=== PATIENT | male | born 1930 | race Caucasian/White ===

== ENCOUNTER 2016-12-12 12:44 | Emergency (ER) | payer OTHER ==
[~2016-12-12] VITALS: Ht 165.1 cm; Wt 64.4 kg
[~2016-12-12 12:44] MED LIST: ADVAIR 250-501 EACH INH; ALBUTEROL2.5 MG/3 M INH/SOL; ALENDRONATE SOD70 M2 PO; ASPIRIN81 M4 PO; ATORVASTATIN CA20 M1 PO; BACITRACIN28.4 GM TD; CEFTIN500 M1 PO; CIPRO500 M1 PO; DAILY MULTIPLE1 EACH PO; FOLIC ACID1 M1 PO; FUROSEMIDE20 M1 PO; GEMFIBROZIL600 M1 PO; LASIX40 M1 PO; LEVAQUIN500 M1 PO; LIDOCAINE HCL V15 ML TOP; METAMUCIL660 GM PO; METHOTREXATE2.5 M2 PO; OMEPRAZOLE20 M2 PO; PREDNISONE10 M2 PO; PREDNISONE5 M1 PO; PROAIR HFA8.5 GM INH; SPIRIVA18 MCG INH; VITAMIN D3400 UNI1 PO; VITAMIN D400 UNI2 PO; ZITHROMAX TRI-500 M1 PO; ZITHROMAX500 M2 PO
--- NOTE | 2016-12-12 13:37 | ED MVC/FALL/TRAUMA COMPLAINT ---
History of Present Illness General Chief Complaint: Fall Stated Complaint: BIBA, FALL Source: patient Exam Limitations: no limitations Vital Signs & Intake/Output Vital Signs & Intake/Output Vital Signs Date Time Temp Pulse Resp B/P Pulse O2 O2 Flow FiO2 Ox Delivery Rate 12/12 1248 96.4 58 18 130/59 95 Nasal 3.0L Cannula Allergies Coded Allergies: NO KNOWN ALLERGIES (04/23/12) Reconcile Medications Albuterol Sulfate (Proair Hfa) 8.5 GM HFA.AER.AD 2 PUF INH Q4H PRN COPD ( Reported) Albuterol Sulfate 2.5 MG/3 ML VIAL.NEB 1 Vial INH/ANKUR Q4P PRN COPD EXACERBATION Alendronate Sodium 70 MG TABLET 1 TAB PO QTHURS bone health (Reported) in the morning, at least 30 minutes before the first food, beverage, or medication of the day Aspirin (Aspirin*) 81 MG TAB.CHEW 1 TAB PO DAILY HEART HEALTH (Reported) Atorvastatin Calcium 20 MG TABLET 1 TAB PO DAILY CHOLESTEROL (Reported) Cholecalciferol (Vitamin D3) (Vitamin D) 400 UNIT TABLET 1 TAB PO DAILY SUPPLEMENT (Reported) Folic Acid 1 MG TABLET 1 TAB PO DAILY supplement (Reported) Furosemide (Lasix) 40 MG TABLET 1 TAB PO BID WATER PILL Hydrocodone/Acetaminophen ([place] 5-325 Tablet) 5 MG-325 MG TABLET 1 TAB PO Q6P PRN PAIN Levofloxacin (Levaquin) 500 MG TABLET 1 TAB PO DAILY pneumonia Multivitamin (Daily Multiple Vitamin) 1 EACH TABLET 1 TAB PO DAILY SUPPLEMENT (Reported) Omeprazole 20 MG CAPSULE.DR 1 CAP PO DAILY GI protection (Reported) Prednisone 5 MG TABLET 2 TAB PO DAILY COPD/ARTHRITIS (Reported) Psyllium Husk (Metamucil) 660 GM POWDER 1 PAC PO PRN CONSTIPATION (Reported) Tiotropium [place] (Spiriva) 18 MCG CAP.W.DEV 1 CAP INH DAILY COPD (Reported) Triage Note: PT BIBA FROM HOME. STATES HE ROLLED OUT OF BED LAST NIGHT INJURING LEFT LOWER BACK AND RIBS. PT DENIES LOC, DENIES HITTING HEAD, DENIES BLOOD THINNERS. PT IS A&O X3, O2 DEPENDENT Triage Nurses Notes Reviewed? yes HPI: Patient presents for evaluation of left rib pain status post fall. Patient states he had a sudden onset of left lateral rib pain after falling out of his bed at about 2 to 3:00 in the morning. He states he hit his left chest on a dresser. Since then he has had a constant sharp stabbing pain that gets worse with deep inspiration and palpation. He tried Tylenol without relief. He denies any associated ecchymoses soft tissue swelling or dyspnea. He denies any other injury at this time. Past History Travel History Traveled to [place] past 21 day No Medical History Any Pertinent Medical History? see below for history Neurological: NONE EENT: NONE Cardiovascular: CAD, CHF, hyperlipidemia, NSTEMI Respiratory: bronchitis, COPD, emphysema, pneumonia Gastrointestinal: colitis, hiatal hernia, peptic ulcer disease, upper GI bleed, C. 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 Other Medical Hx: SIADH History of MRSA: Yes Active MRSA Infection: No History of VRE: No History of CDIFF: Yes Active CDIFF Infection: No Isolation History: Contact Pneumonia Vaccine: 09/08/07 Influenza Vaccine: 07/31/16 Surgical History Surgical History: HIATIAL HERNIA RIGHT ROTATOR CUFF Psychosocial History Who do you live with Family Services at Home None What is your primary language Nigerien Tobacco Use: Never used ETOH Use: occasional use Illicit Drug Use: denies illicit drug use Family History Family History, If Any: MOTHER Relation not specified for: FH: diabetes mellitus Hx Contributory? No Review of Systems Review of Systems Constitutional: Reports: no symptoms. Eyes: Reports: no symptoms. Ears, Nose, Throat, Mouth: Reports: no symptoms. Respiratory: Reports: no symptoms. Cardiovascular: Reports: no symptoms. Gastrointestinal/Abdominal: Reports: no symptoms. Genitourinary: Reports: no symptoms. Musculoskeletal: Reports: see HPI. Skin: Reports: no symptoms. Neurological/Psychological: Reports: no symptoms. All Other Systems: Reviewed and Negative Physical Exam Physical Exam General Appearance: see below Comments: Gen.: Well-nourished, well-developed, no acute respiratory distress. Head: Normocephalic, atraumatic, nontender. Eyes: Normal inspection bilaterally, markel, EOMI Ears: Normal inspection bilaterally Nose: Normal inspection Throat/mouth : Moist mucosa Neck: Supple, full range of motion, no goiter, nontender Heart: Regular rate and rhythm, no murmurs rubs or gallops Lungs: Clear to auscultation bilaterally with normal air entry Chest: Left lateral rib tenderness without crepitus or subcutaneous emphysema Back: Normal range of motion, nontender Abdomen: Soft, nontender, nondistended, normal bowel sounds Pelvis: Stable and nontender Extremities: Normal range of motion grossly, no tenderness or pain with range of motion Neurologic: Cranial nerves grossly intact, speech is clear Skin: warm and dry and without ecchymoses or soft tissue swelling or erythema Psychiatric: Calm, cooperative, no apparent delusions or hallucinations Core Measures ACS in differential dx? No Severe Sepsis Present: No Septic Shock Present: No Progress Differential Diagnosis: rib fracture, chest contusion, intercostal muscle strain , pneumothorax Plan of Care: Current Medications Sig/Jorgito Start time Last Medication Dose Stop Time Status Admin Acetaminophen/ 1 TAB ONCE ONE 12/12 1500 UNVr Hydrocodone Bitart 12/12 1501 (Vicodin) Diagnostic Imaging: Discussed w/RAD: Radiology Read. Radiology Impression: PATIENT: SAPNA WERNER PRESENT AGE: 86 PATIENT ACCOUNT NO: [id number] : 32 LOCATION: [facility] ORDERING PHYSICIAN: ZACK LARSEN MD SERVICE DATE: 12/12/16 EXAM TYPE: RAD - XRY-RIBS UNILATERAL-LEFT EXAMINATION: XR RIBS, LEFT CLINICAL INFORMATION: 86- year-old male patient experienced trauma. Left lateral rib tenderness. COMPARISON: CT of the chest on 11/17/2016. Chest x-ray on 12/10/2016. TECHNIQUE: PA erect view of the chest with 3 additional views targeted to the left rib cage. A BB marker was placed at the site of symptomatology, posterior aspect of the left upper quadrant of the abdomen. FINDINGS: Linear fibrotic stranding is seen in the left upper lobe extending from the region of the hilum to the pleural reflection. This linear presumed scarring was not present on the chest x -rays of 08/21/2016 and 09/14/2016. However, there has been gradual clearing of the additional opacities in the left upper lobe apical segment. Nevertheless, the two spiculated nodules demonstrated on the recent CT exam, in the left upper lobe are difficult to perceive on the plain film. There is no pneumothorax or hemothorax. Reticular opacities in the lower lobes are felt to be chronic. Numerous old healed rib fractures involve the anterior aspects of the right ribs. An old healed rib fracture involves the anterolateral aspect of the left fifth rib. No acute rib fractures are appreciated. IMPRESSION: 1. No acute rib fractures. Multiple old healed rib fractures. 2. Linear scarring, left upper lobe. 3. The 2 spiculated nodules located in the left upper lobe demonstrated on the CT exam of 11/17/2016 are difficult to perceive on this exam. DICTATED BY: CLARISSE SMILEY MD DATE/TIME DICTATED:12/12/161426 AITCHBONE BREAKER: ISAAK DATE/TIME TRANSCRIBED:12/12/161426 CONFIDENTIAL, DO NOT COPY WITHOUT APPROPRIATE AUTHORIZATION. <Electronically signed in Other Vendor System> SIGNED BY: CLARISSE SMILEY MD 12/12/16 1441 Departure Departure Disposition: HOME OR SELF CARE Condition: Stable Clinical Impression Primary Impression: Contusion of left chest wall Qualifiers: Encounter type: initial encounter Qualified Code: S20.212A - Contusion of left front wall of thorax, initial encounter Secondary Impressions: Intercostal muscle strain Qualifiers: Encounter type: initial encounter Qualified Code: S29.011A - Strain of muscle and tendon of front wall of thorax, initial encounter Referrals: CHANTALE HUBBARD,SAPNA Manzano (PCP/Family) Additional Instructions: Rest, no exertion or heavy lifting. Vicodin as needed for pain. Follow-up with your primary care doctor next week if not improved. Return if any concerns or sudden worsening. Please note that there might be incidental findings in your evaluation that are unrelated to the current emergency department visit. Please notify your primary care doctor about this emergency department visit in order to obtain and review all of the testing performed so that these incidental findings can be monitored as needed. If you had an x-ray performed, please understand that some fractures may not be seen on the initial set of x-rays. If your symptoms persist you might need a repeat set of x-rays to check for such a fracture. If you had a laceration evaluated, please understand that foreign bodies such as glass or wood may not be visible to the naked eye or on plain x-rays. If the wound becomes red, swollen, increasingly more painful or if there is any drainage from the wound, please have it reevaluated by a physician for the possibility of a retained foreign body. Thank you for choosing the [facility] Emergency Department for your care. It was a pleasure to serve you today. Zack Larsen M.D. [facility] Departure Forms: Customer Survey General Discharge Information Prescriptions: Current Visit Scripts Hydrocodone/Acetaminophen ([place] 5-325 Tablet) 1 TAB PO Q6P PRN PAIN #12 TAB
--- NOTE | 2016-12-12 14:41 | RADIOLOGY REPORT ---
EXAMINATION: XR RIBS, LEFT CLINICAL INFORMATION: 86-year-old male patient experienced trauma. Left lateral rib tenderness. COMPARISON: CT of the chest on 11/17/2016. Chest x-ray on 12/10/2016. TECHNIQUE: PA erect view of the chest with 3 additional views targeted to the left rib cage. A BB marker was placed at the site of symptomatology, posterior aspect of the left upper quadrant of the abdomen. FINDINGS: Linear fibrotic stranding is seen in the left upper lobe extending from the region of the hilum to the pleural reflection. This linear presumed scarring was not present on the chest x-rays of 08/21/2016 and 09/14/2016. However, there has been gradual clearing of the additional opacities in the left upper lobe apical segment. Nevertheless, the two spiculated nodules demonstrated on the recent CT exam, in the left upper lobe are difficult to perceive on the plain film. There is no pneumothorax or hemothorax. Reticular opacities in the lower lobes are felt to be chronic. Numerous old healed rib fractures involve the anterior aspects of the right ribs. An old healed rib fracture involves the anterolateral aspect of the left fifth rib. No acute rib fractures are appreciated. IMPRESSION: 1. No acute rib fractures. Multiple old healed rib fractures. 2. Linear scarring, left upper lobe. 3. The 2 spiculated nodules located in the left upper lobe demonstrated on the CT exam of 11/17/2016 are difficult to perceive on this exam.
[2016-12-12] MEDS ORDERED: NORCO 5-325 TA1 EACH PO (14:57)
[2016-12-12 15:41] VITALS: BP 124/74
== END 2016-12-12 15:42 ==
LOC: ERH 12:44
DX: S20.212A Contusion of left front wall of thorax, initial encounter (principal); S29.011A Strain of muscle and tendon of front wall of thorax, initial encounter; R07.81 Pleurodynia; W06.XXXA Fall from bed, initial encounter
CPT/HCPCS: 71100-LT

== ENCOUNTER 2016-12-15 08:42 | Inpatient (IN) | payer OTHER ==
[~2016-12-15] VITALS: Ht 165.1 cm; Wt 63.0 kg
[~2016-12-15 08:42] MED LIST changes: +NORCO 5-325 TA1 EACH PO
--- NOTE | 2016-12-15 08:45 | ED DYSPNEA/ASTHMA COMPLAINT ---
History of Present Illness General Chief Complaint: Dyspnea (COPD, CHF, Other) Stated Complaint: SOB Source: patient, old records, EMS Exam Limitations: clinical condition Vital Signs & Intake/Output Vital Signs & Intake/Output Vital Signs Date Time Temp Pulse Resp B/P Pulse O2 O2 Flow FiO2 Ox Delivery Rate 12/23 1110 92 110/60 12/23 0840 Nasal 3.0L Cannula 12/23 0655 98.4 92 20 110/60 96 Nasal 3.0L Cannula 12/22 2322 97 Nasal 3.0L Cannula 12/22 2230 98.6 93 20 112/62 97 Nasal 3.0L Cannula 12/22 2122 70 122/68 12/22 1625 98 Nasal 3.0L Cannula 12/22 1614 98.4 64 20 110/54 99 12/22 1536 95 Nasal 3.0L Cannula 12/22 1414 97.4 68 20 128/60 ED Intake and Output 12/23 0000 12/22 1200 Intake Total 820 120 Output Total 925 Balance -105 120 Intake, Oral 820 120 Output, Urine 925 Allergies Coded Allergies: NO KNOWN ALLERGIES (04/23/12) Reconcile Medications Albuterol Sulfate (Proair Hfa) 8.5 GM HFA.AER.AD 2 PUF INH Q4H PRN COPD ( Reported) Albuterol Sulfate 2.5 MG/3 ML VIAL.NEB 1 Vial INH/ANKUR Q4P PRN COPD EXACERBATION Alendronate Sodium 70 MG TABLET 1 TAB PO QTHURS bone health (Reported) in the morning, at least 30 minutes before the first food, beverage, or medication of the day Aspirin (Aspirin*) 81 MG TAB.CHEW 1 TAB PO DAILY HEART HEALTH (Reported) Atorvastatin Calcium 20 MG TABLET 1 TAB PO DAILY CHOLESTEROL (Reported) Cholecalciferol (Vitamin D3) (Vitamin D) 400 UNIT TABLET 1 TAB PO DAILY SUPPLEMENT (Reported) Fluticasone/Salmeterol (Advair 250-50 Diskus) 250 MCG-50 MCG/DOSE BLST.W.DEV 1 PUF INH BID BREATHING PROBLEMS (Reported) Folic Acid 1 MG TABLET 1 TAB PO DAILY supplement (Reported) Furosemide (Lasix) 40 MG TABLET 1 TAB PO DAILY CHF Meropenem 1 GRAM VIAL 1 GM IV Q8H PNEUMONIA Multivitamin (Daily Multiple Vitamin) 1 EACH TABLET 1 TAB PO DAILY SUPPLEMENT (Reported) Omeprazole 20 MG CAPSULE.DR 1 CAP PO DAILY GI protection (Reported) Prednisone 5 MG TABLET 2 TAB PO DAILY COPD/ARTHRITIS (Reported) Prednisone 10 MG TABLET 1 TAB PO SEE ADMIN CRITERIA COPD /RHEUMATOID ARTHRITIS take 2 pills x 2 days then continue with 1 pill(1 tab ) daily for RA Psyllium Husk (Metamucil) 660 GM POWDER 1 PAC PO PRN CONSTIPATION (Reported) Tiotropium [place] (Spiriva) 18 MCG CAP.W.DEV 1 CAP INH DAILY COPD (Reported) Triage Nurses Notes Reviewed? yes Onset: Abrupt Duration: hour(s): (E), worse persistent since (THIS MORNING) Timing: single episode today Severity: severe Activities at Onset: none Associated Symptoms: cough, wheezing, SPUTUM HPI: This is an 86-year-old male with history of COPD, CHF and presents by EMS from home for respiratory distress. Patient states that the symptoms started this morning. He admits to cough with yellow phlegm for a few days. Denies any fever chills or chest pain. He was given a DuoNeb and IV Solu-Medrol on route. Patient presents tachypneic, tachycardic in respiratory distress with use of accessory muscles. Able to only give one word answers at this time. ED Sepsis Exam Date of Focused Sepsis Exam: 12/15/16 Time of Focused Sepsis Exam: 1001 Sepsis Cardiac Exam: Tachycardia Sepsis Resp Exam: Rales Sepsis Cap Refill Exam: <2 Sec Sepsis Peripheral Pulse Exam: Weak Sepsis Peripheral Pulse Location: Radial Sepsis Skin Color Exam: Cyanotic Skin Temp/Moisture Exam: Cool/Dry Past History Medical History Any Pertinent Medical History? see below for history Neurological: NONE EENT: NONE Cardiovascular: CAD, CHF, hyperlipidemia, NSTEMI Respiratory: bronchitis, COPD, emphysema, pneumonia Gastrointestinal: colitis, hiatal hernia, peptic ulcer disease, upper GI bleed, C. 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 No Review of Systems Review of Systems Constitutional: Denies: chills, fever. EENTM: Reports: no symptoms. Respiratory: Reports: cough, short of breath, sputum production, wheezing. Cardiovascular: Denies: chest pain, palpitations. GI: Denies: abdominal pain, nausea, vomiting. Genitourinary: Denies: discharge, dysuria. Musculoskeletal: Reports: no symptoms. Skin: Reports: see HPI. Neurological/Psychological: Reports: anxiety. Hematologic/Endocrine: Denies: bruising, bleeding, polyuria, polydipsia. Immunologic/Allergic: Denies: splenectomy. All Other Systems: Reviewed and Negative Physical Exam Physical Exam General Appearance: well developed/nourished, alert, awake Head: atraumatic, normal appearance Eyes: Bilateral: normal appearance, PERRL, pale conjunctivae. Ears, Nose, Throat: normal pharynx Neck: normal inspection, supple, full range of motion Respiratory: decreased breath sounds, accessory muscle use, wheezing, respiratory distress Cardiovascular: tachycardia Peripheral Pulses: 2+ radial (R), 2+ radial (L) Extremities: normal inspection, normal capillary refill, normal range of motion, no edema Neurologic/Psych: awake, alert, ANXIOUS Skin: intact, normal color, warm/dry Core Measures ACS in differential dx? No Severe Sepsis Present: No Septic Shock Present: No Progress Differential Diagnosis: AMI, CHF, COPD, pericarditis, pulmonary embolism, pneumothorax Plan of Care: Orders Procedure Date/time Status Therapeutic Activities 12/23 UNK Complete Gait Training 12/23 UNK Complete Discharge Patient 12/23 UNK Active CHEST PHYSICAL THERAPY CHG 12/22 UNK Complete AEROSOL CHG 12/22 UNK Complete OXYGEN 12/22 UNK Complete OXYGEN DAILY CHARGE 12/22 UNK Complete MISSING MEDICATION FORM 12/22 UNK Active Current Medications Sig/Jorgito Start time Last Medication Dose Stop Time Status Admin Prednisone 20 MG DAILY 12/24 1000 AC Magnesium Hydroxide 30 ML ONE PRN 12/18 0745 AC (Milk Of Magnesia) Senna/Docusate Sodium 1 TAB BID PRN 12/18 0745 AC (Senokot S) Hydromorphone HCl 0.5 MG Q4P PRN 12/17 0815 AC (Dilaudid) Albuterol Sulfate 2 PUF Q4H PRN 12/15 1200 AC (Ventolin) Albuterol Sulfate 3 ML Q4P PRN 12/15 1200 AC (Proventil) Psyllium Hydrophilic 1 PAC BID PRN 12/15 1200 AC Mucilloid (Metamucil Sugar Free) Laboratory Tests 12/23/16 0845: Anion Gap 4 L, Estimated GFR > 60, BUN/Creatinine Ratio 28.8 H, CBC w Diff NO MAN DIFF REQ, RBC 3.91 L, MCV 82.6, MCH 27.3, RDW 18.5 H, MPV 7.0 L, Gran % 69.3, Lymphocytes % 25.3, Monocytes % 4.5, Eosinophils % 0.6, Basophils % 0.3, Absolute Granulocytes 7.1 H, Absolute Lymphocytes 2.6, Absolute Monocytes 0.5, Absolute Eosinophils 0.1, Absolute Basophils 0, PUBS MCHC 33.0 Diagnostic Imaging: Viewed by Me: Radiology Read. Discussed w/RAD: Radiology Read. CXR Impression: PATIENT: SAPNA WERNER PRESENT AGE: 86 PATIENT ACCOUNT NO: [id number] : 32 LOCATION: [facility] ORDERING PHYSICIAN: ABRAHAN COOL MD SERVICE DATE: 12/15/16 EXAM TYPE: RAD - XRY-PORTABLE CHEST XRAY EXAMINATION: XR PORTABLE CHEST CLINICAL INFORMATION: Dyspnea. Labored breathing. Rule out congestive heart failure. COMPARISON: Chest x-ray of 2016, 12/10/2016, 11/12/2016. CT chest 11/17/2016. TECHNIQUE: Semiupright portable AP view of the chest was acquired at 70 degrees upright. FINDINGS: The lungs are hyperinflated. Diffuse emphysematous changes are better seen on the chest CT. There are new patchy and interstitial opacities at the right lung base. No significant pleural effusions or pneumothorax. No evidence of changes of overt pulmonary edema. There are bilateral healed rib fractures. The cardiomediastinal silhouette is stable with cardiomegaly. IMPRESSION: 1. Changes of emphysema. 2. New patchy and interstitial opacities at the right lung base. 3. Cardiomegaly. No evidence of changes of overt pulmonary edema. DICTATED BY: DARSHANA HUBBARD,ANAL DATE/TIME DICTATED:12/15/16951 ELECTRICAL SIGN WIRER HELPER:ISAAK DATE/TIME TRANSCRIBED:12/15/16 0952 CONFIDENTIAL, DO NOT COPY WITHOUT APPROPRIATE AUTHORIZATION. <Electronically signed in Other Vendor System> SIGNED BY: IRA GILLILAND MD 12/15/16 1008 Initial ED EKG: SINUS TACHYCARDIA Rhythm Strip: sinus tachycardia Departure Departure Time of Disposition: 1017 Disposition: STILL A PATIENT Condition: Stable Clinical Impression Primary Impression: Pneumonia Secondary Impressions: Elevated troponin, Respiratory failure with hypoxia Referrals: CHANTALE HUBBARD,SAPNA Manzano (PCP/Family) Departure Forms: Customer Survey General Discharge Information Prescriptions: Current Visit Scripts Furosemide (Lasix) 1 TAB PO DAILY #30 TAB Ref 2 Prednisone 1 TAB PO SEE ADMIN CRITERIA #30 TAB take 2 pills x 2 days then continue with 1 pill(1 tab ) daily for RA Meropenem 1 GM IV Q8H 3 Days Admission Note Spoke With: YEVGENIY ROBLES MD Documentation of Exam: Documentation of any treatments & extenuating circumstances including Concerns Regarding Discharge (functional status, medication knowledge or non-compliance, living conditions, etc.) that warrant an admission rather than observation: [ TELE MONITOR, BIPAP, TRC/NEBS, IV STEROIDS, IV ABX, RESPIRATORY CONSULT, CARDIOLOGY CONSULTATION] Critical Care Note Critical Care Note Critical Care Time: 75-104 min
--- NOTE | 2016-12-15 08:45 | NUR ---
86 YO MALE BIBA FROM HOME FOR C/O SOB. PT HAS COUGH WITH SAT'S IN THE 70'S. PT IS CURRENTLY ON 02 3L VIA MI PER HIS NORM. PT RECIEVED NEB TREATMENTS ON ROUTE ONE DUO AND ONE ALBUTEROL AND 125MG OF SOLUMEDROL.
[2016-12-15] MEDS ORDERED: ADVAIR 250-501 EACH INH (09:04)
--- NOTE | 2016-12-15 09:08 | NUR ---
IV ESTABLISHED, PT GIVEN 40 MG IV LASIX. 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 RT AT BEDSIDE FOR BIPAP. PT NOW SATING 97% ON BIPAP. EKG DONE AND SHOWN TO DR COOL. JENNIFER ISAAC AT BEDSIDE FOR LABS. URINAL PLACED AT BEDSIDE
--- NOTE | 2016-12-15 09:23 | NUR ---
LABS DRAWN AND SENT BY THIS [facility] BLUE, SST X2, LAV X2, PINK, OBREGON 1ST SET OF CULTURES
[2016-12-15 09:30] LABS: ABSOLUTE BASOPHIL COUNT 0 /CUMM (0.0-0.2); ABSOLUTE EOSINOPHIL COUNT 0 /CUMM (0.0-0.7); ABSOLUTE GRANULOCYTE CT 0 /CUMM (1.4-6.5); ABSOLUTE LYMPH COUNT 1.1 /CUMM (1.2-3.4); ABSOLUTE MONOCYTE COUNT 0.4 /CUMM (0.10-0.60); BASOPHIL % 1.3 % (0.0-2.0); EOSINOPHIL % 1.2 % (0-5); HEMATOCRIT 36.8 % (42-52); MEAN CORPUSCULAR HGB 27.1 PG (27.0-31.0); MEAN CORPUSCULAR HGB CONC 33.5 G/DL (33.0-37.0); MEAN CORPUSCULAR VOLUME 80.9 FL (80.0-94.0); MEAN PLATELET VOLUME 6.5 FL (7.4-10.4); PLATELET COUNT 131 /CUMM (130-400); RBC DISTRIBUTION WIDTH 17.6 % (11.5-14.5); RED BLOOD CELL CT 4.55 /CUMM (4.70-6.10); WHITE BLOOD CELL COUNT 1.6 /CUMM (4.8-10.8)
[2016-12-15 09:36] LABS: GRANULOCYTE % 2.5 % (42.2-75.2)
[2016-12-15 09:38] LABS: PT 9.9 SEC (9.4-12.5); PTT 27 SEC (25-37)
--- NOTE | 2016-12-15 09:55 | NUR ---
PT NOTED TO BE BREATHING MUCH EASIER ON BIPAP. 02 95%
--- NOTE | 2016-12-15 10:08 | RADIOLOGY REPORT ---
EXAMINATION: XR PORTABLE CHEST CLINICAL INFORMATION: Dyspnea. Labored breathing. Rule out congestive heart failure. COMPARISON: Chest x-ray of 12/12/2016, 12/10/2016, 11/12/2016. CT chest 11/17/2016. TECHNIQUE: Semiupright portable AP view of the chest was acquired at 70 degrees upright. FINDINGS: The lungs are hyperinflated. Diffuse emphysematous changes are better seen on the chest CT. There are new patchy and interstitial opacities at the right lung base. No significant pleural effusions or pneumothorax. No evidence of changes of overt pulmonary edema. There are bilateral healed rib fractures. The cardiomediastinal silhouette is stable with cardiomegaly. IMPRESSION: 1. Changes of emphysema. 2. New patchy and interstitial opacities at the right lung base. 3. Cardiomegaly. No evidence of changes of overt pulmonary edema.
--- NOTE | 2016-12-15 10:10 | NUR ---
CRITICAL TEST RESULTS [id number] SAPNA WERNER 86 M TESTS AND RESULTS: LACTIC ACID 2.1 Results received and read back by: DAMARIS MCNEIL Results received date and time: 12/15/16 1011 The following provider was notified of the results, and read the results back: DR COOL Notified date and time: 12/15/16 at 1000
--- NOTE | 2016-12-15 10:11 | NUR ---
CRITICAL TEST RESULTS [id number] SAPNA WERNER 86 M TESTS AND RESULTS: TROPONIN 0.12 Results received and read back by: DAMARIS MCNEIL Results received date and time: 12/15/16 1011 The following provider was notified of the results, and read the results back: DR COOL Notified date and time: 12/15/16 at 1012
--- NOTE | 2016-12-15 10:51 | History & Physical ---
VALDO SHANKS 12/15/16 1051: General Information and HPI MD Statement: I have seen and personally examined SAPNA WERNER and documented this H&P. The patient is a 86 year old M who presented with a patient stated chief complaint of [DYSPNEA]. Source of Information: patient, old records, EMS Exam Limitations: no limitations History of Present Illness: The patient is an 86-year-old male, presented with dyspnea. 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 Patient lives with his and daughters family. Up until this morning he has been at his normal state of health, when suddenly became dyspnic and agitated. He used his O2 and INH albuterol incraesingly with minimal relieve. This morning , w/o any preceding event, he started struggling with his breathing and he decided to come to the emergency department for further evaluation. In the emergency department initially he He was immediately put on BiPAP which helped with the breathing. Patient denies any episodes of chest pain, leg swelling, palpitations, or diaphoresis.He denies any fever, chills, CP, palpitation.He has been compliant with his medications and O2, BiPaP and also followed his low salt diet for the past days. Allergies/Medications Allergies: Coded Allergies: NO KNOWN ALLERGIES (04/23/12) Home Med list Albuterol Sulfate (Proair Hfa) 8.5 GM HFA.AER.AD 2 PUF INH Q4H PRN COPD ( Reported) Albuterol Sulfate 2.5 MG/3 ML VIAL.NEB 1 Vial INH/ANKUR Q4P PRN COPD EXACERBATION Alendronate Sodium 70 MG TABLET 1 TAB PO QTHURS bone health (Reported) in the morning, at least 30 minutes before the first food, beverage, or medication of the day Aspirin (Aspirin*) 81 MG TAB.CHEW 1 TAB PO DAILY HEART HEALTH (Reported) Atorvastatin Calcium 20 MG TABLET 1 TAB PO DAILY CHOLESTEROL (Reported) Cholecalciferol (Vitamin D3) (Vitamin D) 400 UNIT TABLET 1 TAB PO DAILY SUPPLEMENT (Reported) Fluticasone/Salmeterol (Advair 250-50 Diskus) 250 MCG-50 MCG/DOSE BLST.W.DEV 1 PUF INH BID BREATHING PROBLEMS (Reported) Folic Acid 1 MG TABLET 1 TAB PO DAILY supplement (Reported) Furosemide (Lasix) 40 MG TABLET 1 TAB PO BID WATER PILL Multivitamin (Daily Multiple Vitamin) 1 EACH TABLET 1 TAB PO DAILY SUPPLEMENT (Reported) Omeprazole 20 MG CAPSULE.DR 1 CAP PO DAILY GI protection (Reported) Prednisone 5 MG TABLET 2 TAB PO DAILY COPD/ARTHRITIS (Reported) Psyllium Husk (Metamucil) 660 GM POWDER 1 PAC PO PRN CONSTIPATION (Reported) Tiotropium Monrovia (Spiriva) 18 MCG CAP.W.DEV 1 CAP INH DAILY COPD (Reported) Compliance With Home Meds: GOOD Past History Travel History Traveled to [place] past 21 day No Medical History Neurological: NONE EENT: NONE Cardiovascular: CAD, CHF, hyperlipidemia, NSTEMI Respiratory: bronchitis, COPD, emphysema, pneumonia Gastrointestinal: colitis, hiatal hernia, peptic ulcer disease, upper GI bleed, C. 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 spouse Services at Home: None Primary Language: Micronesian ETOH Use: denies use Illicit Drug Use: denies illicit drug use Living Will? yes Power of Back Hand/HCP? yes Name of POA/HCP: Review of Systems Review of Systems Constitutional: Reports: see HPI, weakness. Denies: no symptoms, chills, diaphoresis, fever, malaise, unexplained weight loss. EENTM: Reports: see HPI. Denies: no symptoms, blurred vision, double vision, eye pain, eye drainage, eye tearing, icterus, ear discharge, ear pain, ear redness, hearing changes, nasal congestion, epistaxis, nasal pain, throat pain, throat swelling, mouth pain, tooth pain. Cardiovascular: Denies: chest pain, edema, orthopena, palpitations, peripheral edema, syncope. Respiratory: Reports: see HPI, cough, sputum production. Denies: hemoptysis, orthopnea, short of breath, stridor, wheezing. GI: Reports: see HPI, constipation. Genitourinary: Denies: discharge, dysuria, frequency, hematuria, hesitation, nocturia, pain, urgency. Musculoskeletal: Denies: back pain, gout, joint pain, joint swelling, muscle pain, muscle stiffness, neck pain. Skin: Denies: cysts, change in skin color, change in hair/nails, dryness, erythema, jaundice, lesions, lymphangitis, lumps, moles, rash. Neurological/Psychological: Denies: anxiety, ataxia, cognitive dysfunction, confusion, depressed, dementia, emotional problems, headache, numbness, paresthesia, pre-existing deficit, petit mal seizures, tingling, tremors, tonic-clonic seizures, unable to move lower ext , unable to move upper ext, weakness, other. Hematologic/Endocrine: Denies: bruising, bleeding, polyuria, polydipsia, other. Immunologic/Allergic: Reports: see HPI. Denies: splenectomy, HIV/AIDS, lymphadenopathy, other. All Other Systems: Reviewed and Negative Exam & Diagnostic Data Last 24 Hrs of Vital Signs/I&O Vital Signs Date Time Temp Pulse Resp B/P Pulse O2 O2 Flow FiO2 Ox Delivery Rate 12/15 1020 99.9 100 24 118/64 98 BIPAP 12/15 0900 112 95 12/15 0846 100.2 120 28 133/86 Non 6.0L ReBreather Intake & Output 12/15 1600 12/15 0800 12/15 0000 Intake Total Output Total Balance Patient 144 lb Weight Physical Exam General Appearance Alert, Oriented X3, Cooperative, Mild Distress Skin No Rashes, No Breakdown HEENT Atraumatic, PERRLA, EOMI, mucous membrane Neck Supple, No JVD Lymphatic Axillary nl, Cervical nl Cardiovascular Normal S1, Normal S2, No Murmurs Lungs Clear to Auscultation, Normal Air Movement Abdomen Normal Bowel Sounds, Soft, No Tenderness Extremities No Clubbing, No Cyanosis, No Edema, Normal Pulses, No Tenderness/ Swelling Vascular Normal Pulses, Pulses Symmetrical Breasts Breast appear nl, No breast discharge, No breast masses Last 24 Hrs of Labs/Edd: Laboratory Tests 12/15/16 1020: pH 7.53 H, pCO2 38, pO2 105 H, HCO3 31 H, ABG O2 Sat (Measured) 97.0, P-50 ( Temp Corrected) N, Carboxyhemoglobin 0.3 L, O2 Concentration % 35%, Respiration Rate 24, O2 Delivery Method BIPAP, Vent Mode ST, Expiratory Pressure 6, Inspiratory Pressure 20, Phlebotomy Draw Site RIGHT RADIAL 12/15/16 09: Lactic Acid 2.1 12/15/16 0920: Anion Gap 8, Estimated GFR > 60, BUN/Creatinine Ratio 20.0, Glucose 154 H, Calcium 8.6, Total Bilirubin 0.8, AST 21, ALT 26, Alkaline Phosphatase 102, Troponin I 0.12 *H, Ibt-I-Dtfgmmhnjvt Pept 2320 H, Total Protein 6.7, Albumin 3.5, Globulin 3.2, Albumin/Globulin Ratio 1.1, PT 9.9, INR 0.94, APTT 27, CBC w Diff MAN DIFF ORDERED, RBC 4.55 L, MCV 80.9, MCH 27.1, RDW 17.6 H, MPV 6.5 L, Gran % 2.5 L, Lymphocytes % 68.6 H, Monocytes % 26.4 H, Eosinophils % 1.2, Basophils % 1.3, Absolute Granulocytes 0 L, Segmented Neutrophils 4 L, Absolute Lymphocytes 1.1 L, Lymphocytes 71 H, Monocytes 23 H, Absolute Monocytes 0.4, Eosinophils 2, Absolute Eosinophils 0, Absolute Basophils 0, Platelet Estimate ADEQUATE, Poikilocytosis FEW, Anisocytosis 1+, PUBS MCHC 33.5 Microbiology 12/15 937 BLOOD: Blood Culture - RECD 12/15 919 BLOOD: Blood Culture - RECD Diagnostic Data EKG Results sinus tachycardia [address] t segment change CXR Results The lungs are hyperinflated. Diffuse emphysematous changes are better seen on the chest CT. There are new patchy and interstitial opacities at the right lung base. No significant pleural effusions or pneumothorax. No evidence of changes of overt pulmonary edema. There are bilateral healed rib fractures. The cardiomediastinal silhouette is stable with cardiomegaly Assessment/Plan Assessment: 86-year-old male with a past medical history of COPD on 2 L of oxygen, T-cell lymphoproliferative disorder, as rheumatoid arthritis, COPD who presented to the [facility] with incraesing SOB of sudden onsetand found to have elevated troponinan d Pro-BNP. Labs Hemoglobin of 12.3, WBC of 1.6 w/ ANC zero, lactate of 2.1, troponin of 0.12, sodium of 134. K:4.1, Pro-BNP:2320 Patient's chest x-ray: cardiomegaly, and new right basilar infiltrate Assessment list of problems 1) acute respiratory distress+ new infiltration on CXR and ANC<500 2) elevated troponin w/o ischemic changes in EKG; possibly demand 3) elevated Pro-BNP mostly due to demand 2/2 to pneumonia 4) Leukopenia Plan #elevated troponin w/o ischemic changes in EKG; possibly demand Admit to telemetry floor for continuous pulse oximetry Trend troponin and ekg Q6 X3 cardiology consult Restrict I/Os Gentle IV Hydartion; Nlsaline 100 ml /h Continue PO lasix Consult director skills #acute respiratory distress new infiltration on CXR and ANC<500 Blood cultures 2 sent to the emergency department sputum cultures Strep and Legionela urinary antigen IV ceftazidime and IV vancomycin for extenssive Gram negative and G+ coverage No need for IV Solu-Medrol at this point; unless patient detoriaorates Continue Spiriva 18 mcg 1 puff daily Continue Albuterol INH 3 Ml Q4 as needed TRC/NEB as needed patient is not on nocturnal bipap #Rheumatoid arthritis Continue with by mouth prednisone 10 mg daily #T-CELL LYMPHOPROLIFERATIVE and Chronic Leukopenia Start the patient On Neupogen per hematology recommendation Consult Hematology #CONSTIPATION MIRALAX POWDER NEEDED DOCUSATED SUPP NEEDED #DVT prophylaxis s/q lovenox DNR/DNI As Ranked By This Provider Problem List: 1. Elevated troponin 2. Intercostal muscle strain 3. Neutropenia 4. Pneumonia 5. Leukopenia 6. DNI (do not intubate) 7. DNR (do not resuscitate) 8. DVT prophylaxis 9. Acute respiratory failure with hypoxia Core Measures/Miscellaneous Acute Coronary Syndrome ACS Diagnosis: No Cerebrovascular Accident CVA/TIA Diagnosis: No Congestive Heart Failure CHF Diagnosis: Yes Venous Thromboembolism VTE Risk Factors: Acute medical illness, Age > 40, CHF or Resp failure VTE Prophylaxis Ordered Inpt: Mech & Pharm No Mech VTE prophylaxis d/t: No contraindications No VTE Pharm Prophylaxis d/t: No contraindications VTE Diagnosis: No VTE Type: NONE VTE Confirmed by (Test): NONE Severe Sepsis Severe Sepsis Present: No Septic Shock Septic Shock Present: No Miscellaneous Documentation Attending Case Discussed With: AKMAR HUBBARD,OMEGA Bradley Primary Care Physician: SAPNA KENYON MD 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 lymphoproliferative disorder versus myelodysplastic syndrome and neutropenia. He came in with acute hypoxemic respiratory failure with a sat of 70% and an ABG showing a PO2 105 and 35% BiPAP. In the ER he was treated with Lasix, steroids antibiotics and nebulizers. Clinically he looks euvolemic and I don't think he is in heart failure nor do I think that he has an acute COPD exacerbation. I'm most worried about is that he is neutropenic and has infiltrates on chest x-ray. These infiltrates are different from what was documented in his October admission. Given that his absolute neutrophil count appears to be less than 200 , I think we have to cover him with vancomycin and Ceftaz for a suspected MRSA and gram-negative pneumonia. I'll have ID involved to help us with the choice of antibiotics. Official onc consult as I think he will need Neupogen. We'll continue his by mouth prednisone, continue his Lasix, continue his noninvasive positive pressure ventilation, put him on DVT prophylaxis and follow closely.
--- NOTE | 2016-12-15 11:13 | NUR ---
RESIDENT MD MCKEON AT BEDSIDE FOR EVALUATION. PT CONTINUES TO BREATHE EASIER
--- NOTE | 2016-12-15 11:56 | NUR ---
PT STATES THAT HE FELL 3-4 DAYS AGO BRUISING RIGHT RIBS. DENIES LOC. DR COOL AWARE
--- NOTE | 2016-12-15 12:19 | NUR ---
PT TO CT SCAN
--- NOTE | 2016-12-15 13:27 | Admission Certification ---
Admission Certification Certification Statement - As attending physician, I certify that at the time of - admission, based on clinical presentation, severity of - symptoms, need for further diagnostic testing and - therapeutic interventions, and risk of adverse outcomes - without in-hospital treatment, in my clinical assessment, - this patient requires an acute hospital stay for a minimum - of two nights or longer. I have also considered psychsocial - factors such as support system, advanced age, financial - issues, cognitive issues, and failed out-patient treatments, - past re-admission history, safety of patient, and lack of - compliance as applicable. Specific rationale supporting this admission is: Shortness of breath and acute hypoxemic respiratory failure in patient with severe neutropenia.
--- NOTE | 2016-12-15 13:33 | NUR ---
PT GIVEN LUNCH TRAY
--- NOTE | 2016-12-15 14:48 | NUR ---
PHARMACY CALLED FOR MEDS
--- NOTE | 2016-12-15 14:55 | NUR ---
PT MEDEICATED DOCUMENTED IN EMAR
--- NOTE | 2016-12-15 15:00 | NUR ---
DINNER TRAY ORDERED
--- NOTE | 2016-12-15 15:16 | NUR ---
PT CARE ASSUMED BY THIS RN. OFFERS NO COMPLAINTS AT THIS TIME. NURSING WILL CONTINUE TO MONITOR.
--- NOTE | 2016-12-15 15:54 | NUR ---
CRITICAL TEST RESULTS [id number] SAPNA WERNER 86 M TESTS AND RESULTS: TROPONIN 2.83 Results received and read back by: PHYLICIA PAYNE Results received date and time: 12/15/16 1551
--- NOTE | 2016-12-15 15:57 | CT SCAN REPORT ---
EXAMINATION: CT CHEST WITHOUT CONTRAST CLINICAL INFORMATION: Left-sided rib pain/bruising. Status post fall last week. Evaluate for rib fracture. COMPARISON: Chest x-ray dated 12/15/2016. CTA of the chest dated 11/17/2016. CT scan of the chest dated 09/15/2016 and 04/24/2012. TECHNIQUE: Multidetector volumetric CT imaging of the chest was obtained noncontrast. Sagittal and coronal reformations were obtained. DLP: 172.68 mGy-cm FINDINGS: LUNGS: There is moderate centrilobular and paraseptal emphysema seen. 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 Continued irregular patchy and pleural-based reticular nodular opacities are seen in the left upper lobe, demonstrating slight improvement when compared to 11/17/2016. There is dependent ground-glass opacity and increased reticular opacity seen in the right lower lobe and to a lesser extent in the left lower lobe, progressive when compared to the prior exams, suggesting intercurrent infection/aspiration/atelectasis. No pleural effusion is seen. The central airways are all thickened and remain patent. LYMPHOVASCULAR STRUCTURES: Aortic and heart size normal. No pericardial effusion. Moderate coronary artery calcifications are noted. No mediastinal, hilar or axillary adenopathy or free fluid collection. THYROID GLAND: Unremarkable to the extent included. CHEST WALL: There are bilateral retroglandular densities seen, consistent with gynecomastia, unchanged dating back to at least 04/23/2012. UPPER ABDOMEN: Small retrocardiac hiatal hernia is seen. Pancreas is atrophic with some fatty infiltration in the pancreatic head seen, unchanged. An approximately 2 cm diameter calcified mass is seen within the gallbladder, only incompletely included, likely a gallstone. The spleen is borderline enlarged, measuring 13.2 cm longitudinally, unchanged. Included portions of the solid organs in the upper abdomen within normal limits. BONES: Bilateral old healed fractures of the ribs are seen. No acute rib fracture noted. There is a prominent thoracic kyphoscoliosis with multilevel advanced degenerative changes. Loss in height of mid and lower thoracic vertebral bodies is again noted, unchanged. No suspicious focal findings. IMPRESSION: 1. Several bilateral old healed fracture deformities of the ribs are seen. No new/acute rib fracture is noted. 2. 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 Superimposed progressive patchy ground-glass and parenchymal opacities are seen in both lower lobes, suspicious for superimposed airspace disease, such as pneumonia, aspiration or less likely atelectasis. Clinical correlation requested. 3. Persistent though improving parenchymal opacities in the left upper lobe, suggesting an inflammatory/infectious etiology to previously seen left upper lobe findings. Continued followup is recommended in 3 months to document complete resolution of findings. 4. Small retrocardiac hiatal hernia. 5. Probable small calcified gallstone in the gallbladder, incompletely seen. 6. Gynecomastia.
--- NOTE | 2016-12-15 16:07 | NUR ---
TROPONIN 2.83 REPORTED TO MD SHANKS, NO NEW ORDERS AT THIS TIME.
--- NOTE | 2016-12-15 16:37 | NUR ---
[facility] ASSIGNMENT [phone]
--- NOTE | 2016-12-15 16:41 | Cons- Infect Disease ---
General Information and HPI Consulting Request Date of Consult: 12/15/16 Requested By: OMEGA GALVIN MD Reason for Consult: Fever/neutropenia Source of Information: patient, old records History of Present Illness: This is an 86-year-old man with a presumptive diagnosis of T-cell lymphoproliferative disorder, with chronic neutropenia, treated in the past with Chlorambucil, prednisone and Neupogen, rheumatoid arthritis, treated in the past with Methotrexate and currently with prednisone 10 mg daily, COPD, maintained on up to 3 L of oxygen at home, status post several recent hospitalizations for fever and neutropenia, attributed to pneumonia, most recently one month prior to admission, at which CT of the chest revealed new left upper lobe densities, treated with Neupogen, with an increase in his white blood cell count, and Ceftazidime, discharged on Levaquin to complete a two-week course of antibiotics , with the sputum culture positive for mold, seen in the ER 3 days prior to admission after falling out of bed, injuring his left chest, found to be afebrile with rib x-rays negative for fractures, admitted today after presenting to the emergency room with the acute onset of shortness of breath upon awakening this morning. On arrival he had a temperature 100.2 with O2 sats in the 70s. Laboratory data revealed a white blood cell count of 1.6, with 0 neutrophils, BUN/creatinine 16 and 0.8, with normal liver enzymes. ABG 7.53/38/105 on 35% BiPAP. Chest x-ray revealed new patchy and interstitial opacities of the right lung base. He was given 1 dose of Solumedrol, IV Lasix and begun on Vancomycin and Ceftazidime. Presently he feels comfortable with no complaints. He does report a productive cough, but denies any chest pain and has no other complaints. Allergies/Medications Allergies: Coded Allergies: NO KNOWN ALLERGIES (04/23/12) Home Med List: Albuterol Sulfate (Proair Hfa) 8.5 GM HFA.AER.AD 2 PUF INH Q4H PRN COPD ( Reported) Albuterol Sulfate 2.5 MG/3 ML VIAL.NEB 1 Vial INH/ANKUR Q4P PRN COPD EXACERBATION Alendronate Sodium 70 MG TABLET 1 TAB PO QTHURS bone health (Reported) in the morning, at least 30 minutes before the first food, beverage, or medication of the day Aspirin (Aspirin*) 81 MG TAB.CHEW 1 TAB PO DAILY HEART HEALTH (Reported) Atorvastatin Calcium 20 MG TABLET 1 TAB PO DAILY CHOLESTEROL (Reported) Cholecalciferol (Vitamin D3) (Vitamin D) 400 UNIT TABLET 1 TAB PO DAILY SUPPLEMENT (Reported) Fluticasone/Salmeterol (Advair 250-50 Diskus) 250 MCG-50 MCG/DOSE BLST.W.DEV 1 PUF INH BID BREATHING PROBLEMS (Reported) Folic Acid 1 MG TABLET 1 TAB PO DAILY supplement (Reported) Furosemide (Lasix) 40 MG TABLET 1 TAB PO BID WATER PILL Multivitamin (Daily Multiple Vitamin) 1 EACH TABLET 1 TAB PO DAILY SUPPLEMENT (Reported) Omeprazole 20 MG CAPSULE.DR 1 CAP PO DAILY GI protection (Reported) Prednisone 5 MG TABLET 2 TAB PO DAILY COPD/ARTHRITIS (Reported) Psyllium Husk (Metamucil) 660 GM POWDER 1 PAC PO PRN CONSTIPATION (Reported) Tiotropium [place] (Spiriva) 18 MCG CAP.W.DEV 1 CAP INH DAILY COPD (Reported) Past History Travel History Traveled to [place] past 21 day No Medical History Neurological: NONE EENT: NONE Cardiovascular: CAD, CHF, hyperlipidemia, NSTEMI Respiratory: bronchitis, COPD, emphysema, pneumonia Gastrointestinal: colitis, hiatal hernia, peptic ulcer disease, upper GI bleed, C. 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 spouse Services at Home: None Primary Language: Omani ETOH Use: denies use Illicit Drug Use: denies illicit drug use Living Will? yes Power of Gasket Former/HCP? yes Name of POA/HCP: Review of Systems Review of Systems Constitutional: Denies: chills, fever. GI: Reports: constipation. Genitourinary: Reports: no symptoms. All Other Systems: Reviewed and Negative Exam & Diagnostic Data Last 24 Hrs of Vital Signs/I&O Vital Signs Date Time Temp Pulse Resp B/P Pulse O2 O2 Flow FiO2 Ox Delivery Rate 12/15 1503 96.7 94 18 104/58 98 Nasal 3.0L Cannula 12/15 1300 98.5 98 20 122/78 96 Nasal 3.0L Cannula 12/15 1207 98 96 12/15 1157 98.9 100 18 112/75 95 Nasal 3.0L Cannula 12/15 1020 99.9 100 24 118/64 98 BIPAP 12/15 0920 96 BIPAP 35% 12/15 0900 112 95 12/15 0846 100.2 120 28 133/86 Non 6.0L ReBreather Intake & Output 12/15 1600 12/15 0800 12/15 0000 Intake Total Output Total 200 Balance -200 Output, Urine 200 Patient 144 lb Weight Physical Exam Other Physical Findings: He is awake and alert in no acute distress. MAXIMUM TEMPERATURE 100.2. Skin reveals no rash. HEENT exam is negative. Neck is supple with no adenopathy. Lungs rhonchi with crackles at the right base. Heart regular rhythm with no murmur. Abdomen is soft, nontender with positive bowel sounds. Back no CVA tenderness. Extremities bilateral lower extremity edema, right greater than left. Neuro is without focality. Last 24 Hours of Lab Results: Laboratory Tests 12/15 12/15 12/15 12/15 1457 1154 1020 0920 Blood Gas pH (7.35 - 7.45 PH) 7.53 H pCO2 (35 - 45 TORR) 38 pO2 (80 - 100 TORR) 105 H HCO3 (21 - 28 MEQ/L) 31 H ABG O2 Sat (Measured) (>96.0 %) 97.0 P-50 (Temp Corrected) N Carboxyhemoglobin (1.5 - 5.0 %) 0.3 L O2 Concentration % 35% Respiration Rate (BPM) 24 O2 Delivery Method BIPAP Vent Mode ST Expiratory Pressure (CM H2O P) 6 Inspiratory Pressure (CM H2O P) 20 Chemistry Lactic Acid (0.7 - 2.1 mmol/L) 1.9 2.1 Troponin I (<0.11 ng/ml) 2.83 *H Miscellaneous Phlebotomy Draw Site RIGHT RADIAL 12/15 0920 Chemistry Sodium (137 - 145 mmol/L) 134 L Potassium (3.5 - 5.1 mmol/L) 4.1 Chloride (98 - 107 mmol/L) 88 L Carbon Dioxide (22 - 30 mmol/L) 38 H Anion Gap (5 - 16) 8 BUN (9 - 20 mg/dL) 16 Creatinine (0.7 - 1.2 mg/dL) 0.8 Estimated GFR (>60 ml/min) > 60 BUN/Creatinine Ratio (7 - 25 %) 20.0 Glucose (65 - 99 mg/dL) 154 H Calcium (8.4 - 10.2 mg/dL) 8.6 Total Bilirubin (0.2 - 1.3 mg/dL) 0.8 AST (17 - 59 U/L) 21 ALT (21 - 72 U/L) 26 Alkaline Phosphatase (< 127 U/L) 102 Troponin I (<0.11 ng/ml) 0.12 *H Upk-[id number] Pept (<125 pg/mL) 2320 H Total Protein (6.3 - 8.2 g/dL) 6.7 Albumin (3.5 - 5.0 g/dL) 3.5 Globulin (1.9 - 4.2 gm/dL) 3.2 Albumin/Globulin Ratio (1.1 - 2.2 %) 1.1 Coagulation PT (9.4 - 12.5 SEC) 9.9 INR (0.90 - 1.17) 0.94 APTT (25 - 37 SEC) 27 Hematology CBC w Diff MAN DIFF ORDERED WBC (4.8 - 10.8 /CUMM) 1.6 L RBC (4.70 - 6.10 /CUMM) 4.55 L Hgb (14.0 - 18.0 G/DL) 12.3 L Hct (42 - 52 %) 36.8 L MCV (80.0 - 94.0 FL) 80.9 MCH (27.0 - 31.0 PG) 27.1 RDW (11.5 - 14.5 %) 17.6 H Plt Count (130 - 400 /CUMM) 131 MPV (7.4 - 10.4 FL) 6.5 L Gran % (42.2 - 75.2 %) 2.5 L Lymphocytes % (20.5 - 51.1 %) 68.6 H Monocytes % (1.7 - 9.3 %) 26.4 H Eosinophils % (0 - 5 %) 1.2 Basophils % (0.0 - 2.0 %) 1.3 Absolute Granulocytes (1.4 - 6.5 /CUMM) 0 L Segmented Neutrophils (42.2 - 75.2 %) 4 L Absolute Lymphocytes (1.2 - 3.4 /CUMM) 1.1 L Lymphocytes (20.5 - 51.1 %) 71 H Monocytes (1.7 - 9.3 %) 23 H Absolute Monocytes (0.10 - 0.60 /CUMM) 0.4 Eosinophils (0 - 5.0 %) 2 Absolute Eosinophils (0.0 - 0.7 /CUMM) 0 Absolute Basophils (0.0 - 0.2 /CUMM) 0 Platelet Estimate (ADEQUATE) ADEQUATE Poikilocytosis FEW Anisocytosis 1+ PUBS MCHC (33.0 - 37.0 G/DL) 33.5 Last 24 Hours of Edd Results: Blood cultures 2 pending Diagnostic Data Recent Imaging Findings: Chest x-ray new patchy and interstitial opacities at the right lung base CT of the chest moderate emphysema with associated interstitial lung disease, suggestive of respiratory bronchiolitis-interstitial lung disease, with superimposed progressive patchy ground glass and parenchymal opacities in both lower lobes, right greater than left; persistent though improving parenchymal opacities in the left upper lobe Assessment/Plan Assessment/Plan Impression: This is an 86-year-old man with chronic neutropenia, attributed to either a T- cell lymphoproliferative disorder or rheumatoid arthritis, maintained on steroids and oxygen at home, hospitalized one month ago with presumed left upper lobe pneumonia in the setting of neutropenia, which improved with Neupogen, treated empirically with 2 weeks of antibiotics, with the sputum culture at that time positive for mold, admitted today with the acute onset of shortness of breath, found to have a low-grade fever and severe neutropenia with increased bibasilar, right greater than left, densities on CT scan. He will need to be covered broadly for an acute pneumonia of the right lower lobe and, to a lesser extent the left lower lobe, given his severe neutropenia and fevers, which are low-grade, perhaps related to his chronic steroids. As he recently received treatment with Ceftazidime followed by Sai am concerned about the possibility of resistant organisms and will need to take this into account when choosing an empiric regimen. He will need to be covered for MRSA, at least initially, along with gram-negative rods including possibly resistant Pseudomonas. The recent sputum culture for mold is of interest but this is unlikely to explain his acute symptoms and new findings on CT scan in the right lower lobe. Suggestion: 1. Sputum for routine culture 2. Sputum for fungal culture 3. Urinalysis and urine culture 4. Urine for Legionella antigen and strep pneumo antigen 5. Consider further evaluation for fungal pathogens, for example a galactomannan assay, based on above 6. Discontinue Ceftazidime 7. Begin Meropenem 1 g IV every 8 hours 8. Continue Vancomycin 1 g IV every 24 hours Consult Acknowledgment - Thank you for your consult request.
--- NOTE | 2016-12-15 17:05 | NUR ---
URINE TRIO SENT WITH EXTRA CLEAR TOP. DR. SHANKS TO BEDSIDE TO EVALUATE PT AT THIS TIME.
--- NOTE | 2016-12-15 17:14 | NUR ---
FLU SWAB SENT.
--- NOTE | 2016-12-15 18:06 | NUR ---
HEPARIN DRIP STARTED PER EMAR. PT CURRENT WEIGHT TO DAY 139 POUNDS. DRIP STARTED AT 1800 AT 15.1ML/HR. PT MEDICATED WITH ASPIRIN 325G AND PLAVIX 150MG PER EMAR. DR. ROBINS TO BEDSIDE FOR EVAL AT THIS TIME.
--- NOTE | 2016-12-15 20:07 | Cons- Cardiology ---
General Information and HPI Consulting Request Date of Consult: 12/15/16 Requested By: KAMAR HUBBARD,OMEGA Bradley History of Present Illness: Mr. Boss is an 86 year old male with history of hypetension, dyslipidemia, borderline diabetes coronary artery disease s/p NSTEMI and COPD on home oxygen. 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 This patient developed severe shortness of breath beyond his baseline this morning accompanied by leg swelling and orthopnea. He typically sleeps on a wedge. He does have a cough that is producive of scant sputum that is also not a new symptom although it is a symptom that has become a bit worse as of late. He denies any fever or chills. In the ER this patient was found to have a mildly elevated troponin although the patient denies any chest discomfort. He is also free of lightheadedness or palpitations. It should be noted that this patient has been very neutropenic for which he sees Dr. Laboy. This patient was recently discharged from after being treated for both COPD and pnumonia. At the patient's baseline he can walk about 80 feet at a reasonable pace while on supplemental oygen. In consideration of this patient's abnormal ECG and prior positive cardiac enzymes I did perform a recent cardiac catheterization. This study showed a 100% chronically occluded proximal RCA that was not amenable to percutaneous intervention. The inferior wall did receive transeptal collaterals from the LAD however. The distal left main harbors a 20% distal stenosis, the LAD diffuse luminal irregularities with a 40-50% mid lesion, the first diagonal branch has a 40% ostial stenosis and the LCX has diffuse luminal irregularities with no flow limiting disease. His EF was normal at 55% with posterior wall hypokinesis. His ER evaluation disclosed a low WBC count of 1.6. A chest CT is suggestive of an infiltrate as well as severe emphysematous changes. It may be recalled that this patient recently had a massively elevated D-dimer but a CT angiogram was negative for a PE. A recent echocardiogram shows normal left ventricular ejection fraction of 65% with impaired LV relaxation. In terms of cardiac valves ther is mild mitral and trace aortic regurgitation. Right ventricular systolic pressure is estimated to be elevated at 45-50 mmHg consistent with mild to moderate pulmonary hypertension. Allergies/Medications Allergies: Coded Allergies: NO KNOWN ALLERGIES (04/23/12) Home Med List: Albuterol Sulfate (Proair Hfa) 8.5 GM HFA.AER.AD 2 PUF INH Q4H PRN COPD ( Reported) Albuterol Sulfate 2.5 MG/3 ML VIAL.NEB 1 Vial INH/ANKUR Q4P PRN COPD EXACERBATION Alendronate Sodium 70 MG TABLET 1 TAB PO QTHURS bone health (Reported) in the morning, at least 30 minutes before the first food, beverage, or medication of the day Aspirin (Aspirin*) 81 MG TAB.CHEW 1 TAB PO DAILY HEART HEALTH (Reported) Atorvastatin Calcium 20 MG TABLET 1 TAB PO DAILY CHOLESTEROL (Reported) Cholecalciferol (Vitamin D3) (Vitamin D) 400 UNIT TABLET 1 TAB PO DAILY SUPPLEMENT (Reported) Fluticasone/Salmeterol (Advair 250-50 Diskus) 250 MCG-50 MCG/DOSE BLST.W.DEV 1 PUF INH BID BREATHING PROBLEMS (Reported) Folic Acid 1 MG TABLET 1 TAB PO DAILY supplement (Reported) Furosemide (Lasix) 40 MG TABLET 1 TAB PO BID WATER PILL Multivitamin (Daily Multiple Vitamin) 1 EACH TABLET 1 TAB PO DAILY SUPPLEMENT (Reported) Omeprazole 20 MG CAPSULE.DR 1 CAP PO DAILY GI protection (Reported) Prednisone 5 MG TABLET 2 TAB PO DAILY COPD/ARTHRITIS (Reported) Psyllium Husk (Metamucil) 660 GM POWDER 1 PAC PO PRN CONSTIPATION (Reported) Tiotropium [place] (Spiriva) 18 MCG CAP.W.DEV 1 CAP INH DAILY COPD (Reported) Review of Systems Review of Systems: A twelve point review of systems is negative other than the above described in the H+P. Past History Travel History Traveled to [place] past 21 day No Medical History Neurological: NONE EENT: NONE Cardiovascular: CAD, CHF, hyperlipidemia, NSTEMI Respiratory: bronchitis, COPD, emphysema, pneumonia Gastrointestinal: colitis, hiatal hernia, peptic ulcer disease, upper GI bleed, C. 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 spouse Services at Home: None Primary Language: Kazakh ETOH Use: denies use Illicit Drug Use: denies illicit drug use Living Will? 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 yes Name of POA/HCP: Exam & Diagnostic Data Vital Signs and I&O Vital Signs Date Time Temp Pulse Resp B/P Pulse O2 O2 Flow FiO2 Ox Delivery Rate 12/15 1714 96.6 90 18 120/64 98 Room Air 12/15 1503 96.7 94 18 104/58 98 Nasal 3.0L Cannula 12/15 1300 98.5 98 20 122/78 96 Nasal 3.0L Cannula 12/15 1207 98 96 12/15 1157 98.9 100 18 112/75 95 Nasal 3.0L Cannula 12/15 1020 99.9 100 24 118/64 98 BIPAP 12/15 0920 96 BIPAP 35% 12/15 0900 112 95 12/15 0846 100.2 120 28 133/86 Non 6.0L ReBreather Intake & Output 12/15 1600 12/15 0800 12/15 0000 12/14 1600 12/14 0800 12/14 0000 Intake Total Output Total 200 Balance -200 Output, Urine 200 Patient 144 lb Weight Physical Exam: General: WD/ overweight male in NAD; alert and oriented x 3 HEENT: NC/AT, PERRL, EOMI, clear oropharynx Neck: no JVD, no carotid bruits Heart: RRR w/o murmurs Lungs: decreased air movement throughout with brochial sounds at the right base ABdomen: soft, NT, +ve bowel sounds EXtremities: no edema Assessment/Plan Assessment/Plan * This patient presented in respiratory distress that improved with a combination of diuresis and BIPAP. At this time I am not convinced that the patient has decompensated congestive heart failure. I suspect that his breathing issues are related to acute infection superimposed on underlying COPD. Agree with supplemental O2, inhalers and antibiotic therapy. This patient was recently noted to have mold in his sputum with new sputum samples pending evaluation. * In regard to this patient's positive troponin I most strongly suspect that he has ischemia and a type 2 PR related to a supply demand mismatch in the setting of a chronically and 100% occluded proximal RCA. There are some scant collateral to the inferior wall but increased physiologic stress and hypoxia will not be well tolerated. Unfortunately, this vessel is not amenable to percutaneous intervention. We will follow cardiac enzymes until they peak and will treat medically. This patient should be on aspirin 324mg daily, Plavix 75mg daily and IV heparin. Begin NTG paste 1/2 inch Q 6 hours. Begin lopressor 12.5mg BID. Continue a statin. Hold Lasix. Obtain a repeat echocardiogram. Consult Acknowledgment - Thank you for your consult request.
[2016-12-15 21:51] VITALS: BP 118/60
[2016-12-16 00:48] LABS: PTT 110 SEC (25-37)
--- NOTE | 2016-12-16 07:16 | PN- Housestaff ---
See Addendum Subjective Follow-up For: -chronic Neutropenia due to unknown reason possibly rheumatoid arthritis and myelodysplastic syndrome -Elevated troponin -Acute respiratory distress secondary to acute infection superimposed on COPD Complaints: no complaints Tele-Events Since Last Visit: From 6 PM to midnight patient was sinus rate and rhythm mid 60s to 70s with first-degree AV block KS interval 0.26 Overnights patient was sinus rate and sinus rhythm and sinus bradycardia with the lowest of 58. Incident overnights Subjective: Patient was visited and interviewed this morning. He is a pleasant 86-year-old gentleman lying comfortably in his bed on oxygen nasal cannula 2 L not in acute distress. Using full sentences for communication patient expresses no particular discomforts. He denies any chest pain, palpitation. Patient mentioned that his shortness of breath has improved since yesterday. Review of Systems Constitutional: Denies: chills, diaphoresis, fever, malaise, weakness, unexplained weight loss. EENTM: Denies: blurred vision, double vision, visual changes, eye pain, eye drainage, eye tearing, icterus, ear discharge, ear pain, ear redness, hearing changes, nasal congestion, epistaxis, nasal pain, throat pain, throat swelling, mouth pain, tooth pain. Cardiovascular: Denies: chest pain, edema, orthopena, palpitations, peripheral edema, syncope. Respiratory: Reports: cough, sputum production. Denies: hemoptysis, orthopnea, short of breath, stridor, wheezing. Gastrointestinal: Denies: abdominal pain, bloating, constipation, diarrhea, distention, bowel incontinence, melena, nausea, bloody stool, changes in stool, vomiting, steatorrhea. Genitourinary: Denies: discharge, dysuria, frequency, hematuria, hesitation, nocturia, pain, urgency. Musculoskeletal: Denies: back pain, gout, joint pain, joint swelling, muscle pain, muscle stiffness, neck pain. Skin: Denies: cysts, change in skin color, change in hair/nails, dryness, erythema, jaundice, lesions, lymphangitis, lumps, moles, rash. Neurological/Psychological: Denies: anxiety, ataxia, cognitive dysfunction, confusion, depressed, dementia, emotional problems, headache, numbness, paresthesia, pre-existing deficit, petit mal seizures, tingling, tremors, tonic-clonic seizures, unable to move lower ext , unable to move upper ext, weakness, other. Hematologic/Endocrine: Reports: see HPI, bruising. Denies: bleeding, polyuria, polydipsia, other. Objective Last 24 Hrs of Vital Signs/I&O Vital Signs Date Time Temp Pulse Resp B/P Pulse O2 O2 Flow FiO2 Ox Delivery Rate 12/16 0800 97.6 78 20 120/68 96 Nasal 4.0L Cannula 12/16 0631 99 Nasal 3.0L Cannula 12/15 2151 97.3 85 18 118/60 98 Nasal 4.0L Cannula 12/15 2009 Nasal 4.0L Cannula 12/15 1845 Nasal 3.0L Cannula 12/15 1714 96.6 90 18 120/64 98 Room Air 12/15 1503 96.7 94 18 104/58 98 Nasal 3.0L Cannula 12/15 1300 98.5 98 20 122/78 96 Nasal 3.0L Cannula 12/15 1207 98 96 12/15 1157 98.9 100 18 112/75 95 Nasal 3.0L Cannula 12/15 1020 99.9 100 24 118/64 98 BIPAP Intake & Output 12/16 1600 12/16 0800 12/16 0000 Intake Total 400 400 Output Total 350 250 Balance 50 150 Intake, IV 300 150 Intake, Oral 100 250 Number 0 1 Bowel Movements Output, Urine 350 250 Patient 139 lb Weight Physical Exam General Appearance: Alert, Oriented X3, Cooperative, No Acute Distress Skin: No Rashes, No Breakdown, No Significant Lesion HEENT: Atraumatic, PERRLA, Mucous Membr. moist/pink Neck: Supple, No JVD, No thryomegaly, +2 Carotid Pulse wo Bruit, No LAD Lymphatic: Axillary nl, Cervical nl Cardiovascular: Normal S1, Normal S2, No Murmurs Lungs: decreased air entry Abdomen: Soft, No Tenderness Neurological: Normal Speech, Sensation Intact Extremities: No Clubbing, No Edema Vascular: Normal Pulses Current Medications: Current Medications Sig/Jorgito Start time Last Medication Dose Route Stop Time Status Admin Albuterol Sulfate 3 ML EVERY 4 HRS/AWAKE 12/16 0800 AC 12/16 INH 0625 Albuterol Sulfate 2 PUF Q4H PRN 12/15 1200 AC INH Albuterol Sulfate 3 ML Q4P PRN 12/15 1200 AC INH Alendronate Sodium 70 MG QTHURS 12/18 1000 AC PO Aspirin 325 MG DAILY 12/16 1000 AC PO Aspirin 0 .STK-MED ONE 12/15 1744 DC PO Aspirin 325 MG ONCE ONE 12/15 1715 DC 12/15 PO 12/15 1716 1802 Aspirin 81 MG DAILY 12/15 1710 DC PO Aspirin 81 MG DAILY 12/15 1149 DC 12/15 PO 1237 Atorvastatin Calcium 20 MG DAILY 12/15 1150 AC 12/15 PO 1237 Azithromycin 250 MG DAILY 12/16 1000 CAN PO Bisacodyl 10 MG DAILY PRN 12/15 1230 AC 12/15 [place] 1541 Budesonide/ 2 PUF BID 12/15 1150 AC 12/15 Formoterol Fumarate INH 2223 Ceftazidime 0 .STK-MED ONE 12/15 1014 DC .ROUTE Ceftazidime 1,000 MG ONCE ONE 12/15 1000 DC 12/15 IV 12/15 1001 1025 Ceftriaxone Sodium 1,000 MG DAILY 12/16 1000 CAN IV Cholecalciferol 400 IU DAILY 12/15 1150 AC 12/15 PO 1237 Clopidogrel Bisulfate 75 MG DAILY 12/16 1000 AC PO Clopidogrel Bisulfate 0 .STK-MED ONE 12/15 1744 DC PO Clopidogrel Bisulfate 150 MG ONCE ONE 12/15 1715 DC 12/15 PO 12/15 1716 1802 Enoxaparin Sodium 40 MG DAILY 12/15 1221 AC 12/15 SC 1242 Filgrastim 300 MCG DAILY 12/15 1355 12/15 SC 1455 Folic Acid 1 MG DAILY 12/15 1150 AC 12/15 PO 1237 Furosemide 0 .STK-MED ONE 12/15 1648 DC PO Furosemide 0 .STK-MED ONE 12/15 1642 DC IV Furosemide 40 MG 0730,1630 12/15 1151 DC 12/15 PO 1707 Guaifenesin 600 MG Q12 12/16 0358 DC PO Guaifenesin 600 MG Q12 12/15 2215 AC 12/15 PO 2222 Heparin Sodium 0 .STK-MED ONE 12/15 1744 DC (Porcine) .ROUTE Heparin Sodium 5,000 UNIT ONCE ONE 12/15 1715 DC 12/15 (Porcine) IV 12/15 1716 1802 Heparin Sodium 25,000 UNIT Q24H 12/15 1715 AC 12/15 (Porcine) IV 1802 Sodium Chloride 500 ML Meropenem 1 GM IQ8 12/15 1915 12/16 IV 0131 Metoprolol Tartrate 12.5 MG BID 12/16 1000 AC PO Metoprolol Tartrate 6.25 MG BID 12/15 2200 DC 12/15 PO 2222 Multivitamins 1 TAB DAILY 12/15 1151 12/15 Therapeutic PO 1237 Nitroglycerin 0.5 GM Q6 12/16 0729 12/16 TOP 0817 Nitroglycerin 0.2 MG DAILY 12/15 1712 12/15 TOP 2021 Omeprazole 20 MG DAILY 12/15 1151 AC 12/15 PO 1237 Prednisone 10 MG DAILY 12/15 1151 AC 12/15 PO 1237 Psyllium Hydrophilic 1 PAC BID PRN 12/15 1200 AC Mucilloid PO Sodium Chloride 1,000 ML Q13H 12/15 1215 DC 12/15 IV 12/16 0114 1237 Tiotropium Newman 1 PUF DAILY 12/15 1152 AC 12/15 INH 1242 Vancomycin HCl 1,000 MG DAILY 12/16 1000 AC Dextrose/Water 250 ML IV Vancomycin HCl 0 .STK-MED ONE 12/15 1014 DC .ROUTE Vancomycin HCl 1,000 MG ONCE ONE 12/15 1000 DC 12/15 Dextrose/Water 250 ML IV 12/15 1059 1025 Last 24 Hrs of Lab/Edd Results Last 24 Hrs of Labs/Mics: Laboratory Tests 12/16/16 0930: Sodium Pending, Potassium Pending, Chloride Pending, Carbon Dioxide Pending, Anion Gap Pending, BUN Pending, Creatinine Pending, BUN/Creatinine Ratio Pending , APTT Pending, CBC w Diff Pending, WBC Pending, RBC Pending, Hgb Pending, Hct Pending, MCV Pending, MCH Pending, RDW Pending, Plt Count Pending, MPV Pending, PUBS MCHC Pending 12/16/16 0015: APTT 110 *H 12/15/16 2120: Troponin I 2.20 *H 12/15/16 1700: Urine Color YEL, Urine Clarity CLEAR, Urine pH 6.5, Ur Specific [place] 1.010, Urine Protein TRACE H, Urine Ketones NEG, Urine Nitrite NEG, Urine Bilirubin NEG, Urine Urobilinogen 0.2, Ur Leukocyte Esterase NEG, Ur Microscopic SEDIMENT EXAMINED, Urine RBC 5-10 H, Urine Hemoglobin SMALL H, Urine Glucose NEG 12/15/16 1457: Troponin I 2.83 *H 12/15/16 1154: Lactic Acid 1.9 12/15/16 1020: pH 7.53 H, pCO2 38, pO2 105 H, HCO3 31 H, ABG O2 Sat (Measured) 97.0, P-50 ( Temp Corrected) N, Carboxyhemoglobin 0.3 L, O2 Concentration % 35%, Respiration Rate 24, O2 Delivery Method BIPAP, Vent Mode ST, Expiratory Pressure 6, Inspiratory Pressure 20, Phlebotomy Draw Site RIGHT RADIAL Microbiology 12/16 0015 BLOOD: Blood Culture - RECD 12/15 1930 LOWER RESP: Routine Culture - RECD 12/15 170 URINE ROUT: Urine Culture - RECD 12/15 170 URINE ROUT: Streptococcus pneumoniae Antigen (M - COMP 12/15 1699 URINE ROUT: Legionella Antigen - COMP 12/15 161 BLOOD: Blood Culture - CAN Cancelled: SPECIMEN NOT RECEIVED IN LABORATORY 12/15 161 LOWER RESP: Respiratory Culture - COLB 12/15 161 LOWER RESP: Gram Stain - COLB Lines/Diet/Fluids Fluids/Infusions: normal saline 50 ml /h x 1bag Assessment/Plan Assessment: Mr. Boss is an 86 year old male with history of hypetension, dyslipidemia, borderline diabetes coronary artery disease s/p NSTEMI and COPD on home oxygen. 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 pertinent data: Labs for today are pending Assessment and plan #elevated troponin w/o ischemic changes in EKG; possibly demand Admit to telemetry floor for; 100% occlusion of RCA. Patient does not seem to be in congestive heart failure decompensation. Acute respiratory decompensation due to infection and COPD increase the chances of type II RI in this patient due to mismatch of demand and supply of oxygen in heart. * start anticoagulation with IV heparin drip * Nitroglycerin patch half inch every 6 hours * Metoprolol 12.5 mg twice a day-if blood pressure and heart rate tolerate * Aspirin 325 mg daily * Plavix 75 mg by mouth daily * Hold Lasix * guaiac test was negative #acute respiratory distress new infiltration on CXR and ANC<500 * Follow blood cultures and sputum culture * Follow strep and Legionella urinary antigen * IV meropenem and vancomycin #1 * Continue Spiriva 18 mcg 1 puff daily * Continue Albuterol INH 3 Ml Q4 as needed * TRC/NEB as needed #Rheumatoid arthritis Continue with by mouth prednisone 10 mg daily #T-CELL LYMPHOPROLIFERATIVE and Chronic Leukopenia Neupogen 300 mcg sc daily per hematology recommendation check daily CBC #CONSTIPATION MIRALAX POWDER NEEDED DOCUSATED SUPP NEEDED #DVT prophylaxis alps Problem List: 1. CHRONIC NEUTROPENIA 2. Chronic obstructive lung disease 3. HISTORY - C-DIFF COLITIS 4. Elevated troponin 5. Pneumonia 6. DNR (do not resuscitate) 7. DNI (do not intubate) 8. Acute respiratory failure with hypoxia Pain Ratin Pain Location: Lower legs and back Pain Goal: 0 Pain Plan: Tylenol Tomorrow's Labs & Rationales: CBC and BEP Criticaly sick Chronic neutropenia DVT/Prophylaxis: mechanical
--- NOTE | 2016-12-16 07:20 | Cons- Hematology ---
General Information and HPI Consulting Request Date of Consult: 12/16/16 Requested By: KAMAR HUBBARD,OMEGA Bradley History of Present Illness: 86-year-old gentleman with complicated history of neutropenia thought possibly due to MDS versus rheumatoid arthritis. Patient has had multiple recent admissions for fever and pulmonary infiltrates. Patient is now admitted with sudden shortness of breath not associated with fever or productive sputum. Patient denies chest pain or hemoptysis. Patient was begun in my office this week on weekly Neupogen Allergies/Medications Allergies: Coded Allergies: NO KNOWN ALLERGIES (04/23/12) Home Med List: Albuterol Sulfate (Proair Hfa) 8.5 GM HFA.AER.AD 2 PUF INH Q4H PRN COPD ( Reported) Albuterol Sulfate 2.5 MG/3 ML VIAL.NEB 1 Vial INH/ANKUR Q4P PRN COPD EXACERBATION Alendronate Sodium 70 MG TABLET 1 TAB PO QTHURS bone health (Reported) in the morning, at least 30 minutes before the first food, beverage, or medication of the day Aspirin (Aspirin*) 81 MG TAB.CHEW 1 TAB PO DAILY HEART HEALTH (Reported) Atorvastatin Calcium 20 MG TABLET 1 TAB PO DAILY CHOLESTEROL (Reported) Cholecalciferol (Vitamin D3) (Vitamin D) 400 UNIT TABLET 1 TAB PO DAILY SUPPLEMENT (Reported) Fluticasone/Salmeterol (Advair 250-50 Diskus) 250 MCG-50 MCG/DOSE BLST.W.DEV 1 PUF INH BID BREATHING PROBLEMS (Reported) Folic Acid 1 MG TABLET 1 TAB PO DAILY supplement (Reported) Furosemide (Lasix) 40 MG TABLET 1 TAB PO BID WATER PILL Multivitamin (Daily Multiple Vitamin) 1 EACH TABLET 1 TAB PO DAILY SUPPLEMENT (Reported) Omeprazole 20 MG CAPSULE.DR 1 CAP PO DAILY GI protection (Reported) Prednisone 5 MG TABLET 2 TAB PO DAILY COPD/ARTHRITIS (Reported) Psyllium Husk (Metamucil) 660 GM POWDER 1 PAC PO PRN CONSTIPATION (Reported) Tiotropium [place] (Spiriva) 18 MCG CAP.W.DEV 1 CAP INH DAILY COPD (Reported) Current Medications: Current Medications Sig/Jorgito Start time Last Medication Dose Route Stop Time Status Admin Albuterol Sulfate 3 ML EVERY 4 HRS/AWAKE 12/16 0800 AC 12/16 INH 0625 Albuterol Sulfate 2 PUF Q4H PRN 12/15 1200 AC INH Albuterol Sulfate 3 ML Q4P PRN 12/15 1200 AC INH Albuterol Sulfate 3 ML ONCE ONE 12/15 0930 DC 12/15 INH 12/15 0931 0910 Alendronate Sodium 70 MG QTHURS 12/18 1000 AC PO Aspirin 0 .STK-MED ONE 12/15 1744 DC PO Aspirin 325 MG ONCE ONE 12/15 1715 DC 12/15 PO 12/15 1716 1802 Aspirin 81 MG DAILY 12/15 1710 AC PO Aspirin 81 MG DAILY 12/15 1149 AC 12/15 PO 1237 Atorvastatin Calcium 20 MG DAILY 12/15 1150 AC 12/15 PO 1237 Azithromycin 250 MG DAILY 12/16 1000 CAN PO Bisacodyl 10 MG DAILY PRN 12/15 1230 AC 12/15 [place] 1541 Budesonide/ 2 PUF BID 12/15 1150 AC 12/15 Formoterol Fumarate INH 2223 Ceftazidime 0 .STK-MED ONE 12/15 1014 DC .ROUTE Ceftazidime 1,000 MG ONCE ONE 12/15 1000 DC 12/15 IV 12/15 1001 1025 Ceftriaxone Sodium 1,000 MG DAILY 12/16 1000 CAN IV Cholecalciferol 400 IU DAILY 12/15 1150 AC 12/15 PO 1237 Clopidogrel Bisulfate 0 .STK-MED ONE 12/15 1744 DC PO Clopidogrel Bisulfate 150 MG ONCE ONE 12/15 1715 DC 12/15 PO 12/15 1716 1802 Enoxaparin Sodium 40 MG DAILY 12/15 1221 AC 12/15 SC 1242 Filgrastim 300 MCG DAILY 12/15 1355 AC 12/15 SC 1455 Folic Acid 1 MG DAILY 12/15 1150 AC 12/15 PO 1237 Furosemide 0 .STK-MED ONE 12/15 1648 DC PO Furosemide 0 .STK-MED ONE 12/15 1642 DC IV Furosemide 40 MG 0730,1630 12/15 1151 DC 12/15 PO 1707 Furosemide 40 MG ONCE ONE 12/15 0930 DC 12/15 IV 12/15 0931 0936 Furosemide 0 .STK-MED ONE 12/15 0850 DC IV Guaifenesin 600 MG Q12 12/16 0358 DC PO Guaifenesin 600 MG Q12 12/15 2215 AC 12/15 PO 2222 Heparin Sodium 0 .STK-MED ONE 12/15 1744 DC (Porcine) .ROUTE Heparin Sodium 5,000 UNIT ONCE ONE 12/15 1715 DC 12/15 (Porcine) IV 12/15 1716 1802 Heparin Sodium 25,000 UNIT Q24H 12/15 1715 AC 12/15 (Porcine) IV 1802 Sodium Chloride 500 ML Meropenem 1 GM IQ8 12/15 1915 AC 12/16 IV 0131 Metoprolol Tartrate 6.25 MG BID 12/15 2200 AC 12/15 PO 2222 Multivitamins 1 TAB DAILY 12/15 1151 AC 12/15 Therapeutic PO 1237 Nitroglycerin 0.2 MG DAILY 12/15 1712 AC 12/15 TOP 2021 Omeprazole 20 MG DAILY 12/15 1151 AC 12/15 PO 1237 Prednisone 10 MG DAILY 12/15 1151 AC 12/15 PO 1237 Psyllium Hydrophilic 1 PAC BID PRN 12/15 1200 AC Mucilloid PO Sodium Chloride 1,000 ML Q13H 12/15 1215 DC 12/15 IV 12/16 0114 1237 Tiotropium [place] 1 PUF DAILY 12/15 1152 AC 12/15 INH 1242 Vancomycin HCl 1,000 MG DAILY 12/16 1000 AC Dextrose/Water 250 ML IV Vancomycin HCl 0 .STK-MED ONE 12/15 1014 DC .ROUTE Vancomycin HCl 1,000 MG ONCE ONE 12/15 1000 DC 12/15 Dextrose/Water 250 ML IV 12/15 1059 1025 Review of Systems Review of Systems: Patient denies headaches or dizziness. Patient denies nausea vomiting or abdominal pain. Patient denies dysuria hematuria. Patient denies new bone aches or focal neurologic deficit Past History Travel History Traveled to [place] past 21 day No Medical History Blood Transfusion Hx: No Neurological: NONE EENT: NONE Cardiovascular: CAD, CHF, hyperlipidemia, NSTEMI Respiratory: bronchitis, COPD, emphysema, pneumonia Gastrointestinal: colitis, hiatal hernia, peptic ulcer disease, upper GI bleed, C. 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 Home Who Do You Live With? spouse Services at Home: None Primary Language: Syrian Smoking Status: Former Smoker ETOH Use: denies use Illicit Drug Use: denies illicit drug use Living Will? 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 Name of POA/HCP: Exam & Diagnostic Data Vital Signs and I&O Vital Signs Date Time Temp Pulse Resp B/P Pulse O2 O2 Flow FiO2 Ox Delivery Rate 12/16 0631 99 Nasal 3.0L Cannula 12/15 2151 97.3 85 18 118/60 98 Nasal 4.0L Cannula 12/15 2009 Nasal 4.0L Cannula 12/15 184 Nasal 3.0L Cannula 12/15 1714 96.6 90 18 120/64 98 Room Air 12/15 1503 96.7 94 18 104/58 98 Nasal 3.0L Cannula 12/15 1300 98.5 98 20 122/78 96 Nasal 3.0L Cannula 12/15 1207 98 96 12/15 1157 98.9 100 18 112/75 95 Nasal 3.0L Cannula 12/15 1020 99.9 100 24 118/64 98 BIPAP 12/15 0920 96 BIPAP 35% 12/15 0900 112 95 12/15 0846 100.2 120 28 133/86 Non 6.0L ReBreather Intake & Output 12/16 0800 12/16 0000 12/15 1600 Intake Total 400 Output Total 250 200 Balance 150 -200 Intake, IV 150 Intake, Oral 250 Number 1 Bowel Movements Output, Urine 250 200 Patient 139 lb 144 lb Weight Gen.: in NAD, wearing O2 ENT: Sclera anicteric Chest: Normal respiratory effort, decreased breath sounds Cor: RRR, no extra sounds Abdomen: Soft, bowel sounds present, no tenderness, no rebound Extremities: Without clubbing, cyanosis, or asymmetric edema Neurology: Alert and oriented 3, no gross deficit Last 48 Hours of Lab Results: Laboratory Tests 12/16 12/15 12/15 0015 2120 1700 Chemistry Troponin I (<0.11 ng/ml) 2.20 *H Coagulation APTT (25 - 37 SEC) 110 *H Urines Urine Color (YEL,AMB,STR) YEL Urine Clarity (CLEAR) CLEAR Urine pH (5.0 - 8.0) 6.5 Ur Specific [place] (1.001 - 1.035) 1.010 Urine Protein (NEG,<30 MG/DL) TRACE H Urine Ketones (NEG) NEG Urine Nitrite (NEG) NEG Urine Bilirubin (NEG) NEG Urine Urobilinogen (0.1 - 1.0 EU/dl) 0.2 Ur Leukocyte Esterase (NEG) NEG Ur Microscopic SEDIMENT EXAMINED Urine RBC (0 - 5 /HPF) 5-10 H Urine Hemoglobin (NEG) SMALL H Urine Glucose (N MG/DL) NEG 12/15 12/15 12/15 12/15 1457 1154 1020 0920 Blood Gas pH (7.35 - 7.45 PH) 7.53 H pCO2 (35 - 45 TORR) 38 pO2 (80 - 100 TORR) 105 H HCO3 (21 - 28 MEQ/L) 31 H ABG O2 Sat (Measured) (>96.0 %) 97.0 P-50 (Temp Corrected) N Carboxyhemoglobin (1.5 - 5.0 %) 0.3 L O2 Concentration % 35% Respiration Rate (BPM) 24 O2 Delivery Method BIPAP Vent Mode ST Expiratory Pressure (CM H2O P) 6 Inspiratory Pressure (CM H2O P) 20 Chemistry Lactic Acid (0.7 - 2.1 mmol/L) 1.9 2.1 Troponin I (<0.11 ng/ml) 2.83 *H Miscellaneous Phlebotomy Draw Site RIGHT RADIAL 12/15 0920 Chemistry Sodium (137 - 145 mmol/L) 134 L Potassium (3.5 - 5.1 mmol/L) 4.1 Chloride (98 - 107 mmol/L) 88 L Carbon Dioxide (22 - 30 mmol/L) 38 H Anion Gap (5 - 16) 8 BUN (9 - 20 mg/dL) 16 Creatinine (0.7 - 1.2 mg/dL) 0.8 Estimated GFR (>60 ml/min) > 60 BUN/Creatinine Ratio (7 - 25 %) 20.0 Glucose (65 - 99 mg/dL) 154 H Calcium (8.4 - 10.2 mg/dL) 8.6 Total Bilirubin (0.2 - 1.3 mg/dL) 0.8 AST (17 - 59 U/L) 21 ALT (21 - 72 U/L) 26 Alkaline Phosphatase (< 127 U/L) 102 Troponin I (<0.11 ng/ml) 0.12 *H Hil-I-Labxrpvbdwr Pept (<125 pg/mL) 2320 H Total Protein (6.3 - 8.2 g/dL) 6.7 Albumin (3.5 - 5.0 g/dL) 3.5 Globulin (1.9 - 4.2 gm/dL) 3.2 Albumin/Globulin Ratio (1.1 - 2.2 %) 1.1 Coagulation PT (9.4 - 12.5 SEC) 9.9 INR (0.90 - 1.17) 0.94 APTT (25 - 37 SEC) 27 Hematology CBC w Diff MAN DIFF ORDERED WBC (4.8 - 10.8 /CUMM) 1.6 L RBC (4.70 - 6.10 /CUMM) 4.55 L Hgb (14.0 - 18.0 G/DL) 12.3 L Hct (42 - 52 %) 36.8 L MCV (80.0 - 94.0 FL) 80.9 MCH (27.0 - 31.0 PG) 27.1 RDW (11.5 - 14.5 %) 17.6 H Plt Count (130 - 400 /CUMM) 131 MPV (7.4 - 10.4 FL) 6.5 L Gran % (42.2 - 75.2 %) 2.5 L Lymphocytes % (20.5 - 51.1 %) 68.6 H Monocytes % (1.7 - 9.3 %) 26.4 H Eosinophils % (0 - 5 %) 1.2 Basophils % (0.0 - 2.0 %) 1.3 Absolute Granulocytes (1.4 - 6.5 /CUMM) 0 L Segmented Neutrophils (42.2 - 75.2 %) 4 L Absolute Lymphocytes (1.2 - 3.4 /CUMM) 1.1 L Lymphocytes (20.5 - 51.1 %) 71 H Monocytes (1.7 - 9.3 %) 23 H Absolute Monocytes (0.10 - 0.60 /CUMM) 0.4 Eosinophils (0 - 5.0 %) 2 Absolute Eosinophils (0.0 - 0.7 /CUMM) 0 Absolute Basophils (0.0 - 0.2 /CUMM) 0 Platelet Estimate (ADEQUATE) ADEQUATE Poikilocytosis FEW Anisocytosis 1+ PUBS MCHC (33.0 - 37.0 G/DL) 33.5 Imaging/Other Studies: PO-wxpsp-oflhusac increased interstitial disease in lower lobes Assessment/Plan Assessment: 1. Chronic neutropenia-as I have suggested during multiple admissions, the etiology was neutropenia is not clear. This may be MDS versus secondary to rheumatoid arthritis. At this juncture, no bone marrow is planned. If indeed the patient does have MDS, I would not treat him with chemotherapy Recommend- Neupogen 300mcg SC Q day 2. ID-as per Dima Lamb MD 3. Elevated troponins Recommendations: .. Consult Acknowledgment - Thank you for your consult request.
[2016-12-16 08:00] VITALS: BP 120/68
[2016-12-16 09:51] LABS: ABSOLUTE BASOPHIL COUNT 0 /CUMM (0.0-0.2); ABSOLUTE MONOCYTE COUNT 0.4 /CUMM (0.10-0.60)
[2016-12-16 09:54] LABS: ABSOLUTE EOSINOPHIL COUNT 0 /CUMM (0.0-0.7); ABSOLUTE GRANULOCYTE CT 2.1 /CUMM (1.4-6.5); BASOPHIL % 0.2 % (0.0-2.0); EOSINOPHIL % 0 % (0-5); MEAN CORPUSCULAR HGB 27.1 PG (27.0-31.0); MEAN CORPUSCULAR HGB CONC 33.2 G/DL (33.0-37.0); MEAN CORPUSCULAR VOLUME 81.7 FL (80.0-94.0); MEAN PLATELET VOLUME 6.6 FL (7.4-10.4); PLATELET COUNT 112 /CUMM (130-400); RBC DISTRIBUTION WIDTH 17.8 % (11.5-14.5); RED BLOOD CELL CT 3.56 /CUMM (4.70-6.10)
[2016-12-16 09:56] LABS: GRANULOCYTE % 58.2 % (42.2-75.2); WHITE BLOOD CELL COUNT 3.6 /CUMM (4.8-10.8)
[2016-12-16 10:00] LABS: PTT 41 SEC (25-37)
--- NOTE | 2016-12-16 10:54 | PN- Infect Dx ---
Subjective Subjective: MAXIMUM TEMPERATURE 100.2. He feels improved though continues to report a cough , which is occasionally productive of yellow sputum. Objective Last 24 Hrs of Vital Signs/I&O Vital Signs Date Time Temp Pulse Resp B/P Pulse O2 O2 Flow FiO2 Ox Delivery Rate 12/16 0800 97.6 78 20 120/68 96 Nasal 4.0L Cannula 12/16 0631 99 Nasal 3.0L Cannula 12/15 2151 97.3 85 18 118/60 98 Nasal 4.0L Cannula 12/15 2009 Nasal 4.0L Cannula 12/15 184 Nasal 3.0L Cannula 12/15 1714 96.6 90 18 120/64 98 Room Air 12/15 1503 96.7 94 18 104/58 98 Nasal 3.0L Cannula 12/15 1300 98.5 98 20 122/78 96 Nasal 3.0L Cannula 12/15 1207 98 96 12/15 1157 98.9 100 18 112/75 95 Nasal 3.0L Cannula Intake & Output 12/16 1600 12/16 0800 12/16 0000 Intake Total 400 400 Output Total 350 250 Balance 50 150 Intake, IV 300 150 Intake, Oral 100 250 Number 0 1 Bowel Movements Output, Urine 350 250 Patient 139 lb Weight Physical Exam Other Physical Findings: He appears comfortable in no acute distress Lungs diffuse rhonchi at the right base with left lung mostly clear Heart regular rhythm with no murmur Extremities 2+ edema right leg/1+ edema left leg Results Last 24 Hours of Lab Results: Laboratory Tests 12/16 12/16 12/15 0930 0015 2120 Chemistry Sodium (137 - 145 mmol/L) 132 L Potassium (3.5 - 5.1 mmol/L) 3.7 Chloride (98 - 107 mmol/L) 91 L Carbon Dioxide (22 - 30 mmol/L) 35 H Anion Gap (5 - 16) 6 BUN (9 - 20 mg/dL) 28 H Creatinine (0.7 - 1.2 mg/dL) 0.8 Estimated GFR (>60 ml/min) > 60 BUN/Creatinine Ratio (7 - 25 %) 35.0 H Troponin I (<0.11 ng/ml) 2.20 *H Coagulation APTT (25 - 37 SEC) 41 H 110 *H Hematology CBC w Diff MAN DIFF ORDERED WBC (4.8 - 10.8 /CUMM) 3.6 L RBC (4.70 - 6.10 /CUMM) 3.56 L Hgb (14.0 - 18.0 G/DL) 9.6 L Hct (42 - 52 %) 29.0 L MCV (80.0 - 94.0 FL) 81.7 MCH (27.0 - 31.0 PG) 27.1 RDW (11.5 - 14.5 %) 17.8 H Plt Count (130 - 400 /CUMM) 112 L MPV (7.4 - 10.4 FL) 6.6 L Gran % (42.2 - 75.2 %) 58.2 Lymphocytes % (20.5 - 51.1 %) 29.2 Monocytes % (1.7 - 9.3 %) 12.4 H Eosinophils % (0 - 5 %) 0 Basophils % (0.0 - 2.0 %) 0.2 Absolute Granulocytes (1.4 - 6.5 /CUMM) 2.1 Segmented Neutrophils (42.2 - 75.2 %) 35 L Band Neutrophils (0.0 - 5.0 %) 20 H Absolute Lymphocytes (1.2 - 3.4 /CUMM) 1.0 L Lymphocytes (20.5 - 51.1 %) 33 Monocytes (1.7 - 9.3 %) 12 H Absolute Monocytes (0.10 - 0.60 /CUMM) 0.4 Absolute Eosinophils (0.0 - 0.7 /CUMM) 0 Absolute Basophils (0.0 - 0.2 /CUMM) 0 Platelet Estimate (ADEQUATE) VERIFIED BY SMEAR Anisocytosis 1+ PUBS MCHC (33.0 - 37.0 G/DL) 33.2 12/15 12/15 12/15 1700 1457 1154 Chemistry Lactic Acid (0.7 - 2.1 mmol/L) 1.9 Troponin I (<0.11 ng/ml) 2.83 *H Urines Urine Color (YEL,AMB,STR) YEL Urine Clarity (CLEAR) CLEAR Urine pH (5.0 - 8.0) 6.5 Ur Specific [place] (1.001 - 1.035) 1.010 Urine Protein (NEG,<30 MG/DL) TRACE H Urine Ketones (NEG) NEG Urine Nitrite (NEG) NEG Urine Bilirubin (NEG) NEG Urine Urobilinogen (0.1 - 1.0 EU/dl) 0.2 Ur Leukocyte Esterase (NEG) NEG Ur Microscopic SEDIMENT EXAMINED Urine RBC (0 - 5 /HPF) 5-10 H Urine Hemoglobin (NEG) SMALL H Urine Glucose (N MG/DL) NEG Last 24 Hours of Edd Results: Blood cultures December 15 negative Blood culture December 16 negative Urine culture December 15 pending Urine strep pneumo antigen and Legionella antigen December 15 negative Rapid flu swab December 15 negative Sputum for fungal culture December 15 pending Assessment/Plan Impression: Stable with temperatures normal (on steroids) with 2100 neutrophils noted today, after Neupogen, which was apparently also given as an outpatient prior to admission, with plans to continue on a weekly basis. He is on Vancomycin and Meropenem for a right lower lobe pneumonia and this should be able to be eventually adjusted based on the results of his recent cultures. Suggestion: 1. Follow-up recent cultures 2. Continue Vancomycin and Meropenem pending above
--- NOTE | 2016-12-16 14:36 | PN- Cardiology ---
Subjective Subjective: * Patient does not feel as well today as he did yesterday evening. He has a post nasal drip and possible shortness of breath. He denies chest discomfort. * Cardiac enzymes are abnormal times two sets and are trending down. * normal creatinine * imnproving WBC count Objective Vital Signs and I&Os Vital Signs Date Time Temp Pulse Resp B/P Pulse O2 O2 Flow FiO2 Ox Delivery Rate 12/16 1144 97 Nasal 3.0L Cannula 12/16 1050 78 120/68 12/16 0800 97.6 78 20 120/68 96 Nasal 4.0L Cannula 12/16 0631 99 Nasal 3.0L Cannula 12/15 2151 97.3 85 18 118/60 98 Nasal 4.0L Cannula 12/15 2009 Nasal 4.0L Cannula 12/15 1845 Nasal 3.0L Cannula 12/15 1714 96.6 90 18 120/64 98 Room Air 12/15 1503 96.7 94 18 104/58 98 Nasal 3.0L Cannula Intake & Output 12/16 1600 12/16 0800 12/16 0000 12/15 1600 12/15 0800 12/15 0000 Intake Total 400 400 Output Total 350 250 200 Balance 50 150 -200 Intake, IV 300 150 Intake, Oral 100 250 Number 0 1 Bowel Movements Output, Urine 350 250 200 Patient 139 lb 144 lb Weight Physical Exam: General: WD/ overweight male in NAD; alert and oriented x 3 Neck: no JVD, no carotid bruits Heart: RRR w/o murmurs Lungs: decreased air movement throughout with brochial sounds at the right base EXtremities: no edema Assessment/Plan Assessment/Plan * This patient has the underlying cardiac substrate that typically accompanies supply-demand ischemia in that his inferior wall is only supplied by collaterals. Nevertheless, he does not appear to be in very profound distress although it was noted that he initially presented with low o2 sats and mild tachycardia. I would recommend a repeat ABG on RA, d-dimer and lower extremity US to exclude a DVT. If these studies are suggestive of a PE then a CT angiogram would be reasonable to pursue since a PE will cause increased troponins, tachycardia, shortness of breath and low O2. If the above studies are negative or improved then IV heparin may be discontinued. * This patient should be on aspirin 324mg daily, Plavix 75mg daily, NTG paste 1/ 2 inch Q 6 hours, lopressor 12.5mg BID and a statin. Hold Lasix. * Obtain a repeat echocardiogram. Continue telemetry? Yes
[2016-12-16 16:15] VITALS: BP 110/60
[2016-12-16 18:44] LABS: PTT 54 SEC (25-37)
--- NOTE | 2016-12-16 18:48 | CT SCAN REPORT ---
EXAMINATION: CT ANGIOGRAM OF THE CHEST WITH AND WITHOUT CONTRAST (CT PULMONARY ANGIOGRAM FOR PE) CLINICAL INFORMATION: Tachycardia and desaturation. Pulmonary embolism. COMPARISON: Multiple prior examinations including most recent CT 12/15/2016 and chest x-ray performed 12/15/2016. TECHNIQUE: Prior to contrast administration, noncontrast localization images were obtained. Subsequently, multidetector volumetric imaging was performed from the thoracic inlet to below the diaphragms following the administration of 95 mL Optiray 350 intravenous contrast. No contrast reaction reported. Sagittal, coronal, and MIP oblique sagittal reformatted images were obtained on the CT workstation, uploaded to PACS, and reviewed. DLP: 324 mGy-cm FINDINGS: QUALITY OF STUDY/CONTRAST BOLUS: Satisfactory. CARDIOVASCULAR Pulmonary Arteries: No central or segmental pulmonary emboli. Thoracic Aorta: No aneurysm or dissection. Heart: No pericardial effusion. Upper limits of normal in size. Arterial calcification noted. Lungs And Pleural Spaces: There are small bilateral pleural effusions increased compared to prior CT less conspicuous on x-ray. Moderate emphysema again noted unchanged. There is some new parenchymal opacity in the right lower lobe laterally compared to the prior CT as seen on axial image [id number] but likely present on the recent chest x-ray. Lymph nodes: Normal. Thoracic inlet: Normal. Esophagus: Normal. Chest wall and soft tissues: Normal. Prominent multilevel spondylosis and kyphosis of the dorsal spine present. At some levels there is likely some fusion across the disc spaces. Upper Abdomen: Calcific atherosclerotic changes of the upper abdominal aorta unchanged. IMPRESSION: No evidence for pulmonary embolism. Persistent consolidation in the right base similar to the recent chest x-ray but new compared to the CT October 2016 could reflect atelectasis or evolving pneumonia. Small bilateral pleural effusions new compared to CT in October not clearly conspicuous on radiograph. Emphysema unchanged. Calcific atherosclerotic disease unchanged. Prominent spondylosis and kyphosis of the dorsal spine unchanged. VTE: negative
[2016-12-16 23:00] VITALS: BP 104/64; BP 112/68
--- NOTE | 2016-12-17 07:28 | PN- Housestaff ---
JENN MONZON 12/17/16 0727: Subjective Follow-up For: 1. 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 2. Elevated troponin most likely due to demand ischemia. 3.Acute respiratory distress secondary to gram-negative pneumonia superimposed on COPD. Tele-Events Since Last Visit: Sinus rhythm with a heart rate from 66-78 first-degree AV block [place] interval 0.26 , with some PACs overnight. Subjective: Patient seen and examined today. Seems better, still appears slightly short of breath saturating more than 92% on 3 L. CTA done yesterday rule out any underlying pulmonary embolism and IV heparin was stopped. In the morning patient has episodes of blood tinged cough, and subcutaneous heparin was held. Reports local pain on the left lumbar region , getting Tylenol as needed for pain . Denies any chest discomfort/palpitations. No urinary bowel habit complaints. Review of Systems Constitutional: Denies: chills, diaphoresis, fever. EENTM: Denies: blurred vision, double vision, visual changes, eye pain, eye tearing, icterus. Cardiovascular: Denies: chest pain, edema, orthopena. Respiratory: Denies: cough, hemoptysis, orthopnea, short of breath. Gastrointestinal: Denies: abdominal pain, bloating, constipation, diarrhea. Genitourinary: Denies: discharge, dysuria, frequency, hematuria. Musculoskeletal: Reports: back pain. Objective Last 24 Hrs of Vital Signs/I&O Vital Signs Date Time Temp Pulse Resp B/P Pulse O2 O2 Flow FiO2 Ox Delivery Rate 12/17 0036 98 Nasal 3.0L Cannula 12/17 0000 Nasal 3.0L Cannula 12/16 2300 98.2 74 22 112/68 98 Nasal 3.0L Cannula 12/16 1957 96 Nasal 3.0L Cannula 12/16 1615 98.5 84 16 110/60 98 Nasal 3.0L Cannula 12/16 1144 97 Nasal 3.0L Cannula 12/16 1050 78 120/68 Intake & Output 12/17 1600 12/17 0800 12/17 0000 Intake Total 630 870 Output Total 425 500 Balance 205 370 Intake, IV 280 320 Intake, Oral 350 550 Number 0 0 Bowel Movements Output, Urine 425 500 Physical Exam General Appearance: Alert, Oriented X3, No Acute Distress Skin: No Rashes, No Breakdown HEENT: Atraumatic, PERRLA Neck: Supple, No JVD Cardiovascular: Regular Rate, Normal S1, Normal S2 Lungs: Clear to Auscultation Abdomen: Normal Bowel Sounds, Soft, No Tenderness Neurological: Normal Speech Extremities: No Clubbing, No Cyanosis, No Edema Current Medications: Current Medications Sig/Jorgito Start time Last Medication Dose Route Stop Time Status Admin Acetaminophen 650 MG Q6P PRN 12/17 0815 UNVr PO Acetaminophen 650 MG Q6P PRN 12/17 0030 AC 12/17 PO 0032 Acetaminophen/ 1 TAB Q6 12/17 0807 UNVr Hydrocodone Bitart PO Albuterol Sulfate 3 ML EVERY 4 HRS/AWAKE 12/16 0800 AC 12/17 INH 0848 Albuterol Sulfate 2 PUF Q4H PRN 12/15 1200 AC INH Albuterol Sulfate 3 ML Q4P PRN 12/15 1200 AC INH Alendronate Sodium 70 MG QTHURS 12/18 1000 AC PO Aspirin 325 MG DAILY 12/16 1000 AC 12/16 PO 1047 Atorvastatin Calcium 20 MG DAILY 12/15 1150 AC 12/16 PO 1049 Bisacodyl 10 MG DAILY PRN 12/15 1230 AC 12/15 [place] 1541 Budesonide/ 2 PUF BID 12/15 1150 AC 12/16 Formoterol Fumarate INH 2146 Cholecalciferol 400 IU DAILY 12/15 1150 AC 12/16 PO 1049 Clopidogrel Bisulfate 75 MG DAILY 12/16 1000 AC 12/16 PO 1048 Enoxaparin Sodium 40 MG DAILY 12/15 1221 AC 12/16 SC 1050 Filgrastim 300 MCG DAILY 12/15 1355 AC 12/16 SC 1133 Folic Acid 1 MG DAILY 12/15 1150 AC 12/16 PO 1049 Guaifenesin 600 MG Q12 12/15 2215 AC 12/16 PO 2146 Heparin Sodium 5,000 UNIT Q8 12/16 2200 AC (Porcine) SC Heparin Sodium 3,787 UNIT ONCE ONE 12/16 0945 DC 12/16 (Porcine) IV 12/16 0946 0945 Heparin Sodium 25,000 UNIT Q24H 12/15 1715 DC 12/16 (Porcine) IV 1622 Sodium Chloride 500 ML Hydromorphone HCl 0.5 MG Q4P PRN 12/17 0815 IV Meropenem 1 GM IQ8 12/15 1915 AC 12/17 IV 0017 Metoprolol Tartrate 12.5 MG BID 12/16 1000 DC PO Metoprolol Tartrate 6.25 MG BID 12/16 1000 AC 12/16 PO 2146 Multivitamins 1 TAB DAILY 12/15 1151 12/16 Therapeutic PO 1049 Nitroglycerin 0.5 GM Q6 12/16 0729 12/17 TOP 0553 Nitroglycerin 0.2 MG DAILY 12/15 1712 AC 12/16 TOP 1048 Omeprazole 20 MG DAILY AC 12/17 0700 AC 12/17 PO 0553 Omeprazole 20 MG DAILY 12/15 1151 DC 12/16 PO 1049 Patient Medication 1 UNIT ONE NR 12/16 1015 DC Teaching ED 12/16 1615 Prednisone 10 MG DAILY 12/15 1151 AC 12/16 PO 1048 Psyllium Hydrophilic 1 PAC BID PRN 12/15 1200 AC Mucilloid PO Tiotropium [place] 1 PUF DAILY 12/15 1152 AC 12/16 INH 1049 Vancomycin HCl 1,000 MG DAILY 12/16 1000 AC 12/16 Dextrose/Water 250 ML IV 1048 Last 24 Hrs of Lab/Edd Results Last 24 Hrs of Labs/Mics: Laboratory Tests 12/17/16 0700: Anion Gap 2 L, Estimated GFR > 60, BUN/Creatinine Ratio 31.7 H, CBC w Diff NO MAN DIFF REQ, RBC 3.42 L, MCV 81.5, MCH 27.3, RDW 18.4 H, MPV 7.4, Gran % 72.4 , Lymphocytes % 23.5, Monocytes % 3.6, Eosinophils % 0.2, Basophils % 0.3, Absolute Granulocytes 7.5 H, Absolute Lymphocytes 2.4, Absolute Monocytes 0.4, Absolute Eosinophils 0, Absolute Basophils 0, PUBS MCHC 33.5 12/16/16 1725: APTT 54 H 12/16/16 0930: Anion Gap 6, Estimated GFR > 60, BUN/Creatinine Ratio 35.0 H, APTT 41 H, CBC w Diff MAN DIFF ORDERED, RBC 3.56 L, MCV 81.7, MCH 27.1, RDW 17.8 H, MPV 6.6 L, Gran % 58.2, Lymphocytes % 29.2, Monocytes % 12.4 H, Eosinophils % 0, Basophils % 0.2, Absolute Granulocytes 2.1, Segmented Neutrophils 35 L, Band Neutrophils 20 H, Absolute Lymphocytes 1.0 L, Lymphocytes 33, Monocytes 12 H, Absolute Monocytes 0.4, Absolute Eosinophils 0, Absolute Basophils 0, Platelet Estimate VERIFIED BY SMEAR, Anisocytosis 1+, PUBS MCHC 33.2 Assessment/Plan Assessment: Mr. Boss is an 86 year old male with history of hypetension, dyslipidemia, borderline diabetes coronary artery disease s/p NSTEMI and COPD on home oxygen. 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 pertinent data: Labs for today are pending: Assessment: 1. 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 2. Elevated troponin most likely due to demand ischemia. 3.Acute respiratory distress secondary to acute infection superimposed on COPD. 4. Hyponatremia Plan 1. Chronic neutropenia with unknown etiology possible rheumatoid arthritis/ myelodysplastic syndrome:Neutropenia improved after getting Neupogen prior to the admission. * Patient remained afebrile overnight. WBC count improved to 10,000 with absolute neutrophilic count of 7[address] Laboy over the phone and we will DC Neupogen continue to monitor neutrophil count. * Sputum cultures grew gram-negative rods. * DC vancomycin * ID is on board will follow the recommendations. * Continue with meropenem * Monitor vitals every 4 hours. * Continue Neupogen once a week as an outpatient 2. Elevated troponin most likely due to demand ischemia: * Elevated troponins in the setting of most likely demand ischemia. * CTA was done yesterday that rule out any underlying pulmonary embolism and IV heparin was stopped. * Continue to follow cardiology recommendations. * Will DC manager insurance today as they are no overnight acute events and transferr to the [facility] * Continue aspirin, metoprolol and nitroglycerin as needed for chest discomfort. 3.Acute respiratory distress secondary to right lower lobe gram-negative superimposed on COPD: * Sputum culture grew gram-negative rods * ID is on board will modify the antibiotics according to the recommendations. * Will consider pulmonology consult if patient remains acutely dyspneic * Monitor vitals. * Continues spiriva and inhalers * Continue TRC nebs 4. Euvolemic hyponatremia: * Sodium level today 129 * We'll put the patient on 1200 fluid restriction. * Repeat sodium levels tomorrow 5. DVT prophylaxis subcutaneous heparin 6. Mild to moderate pain controlled with Tylenol and Lidoderm patch. 7. Patient is DNR/DNI Problem List: 1. CHRONIC NEUTROPENIA 2. Pneumonia Pain Ratin Pain Location: Local back pain Pain Goal: Pain 4 or less Pain Plan: Lidoderm patch and Tylenol Tomorrow's Labs & Rationales: CBC and BEP Neutropenia and hyponatremia OMEGA GALVIN MD 12/17/16 1016: Attending MD Review Statement Attending Statement Attending MD Statement: examined this patient, discuss w/resident/PA/MANAGER FORENSIC, agreed w/resident/PA/MANAGER FORENSIC, reviewed EMR data (avail), discussed with nursing, discussed with case mgmt Attending Assessment/Plan: Does not feeling very good today. Feels weak and congested. CTA was negative for PE and heparin drip was stopped. I also took him off the asset protection assistant at this point. He is chronically on 3 L of oxygen and will continue that. We are treating him for gram-negative pneumonia and he is growing two gram negatives in his sputum culture. He is on IV meropenem for the same. His neutropenia has resolved nicely and will stop the Neupogen. And continue it once a week per oncology.
[2016-12-17 08:10] LABS: ABSOLUTE BASOPHIL COUNT 0 /CUMM (0.0-0.2); ABSOLUTE EOSINOPHIL COUNT 0 /CUMM (0.0-0.7); PLATELET COUNT 107 /CUMM (130-400); RED BLOOD CELL CT 3.42 /CUMM (4.70-6.10)
[2016-12-17 08:49] LABS: ABSOLUTE GRANULOCYTE CT 7.5 /CUMM (1.4-6.5); ABSOLUTE LYMPH COUNT 2.4 /CUMM (1.2-3.4); ABSOLUTE MONOCYTE COUNT 0.4 /CUMM (0.10-0.60); BASOPHIL % 0.3 % (0.0-2.0); EOSINOPHIL % 0.2 % (0-5); GRANULOCYTE % 72.4 % (42.2-75.2); HEMATOCRIT 27.9 % (42-52); MEAN CORPUSCULAR HGB 27.3 PG (27.0-31.0); MEAN CORPUSCULAR HGB CONC 33.5 G/DL (33.0-37.0); MEAN CORPUSCULAR VOLUME 81.5 FL (80.0-94.0); MEAN PLATELET VOLUME 7.4 FL (7.4-10.4); RBC DISTRIBUTION WIDTH 18.4 % (11.5-14.5)
[2016-12-17 08:56] LABS: WHITE BLOOD CELL COUNT 10.4 /CUMM (4.8-10.8)
[2016-12-17 09:35] VITALS: BP 120/50
--- NOTE | 2016-12-17 10:58 | PN- Infect Dx ---
Subjective Subjective: Afebrile on steroids. He feels more short of breath. He also had a bad night with little sleep. Objective Last 24 Hrs of Vital Signs/I&O Vital Signs Date Time Temp Pulse Resp B/P Pulse O2 O2 Flow FiO2 Ox Delivery Rate 12/17 1024 93 Nasal 2.0L Cannula 12/17 0958 98.2 88 20 120/50 12/17 0935 98.2 88 20 120/50 96 Nasal 3.0L Cannula 12/17 0036 98 Nasal 3.0L Cannula 12/17 0000 Nasal 3.0L Cannula 12/16 2300 98.2 74 22 112/68 98 Nasal 3.0L Cannula 12/16 1957 96 Nasal 3.0L Cannula 12/16 1615 98.5 84 16 110/60 98 Nasal 3.0L Cannula 12/16 1144 97 Nasal 3.0L Cannula 12/16 1050 78 120/68 Intake & Output 12/17 1600 12/17 0800 12/17 0000 Intake Total 630 870 Output Total 425 500 Balance 205 370 Intake, IV 280 320 Intake, Oral 350 550 Number 0 0 Bowel Movements Output, Urine 425 500 Physical Exam Other Physical Findings: He appears mildly dyspneic Lungs bilateral wheezes with crackles particularly on the right Heart regular rhythm with no murmur Extremities bilateral lower extremity 1+ edema, right greater than left Results Last 24 Hours of Lab Results: Laboratory Tests 12/17 12/16 0700 1725 Chemistry Sodium (137 - 145 mmol/L) 129 L Potassium (3.5 - 5.1 mmol/L) 3.6 Chloride (98 - 107 mmol/L) 91 L Carbon Dioxide (22 - 30 mmol/L) 35 H Anion Gap (5 - 16) 2 L BUN (9 - 20 mg/dL) 19 Creatinine (0.7 - 1.2 mg/dL) 0.6 L Estimated GFR (>60 ml/min) > 60 BUN/Creatinine Ratio (7 - 25 %) 31.7 H Coagulation APTT (25 - 37 SEC) 54 H Hematology CBC w Diff NO MAN DIFF REQ WBC (4.8 - 10.8 /CUMM) 10.4 RBC (4.70 - 6.10 /CUMM) 3.42 L Hgb (14.0 - 18.0 G/DL) 9.3 L Hct (42 - 52 %) 27.9 L MCV (80.0 - 94.0 FL) 81.5 MCH (27.0 - 31.0 PG) 27.3 RDW (11.5 - 14.5 %) 18.4 H Plt Count (130 - 400 /CUMM) 107 L MPV (7.4 - 10.4 FL) 7.4 Gran % (42.2 - 75.2 %) 72.4 Lymphocytes % (20.5 - 51.1 %) 23.5 Monocytes % (1.7 - 9.3 %) 3.6 Eosinophils % (0 - 5 %) 0.2 Basophils % (0.0 - 2.0 %) 0.3 Absolute Granulocytes (1.4 - 6.5 /CUMM) 7.5 H Absolute Lymphocytes (1.2 - 3.4 /CUMM) 2.4 Absolute Monocytes (0.10 - 0.60 /CUMM) 0.4 Absolute Eosinophils (0.0 - 0.7 /CUMM) 0 Absolute Basophils (0.0 - 0.2 /CUMM) 0 PUBS MCHC (33.0 - 37.0 G/DL) 33.5 Last 24 Hours of Edd Results: Sputum culture May 15 positive for 2 types of gram-negative rods Blood cultures December 15 negative Blood culture December 16 negative Urine culture December 15 negative Recent Imaging Studies: CTA of the chest December 16 no evidence for pulmonary embolism; persistent consolidation in the right base; small bilateral pleural effusions Assessment/Plan Impression: Respiratory distress, with evidence of bronchospasm on exam, in this patient with chronic neutropenia, COPD and rheumatoid arthritis, chronically maintained on steroids. He remains on Vancomycin and Meropenem for right lower lobe pneumonia, with chest x-ray and CT revealing a new right lower lobe density and with sputum culture positive for gram-negative rods. He remains afebrile (on steroids) with white blood cell count increased on Neupogen, which was apparently also given as an outpatient prior to admission, and which is apparently to be continued on a weekly basis. Suggestion: 1. Consider increasing his dose of steroids 2. Follow-up final sputum culture 3. Discontinue Vancomycin 4. Continue Meropenem pending above
--- NOTE | 2016-12-17 12:41 | Cons- Pulmonary ---
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 His BMP is elevated though lower than prior admissions when he is had congestive heart failure. Prednisone was raised over his complaints of congestion shortness of breath and bronchospasm. Presently is comfortable without congestion and a shortness of breath is improved. He is oxygenated on his baseline 2 L. Sputum was growing gram-negative rides yet to be identified. Remains on broad-spectrum antibiotics and baseline prednisone 10 mg a day. His course was complicated by transient neutropenia responding to Neupogen and elevated troponins Allergies/Medications Allergies: Coded Allergies: NO KNOWN ALLERGIES (04/23/12) Home Med List: Albuterol Sulfate (Proair Hfa) 8.5 GM HFA.AER.AD 2 PUF INH Q4H PRN COPD ( Reported) Albuterol Sulfate 2.5 MG/3 ML VIAL.NEB 1 Vial INH/ANKUR Q4P PRN COPD EXACERBATION Alendronate Sodium 70 MG TABLET 1 TAB PO QTHURS bone health (Reported) in the morning, at least 30 minutes before the first food, beverage, or medication of the day Aspirin (Aspirin*) 81 MG TAB.CHEW 1 TAB PO DAILY HEART HEALTH (Reported) Atorvastatin Calcium 20 MG TABLET 1 TAB PO DAILY CHOLESTEROL (Reported) Cholecalciferol (Vitamin D3) (Vitamin D) 400 UNIT TABLET 1 TAB PO DAILY SUPPLEMENT (Reported) Fluticasone/Salmeterol (Advair 250-50 Diskus) 250 MCG-50 MCG/DOSE BLST.W.DEV 1 PUF INH BID BREATHING PROBLEMS (Reported) Folic Acid 1 MG TABLET 1 TAB PO DAILY supplement (Reported) Furosemide (Lasix) 40 MG TABLET 1 TAB PO BID WATER PILL Multivitamin (Daily Multiple Vitamin) 1 EACH TABLET 1 TAB PO DAILY SUPPLEMENT (Reported) Omeprazole 20 MG CAPSULE.DR 1 CAP PO DAILY GI protection (Reported) Prednisone 5 MG TABLET 2 TAB PO DAILY COPD/ARTHRITIS (Reported) Psyllium Husk (Metamucil) 660 GM POWDER 1 PAC PO PRN CONSTIPATION (Reported) Tiotropium Ord (Spiriva) 18 MCG CAP.W.DEV 1 CAP INH DAILY COPD (Reported) Review of Systems Review of Systems Constitutional: Denies: chills, fever. Cardiovascular: Reports: peripheral edema. Denies: chest pain. Respiratory: Reports: cough, short of breath. Denies: hemoptysis, sputum production, wheezing. GI: Denies: abdominal pain, diarrhea, melena. Past History Travel History Traveled to [place] past 21 day No Medical History Blood Transfusion Hx: No Neurological: NONE EENT: NONE Cardiovascular: CAD, CHF, hyperlipidemia, NSTEMI Respiratory: bronchitis, COPD, emphysema, pneumonia Gastrointestinal: colitis, hiatal hernia, peptic ulcer disease, upper GI bleed, C. 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 Home Who Do You Live With? spouse Services at Home: None Primary Language: Yoruba Smoking Status: Former Smoker ETOH Use: denies use Illicit Drug Use: denies illicit drug use Living Will? 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 Name of POA/HCP: Exam & Diagnostic Data Last 24 Hrs of Vital Signs/I&O Vital Signs Date Time Temp Pulse Resp B/P Pulse O2 O2 Flow FiO2 Ox Delivery Rate 12/17 1024 93 Nasal 2.0L Cannula 12/17 0958 98.2 88 20 120/50 12/17 0935 98.2 88 20 120/50 96 Nasal 3.0L Cannula 12/17 0036 98 Nasal 3.0L Cannula 12/17 0000 Nasal 3.0L Cannula 12/16 2300 98.2 74 22 112/68 98 Nasal 3.0L Cannula 12/16 1957 96 Nasal 3.0L Cannula 12/16 1615 98.5 84 16 110/60 98 Nasal 3.0L Cannula Intake & Output 12/17 1600 12/17 0800 12/17 0000 Intake Total 630 870 Output Total 425 500 Balance 205 370 Intake, IV 280 320 Intake, Oral 350 550 Number 0 0 Bowel Movements Output, Urine 425 500 Patient 139 lb Weight Oxygen saturation on 2 L is 93% he is afebrile on prednisone exam of his chest shows absent wheezing or occasional crackles cardiac exam shows regular S1 and S2 without murmurs abdominal exam is soft nontender he has 1+ symmetrical edema Last 48 Hrs of Labs/Edd: Laboratory Tests 12/17/16 0700: Anion Gap 2 L, Estimated GFR > 60, BUN/Creatinine Ratio 31.7 H, CBC w Diff NO MAN DIFF REQ, RBC 3.42 L, MCV 81.5, MCH 27.3, RDW 18.4 H, MPV 7.4, Gran % 72.4 , Lymphocytes % 23.5, Monocytes % 3.6, Eosinophils % 0.2, Basophils % 0.3, Absolute Granulocytes 7.5 H, Absolute Lymphocytes 2.4, Absolute Monocytes 0.4, Absolute Eosinophils 0, Absolute Basophils 0, PUBS MCHC 33.5 12/16/16 1725: APTT 54 H 12/16/16 0930: Anion Gap 6, Estimated GFR > 60, BUN/Creatinine Ratio 35.0 H, APTT 41 H, CBC w Diff MAN DIFF ORDERED, RBC 3.56 L, MCV 81.7, MCH 27.1, RDW 17.8 H, MPV 6.6 L, Gran % 58.2, Lymphocytes % 29.2, Monocytes % 12.4 H, Eosinophils % 0, Basophils % 0.2, Absolute Granulocytes 2.1, Segmented Neutrophils 35 L, Band Neutrophils 20 H, Absolute Lymphocytes 1.0 L, Lymphocytes 33, Monocytes 12 H, Absolute Monocytes 0.4, Absolute Eosinophils 0, Absolute Basophils 0, Platelet Estimate VERIFIED BY SMEAR, Anisocytosis 1+, PUBS MCHC 33.2 12/16/16 0015: APTT 110 *H 12/15/16 2120: Troponin I 2.20 *H 12/15/16 1700: Urine Color YEL, Urine Clarity CLEAR, Urine pH 6.5, Ur Specific [place] 1.010, Urine Protein TRACE H, Urine Ketones NEG, Urine Nitrite NEG, Urine Bilirubin NEG, Urine Urobilinogen 0.2, Ur Leukocyte Esterase NEG, Ur Microscopic SEDIMENT EXAMINED, Urine RBC 5-10 H, Urine Hemoglobin SMALL H, Urine Glucose NEG 12/15/16 1457: Troponin I 2.83 *H Microbiology 12/15 1699 URINE ROUT: Streptococcus pneumoniae Antigen (M - COMP 01/16 1700 URINE ROUT: Legionella Antigen - COMP Assessment/Plan Impression/Plan: 86-year-old gentleman who presented with an ANC of 0 associated with new right lower lobe parenchymal density with sputum positive for gram-negative rods. Clinically he appears improved and is presently comfortable without complaints of congestion as well as shortness of breath is improved. Significance of prior cultures revealing mold is uncertain though he appears improved with normalization of his white count and antibiotics Recommendations: At this point would continue current dose of prednisone. Continue nebulized bronchodilators. Use of a flutter valve may facilitate expectoration. Aggressive pulmonary toilet. If bronchospasm recurs then reinstitution of Solu- Medrol would be appropriate. Consult Acknowledgment - Thank you for your consult request.
--- NOTE | 2016-12-17 12:45 | ECHOCARDIOGRAM REPORT ---
OWEN WERNER Age: 86 : 1930 Gender: M Exam Date: 12/16/2016 18:49 Exam Location: [address] Ht (in): 65 Wt (lb): 138 BSA: 1.70 BP: 120 / 68 Ordering Physician: NETO GARCIA MD Referring Physician: Owen Aguirre MD, PhD Technologist: Martina Wray [facility] Room Number: 176 Indications: CHEST PAIN Rhythm: Sinus Technical Quality: Fair FINDINGS Left Ventricle Normal size left ventricle. Mild concentric left ventricular hypertrophy. Hypokinetic posterior wall. Hypokinetic inferior wall. Normal left ventricular ejection fraction visually estimated at greater than 65%. "pseudonormal" filling pattern of the left ventricle for age (stage 2 diastolic dysfunction). Right Ventricle Mild right ventricular dilatation. Right Atrium Normal right atrial size. Elevated right atrial pressure. Left Atrium Normal left atrial size. Mitral Valve Mild mitral annular calcification. Mitral valve mildly thickened. Mild mitral regurgitation. Aortic Valve Trileaflet aortic valve. Focal thickening of the aortic valve cusps. No aortic stenosis. Mild aortic regurgitation. Tricuspid Valve Mildly thickened tricuspid valve. Mild tricuspid regurgitation. Moderate pulmonary hypertension. Right ventricular systolic pressure estimated to be elevated at 53 mmHg. Pulmonic Valve Pulmonic valve not well visualized, grossly normal. No pulmonic regurgitation. Pericardium No pericardial effusion. Great Vessels Normal size aortic root. Dilated inferior vena cava. CONCLUSIONS Normal size left ventricle. Mild concentric left ventricular hypertrophy. Hypokinetic posterior wall. Hypokinetic inferior wall. Normal left ventricular ejection fraction visually estimated at greater than 65%. "pseudonormal" filling pattern of the left ventricle for age (stage 2 diastolic dysfunction). Mild right ventricular dilatation. Normal atrial size. Mild mitral regurgitation. Mild aortic regurgitation. Mild tricuspid regurgitation. Moderate pulmonary hypertension. Dilated inferior vena cava. Vipin Underwood M.D. (Electronically Signed) Final Date: 17 December 2016 12:45 MEASUREMENTS (Male / Female) Normal Values 2D ECHO LV Diastolic Diameter PLAX 4.2 cm 4.2 - 5.9 / 3.9 - 5.3 cm LV Systolic Diameter PLAX 2.6 cm 2.1 - 4.0 cm LV Fractional Shortening PLAX 38.1 % 25 - 46 % LV Ejection Fraction 2D Teich 68.7 % IVS Diastolic Thickness 1.3 cm LVPW Diastolic Thickness 1.1 cm LV Relative Wall Thickness 0.6 RV Internal Dim ED PLAX 3.4 cm 1.9 - 3.8 cm LVOT Diameter 1.9 cm Aortic Root Diameter 3.1 cm LA Systolic Diameter LX 4.6 cm 3.0 - 4.0 / 2.7 - 3.8 cm LA Volume 36.0 cm 18 - 58 / 22 - 52 cm Ascending Aorta Diameter 3.3 cm DOPPLER AV Peak Velocity 121.0 cm/s AV Peak Gradient 5.9 mmHg AV Mean Velocity 82.2 cm/s AV Mean Gradient 3.0 mmHg AV Velocity Time Integral 22.9 cm LVOT Peak Velocity 108.0 cm/s LVOT Peak Gradient 4.7 mmHg LVOT Mean Velocity 71.9 cm/s LVOT Mean Gradient 2.0 mmHg LVOT Velocity Time Integral 19.8 cm LVOT Stroke Volume 56.1 cm AV Area Cont Eq vti 2.5 cm AV Area Cont Eq pk 2.5 cm MV Peak Velocity 115.0 cm/s MV Peak Gradient 5.3 mmHg MV Mean Velocity 62.7 cm/s MV Mean Gradient 2.0 mmHg Mitral E Point Velocity 91.3 cm/s Mitral A Point Velocity 90.8 cm/s Mitral E to A Ratio 1.0 MV PHT Velocity 104.0 cm/s MV Deceleration Pope 658.0 cm/s MV Pressure Half Time 47.4 ms MV Area PHT 4.6 cm MV Deceleration Time 164.0 ms TR Peak Velocity 345.0 cm/s TR Peak Gradient 47.6 mmHg Right Atrial Pressure 5.0 mmHg Pulmonary Artery Systolic Pressu 52.6 mmHg Right Ventricular Systolic Press 52.6 mmHg PV Peak Velocity 128.0 cm/s PV Peak Gradient 6.6 mmHg PV Mean Velocity 78.1 cm/s PV Mean Gradient 3.0 mmHg PV Velocity Time Integral 23.8 cm LV E' Lateral Velocity 8.9 cm/s Mitral E to LV E' Lateral Ratio 10.2 LV E' Septal Velocity 7.6 cm/s Mitral E to LV E' Septal Ratio 12.0
[2016-12-17 16:25] VITALS: BP 124/58
--- NOTE | 2016-12-17 18:19 | PN- Cardiology ---
Subjective Subjective: * Breathing is improved. Mild shortness of breath with exertion. No chest discomfort. * No evidence of a PE. * sinus rhythm Objective Vital Signs and I&Os Vital Signs Date Time Temp Pulse Resp B/P Pulse O2 O2 Flow FiO2 Ox Delivery Rate 12/17 1625 97.9 68 20 124/58 99 Nasal 3.0L Cannula 12/17 1615 99 Nasal 3.0L Cannula 12/17 1024 93 Nasal 2.0L Cannula 12/17 0958 98.2 88 20 120/50 12/17 0935 98.2 88 20 120/50 96 Nasal 3.0L Cannula 12/17 0800 95 Nasal 3.0L Cannula 12/17 0036 98 Nasal 3.0L Cannula 12/17 0000 Nasal 3.0L Cannula 12/16 2300 98.2 74 22 112/68 98 Nasal 3.0L Cannula 12/16 1957 96 Nasal 3.0L Cannula Intake & Output 12/17 1600 12/17 0800 12/17 0000 12/16 1600 12/16 0800 12/16 0000 Intake Total 630 870 890 400 400 Output Total 425 500 825 350 250 Balance 205 370 65 50 150 Intake, IV 280 320 240 300 150 Intake, Oral 350 550 650 100 250 Number 0 0 0 1 Bowel Movements Output, Urine 425 500 825 350 250 Patient 139 lb 139 lb Weight Physical Exam: General: WD/ overweight male in NAD; alert and oriented x 3 Neck: no JVD, no carotid bruits Heart: RRR w/o murmurs Lungs: decreased air movement with wheezing EXtremities: no edema Assessment/Plan Assessment/Plan * This patient has the underlying cardiac substrate for supply-demand ischemia in that his inferior wall is only supplied by collaterals. Okay to stop IV heparin at this point in time. * This patient should continue on aspirin 324mg daily, Plavix 75mg daily, lopressor 6.25mg BID and a statin. Change NTG to a patch at 0.4mg/hr for 12 hours daily. Restart Lasix at 40mg once daily. Replete this patient's potassium. Continue telemetry? Yes
[2016-12-17 23:33] VITALS: BP 120/50
--- NOTE | 2016-12-18 05:28 | NUR ---
PT C/O OF SOB. POX-95% ON 3L. MD SOMMER UP TO SEE PATIENT. NNO AT THIS TIME. RESP PAGED FOR NEBULIZER TREATMENT. WILL CONTINUE TO MONITOR.
--- NOTE | 2016-12-18 05:31 | Event Note ---
Event Note Event Note: At 4:50 AM, patient was noted to be bradycardic down to 39 and had a 3-beat run of vtach. Mg and Phos were ordered. About 30 minutes later, patient woke up complaining of SOB. He was satting at 95% on 3 L NC. Respiratory therapy was paged for nebulizer treatment. Patient was seen and examined at baseline. He stated that SOB woke him up from sleep. He denied chest pain or palpitations. On lung exam, he had diminished breath sounds and diffuse bilateral wheezing. Patient was given single dose of IV Solumedrol 40 mg and prednisone was discontinued.
--- NOTE | 2016-12-18 07:18 | PN- Hematology ---
Subjective Subjective: Events of last night reviewed, now much less short of breath and feeling quite well Review of Systems: 12 point review of systems otherwise unchanged Objective Vital Signs and I&Os Vital Signs Date Time Temp Pulse Resp B/P Pulse O2 O2 Flow FiO2 Ox Delivery Rate 12/18 0558 92 Nasal 2.0L Cannula 12/18 0000 Nasal 3.0L Cannula 12/17 2333 97.8 66 20 120/50 99 Nasal 3.0L Cannula 12/17 2137 77 142/58 12/17 1625 97.9 68 20 124/58 99 Nasal 3.0L Cannula 12/17 1615 99 Nasal 3.0L Cannula 12/17 1600 96 Nasal 3.0L Cannula 12/17 1024 93 Nasal 2.0L Cannula 12/17 0958 98.2 88 20 120/50 12/17 0935 98.2 88 20 120/50 96 Nasal 3.0L Cannula 12/17 0800 95 Nasal 3.0L Cannula Intake & Output 12/18 0800 12/18 0000 12/17 1600 12/17 0800 12/17 0000 12/16 1600 Intake Total 130 400 630 870 890 Output Total 450 800 425 500 825 Balance -320 -400 205 370 65 Intake, IV 10 280 320 240 Intake, Oral 120 400 350 550 650 Number 0 0 0 Bowel Movements Output, Urine 450 800 425 500 825 Patient 139 lb Weight Gen.: in NAD ENT: Sclera anicteric Chest: Normal respiratory effort, decreased breath sounds Cor: RRR, no extra sounds Abdomen: Soft, bowel sounds present, no tenderness, no rebound Extremities: Without clubbing, cyanosis, or asymmetric edema Neurology: Alert and oriented 3, Current Medications: Current Medications Sig/Jorgito Start time Last Medication Dose Route Stop Time Status Admin Acetaminophen 650 MG Q6P PRN 12/17 0815 CAN PO Acetaminophen 650 MG Q6P PRN 12/17 0030 AC 12/17 PO 0032 Acetaminophen/ 1 TAB Q6 12/17 0807 AC 12/18 Hydrocodone Bitart PO 0543 Albuterol Sulfate 3 ML EVERY 4 HRS/AWAKE 12/16 0800 AC 12/18 INH 0539 Albuterol Sulfate 2 PUF Q4H PRN 12/15 1200 AC INH Albuterol Sulfate 3 ML Q4P PRN 12/15 1200 AC INH Alendronate Sodium 70 MG QTHURS 12/18 1000 AC PO Aspirin 325 MG DAILY 12/16 1000 AC 12/17 PO 0957 Atorvastatin Calcium 20 MG DAILY 12/15 1150 AC 12/17 PO 0957 Bisacodyl 10 MG DAILY PRN 12/15 1230 AC 12/15 FL 1541 Budesonide/ 2 PUF BID 12/15 1150 AC 12/17 Formoterol Fumarate INH 2132 Cholecalciferol 400 IU DAILY 12/15 1150 AC 12/17 PO 0959 Clopidogrel Bisulfate 75 MG DAILY 12/16 1000 AC 12/17 PO 0958 Enoxaparin Sodium 40 MG DAILY 12/15 1221 DC 12/16 SC 1050 Filgrastim 300 MCG DAILY 12/15 1355 AC 12/17 SC 0958 Folic Acid 1 MG DAILY 12/15 1150 AC 12/17 PO 0957 Furosemide 40 MG DAILY 12/18 1000 AC PO Guaifenesin 600 MG Q12 12/15 2215 AC 12/17 PO 2131 Heparin Sodium 5,000 UNIT Q8 12/16 2200 AC 12/18 (Porcine) SC 0540 Hydromorphone HCl 0.5 MG Q4P PRN 12/17 0815 AC IV Lidocaine 1 PAT DAILY PRN 12/17 1000 AC EXT Meropenem 1 GM Q8H 12/17 1200 AC 12/18 IV 0404 Meropenem 1 GM IQ8 12/15 1915 DC 12/17 IV 0017 Methylprednisolone 40 MG ONCE ONE 12/18 0545 DC 12/18 IV 12/18 0546 0540 Metoprolol Tartrate 6.25 MG BID 12/16 1000 AC 12/17 PO 2137 Multivitamins 1 TAB DAILY 12/15 1151 AC 12/17 Therapeutic PO 0959 Nitroglycerin 0.4 MG DAILY 12/18 1000 AC TOP Nitroglycerin 0.5 GM Q6 12/16 0729 DC 12/17 TOP 1746 Nitroglycerin 0.2 MG DAILY 12/15 1712 DC 12/17 TOP 1202 Omeprazole 20 MG DAILY AC 12/17 0700 AC 12/18 PO 0650 Potassium Chloride 40 MEQ ONCE ONE 12/17 1830 DC 12/17 PO 12/17 1831 2131 Prednisone 10 MG DAILY 12/15 1151 DC 12/17 PO 0958 Psyllium Hydrophilic 1 PAC BID PRN 12/15 1200 AC Mucilloid PO Tiotropium [place] 1 PUF DAILY 12/15 1152 AC 12/17 INH 0959 Vancomycin HCl 1,000 MG DAILY 12/16 1000 DC 12/16 Dextrose/Water 250 ML IV 1048 Results Last 24 Hours of Lab Results: Laboratory Tests 12/18 0615 Chemistry Sodium Pending Potassium Pending Chloride Pending Carbon Dioxide Pending Anion Gap Pending BUN Pending Creatinine Pending BUN/Creatinine Ratio Pending Phosphorus Pending Magnesium Pending Hematology CBC w Diff Pending WBC Pending RBC Pending Hgb Pending Hct Pending MCV Pending MCH Pending RDW Pending Plt Count Pending MPV Pending PUBS MCHC Pending Assessment/Plan Assessment/Recommendations: 1. Neutropenia-up and resolution of Neupogen, left shifted white cell series noted Recommend- Agree with discontinuation of Neupogen Restart if granulocyte count less than 2000 2. Pneumonia-as per Dima Lamb MD
--- NOTE | 2016-12-18 07:21 | PN- Housestaff ---
JENN MONZON 12/18/16 0720: Subjective Follow-up For: 1. 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 2. Elevated troponin most likely due to demand ischemia. 3.Acute respiratory distress secondary to gram-negative pneumonia superimposed with COPD exacerbation. 4. Euvolemic hyponatremia Tele-Events Since Last Visit: Sinus pretty overnight heart rate in the range of 49-60's with VA interval of 0.2420 point to 8 first-degree heart block, 3 beat V. tach at around 5:39 AM Subjective: Patient is seen and examined in the morning, seems better, sitting comfortably in the bed. Patient had an episode of acute respiratory distress in the morning, desaturated and was wheezing after getting IV Solu-Medrol 40 mg and TRC nebs his breathing improved. Still bilateral wheeze on exam, denies any chest discomfort/palpitations. We'll start the patient on IV Solu-Medrol every 8 hours. Reports minimal hemoptysis. Improved WBC count and neutrophils, Neupogen has been stopped. Sputum cultures grew gram-negative rods, final sensitivities are still pending. Review of Systems Constitutional: Denies: chills, diaphoresis, fever, malaise. EENTM: Denies: blurred vision, double vision, visual changes, eye pain. Cardiovascular: Denies: chest pain, edema, orthopena. Respiratory: Reports: cough. Objective Last 24 Hrs of Vital Signs/I&O Vital Signs Date Time Temp Pulse Resp B/P Pulse O2 O2 Flow FiO2 Ox Delivery Rate 12/18 0857 98 Nasal 2.0L Cannula 12/18 0839 97.9 74 18 118/52 93 Nasal 2.0L Cannula 12/18 0820 94 Nasal 3.0L Cannula 12/18 0558 92 Nasal 2.0L Cannula 12/18 0000 Nasal 3.0L Cannula 12/17 2333 97.8 66 20 120/50 99 Nasal 3.0L Cannula 12/17 2137 77 142/58 12/17 1625 97.9 68 20 124/58 99 Nasal 3.0L Cannula 12/17 1615 99 Nasal 3.0L Cannula 12/17 1600 96 Nasal 3.0L Cannula 12/17 1024 93 Nasal 2.0L Cannula 12/17 0958 98.2 88 20 120/50 12/17 0935 98.2 88 20 120/50 96 Nasal 3.0L Cannula Intake & Output 12/18 1600 12/18 0800 12/18 0000 Intake Total 130 400 Output Total 450 800 Balance -320 -400 Intake, IV 10 Intake, Oral 120 400 Number 0 Bowel Movements Output, Urine 450 800 Physical Exam General Appearance: Alert, Oriented X3 Skin: No Rashes HEENT: Atraumatic, PERRLA Neck: Supple Cardiovascular: Regular Rate, Normal S1, Normal S2 Lungs: Clear to Auscultation Abdomen: Normal Bowel Sounds, Soft Neurological: Normal Speech, Strength at 5/5 X4 Ext Extremities: No Clubbing, No Cyanosis Last 24 Hrs of Lab/Edd Results Last 24 Hrs of Labs/Mics: Laboratory Tests 12/18/16 0615: Anion Gap 3 L, Estimated GFR > 60, BUN/Creatinine Ratio 26.7 H, Phosphorus 2.6 , Magnesium 1.7, CBC w Diff NO MAN DIFF REQ, RBC 3.62 L, MCV 82.5, MCH 27.0, RDW 18.2 H, MPV 7.6, Gran % 66.1, Lymphocytes % 28.5, Monocytes % 4.4, Eosinophils % 0.4, Basophils % 0.6, Absolute Granulocytes 8.0 H, Absolute Lymphocytes 3.4, Absolute Monocytes 0.5, Absolute Eosinophils 0.1, Absolute Basophils 0.1, PUBS MCHC 32.7 L Assessment/Plan Assessment: Mr. Boss is an 86 year old male with history of hypetension, dyslipidemia, borderline diabetes coronary artery disease s/p NSTEMI and COPD on home oxygen. 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 pertinent data: Labs for today are pending: Assessment: 1. 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 2. Elevated troponin most likely due to demand ischemia. 3Acute respiratory distress secondary to gram-negative pneumonia superimposed with COPD exacerbation. 4. Euvolemic hyponatremia Plan 1. Chronic neutropenia with unknown etiology possible rheumatoid arthritis/ myelodysplastic syndrome:Neutropenia improved after getting Neupogen prior to the admission. * [place] remained [place]. [place] [address] with absolute neutrophilic count of 8000. * Neupogen has been stopped as per Dr. Laboy recommendations ,t restart Neupogen if WBC count<2000 * Monitor vitals every 4 hours. * Continue Neupogen once a week as an outpatient 2 Acute respiratory distress secondary to gram-negative pneumonia superimposed with COPD exacerbation: * Sputum cultures grew gram-negative rods, final sensitivities are still pending , continue with meropenem for now * Vancomycin has been discontinued * ID is on board will follow the recommendations. * patient had an episode of acute respiratory distress in the morning, desaturated and was wheezing after getting IV Solu-Medrol 40 mg and TRC nebs his breathing improved.We'll start the patient on IV Solu-Medrol 40 mg every 8 hours. * Continuity liters oxygen desaturations to 92% * Continue aggressive pulmonary toilet. * Continue TRC nebs * Continues spiriva and inhalers * Watch for any hemodynamic instability. 3. Elevated troponin most likely due to demand ischemia: * Elevated troponins in the setting of most likely demand ischemia. * CTA was done yesterday that rule out any underlying pulmonary embolism and IV heparin was stopped. * Continue to follow cardiology recommendations. * We will talk to Dr. Aguirre today and consider Will DC telemetry monito as they are no overnight acute events and transferr to the [facility] * Continue aspirin, metoprolol and nitroglycerin as needed for chest discomfort. 4. Euvolemic hyponatremia: * Sodium level remains low: 129 * Continue with 1200 fluid restriction. * Repeat sodium levels tomorrow 5. Constipation: * Patient didn't have a bowel movement for 3 days will start the patient on MiraLAX, senna S, Dulcolax * When necessary milk of magnesia as needed for constipation. 6. DVT prophylaxis subcutaneous heparin 7 Mild to moderate pain controlled with Tylenol and Lidoderm patch. Severe pain controlled with Dilaudid and Vicodin. 8. Patient is DNR/DNI Problem List: 1. Pneumonia 2. Elevated troponin 3. Fever Pain Ratin Pain Location: Left flank pain Pain Goal: Remain pain free Pain Plan: Moderate to severe pain controlled with Dilaudid Tomorrow's Labs & Rationales: Neutropenia Hyponatremia CBC and BEP OMEGA GALVIN MD 12/18/16 0940: Attending MD Review Statement Attending Statement Attending MD Statement: examined this patient, discuss w/resident/PA/SLAB GRINDER, agreed w/resident/PA/SLAB GRINDER, reviewed EMR data (avail), discussed with nursing, reviewed images Attending Assessment/Plan: Events overnight noted. Patient had an episode of desaturation which shortness of breath and wheezing and he was also bradycardic. At this point he is actively wheezing and I think we should continue the IV steroids. He is on meropenem for a gram-negative pneumonia in the setting of neutropenia. His high white count I think reflects the Neupogen and the steroids. He has euvolemic hyponatremia and should fluid restrict him for the same and watch his numbers and respiratory status closely.
[2016-12-18 07:40] LABS: ABSOLUTE BASOPHIL COUNT 0.1 /CUMM (0.0-0.2); ABSOLUTE EOSINOPHIL COUNT 0.1 /CUMM (0.0-0.7); ABSOLUTE LYMPH COUNT 3.4 /CUMM (1.2-3.4); ABSOLUTE MONOCYTE COUNT 0.5 /CUMM (0.10-0.60); BASOPHIL % 0.6 % (0.0-2.0); EOSINOPHIL % 0.4 % (0-5); GRANULOCYTE % 66.1 % (42.2-75.2); HEMATOCRIT 29.8 % (42-52); MEAN CORPUSCULAR HGB CONC 32.7 G/DL (33.0-37.0); MEAN CORPUSCULAR VOLUME 82.5 FL (80.0-94.0); MEAN PLATELET VOLUME 7.6 FL (7.4-10.4); PLATELET COUNT 119 /CUMM (130-400); RBC DISTRIBUTION WIDTH 18.2 % (11.5-14.5); RED BLOOD CELL CT 3.62 /CUMM (4.70-6.10); WHITE BLOOD CELL COUNT 12.1 /CUMM (4.8-10.8)
--- NOTE | 2016-12-18 08:06 | PN- Pulmonary ---
Subjective HPI/Critical Care Issues: Patient adds episode of shortness of breath overnight associated with bradycardia this has resolved. This morning out of bed eating breakfast Objective Current Medications: Current Medications Sig/Jorgito Start time Last Medication Dose Route Stop Time Status Admin Acetaminophen 650 MG Q6P PRN 12/17 0815 CAN PO Acetaminophen 650 MG Q6P PRN 12/17 0030 AC 12/17 PO 0032 Acetaminophen/ 1 TAB Q8P PRN 12/18 0737 AC Hydrocodone Bitart PO Acetaminophen/ 1 TAB Q6 12/17 0807 DC 12/18 Hydrocodone Bitart PO 0543 Albuterol Sulfate 3 ML EVERY 4 HRS/AWAKE 12/16 0800 AC 12/18 INH 0539 Albuterol Sulfate 2 PUF Q4H PRN 12/15 1200 AC INH Albuterol Sulfate 3 ML Q4P PRN 12/15 1200 AC INH Alendronate Sodium 70 MG QTHURS 12/18 1000 AC PO Aspirin 325 MG DAILY 12/16 1000 AC 12/17 PO 0957 Atorvastatin Calcium 20 MG DAILY 12/15 1150 AC 12/17 PO 0957 Bisacodyl 5 MG DAILY PRN 12/18 0745 AC PO Bisacodyl 10 MG DAILY PRN 12/15 1230 AC 12/15 SD 1541 Budesonide/ 2 PUF BID 12/15 1150 AC 12/17 Formoterol Fumarate INH 2132 Cholecalciferol 400 IU DAILY 12/15 1150 AC 12/17 PO 0959 Clopidogrel Bisulfate 75 MG DAILY 12/16 1000 AC 12/17 PO 0958 Enoxaparin Sodium 40 MG DAILY 12/15 1221 DC 12/16 SC 1050 Filgrastim 300 MCG DAILY 12/15 1355 AC 12/17 SC 0958 Folic Acid 1 MG DAILY 12/15 1150 AC 12/17 PO 0957 Furosemide 40 MG DAILY 12/18 1000 AC PO Guaifenesin 600 MG Q12 12/15 2215 AC 12/17 PO 2131 Heparin Sodium 5,000 UNIT Q8 12/16 2200 AC 12/18 (Porcine) SC 0540 Hydromorphone HCl 0.5 MG Q4P PRN 12/17 0815 AC IV Lidocaine 1 PAT DAILY PRN 12/17 1000 AC EXT Magnesium Hydroxide 30 ML ONE PRN 12/18 0745 AC PO Meropenem 1 GM Q8H 12/17 1200 AC 12/18 IV 0404 Meropenem 1 GM IQ8 12/15 1915 DC 12/17 IV 0017 Methylprednisolone 40 MG ONCE ONE 12/18 0545 DC 12/18 IV 12/18 0546 0540 Metoprolol Tartrate 6.25 MG BID 12/16 1000 AC 12/17 PO 2137 Multivitamins 1 TAB DAILY 12/15 1151 AC 12/17 Therapeutic PO 0959 Nitroglycerin 0.4 MG DAILY 12/18 1000 AC TOP Nitroglycerin 0.5 GM Q6 12/16 0729 DC 12/17 TOP 1746 Nitroglycerin 0.2 MG DAILY 12/15 1712 DC 12/17 TOP 1202 Omeprazole 20 MG DAILY AC 12/17 0700 AC 12/18 PO 0650 Polyethylene Glycol 17 GM DAILY 12/18 1000 AC PO Potassium Chloride 40 MEQ ONCE ONE 12/17 1830 DC 12/17 PO 12/17 1831 2131 Prednisone 10 MG DAILY 12/15 1151 DC 12/17 PO 0958 Psyllium Hydrophilic 1 PAC BID PRN 12/15 1200 AC Mucilloid PO Senna/Docusate Sodium 1 TAB BID PRN 12/18 0745 AC PO Tiotropium Willis 1 PUF DAILY 12/15 1152 AC 12/17 INH 0959 Vancomycin HCl 1,000 MG DAILY 12/16 1000 DC 12/16 Dextrose/Water 250 ML IV 1048 Vital Signs & I&O Last 24 Hrs of Vitals and I&O: Vital Signs Date Time Temp Pulse Resp B/P Pulse O2 O2 Flow FiO2 Ox Delivery Rate 12/18 0558 92 Nasal 2.0L Cannula 12/18 0000 Nasal 3.0L Cannula 12/17 2333 97.8 66 20 120/50 99 Nasal 3.0L Cannula 12/17 2137 77 142/58 12/17 1625 97.9 68 20 124/58 99 Nasal 3.0L Cannula 12/17 1615 99 Nasal 3.0L Cannula 12/17 1600 96 Nasal 3.0L Cannula 12/17 1024 93 Nasal 2.0L Cannula 12/17 0958 98.2 88 20 120/50 12/17 0935 98.2 88 20 120/50 96 Nasal 3.0L Cannula Intake & Output 12/18 1600 12/18 0800 12/18 0000 Intake Total 130 400 Output Total 450 800 Balance -320 -400 Intake, IV 10 Intake, Oral 120 400 Number 0 Bowel Movements Output, Urine 450 800 Oxygen saturation on 2 L 92% exam of his chest shows diminished breath sounds there is a rare expiratory wheeze over the right posterior chest cardiac exam shows regular S1 and S2 without murmurs Impression/Plan Impression/Plan Impression/Plan: 86-year-old gentleman who presented with an ANC of 0 associated with new right lower lobe parenchymal density with sputum positive for gram-negative rods. Nocturnal shortness of breath may be secondary to desaturation and would increase oxygen with exertion and sleep to 3 L. Recommendations: At this point would continue current dose of prednisone. Continue nebulized bronchodilators. Use of a flutter valve may facilitate expectoration. Aggressive pulmonary toilet. Increase oxygen to 3 L as a buffer should he transient desaturate due to retained secretions.
[2016-12-18 08:39] VITALS: BP 118/52
--- NOTE | 2016-12-18 11:13 | PN- Infect Dx ---
Subjective Subjective: Afebrile on steroids. He awoke early this morning with shortness of breath and was found to be bradycardic to 39 with a 3 beat run of V. tach. He was begun on IV Solumedrol. Presently he feels improved. He does continue to report bloody sputum but denies any chest pain. Objective Last 24 Hrs of Vital Signs/I&O Vital Signs Date Time Temp Pulse Resp B/P Pulse O2 O2 Flow FiO2 Ox Delivery Rate 12/18 0955 Nasal 3.0L Cannula 12/18 0921 118/54 12/18 0857 98 Nasal 2.0L Cannula 12/18 0839 97.9 74 18 118/52 93 Nasal 2.0L Cannula 12/18 0820 94 Nasal 3.0L Cannula 12/18 0558 92 Nasal 2.0L Cannula 12/18 0000 Nasal 3.0L Cannula 12/17 2333 97.8 66 20 120/50 99 Nasal 3.0L Cannula 12/17 2137 77 142/58 12/17 1625 97.9 68 20 124/58 99 Nasal 3.0L Cannula 12/17 1615 99 Nasal 3.0L Cannula 12/17 1600 96 Nasal 3.0L Cannula Intake & Output 12/18 1600 12/18 0800 12/18 0000 Intake Total 130 400 Output Total 450 800 Balance -320 -400 Intake, IV 10 Intake, Oral 120 400 Number 0 Bowel Movements Output, Urine 450 800 Physical Exam Other Physical Findings: He appears more comfortable than when last seen in no acute distress Lungs bilateral expiratory wheezes, improved from previous exam, with crackles at the right base Heart regular rhythm with no murmur Extremities 1+ edema both lower extremities, right greater than left Results Last 24 Hours of Lab Results: Laboratory Tests 12/18 614 Chemistry Sodium (137 - 145 mmol/L) 129 L Potassium (3.5 - 5.1 mmol/L) 4.9 Chloride (98 - 107 mmol/L) 92 L Carbon Dioxide (22 - 30 mmol/L) 35 H Anion Gap (5 - 16) 3 L BUN (9 - 20 mg/dL) 16 Creatinine (0.7 - 1.2 mg/dL) 0.6 L Estimated GFR (>60 ml/min) > 60 BUN/Creatinine Ratio (7 - 25 %) 26.7 H Phosphorus (2.5 - 4.5 mg/dL) 2.6 Magnesium (1.6 - 2.3 mg/dL) 1.7 Hematology CBC w Diff NO MAN DIFF REQ WBC (4.8 - 10.8 /CUMM) 12.1 H RBC (4.70 - 6.10 /CUMM) 3.62 L Hgb (14.0 - 18.0 G/DL) 9.8 L Hct (42 - 52 %) 29.8 L MCV (80.0 - 94.0 FL) 82.5 MCH (27.0 - 31.0 PG) 27.0 RDW (11.5 - 14.5 %) 18.2 H Plt Count (130 - 400 /CUMM) 119 L MPV (7.4 - 10.4 FL) 7.6 Gran % (42.2 - 75.2 %) 66.1 Lymphocytes % (20.5 - 51.1 %) 28.5 Monocytes % (1.7 - 9.3 %) 4.4 Eosinophils % (0 - 5 %) 0.4 Basophils % (0.0 - 2.0 %) 0.6 Absolute Granulocytes (1.4 - 6.5 /CUMM) 8.0 H Absolute Lymphocytes (1.2 - 3.4 /CUMM) 3.4 Absolute Monocytes (0.10 - 0.60 /CUMM) 0.5 Absolute Eosinophils (0.0 - 0.7 /CUMM) 0.1 Absolute Basophils (0.0 - 0.2 /CUMM) 0.1 PUBS MCHC (33.0 - 37.0 G/DL) 32.7 L Last 24 Hours of Edd Results: Sputum culture December 15 positive for ESBL producing Escherichia coli sensitive to Meropenem and a second gram-negative boris, likely Pseudomonas Blood cultures 3 remain negative Urine culture December 15 negative Assessment/Plan Impression: Overall improved on Meropenem Day 2 of treatment for gram-negative right lower lobe pneumonia in the setting of chronic neutropenia, with 0 neutrophils on admission, now with temperatures normal (on steroids) and white blood cell count increased (on Neupogen). The etiology of his chronic neutropenia remains unclear, and he was just started on weekly Neupogen prior to admission. He continues to have hemoptysis, which was not present prior to admission, but this may warrant further evaluation if it persists, particularly with the isolation of mold from the sputum culture on his recent admission. Suggestion: 1. Further management of steroids per Pulmonary 2. Follow-up final sputum culture 3. Continue Meropenem pending above
--- NOTE | 2016-12-18 14:10 | PN- Cardiology ---
Subjective Subjective: * Patient feels improved. * sinus rhythm with bradycardia into the 40's with short run of NSVT Objective Vital Signs and I&Os Vital Signs Date Time Temp Pulse Resp B/P Pulse O2 O2 Flow FiO2 Ox Delivery Rate 12/18 0955 Nasal 3.0L Cannula 12/18 0921 118/54 12/18 0857 98 Nasal 2.0L Cannula 12/18 0839 97.9 74 18 118/52 93 Nasal 2.0L Cannula 12/18 0820 94 Nasal 3.0L Cannula 12/18 0558 92 Nasal 2.0L Cannula 12/18 0000 Nasal 3.0L Cannula 12/17 2333 97.8 66 20 120/50 99 Nasal 3.0L Cannula 12/17 2137 77 142/58 12/17 1625 97.9 68 20 124/58 99 Nasal 3.0L Cannula 12/17 1615 99 Nasal 3.0L Cannula 12/17 1600 96 Nasal 3.0L Cannula Intake & Output 12/18 1600 12/18 0800 12/18 0000 12/17 1600 12/17 0800 12/17 0000 Intake Total 130 400 630 870 Output Total 450 800 425 500 Balance -320 -400 205 370 Intake, IV 10 280 320 Intake, Oral 120 400 350 550 Number 0 0 0 Bowel Movements Output, Urine 450 800 425 500 Patient 139 lb Weight Physical Exam: General: WD/ overweight male in NAD; alert and oriented x 3 Neck: no JVD, no carotid bruits Heart: RRR w/o murmurs Lungs: decreased air movement without crackles or wheezing EXtremities: no edema Assessment/Plan Assessment/Plan * This patient has the underlying cardiac substrate for supply-demand ischemia in that his inferior wall is only supplied by collaterals. Okay to stop IV heparin at this point in time. * This patient should continue on aspirin 324mg daily, Plavix 75mg daily, lopressor 6.25mg BID and a statin. Change NTG to a patch at 0.4mg/hr for 12 hours daily. Restart Lasix at 40mg once daily. Follow this patient's potassium. Continue telemetry? Yes
[2016-12-18 16:46] VITALS: BP 112/52
[2016-12-18 22:00] VITALS: BP 130/60
--- NOTE | 2016-12-19 07:25 | PN- Housestaff ---
JENN MONZON 12/19/16 0724: Subjective Follow-up For: 1. 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 2. Elevated troponin most likely due to demand ischemia. 3.Acute respiratory distress secondary to gram-negative pneumonia superimposed with COPD exacerbation. 4. Euvolemic hyponatremia Tele-Events Since Last Visit: Sinus bradycardia with first-degree heart block heart rate in the range of 56-93 Subjective: Patient seen and examined today seems slightly better than yesterday, still reports some trouble breathing on amputation denies any chest discomfort or palpitations no nausea vomiting vitals stable. We will continue with IV Solu-Medrol for now start the patient on by mouth prednisone tomorrow. Sputum cultures reveal ESBL with other gram-negative rods possible's Pseudomonas we'll continue with meropenem total of 10-14 days. Review of Systems Constitutional: Denies: chills, diaphoresis, fever. EENTM: Denies: blurred vision, double vision, visual changes. Cardiovascular: Denies: chest pain, edema, orthopena. Respiratory: Reports: short of breath. Denies: cough, orthopnea. Gastrointestinal: Denies: abdominal pain, constipation, diarrhea. Objective Last 24 Hrs of Vital Signs/I&O Vital Signs Date Time Temp Pulse Resp B/P Pulse O2 O2 Flow FiO2 Ox Delivery Rate 12/19 1311 Nasal 3.0L Cannula 12/19 1255 Nasal 3.0L Cannula 12/19 0903 134/52 12/19 0813 95 Nasal 3.0L Cannula 12/19 0800 97.9 94 20 134/56 93 Nasal 2.0L Cannula 12/19 0758 96 Nasal 2.0L Cannula 12/19 0101 98 Nasal 3.0L Cannula 12/19 0000 Nasal 3.0L Cannula 12/18 2225 62 130/60 12/18 2200 98.0 70 20 130/60 95 Nasal 3.0L Cannula 12/18 1702 93 Nasal 2.0L Cannula 12/18 1646 97.9 69 20 112/52 98 Nasal 2.0L Cannula 12/18 1645 98 Nasal 3.0L Cannula Intake & Output 12/19 1600 12/19 0800 12/19 0000 Intake Total 100 100 Output Total 400 300 Balance -300 -200 Intake, Oral 100 100 Number 1 Bowel Movements Output, Urine 400 300 Physical Exam General Appearance: Alert, Oriented X3 Skin: No Rashes HEENT: Atraumatic, PERRLA Cardiovascular: Regular Rate, Normal S1, Normal S2 Lungs: DEGREES RESPIRATIONS WITH WHEEZE ON EXAM Current Medications: Current Medications Sig/Jorgito Start time Last Medication Dose Route Stop Time Status Admin Acetaminophen 650 MG Q6P PRN 12/17 0030 AC 12/17 PO 0032 Acetaminophen/ 1 TAB Q8P PRN 12/18 0737 AC Hydrocodone Bitart PO Albuterol Sulfate 3 ML EVERY 4 HRS/AWAKE 12/16 0800 AC 12/19 INH 1110 Albuterol Sulfate 2 PUF Q4H PRN 12/15 1200 AC INH Albuterol Sulfate 3 ML Q4P PRN 12/15 1200 AC INH Alendronate Sodium 70 MG QTHURS 12/18 1000 AC 12/18 PO 0925 Aspirin 325 MG DAILY 12/16 1000 AC 12/19 PO 0904 Atorvastatin Calcium 20 MG DAILY 12/15 1150 AC 12/19 PO 0904 Bisacodyl 5 MG DAILY PRN 12/18 0745 AC 12/18 PO 0921 Bisacodyl 10 MG DAILY PRN 12/15 1230 AC 12/15 PA 1541 Budesonide/ 2 PUF BID 12/15 1150 AC 12/19 Formoterol Fumarate INH 0904 Cholecalciferol 400 IU DAILY 12/15 1150 AC 12/19 PO 0903 Clopidogrel Bisulfate 75 MG DAILY 12/16 1000 AC 12/19 PO 0904 Folic Acid 1 MG DAILY 12/15 1150 AC 12/19 PO 0903 Furosemide 40 MG DAILY 12/18 1000 AC 12/19 PO 0904 Guaifenesin 600 MG Q12 12/15 2215 AC 12/19 PO 0903 Heparin Sodium 5,000 UNIT Q8 12/16 2200 AC 12/19 (Porcine) SC 1324 Hydromorphone HCl 0.5 MG Q4P PRN 12/17 0815 AC IV Lidocaine 1 PAT DAILY PRN 12/17 1000 AC 12/18 EXT 0934 Magnesium Hydroxide 30 ML ONE PRN 12/18 0745 AC PO Meropenem 1 GM Q8H 12/17 1200 AC 12/19 IV 1324 Methylprednisolone 40 MG BID 12/19 2200 AC IV 12/19 2300 Methylprednisolone 40 MG Q8 12/18 1400 DC 12/19 IV 1323 Metoprolol Tartrate 6.25 MG BID 12/16 1000 AC 12/19 PO 0903 Multivitamins 1 TAB DAILY 12/15 1151 AC 12/19 Therapeutic PO 0903 Nitroglycerin 0.4 MG DAILY 12/19 1000 AC TOP Nitroglycerin 0.4 MG DAILY 12/18 1000 DC 12/18 TOP 0922 Omeprazole 20 MG DAILY AC 12/17 0700 AC 12/19 PO 0639 Polyethylene Glycol 17 GM DAILY 12/18 1000 AC 12/18 PO 0924 Prednisone 40 MG DAILY 12/20 1000 CAN PO Psyllium Hydrophilic 1 PAC BID PRN 12/15 1200 AC Mucilloid PO Senna/Docusate Sodium 1 TAB BID PRN 12/18 0745 AC PO Tiotropium [place] 1 PUF DAILY 12/15 1152 AC 12/19 INH 0904 Assessment/Plan Assessment: Mr. Boss is an 86 year old male with history of hypetension, dyslipidemia, borderline diabetes coronary artery disease s/p NSTEMI and COPD on home oxygen. 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 pertinent data: Labs for today are pending: Assessment: 1. 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 2. Elevated troponin most likely due to demand ischemia. 3Acute respiratory distress secondary to gram-negative pneumonia superimposed with COPD exacerbation. 4. Euvolemic hyponatremia Plan 1. Chronic neutropenia with unknown etiology possible rheumatoid arthritis/ myelodysplastic syndrome:Neutropenia improved after getting Neupogen prior to the admission. * Patient remained [place]feb[place]. [place] [address] with absolute neutrophilic count of 8000. * Neupogen has been stopped as per Dr. Laboy recommendations ,t restart Neupogen if WBC count<2000 * Monitor vitals every 4 hours. * Continue Neupogen once a week as an outpatient 2 Acute respiratory distress secondary to gram-negative pneumonia superimposed with COPD exacerbation: * Sputum cultures grew Sputum cultures reveal ESBL with other gram-negative rods possible's Pseudomonas we'll continue with meropenem total of 10-14 days. * ID is on board will follow the recommendations. * Will taper the Solu-Medrol 40-40 g twice a day today * Continuity liters oxygen desaturations to 92% * Continue aggressive pulmonary toilet. * Continue TRC nebs * Continues spiriva and inhalers * Watch for any hemodynamic instability. 3. Elevated troponin most likely due to demand ischemia: * Elevated troponins in the setting of most likely demand ischemia. * CTA was done yesterday that rule out any underlying pulmonary embolism and IV heparin was stopped. * Continue to follow cardiology recommendations. * We will talk to Dr. Aguirre today and consider Will DC telemetry monito as they are no overnight acute events and transferr to the [facility] * Continue aspirin, metoprolol and nitroglycerin as needed for chest discomfort. 4. Euvolemic hyponatremia: * Sodium level remains low: 129 * Continue with 1200 fluid restriction. * Repeat sodium levels tomorrow 5. Constipation: * Patient didn't have a bowel movement for 3 days will start the patient on MiraLAX, senna S, Dulcolax * When necessary milk of magnesia as needed for constipation. 6. DVT prophylaxis subcutaneous heparin 7 Mild to moderate pain controlled with Tylenol and Lidoderm patch. Severe pain controlled with Dilaudid and Vicodin. 8. Patient is DNR/DNI Problem List: 1. Neutropenia 2. Elevated troponin 3. Pneumonia Pain Ratin Pain Location: Left flank pain Pain Goal: Remain pain free Pain Plan: Tylenol Tomorrow's Labs & Rationales: Persistent hyponatremia CAROLA GALVIN MD,OMEGA 12/19/16 1057: Attending MD Review Statement Attending Statement Attending MD Statement: examined this patient, discuss w/resident/PA/DRAWING PRESS OPERATOR, agreed w/resident/PA/DRAWING PRESS OPERATOR, reviewed EMR data (avail), discussed with nursing, discussed with case mgmt Attending Assessment/Plan: Patient had an episode of acute shortness of breath early this morning. He still coughing. He desaturates easily on minimal ambulation. He still ambivalent about rehabilitation but understands that he might need it. He is an 86-year-old male with a history of neutropenia on Neupogen once a week with chronic respiratory failure on 3 L of oxygen who is here with a gram-negative pneumonia with profound neutropenia on admission that has since resolved. He is growing 2 g negatives in his sputum. He is growing a resistant Escherichia coli (ESBL) and a second gram-negative that ID feels is likely Pseudomonas. We have him on meropenem for this. Because of his very fragile respiratory status we have him on the IV Solu-Medrol for now. ID is recommending a total of 10 days for meropenem, today is day 3. At this point I think we should continue the steroids and watch him closely. If he improves then likely we can transition him to by mouth steroids Thursday or Thursday and talk STR.
--- NOTE | 2016-12-19 07:36 | PN- Pulmonary ---
Subjective HPI/Critical Care Issues: Patient is comfortable out of bed but continues to complain of congestion and shortness of breath which is likely multifactorial. Objective Current Medications: Current Medications Sig/Jorgito Start time Last Medication Dose Route Stop Time Status Admin Acetaminophen 650 MG Q6P PRN 12/17 0030 AC 12/17 PO 0032 Acetaminophen/ 1 TAB Q8P PRN 12/18 0737 AC Hydrocodone Bitart PO Acetaminophen/ 1 TAB Q6 12/17 0807 DC 12/18 Hydrocodone Bitart PO 0543 Albuterol Sulfate 3 ML EVERY 4 HRS/AWAKE 12/16 0800 AC 12/19 INH 0100 Albuterol Sulfate 2 PUF Q4H PRN 12/15 1200 AC INH Albuterol Sulfate 3 ML Q4P PRN 12/15 1200 AC INH Alendronate Sodium 70 MG QTHURS 12/18 1000 AC 12/18 PO 0925 Aspirin 325 MG DAILY 12/16 1000 AC 12/18 PO 0921 Atorvastatin Calcium 20 MG DAILY 12/15 1150 AC 12/18 PO 0921 Bisacodyl 5 MG DAILY PRN 12/18 0745 AC 12/18 PO 0921 Bisacodyl 10 MG DAILY PRN 12/15 1230 AC 12/15 IN 1541 Budesonide/ 2 PUF BID 12/15 1150 AC 12/18 Formoterol Fumarate INH 2226 Cholecalciferol 400 IU DAILY 12/15 1150 AC 12/18 PO 0921 Clopidogrel Bisulfate 75 MG DAILY 12/16 1000 AC 12/18 PO 0921 Filgrastim 300 MCG DAILY 12/15 1355 DC 12/18 SC 0920 Folic Acid 1 MG DAILY 12/15 1150 AC 12/18 PO 0921 Furosemide 40 MG DAILY 12/18 1000 AC 12/18 PO 0921 Guaifenesin 600 MG Q12 12/15 2215 AC 12/18 PO 2225 Heparin Sodium 5,000 UNIT Q8 12/16 2200 AC 12/19 (Porcine) SC 0600 Hydromorphone HCl 0.5 MG Q4P PRN 12/17 0815 AC IV Lidocaine 1 PAT DAILY PRN 12/17 1000 AC 12/18 EXT 0934 Magnesium Hydroxide 30 ML ONE PRN 12/18 0745 AC PO Meropenem 1 GM Q8H 12/17 1200 AC 12/19 IV 0400 Methylprednisolone 40 MG Q8 12/18 1400 AC 12/19 IV 0600 Metoprolol Tartrate 6.25 MG BID 12/16 1000 AC 12/18 PO 2225 Multivitamins 1 TAB DAILY 12/15 1151 AC 12/18 Therapeutic PO 0921 Nitroglycerin 0.4 MG DAILY 12/19 1000 AC TOP Nitroglycerin 0.4 MG DAILY 12/18 1000 DC 12/18 TOP 0922 Omeprazole 20 MG DAILY AC 12/17 0700 AC 12/19 PO 0639 Patient Medication 1 ED .STK-MED ONE 12/18 1347 IA Teaching ED 12/18 1348 Polyethylene Glycol 17 GM DAILY 12/18 1000 AC 12/18 PO 0924 Psyllium Hydrophilic 1 PAC BID PRN 12/15 1200 AC Mucilloid PO Senna/Docusate Sodium 1 TAB BID PRN 12/18 0745 AC PO Tiotropium [place] 1 PUF DAILY 12/15 1152 AC 12/18 INH 0922 Vital Signs & I&O Last 24 Hrs of Vitals and I&O: Vital Signs Date Time Temp Pulse Resp B/P Pulse O2 O2 Flow FiO2 Ox Delivery Rate 12/19 0101 98 Nasal 3.0L Cannula 12/19 0000 Nasal 3.0L Cannula 12/18 2225 62 130/60 12/18 2200 98.0 70 20 130/60 95 Nasal 3.0L Cannula 12/18 1702 93 Nasal 2.0L Cannula 12/18 1646 97.9 69 20 112/52 98 Nasal 2.0L Cannula 12/18 1645 98 Nasal 3.0L Cannula 12/18 0955 Nasal 3.0L Cannula 12/18 0921 118/54 12/18 0857 98 Nasal 2.0L Cannula 12/18 0839 97.9 74 18 118/52 93 Nasal 2.0L Cannula 12/18 0820 94 Nasal 3.0L Cannula Intake & Output 12/19 0800 12/19 0000 12/18 1600 Intake Total 100 400 Output Total 300 650 Balance -200 -250 Intake, Oral 100 400 Number 1 1 Bowel Movements Output, Urine 300 650 Oxygen saturation on 3 L 98% exam of his chest shows rare expiratory wheeze cardiac exam shows regular S1 and S2 without murmurs Impression/Plan Impression/Plan Impression/Plan: 86-year-old gentleman who presented with an ANC of 0 associated with new right lower lobe parenchymal density with sputum positive resistant Escherichia coli. Oxygen saturations improved on 3 L. Recommendations: Continue aggressive pulmonary toilet. Taper steroids. Patient would benefit from short-term rehabilitation
[2016-12-19 08:00] VITALS: BP 134/56
--- NOTE | 2016-12-19 09:55 | PN- Cardiology ---
Subjective Subjective: * Patient was very short of breath last night. No shortness of breath, lightheadedness or chest discomfort this morning. * Persistent bradycardia with rare episode of second degree AV block. Rare triplet. Objective Vital Signs and I&Os Vital Signs Date Time Temp Pulse Resp B/P Pulse O2 O2 Flow FiO2 Ox Delivery Rate 12/19 0903 134/52 12/19 0813 95 Nasal 3.0L Cannula 12/19 0800 97.9 94 20 134/56 93 Nasal 2.0L Cannula 12/19 0758 96 Nasal 2.0L Cannula 12/19 0101 98 Nasal 3.0L Cannula 12/19 0000 Nasal 3.0L Cannula 12/18 2225 62 130/60 12/18 2200 98.0 70 20 130/60 95 Nasal 3.0L Cannula 12/18 1702 93 Nasal 2.0L Cannula 12/18 1646 97.9 69 20 112/52 98 Nasal 2.0L Cannula 12/18 1645 98 Nasal 3.0L Cannula 12/18 0955 Nasal 3.0L Cannula Intake & Output 12/19 1600 12/19 0800 12/19 0000 12/18 1600 12/18 0800 12/18 0000 Intake Total 100 100 400 130 400 Output Total 400 300 650 450 800 Balance -300 -200 -250 -320 -400 Intake, IV 10 Intake, Oral 100 100 400 120 400 Number 1 1 0 Bowel Movements Output, Urine 400 300 650 450 800 Physical Exam: General: WD/ overweight male in NAD; alert and oriented x 3 Neck: no JVD, no carotid bruits Heart: RRR w/o murmurs Lungs: decreased air movement without crackles or wheezing EXtremities: no edema Assessment/Plan Assessment/Plan * This patient has the underlying cardiac substrate for supply-demand ischemia in that his inferior wall is only supplied by collaterals. * This patient should continue on aspirin 324mg daily, Plavix 75mg daily, lopressor 6.25mg BID and a statin. Change NTG to a patch at 0.4mg/hr for 12 hours daily. Restart Lasix at 40mg once daily. Follow this patient's potassium. * This patient has asymptomatic bradycardia at night without any significant heart block. I would continue a small dose of beta shelli due to his CAD and propensity for ventricular ectopy. He has been stable for several days and telemetry can be discontinued. Continue telemetry? No
--- NOTE | 2016-12-19 12:50 | PN- Infect Dx ---
Subjective Subjective: Afebrile on steroids. He awoke this morning with wheezing, associated with a cough, productive of yellow sputum and dark blood, with no chest pain. He feels improved at present. Objective Last 24 Hrs of Vital Signs/I&O Vital Signs Date Time Temp Pulse Resp B/P Pulse O2 O2 Flow FiO2 Ox Delivery Rate 12/19 0903 134/52 12/19 0813 95 Nasal 3.0L Cannula 12/19 0800 97.9 94 20 134/56 93 Nasal 2.0L Cannula 12/19 0758 96 Nasal 2.0L Cannula 12/19 0101 98 Nasal 3.0L Cannula 12/19 0000 Nasal 3.0L Cannula 12/18 2225 62 130/60 12/18 2200 98.0 70 20 130/60 95 Nasal 3.0L Cannula 12/18 1702 93 Nasal 2.0L Cannula 12/18 1646 97.9 69 20 112/52 98 Nasal 2.0L Cannula 12/18 1645 98 Nasal 3.0L Cannula Intake & Output 12/19 1600 12/19 0800 12/19 0000 Intake Total 100 100 Output Total 400 300 Balance -300 -200 Intake, Oral 100 100 Number 1 Bowel Movements Output, Urine 400 300 Physical Exam Other Physical Findings: He appears comfortable in no acute distress Lungs crackles at the right base, with no wheezes heard Heart regular rhythm with no murmur Extremities 1+ edema both lower extremities, right greater than left Results Last 24 Hours of Lab Results: Laboratory Tests 12/19 0630 Chemistry Sodium (137 - 145 mmol/L) 129 L Potassium (3.5 - 5.1 mmol/L) 4.7 Chloride (98 - 107 mmol/L) 91 L Carbon Dioxide (22 - 30 mmol/L) 35 H Anion Gap (5 - 16) 4 L BUN (9 - 20 mg/dL) 17 Creatinine (0.7 - 1.2 mg/dL) 0.6 L Estimated GFR (>60 ml/min) > 60 BUN/Creatinine Ratio (7 - 25 %) 28.3 H Last 24 Hours of Edd Results: Sputum culture December 15 positive for ESBL producing Escherichia coli sensitive to Meropenem, Pseudomonas sensitive to all antibiotics tested and yeast Blood cultures December 15 negative Blood culture December 16 negative Assessment/Plan Impression: Continues to improve on Meropenem Day 3 of treatment for gram-negative pneumonia in the setting of chronic neutropenia, now with temperatures normal (on steroids) and white blood cell count increased after Neupogen, which has been discontinued. The etiology of his chronic neutropenia remains unclear, and, as noted, it could be secondary to his rheumatoid arthritis, in which case reevaluation of his treatment for this may be indicated. He continues to have hemoptysis, which was not present prior to admission, but this may warrant further evaluation if it persists, particularly with the isolation of mold from the sputum culture on his recent admission. Suggestion: 1. Rheumatology input regarding the possible role of his rheumatoid arthritis in his neutropenia 2. Further management of steroids per Pulmonary 3. Continue Meropenem to plan on a 10-14 day course of treatment
--- NOTE | 2016-12-19 15:12 | Discharge Summary ---
Visit Information Visit Dates Admission Date: 12/15/16 Discharge Date: 12/23/2016 Hospital Course Course Attending Physician: Dr. Conde Primary Care Physician: CHANTALE HUBBARD,SAPNA Manzano Hospital Course: Patient is a 86-year-old man with a past medical history significant for T-cell lymphoproliferative disorder with chronic neutropenia , previously treated with Chlorambucil, prednisone and Neupogen , history of rheumatoid arthritis, treated with methotrexate currently on 10 mg of prednisone daily, moderte COPD on 2L Oxygen at home and nocturnal BiPAP , rheumatoid arthritis on po predniosone, CAD status post non-ST elevation OR, HFpEF >65% and pulmonary HTN, history of empyema, hiatal hernia, history of Clostridium difficile, hyponatremia, and SIADH ,presented to the ED with chief complaints of worsening dyspnea. Patient has been hospitalized multiple times for fever and neutropenia complicated with pneumonia. [facility] to [facility] due to gram-negative pneumonia with neutropenia, CT chest at that time revealed new upper lobe pneumonia treated with Neupogen and ceftazidime and was discharged home on Levaquin for total of 2 weeks. Vitals on admission Temperature 100.2 pulse 120 with respiratory 28 blood pressure 133 , desaturated and 70s and was put on nonrebreather mask and later was put on BiPAP. Pertinent labs on admission WBC count 1.6 with absolute neutrophil count 0, BUN/ retina 16/0.8 ABG done in the ED showed ABG 7.53/38/105 on 35% BiPAP. Chest x-ray revealed :New patchy and interstitial opacities at the right lung base. First troponin was elevated 0.[address]-T changes on the EKG Following problems were addressed while patient was on telemetry floor 1.Acute respiratory failure secondary to right lower lobe gram-negative superimposed on COPD: Patient was admitted to telemetry floor. He was given IV Solu-Medrol once in the ED a, pancultures were sent , and he was started on broad coverage antibiotics with IV vancomycin and ceftazidime. ID consult was obtained. He was switched to meropenem as per recommendations. TRC nebs were continued. Sputum cultures grew gram-negative rods, so vancomycin was discontinued. Final cultures grew ESBL producing Escherichia coli with the second gram-negative boris most likely pseudomonas,as per ID recommendations meropenem was continued total of 10 -14 days. Patient also received IV Solu-Medrol in the hospital as he continued to remained dyspneic with exertion with bilateral wheeze on exam he was later at switched to taper prednisone. 2. Acute on chronic neutropenia with unknown etiology possible rheumatoid arthritis/myelodysplastic syndrome:Neutropenia improved after getting Neupogen prior to the admission: Absolute neutrophil count on admission was 0 patient was started on Neupogen he was seen by Dr. Mckenzie during the stay in the hospital. Neutrophils and WBC count count improved after the Neupogen. I talked to Dr. Laboy over the phone, he mentioned that he will monitor his granulocyte count as an outpatient and dose Neupogen accordingly. 3.Elevated troponin most likely due to demand ischemia: 3 sets of troponin and EKG to rule out any underlying ACS. As patient became acutely short of breath on the second day of admission, there was a concern of pulmonary embolism he was started on IV heparin however CTA of the chest ruled out PE and heparin was discontinued. Patient was seen by cardiology aspirin, metoprolol, nitroglycerin were continued 4. Euvolemic hyponatremia: Patient was started on a fluid restriction, hyponatremia improved on discharge. 5. Constipation: Received MiraLAX, senna S, Dulcolax and milk of magnesia ,constipation was resolved on discharge 6. DVT prophylaxis subcutaneous heparin 7 Mild to moderate pain controlled with Tylenol and Lidoderm patch. Severe pain controlled with Dilaudid and Vicodin. 8. Patient is DNR/DNI Allergies: Coded Allergies: NO KNOWN ALLERGIES (04/23/12) Disposition Summary Disposition Principal Diagnosis: Acute respiratory failure secondary to right lower lobe gram-negative superimposed on COPD Additional Diagnosis: Acute on chronic neutropenia with unknown etiology possible rheumatoid arthritis /myelodysplastic syndrome:Neutropenia improved after getting Neupogen prior to the admission Discharge Disposition: SNF Discharge Instructions General Discharge Information Code Status: Do Not Resucitate/Intubat Patient's Diet: Heart healthy diet Patient's Activity: As tolerated Follow-Up Instructions/Appts: 1. Please follow-up with the PCP within 1-2 weeks after discharge 2. Please follow-up with Dr. Mckenzie within 1-2 weeks after discharge Medications at Discharge Discharge Medications: Stop taking the following medications: Prednisone (Prednisone) 5 MG TABLET ORAL DAILY Qty = 60 Continue taking these medications: Tiotropium [place] (Spiriva) 18 MCG CAP.W.DEV 1 Capsule Inhale through mouth DAILY Qty = 90 Comments: LAST GIVEN 12/23/16 @ 1100AM Alendronate Sodium (Alendronate Sodium) 70 MG TABLET 1 Tablet ORAL EVERY THURSDAY Qty = 12 Instructions: in the morning, at least 30 minutes before the first food, beverage, or medication of the day Comments: Last Taken: 12/18/16 Time: 9:30 AM Folic Acid (Folic Acid) 1 MG TABLET 1 Tablet ORAL DAILY Qty = 90 Comments: LAST GIVEN 12/23/16 @ 1100AM Omeprazole (Omeprazole) 20 MG CAPSULE.DR 1 Capsule ORAL DAILY Qty = 90 Comments: LAST GIVEN 12/23/16 @ 0600AM Albuterol Sulfate (Proair Hfa) 8.5 GM HFA.AER.AD 2 Puff Inhale through mouth Q4H as needed for COPD Qty = 9 Comments: NOT GIVEN IN HOSPITAL Psyllium Husk (Metamucil) 660 GM POWDER 1 Packet ORAL as needed for CONSTIPATION Comments: NOT GIVEN IN HOSPITAL Albuterol Sulfate (Albuterol Sulfate) 2.5 MG/3 ML VIAL.NEB 1 Vial Inhale Solution EVERY 4 HOURS NEEDED as needed for COPD EXACERBATION Days = 30 Comments: LAST GIVEN 12/13/16 @1137AM Multivitamin (Daily Multiple Vitamin) 1 EACH TABLET 1 Tablet ORAL DAILY Comments: LAST GIVEN 12/23/16 @ 1100AM Atorvastatin Calcium (Atorvastatin Calcium) 20 MG TABLET 1 Tablet ORAL DAILY Qty = 30 Comments: LAST GIVEN 12/23/16 @ 1100AM Aspirin (Aspirin*) 81 MG TAB.CHEW 1 Tablet ORAL DAILY Comments: LAST GIVEN 12/23/16 @ 1100AM Cholecalciferol (Vitamin D3) (Vitamin D) 400 UNIT TABLET 1 Tablet ORAL DAILY Comments: LAST GIVEN 12/23/16 @ 1100AM Fluticasone/Salmeterol (Advair 250-50 Diskus) 250 MCG-50 MCG/DOSE BLST.W.DEV 1 Puff Inhale through mouth TWICE DAILY Qty = 60 Comments: NOT GIVEN IN HOSPITAL Start taking the following new medications: Prednisone (Prednisone) 10 MG TABLET 1 Tablet ORAL SEE INSTRUCTIONS Qty = 30 No Refills Instructions: take 2 pills x 2 days then continue with 1 pill(1 tab ) daily for RA Comments: LAST GIVEN 12/23/16 @ 1100AM Meropenem (Meropenem) 1 GRAM VIAL 1 Gram INTRAVEN Q8H Days = 3 No Refills Comments: LAST GIVEN 12/23/16 @ 1100AM The following medications have been changed: Old: Furosemide (Lasix) 40 MG TABLET 1 Tablet ORAL TWICE DAILY Qty = 30 New: Furosemide (Lasix) 40 MG TABLET 1 Tablet ORAL DAILY Qty = 30 Comments: LAST GIVEN 12/23/16 @ 1100AM Copies To: SAPNA KENYON MD Furosemide (Lasix) 40 MG TABLET 1 Tablet ORAL DAILY Qty = 30 Comments: Last Taken: 12/22/16 Time: 9:30 AM Copies To: SAPNA KENYON MD
[2016-12-19 18:23] VITALS: BP 128/56
--- NOTE | 2016-12-19 20:26 | NUR ---
PT ARRIVED TO FLOOR @ 1999 WITH DISTRIBUTION STAFF.PT A/OX3, 3L NC SPO2 100%. BP 138/64 p 71 T 98.6. PT ORIENTED TO TO ROOM. CALL CASTORENA IN REACH
[2016-12-19 20:53] VITALS: BP 138/64
[2016-12-20 00:11] VITALS: BP 148/68
[2016-12-20 08:03] VITALS: BP 142/72
--- NOTE | 2016-12-20 10:38 | PN- Housestaff ---
ANTHONY HUBBARD,MATEUS 12/20/16 1038: Subjective Follow-up For: 1. 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 2. Elevated troponin most likely due to demand ischemia. 3. Acute respiratory distress secondary to gram-negative pneumonia superimposed with COPD exacerbation. 4. Euvolemic hyponatremia Complaints: Wheezing Subjective: Feels a lot better today except for wheezing, improved with his breathing treatments. Reports only mild cough productive of a small quantity of yellowish sputum, during his breathing treatment this morning that has already resolved. No longer has blood tinged sputum and cough is now mostly resolved. Says he is trying to improve his numbers on the spirometer and looking forward to taking a walk with physical therapy today. Would like to know what his current WBC count is. Review of Systems Constitutional: Reports: no symptoms. Respiratory: Reports: cough, wheezing. Objective Last 24 Hrs of Vital Signs/I&O Vital Signs Date Time Temp Pulse Resp B/P Pulse O2 O2 Flow FiO2 Ox Delivery Rate 12/20 0939 75 142/72 12/20 0803 97.7 75 20 142/72 95 Nasal 3.0L Cannula 12/20 0750 97 Nasal 3.0L Cannula 12/20 0011 97.9 62 20 148/68 98 12/20 0000 99 Nasal 3.0L Cannula 12/19 2134 98 Nasal 3.0L Cannula 12/19 2104 71 138/64 12/19 2053 98.5 71 18 138/64 100 Nasal 3.0L Cannula 12/19 1823 97.6 68 18 128/56 97 12/19 1735 94 Nasal 3.0L Cannula 12/19 1625 97 Nasal 3.0L Cannula 12/19 1311 Nasal 3.0L Cannula 12/19 1255 Nasal 3.0L Cannula Intake & Output 12/20 1600 12/20 0800 12/20 0000 Intake Total 140 480 Output Total Balance 140 480 Intake, IV 20 Intake, Oral 120 480 Physical Exam General Appearance: Alert, Oriented X3, Cooperative, No Acute Distress HEENT: PERRLA, EOMI, Mucous Membr. moist/pink Neck: No JVD Cardiovascular: Regular Rate, Normal S1, Normal S2 Lungs: Decreased air entry bilaterally Abdomen: Normal Bowel Sounds, Soft, No Tenderness Neurological: Normal Speech, Normal Tone Extremities: 1+ pedal edema bilaterally Current Medications: Current Medications Sig/Jorgito Start time Last Medication Dose Route Stop Time Status Admin Acetaminophen 650 MG Q6P PRN 12/17 0030 AC 12/17 PO 0032 Acetaminophen/ 1 TAB Q8P PRN 12/18 0737 AC Hydrocodone Bitart PO Albuterol Sulfate 3 ML EVERY 4 HRS/AWAKE 12/16 0800 AC 12/20 INH 0747 Albuterol Sulfate 2 PUF Q4H PRN 12/15 1200 AC INH Albuterol Sulfate 3 ML Q4P PRN 12/15 1200 AC INH Alendronate Sodium 70 MG QTHURS 12/18 1000 AC 12/18 PO 0925 Aspirin 325 MG DAILY 12/16 1000 AC 12/20 PO 0938 Atorvastatin Calcium 20 MG DAILY 12/15 1150 AC 12/20 PO 0939 Bisacodyl 5 MG DAILY PRN 12/18 0745 AC 12/18 PO 0921 Bisacodyl 10 MG DAILY PRN 12/15 1230 AC 12/15 WA 1541 Budesonide/ 2 PUF BID 12/15 1150 AC 12/20 Formoterol Fumarate INH 0944 Cholecalciferol 400 IU DAILY 12/15 1150 AC 12/20 PO 0946 Clopidogrel Bisulfate 75 MG DAILY 12/16 1000 AC 12/20 PO 0943 Folic Acid 1 MG DAILY 12/15 1150 AC 12/20 PO 0938 Furosemide 40 MG DAILY 12/18 1000 AC 12/20 PO 0938 Guaifenesin 600 MG Q12 12/15 2215 AC 12/20 PO 0943 Heparin Sodium 5,000 UNIT Q8 12/16 2200 AC 12/20 (Porcine) SC 0522 Hydromorphone HCl 0.5 MG Q4P PRN 12/17 0815 AC IV Lidocaine 1 PAT DAILY PRN 12/17 1000 AC 12/19 EXT 2357 Magnesium Hydroxide 30 ML ONE PRN 12/18 0745 AC PO Meropenem 1 GM Q8H 12/17 1200 AC 12/20 IV 0430 Methylprednisolone 40 MG BID 12/19 2200 DC 12/19 IV 12/19 2300 2105 Methylprednisolone 40 MG Q8 12/18 1400 DC 12/19 IV 1323 Metoprolol Tartrate 6.25 MG BID 12/16 1000 AC 12/20 PO 0939 Multivitamins 1 TAB DAILY 12/15 1151 AC 12/20 Therapeutic PO 0944 Nitroglycerin 0.4 MG DAILY 12/19 1000 AC 01/21 TOP 0946 Omeprazole 20 MG DAILY AC 12/17 0700 AC 12/20 PO 0522 Polyethylene Glycol 17 GM DAILY 12/18 1000 AC 12/20 PO 0942 Prednisone 40 MG DAILY 12/20 1000 CAN PO Psyllium Hydrophilic 1 PAC BID PRN 12/15 1200 AC Mucilloid PO Senna/Docusate Sodium 1 TAB BID PRN 12/18 0745 AC PO Tiotropium [place] 1 PUF DAILY 12/15 1152 AC 12/20 INH 0944 Last 24 Hrs of Lab/Edd Results Last 24 Hrs of Labs/Mics: Laboratory Tests 12/20/16 0750: Anion Gap 5, Estimated GFR > 60, BUN/Creatinine Ratio 34.3 H Lines/Diet/Fluids Lines: peripheral lines Assessment/Plan Assessment: Mr. Boss is an 86 year old male with history of hypetension, dyslipidemia, borderline diabetes, coronary artery disease s/p NSTEMI and COPD on home oxygen. 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 Assessment: 1. 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 2. Elevated troponin most likely due to demand ischemia. 3. Acute respiratory distress secondary to gram-negative pneumonia superimposed with COPD exacerbation. 4. Euvolemic hyponatremia Plan 1. Chronic neutropenia with unknown etiology possible rheumatoid arthritis/ myelodysplastic syndrome: Neutropenia improved after getting Neupogen prior to the admission. * Patient remained afebrile overnight. WBC count last checked 2 days ago on the was 12.1; will recheck in AM. * Neupogen has been stopped as per Dr. Laboy recommendations , plan is to restart Neupogen if WBC count <2000. * Monitor vitals every shift. * Continue Neupogen once a week as an outpatient. 2. Acute respiratory distress secondary to gram-negative pneumonia superimposed with COPD exacerbation: * Sputum cultures grew Sputum cultures reveal ESBL, Pseudomonas and yeast * Continue with meropenem total of 10-14 days. * ID is on board will follow the recommendations. * Will change to PO prednisone taper per pulm recommendations-40mg today and decrease by 10mg every other day * Continue O2 supplementation to keep oxygen saturations > 92% * Continue aggressive pulmonary toilet. * Continue TRC nebs * Continues spiriva and inhalers 3. Elevated troponin most likely due to demand ischemia: resolved * Continue aspirin, metoprolol, statins, lasix, plavix and nitroglycerin patch as needed for chest discomfort. * K+ today is 5.0. Monitor K+ 4. Euvolemic hyponatremia: * Sodium level improvin today * Continue with 1200 fluid restriction. * Repeat sodium levels tomorrow 5. Constipation: resolved. Last BM was yesterday 6. DVT prophylaxis subcutaneous heparin 7. Mild to moderate pain controlled with Tylenol and Lidoderm patch. Severe pain controlled with Dilaudid and Vicodin. 8. Patient is DNR/DNI Problem List: 1. CHRONIC NEUTROPENIA 2. Pneumonia 3. Hyponatremia Pain Ratin Pain Location: n/a Pain Goal: n/a Pain Plan: n/a Tomorrow's Labs & Rationales: sanjuanita BEGUM MD,SANDRA 12/20/16 1244: Attending MD Review Statement Attending Statement Attending MD Statement: examined this patient, discuss w/resident/PA/[employer], agreed w/resident/PA/[employer], reviewed EMR data (avail), reviewed images Attending Assessment/Plan: 86-year-old male with past medical history significant for hypertension, hyperlipidemia, coronary artery disease status post NSTEMI and neutropenia on Neupogen once a week with chronic respiratory failure, COPD on 3 L of home oxygen is being admitted on the floor with gram-negative pneumonia and neutropenia. He grew gram-negative in his sputum and Escherichia coli and another gram-negative most likely Pseudomonas per ID. Patient currently is on meropenem as per ID recommendations.Patient was seen and examined while sitting on the chair with no acute issues. Patient remained afebrile, other vitals stable and unremarkable physical examination. Patient will receive a 10 day course of meropenem today is day fourth. Pulmonology has been closely following up on the patient and his IV steroids will be switched over to oral prednisone. He will be a potential discharge on Thursday.
--- NOTE | 2016-12-20 10:38 | PN- Pulmonary ---
Subjective HPI/Critical Care Issues: Patient is comfortable shortness breath is improved Objective Current Medications: Current Medications Sig/Jorgito Start time Last Medication Dose Route Stop Time Status Admin Acetaminophen 650 MG Q6P PRN 12/17 0030 AC 12/17 PO 0032 Acetaminophen/ 1 TAB Q8P PRN 12/18 0737 AC Hydrocodone Bitart PO Albuterol Sulfate 3 ML EVERY 4 HRS/AWAKE 12/16 0800 AC 12/20 INH 0747 Albuterol Sulfate 2 PUF Q4H PRN 12/15 1200 AC INH Albuterol Sulfate 3 ML Q4P PRN 12/15 1200 AC INH Alendronate Sodium 70 MG QTHURS 12/18 1000 AC 12/18 PO 0925 Aspirin 325 MG DAILY 12/16 1000 AC 12/20 PO 0938 Atorvastatin Calcium 20 MG DAILY 12/15 1150 AC 12/20 PO 0939 Bisacodyl 5 MG DAILY PRN 12/18 0745 AC 12/18 PO 0921 Bisacodyl 10 MG DAILY PRN 12/15 1230 AC 12/15 IN 1541 Budesonide/ 2 PUF BID 12/15 1150 AC 12/20 Formoterol Fumarate INH 0944 Cholecalciferol 400 IU DAILY 12/15 1150 AC 12/20 PO 0946 Clopidogrel Bisulfate 75 MG DAILY 12/16 1000 AC 12/20 PO 0943 Folic Acid 1 MG DAILY 12/15 1150 AC 12/20 PO 0938 Furosemide 40 MG DAILY 12/18 1000 AC 12/20 PO 0938 Guaifenesin 600 MG Q12 12/15 2215 AC 12/20 PO 0943 Heparin Sodium 5,000 UNIT Q8 12/16 2200 AC 12/20 (Porcine) SC 0522 Hydromorphone HCl 0.5 MG Q4P PRN 12/17 0815 AC IV Lidocaine 1 PAT DAILY PRN 12/17 1000 AC 12/19 EXT 2357 Magnesium Hydroxide 30 ML ONE PRN 12/18 0745 AC PO Meropenem 1 GM Q8H 12/17 1200 AC 12/20 IV 0430 Methylprednisolone 40 MG BID 12/19 2200 DC 12/19 IV 12/19 2300 2105 Methylprednisolone 40 MG Q8 12/18 1400 DC 12/19 IV 1323 Metoprolol Tartrate 6.25 MG BID 12/16 1000 AC 12/20 PO 0939 Multivitamins 1 TAB DAILY 12/15 1151 AC 12/20 Therapeutic PO 0944 Nitroglycerin 0.4 MG DAILY 12/19 1000 AC 12/20 TOP 0946 Omeprazole 20 MG DAILY AC 12/17 0700 AC 12/20 PO 0522 Polyethylene Glycol 17 GM DAILY 12/18 1000 AC 12/20 PO 0942 Prednisone 40 MG DAILY 12/20 1000 CAN PO Psyllium Hydrophilic 1 PAC BID PRN 12/15 1200 AC Mucilloid PO Senna/Docusate Sodium 1 TAB BID PRN 12/18 0745 AC PO Tiotropium [place] 1 PUF DAILY 12/15 1152 AC 12/20 INH 0944 Vital Signs & I&O Last 24 Hrs of Vitals and I&O: Vital Signs Date Time Temp Pulse Resp B/P Pulse O2 O2 Flow FiO2 Ox Delivery Rate 12/20 0939 75 142/72 12/20 0803 97.7 75 20 142/72 95 Nasal 3.0L Cannula 12/20 0750 97 Nasal 3.0L Cannula 12/20 0011 97.9 62 20 148/68 98 12/20 0000 99 Nasal 3.0L Cannula 12/19 2134 98 Nasal 3.0L Cannula 12/19 2104 71 138/64 12/19 2053 98.5 71 18 138/64 100 Nasal 3.0L Cannula 12/19 1823 97.6 68 18 128/56 97 12/19 1735 94 Nasal 3.0L Cannula 12/19 1625 97 Nasal 3.0L Cannula 12/19 1311 Nasal 3.0L Cannula 12/19 1255 Nasal 3.0L Cannula Intake & Output 12/20 1600 12/20 0800 12/20 0000 Intake Total 140 480 Output Total Balance 140 480 Intake, IV 20 Intake, Oral 120 480 Since saturation on 3 L 97% exam of his chest shows diminished breath sounds there are no wheezes heard cardiac exam shows regular S1 and S2 without murmurs Impression/Plan Impression/Plan Impression/Plan: 86-year-old gentleman who presented with an ANC of 0 associated with new right lower lobe parenchymal density with sputum positive resistant Escherichia coli. Oxygen saturations improved on 3 L. Recommendations: Continue aggressive pulmonary toilet. DC Solu-Medrol begin oral prednisone await discharged to short-term rehabilitation
[2016-12-20 16:01] VITALS: BP 116/54
[2016-12-20 23:50] VITALS: BP 124/58
[2016-12-21 08:04] VITALS: BP 134/62
--- NOTE | 2016-12-21 08:51 | PN- Infect Dx ---
Subjective Subjective: Afebrile on steroids. He feels improved with no further wheezing. He continues to have a cough, but with no further hemoptysis. He does report shortness of breath with exertion. Objective Last 24 Hrs of Vital Signs/I&O Vital Signs Date Time Temp Pulse Resp B/P Pulse O2 O2 Flow FiO2 Ox Delivery Rate 12/21 0804 99.0 68 20 134/62 94 12/21 0015 97 Nasal 2.0L Cannula 12/21 0000 96 Nasal 3.0L Cannula 12/20 2350 97.9 63 20 124/58 96 12/20 2203 71 127/58 12/20 1601 97.7 59 19 116/54 98 Room Air 12/20 1557 98 Nasal 3.0L Cannula 12/20 0939 75 142/72 Intake & Output 12/21 1600 12/21 0800 12/21 0000 Intake Total 240 480 Output Total Balance 240 480 Intake, Oral 240 480 Physical Exam Other Physical Findings: He appears comfortable in no acute distress Lungs crackles at the right base, with no wheezing Heart regular rhythm with no murmur Extremities 1+ edema both lower extremities, right greater than left, unchanged Results Last 24 Hours of Lab Results: Laboratory Tests 12/21 0725 Chemistry Sodium Pending Potassium Pending Chloride Pending Carbon Dioxide Pending Anion Gap Pending BUN Pending Creatinine Pending BUN/Creatinine Ratio Pending Hematology CBC w Diff Pending WBC Pending RBC Pending Hgb Pending Hct Pending MCV Pending MCH Pending RDW Pending Plt Count Pending MPV Pending PUBS MCHC Pending Last 24 Hours of Edd Results: No recent cultures Assessment/Plan Impression: Doing well overall on Meropenem Day 5 of treatment for Escherichia coli/ Pseudomonas pneumonia in the setting of chronic neutropenia, with temperatures normal (on steroids) and white blood cell count increased after Neupogen, which has been discontinued. The etiology of his chronic neutropenia remains unclear, and, as noted, it could be secondary to his rheumatoid arthritis, in which case reevaluation of his treatment for this may be indicated. Suggestion: 1. Rheumatology input regarding the possible role of his rheumatoid arthritis in his neutropenia 2. Continue steroid taper per Pulmonary 3. Further management regarding Neupogen per Oncology 4. Continue Meropenem to plan on a 10-14 day course of treatment
--- NOTE | 2016-12-21 10:07 | PN- Housestaff ---
RAFA HUBBARD,KAPIL 12/21/16 1007: Subjective Follow-up For: COPD with acute respiratory distress Chronic neutropenia with neutropenic fever Subjective: The patient had no complaints. He remained afebrile. He does feel that he has improved regarding his respiratory status. He does have persistent dry cough. Review of Systems Constitutional: Reports: see HPI. Objective Last 24 Hrs of Vital Signs/I&O Vital Signs Date Time Temp Pulse Resp B/P Pulse O2 O2 Flow FiO2 Ox Delivery Rate 12/21 1549 98.9 66 18 128/66 96 Nasal Cannula 12/21 1108 62 134/62 12/21 0830 95 Nasal 3.0L Cannula 12/21 0804 99.0 68 20 134/62 94 12/21 0800 94 Nasal 3.0L Cannula 12/21 0015 97 Nasal 2.0L Cannula 12/21 0000 96 Nasal 3.0L Cannula 12/20 2350 97.9 63 20 124/58 96 12/20 2203 71 127/58 Intake & Output 12/21 1600 12/21 0800 12/21 0000 Intake Total 440 240 480 Output Total Balance 440 240 480 Intake, IV 20 Intake, Oral 420 240 480 Number 0 Bowel Movements Physical Exam General Appearance: Alert, Oriented X3 Skin: No Rashes, No Breakdown Cardiovascular: Normal S1, Normal S2 Lungs: b/l decreasd airway entry Assessment/Plan Assessment: biophysicalMrIsamar Boss is an 86 year old male with history of hypetension, dyslipidemia, borderline diabetes, coronary artery disease s/p NSTEMI and COPD on home oxygen. 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 Assessment: 1. 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 2. Elevated troponin most likely due to demand ischemia. 3. Acute respiratory distress secondary to gram-negative pneumonia superimposed with COPD exacerbation. 4. Euvolemic hyponatremia Plan 1. Chronic neutropenia with unknown etiology possible rheumatoid arthritis/ myelodysplastic syndrome: Neutropenia improved after getting Neupogen prior to the admission. * Patient remained afebrile overnight. CBC today 3.2, As per the hematology staff Restart neuEpogen if granulocyte count less than 2000 2. Acute respiratory distress secondary to gram-negative pneumonia superimposed with COPD exacerbation: * Sputum cultures grew Sputum cultures reveal ESBL, Pseudomonas and yeast * Continue with meropenem total of 10-14 days. * Last days 40 mg by mouth prednisone today and taper it to 30 mg from tomorrow 3. Elevated troponin most likely due to demand ischemia: resolved * Continue aspirin, metoprolol, statins, lasix, plavix and nitroglycerin patch as needed for chest discomfort. * K+ today is 5.0. Monitor K+ 4. Euvolemic hyponatremia: * Sodium level improvin today * Continue with 1200 fluid restriction. * Repeat sodium levels tomorrow 5. Constipation: resolved. Last BM was yesterday 6. DVT prophylaxis subcutaneous heparin 7. Mild to moderate pain controlled with Tylenol and Lidoderm patch. Severe pain controlled with Dilaudid and Vicodin. 8. Patient is DNR/DNI Problem List: 1. Elevated troponin 2. Contusion of left chest wall 3. Neutropenia Pain Ratin Pain Location: po tyelnol as needed Pain Goal: Remain pain free Pain Plan: po tyelnol as needed Tomorrow's Labs & Rationales: cbc rachel BEGUM MD,SANDRA 12/21/16 1158: Attending MD Review Statement Attending Statement Attending MD Statement: examined this patient, discuss w/resident/PA/[employer], agreed w/resident/PA/[employer], reviewed EMR data (avail), discussed with nursing, reviewed images Attending Assessment/Plan: 86-year-old male with past medical history significant for hypertension, hyperlipidemia, coronary artery disease status post NSTEMI and neutropenia on Neupogen once a week with chronic respiratory failure, COPD on 3 L of home oxygen is being admitted on the floor with gram-negative pneumonia and neutropenia. He grew gram-negative in his sputum and Escherichia coli and another gram-negative most likely Pseudomonas per ID. Patient currently is on meropenem as per ID recommendations.Patient was seen and examined while sitting on the chair with no acute issues. Patient remained afebrile, other vitals stable and unremarkable physical examination. Patient will receive a 10 day course of meropenem today is day fifth. Pulmonology has been closely following up on the patient and his IV steroids will be switched over to oral prednisone and will taper down slowly. He will be a potential discharge on Thursday to .
[2016-12-21 10:24] LABS: ABSOLUTE BASOPHIL COUNT 0 /CUMM (0.0-0.2); ABSOLUTE EOSINOPHIL COUNT 0 /CUMM (0.0-0.7); ABSOLUTE GRANULOCYTE CT 2.1 /CUMM (1.4-6.5); ABSOLUTE LYMPH COUNT 1.2 /CUMM (1.2-3.4); ABSOLUTE MONOCYTE COUNT 0.6 /CUMM (0.10-0.60); BASOPHIL % 0.2 % (0.0-2.0); EOSINOPHIL % 0.1 % (0-5); GRANULOCYTE % 53.9 % (42.2-75.2); HEMATOCRIT 30.4 % (42-52); MEAN CORPUSCULAR HGB 27.2 PG (27.0-31.0); MEAN CORPUSCULAR HGB CONC 33.1 G/DL (33.0-37.0); MEAN CORPUSCULAR VOLUME 82.2 FL (80.0-94.0); MEAN PLATELET VOLUME 7.3 FL (7.4-10.4); PLATELET COUNT 151 /CUMM (130-400); RBC DISTRIBUTION WIDTH 17.8 % (11.5-14.5)
[2016-12-21 11:28] LABS: WHITE BLOOD CELL COUNT 3.9 /CUMM (4.8-10.8)
--- NOTE | 2016-12-21 11:46 | PN- Pulmonary ---
Subjective HPI/Critical Care Issues: Patient feels improved she slept throughout the night without shortness of breath oxygen saturation saturations are stable Objective Current Medications: Current Medications Sig/Jorgito Start time Last Medication Dose Route Stop Time Status Admin Acetaminophen 650 MG Q6P PRN 12/17 0030 AC 12/17 PO 0032 Acetaminophen/ 1 TAB Q8P PRN 12/18 0737 AC Hydrocodone Bitart PO Albuterol Sulfate 3 ML EVERY 4 HRS/AWAKE 12/16 0800 AC 12/21 INH 0811 Albuterol Sulfate 2 PUF Q4H PRN 12/15 1200 AC INH Albuterol Sulfate 3 ML Q4P PRN 12/15 1200 AC INH Alendronate Sodium 70 MG QTHURS 12/18 1000 AC 12/18 PO 0925 Aspirin 325 MG DAILY 12/16 1000 AC 12/21 PO 1102 Atorvastatin Calcium 20 MG DAILY 12/15 1150 AC 12/21 PO 1107 Bisacodyl 5 MG DAILY PRN 12/18 0745 AC 12/18 PO 0921 Bisacodyl 10 MG DAILY PRN 12/15 1230 AC 12/15 HI 1541 Budesonide/ 2 PUF BID 12/15 1150 AC 12/21 Formoterol Fumarate INH 1109 Cholecalciferol 400 IU DAILY 12/15 1150 AC 12/21 PO 1110 Clopidogrel Bisulfate 75 MG DAILY 12/16 1000 AC 12/21 PO 1109 Folic Acid 1 MG DAILY 12/15 1150 AC 12/21 PO 1104 Furosemide 40 MG DAILY 12/18 1000 AC 12/21 PO 1106 Guaifenesin 600 MG Q12 12/15 2215 AC 12/21 PO 1108 Heparin Sodium 5,000 UNIT Q8 12/16 2200 AC 12/21 (Porcine) SC 0544 Hydromorphone HCl 0.5 MG Q4P PRN 12/17 0815 AC IV Lidocaine 1 PAT DAILY PRN 12/17 1000 AC 12/21 EXT 0000 Magnesium Hydroxide 30 ML ONE PRN 12/18 0745 AC PO Meropenem 1 GM Q8H 12/17 1200 AC 12/21 IV 1111 Metoprolol Tartrate 6.25 MG BID 12/16 1000 AC 12/21 PO 1108 Multivitamins 1 TAB DAILY 12/15 1151 AC 12/21 Therapeutic PO 1110 Nitroglycerin 0.4 MG DAILY 12/19 1000 AC 12/21 TOP 1110 Omeprazole 20 MG DAILY AC 12/17 0700 AC 12/21 PO 0544 Polyethylene Glycol 17 GM DAILY 12/18 1000 AC 12/21 PO 1108 Prednisone 30 MG DAILY 12/22 1000 AC PO 12/23 1001 Prednisone 40 MG DAILY 12/20 1100 DC 12/21 PO 12/21 1001 1109 Psyllium Hydrophilic 1 PAC BID PRN 12/15 1200 AC Mucilloid PO Senna/Docusate Sodium 1 TAB BID PRN 12/18 0745 AC PO Tiotropium [place] 1 PUF DAILY 12/15 1152 AC 12/21 INH 1109 Vital Signs & I&O Last 24 Hrs of Vitals and I&O: Vital Signs Date Time Temp Pulse Resp B/P Pulse O2 O2 Flow FiO2 Ox Delivery Rate 12/21 1108 62 134/62 12/21 0804 99.0 68 20 134/62 94 12/21 0800 94 Nasal 3.0L Cannula 12/21 0015 97 Nasal 2.0L Cannula 12/21 0000 96 Nasal 3.0L Cannula 12/20 2350 97.9 63 20 124/58 96 12/20 2203 71 127/58 12/20 1601 97.7 59 19 116/54 98 Room Air 12/20 1557 98 Nasal 3.0L Cannula Intake & Output 12/21 1600 12/21 0800 12/21 0000 Intake Total 240 480 Output Total Balance 240 480 Intake, Oral 240 480 Impression/Plan Impression/Plan Impression/Plan: 86-year-old gentleman who presented with an ANC of 0 associated with new right lower lobe parenchymal density with sputum positive resistant Escherichia coli. Oxygen saturations improved on 3 L. Recommendations: Continue aggressive pulmonary toilet. DC Solu-Medrol begin oral prednisone await discharged to short-term rehabilitation. Continue on 3 L nasal oxygen. Begin slow prednisone taper by 10 mg every other day
[2016-12-21 15:49] VITALS: BP 128/66
[2016-12-21 22:44] VITALS: BP 138/64
--- NOTE | 2016-12-22 07:00 | PN- Hematology ---
Subjective Subjective: Feeling relatively well with decreased shortness of breath Review of Systems: 12 point review of systems nonspecific Objective Vital Signs and I&Os Vital Signs Date Time Temp Pulse Resp B/P Pulse O2 O2 Flow FiO2 Ox Delivery Rate 12/21 2244 97.4 77 20 138/64 97 Nasal 3.0L Cannula 12/21 2138 74 126/62 12/21 2043 95 Nasal 2.0L Cannula 12/21 1710 Nasal 2.0L Cannula 12/21 1549 98.9 66 18 128/66 96 Nasal Cannula 12/21 1108 62 134/62 12/21 0830 95 Nasal 3.0L Cannula 12/21 0804 99.0 68 20 134/62 94 12/21 0800 94 Nasal 3.0L Cannula Intake & Output 12/22 0800 12/22 0000 12/21 1600 12/21 0800 12/21 0000 12/20 1600 Intake Total 120 440 240 480 720 Output Total Balance 120 440 240 480 720 Intake, IV 20 Intake, Oral 120 420 240 480 720 Number 0 0 Bowel Movements Gen.: in NAD ENT: Sclera anicteric Chest: Normal respiratory effort, decreased breath sounds Cor: RRR, no extra sounds Abdomen: Soft, bowel sounds present, no tenderness, no rebound Extremities: Without clubbing, cyanosis, or asymmetric edema Neurology: Alert and oriented 3, no gross deficit Current Medications: Current Medications Sig/Jorgito Start time Last Medication Dose Route Stop Time Status Admin Acetaminophen 650 MG Q6P PRN 12/17 0030 AC 12/17 PO 0032 Acetaminophen/ 1 TAB Q8P PRN 12/18 0737 AC 12/21 Hydrocodone Bitart PO 2307 Albuterol Sulfate 3 ML EVERY 4 HRS/AWAKE 12/16 0800 AC 12/21 INH 2005 Albuterol Sulfate 2 PUF Q4H PRN 12/15 1200 AC INH Albuterol Sulfate 3 ML Q4P PRN 12/15 1200 AC INH Alendronate Sodium 70 MG QTHURS 12/18 1000 AC 12/18 PO 0925 Aspirin 325 MG DAILY 12/16 1000 AC 12/21 PO 1102 Atorvastatin Calcium 20 MG DAILY 12/15 1150 AC 12/21 PO 1107 Bisacodyl 5 MG DAILY PRN 12/18 0745 AC 12/18 PO 0921 Bisacodyl 10 MG DAILY PRN 12/15 1230 AC 12/15 OH 1541 Budesonide/ 2 PUF BID 12/15 1150 AC 12/21 Formoterol Fumarate INH 2139 Cholecalciferol 400 IU DAILY 12/15 1150 AC 12/21 PO 1110 Clopidogrel Bisulfate 75 MG DAILY 12/16 1000 AC 12/21 PO 1109 Folic Acid 1 MG DAILY 12/15 1150 AC 12/21 PO 1104 Furosemide 40 MG DAILY 12/18 1000 AC 12/21 PO 1106 Guaifenesin 600 MG Q12 12/15 2215 AC 12/21 PO 2135 Heparin Sodium 5,000 UNIT Q8 12/16 2200 AC 12/22 (Porcine) SC 0504 Hydromorphone HCl 0.5 MG Q4P PRN 12/17 0815 AC IV Lidocaine 1 PAT DAILY PRN 12/17 1000 AC 12/22 EXT 0504 Magnesium Hydroxide 30 ML ONE PRN 12/18 0745 AC PO Meropenem 1 GM Q8H 12/17 1200 AC 12/22 IV 0504 Metoprolol Tartrate 6.25 MG BID 12/16 1000 AC 12/21 PO 2138 Multivitamins 1 TAB DAILY 12/15 1151 AC 12/21 Therapeutic PO 1110 Nitroglycerin 0.4 MG DAILY 12/19 1000 AC 12/21 TOP 1110 Omeprazole 20 MG DAILY AC 12/17 0700 AC 12/22 PO 0504 Polyethylene Glycol 17 GM DAILY 12/18 1000 AC 12/21 PO 1108 Prednisone 30 MG DAILY 12/22 1000 AC PO 12/23 1001 Prednisone 40 MG DAILY 12/20 1100 DC 12/21 PO 12/21 1001 1109 Psyllium Hydrophilic 1 PAC BID PRN 12/15 1200 AC Mucilloid PO Senna/Docusate Sodium 1 TAB BID PRN 12/18 0745 AC PO Tiotropium [place] 1 PUF DAILY 12/15 1152 AC 12/21 INH 1109 Results Last 24 Hours of Lab Results: Laboratory Tests 12/21 0725 Chemistry Sodium (137 - 145 mmol/L) 129 L Potassium (3.5 - 5.1 mmol/L) 5.0 Chloride (98 - 107 mmol/L) 90 L Carbon Dioxide (22 - 30 mmol/L) 36 H Anion Gap (5 - 16) 3 L BUN (9 - 20 mg/dL) 25 H Creatinine (0.7 - 1.2 mg/dL) 0.7 Estimated GFR (>60 ml/min) > 60 BUN/Creatinine Ratio (7 - 25 %) 35.7 H Hematology CBC w Diff NO MAN DIFF REQ WBC (4.8 - 10.8 /CUMM) 3.9 L RBC (4.70 - 6.10 /CUMM) 3.70 L Hgb (14.0 - 18.0 G/DL) 10.1 L Hct (42 - 52 %) 30.4 L MCV (80.0 - 94.0 FL) 82.2 MCH (27.0 - 31.0 PG) 27.2 RDW (11.5 - 14.5 %) 17.8 H Plt Count (130 - 400 /CUMM) 151 MPV (7.4 - 10.4 FL) 7.3 L Gran % (42.2 - 75.2 %) 53.9 Lymphocytes % (20.5 - 51.1 %) 30.5 Monocytes % (1.7 - 9.3 %) 15.3 H Eosinophils % (0 - 5 %) 0.1 Basophils % (0.0 - 2.0 %) 0.2 Absolute Granulocytes (1.4 - 6.5 /CUMM) 2.1 Absolute Lymphocytes (1.2 - 3.4 /CUMM) 1.2 Absolute Monocytes (0.10 - 0.60 /CUMM) 0.6 Absolute Eosinophils (0.0 - 0.7 /CUMM) 0 Absolute Basophils (0.0 - 0.2 /CUMM) 0 PUBS MCHC (33.0 - 37.0 G/DL) 33.1 Assessment/Plan Assessment/Recommendations: 1. Neutropenia-absolute granulocyte count 2000 Recommend- restart Neupogen if granulocyte count less than 2000 If discharged, Follow-up in my office
--- NOTE | 2016-12-22 07:44 | PN- Housestaff ---
JENN MONZON 12/22/16 0744: Subjective Follow-up For: 1. 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 2. Elevated troponin most likely due to demand ischemia. 3.Acute respiratory distress secondary to gram-negative pneumonia superimposed with COPD exacerbation. 4. Euvolemic hyponatremia Subjective: Patient is seen and examined today, seems better slept well overnight. Vitals remained stable. Denies any more shortness of breath, no chest discomfort or palpitations. Lungs clear to auscultation bilaterally, continue with taper dose of prednisone. Neutrophil count is 1.3 , will restart the neupogen . Continue with meropenem day 6 for total of 10-14 days. Once the patient remains stable will discharge the patient to the [facility] after getting a PICC line. Review of Systems Constitutional: Denies: diaphoresis, fever, malaise. EENTM: Denies: double vision, visual changes, eye pain. Cardiovascular: Denies: chest pain, edema, orthopena. Respiratory: Denies: cough, hemoptysis, orthopnea. Gastrointestinal: Denies: abdominal pain, bloating, constipation. Genitourinary: Denies: discharge, dysuria, frequency. Musculoskeletal: Denies: back pain, gout, joint swelling. Skin: Denies: cysts, change in skin color, dryness. Objective Last 24 Hrs of Vital Signs/I&O Vital Signs Date Time Temp Pulse Resp B/P Pulse O2 O2 Flow FiO2 Ox Delivery Rate 12/22 0821 98 Nasal 3.0L Cannula 12/22 0808 97.4 68 20 128/60 98 Nasal 3.0L Cannula 12/21 2244 97.4 77 20 138/64 97 Nasal 3.0L Cannula 12/21 2138 74 126/62 12/21 2043 95 Nasal 2.0L Cannula 12/21 1710 Nasal 2.0L Cannula 12/21 1549 98.9 66 18 128/66 96 Nasal Cannula 12/21 1108 62 134/62 12/21 0830 95 Nasal 3.0L Cannula Intake & Output 12/22 1600 12/22 0800 12/22 0000 Intake Total 120 240 Output Total Balance 120 240 Intake, Oral 120 240 Physical Exam General Appearance: Alert, Oriented X3 Skin: No Rashes, No Breakdown HEENT: Atraumatic, PERRLA Neck: Supple, No JVD Cardiovascular: Regular Rate, Normal S1, Normal S2 Lungs: Clear to Auscultation, Normal Air Movement Neurological: Normal Gait, Normal Speech, Strength at 5/5 X4 Ext Extremities: No Clubbing, No Cyanosis, No Edema Current Medications: Current Medications Sig/Jorgito Start time Last Medication Dose Route Stop Time Status Admin Acetaminophen 650 MG Q6P PRN 12/17 0030 AC 12/17 PO 0032 Acetaminophen/ 1 TAB Q8P PRN 12/18 0737 AC 12/21 Hydrocodone Bitart PO 2307 Albuterol Sulfate 3 ML EVERY 4 HRS/AWAKE 12/16 0800 AC 12/22 INH 0806 Albuterol Sulfate 2 PUF Q4H PRN 12/15 1200 AC INH Albuterol Sulfate 3 ML Q4P PRN 12/15 1200 AC INH Alendronate Sodium 70 MG QTHURS 12/18 1000 AC 12/18 PO 0925 Aspirin 325 MG DAILY 12/16 1000 AC 12/21 PO 1102 Atorvastatin Calcium 20 MG DAILY 12/15 1150 AC 12/21 PO 1107 Bisacodyl 5 MG DAILY PRN 12/18 0745 AC 12/18 PO 0921 Bisacodyl 10 MG DAILY PRN 12/15 1230 AC 12/15 TN 1541 Budesonide/ 2 PUF BID 12/15 1150 AC 12/21 Formoterol Fumarate INH 2139 Cholecalciferol 400 IU DAILY 12/15 1150 AC 12/21 PO 1110 Clopidogrel Bisulfate 75 MG DAILY 12/16 1000 AC 12/21 PO 1109 Folic Acid 1 MG DAILY 12/15 1150 AC 12/21 PO 1104 Furosemide 40 MG DAILY 12/18 1000 AC 12/21 PO 1106 Guaifenesin 600 MG Q12 12/15 2215 AC 12/21 PO 2135 Heparin Sodium 5,000 UNIT Q8 12/16 2200 AC 12/22 (Porcine) SC 0504 Hydromorphone HCl 0.5 MG Q4P PRN 12/17 0815 AC IV Lidocaine 1 PAT DAILY PRN 12/17 1000 AC 12/22 EXT 0504 Magnesium Hydroxide 30 ML ONE PRN 12/18 0745 AC PO Meropenem 1 GM Q8H 12/17 1200 AC 12/22 IV 0504 Metoprolol Tartrate 6.25 MG BID 12/16 1000 AC 12/21 PO 2138 Multivitamins 1 TAB DAILY 12/15 1151 AC 12/21 Therapeutic PO 1110 Nitroglycerin 0.4 MG DAILY 12/19 1000 AC 12/21 TOP 1110 Omeprazole 20 MG DAILY AC 12/17 0700 AC 12/22 PO 0504 Polyethylene Glycol 17 GM DAILY 12/18 1000 AC 12/21 PO 1108 Prednisone 30 MG DAILY 12/22 1000 AC PO 12/23 1001 Prednisone 40 MG DAILY 12/20 1100 DC 12/21 PO 12/21 1001 1109 Psyllium Hydrophilic 1 PAC BID PRN 12/15 1200 AC Mucilloid PO Senna/Docusate Sodium 1 TAB BID PRN 12/18 [address] [place] 1 PUF DAILY 12/15 1152 AC 12/21 INH 1109 Assessment/Plan Assessment: Mr. 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 Assessment: 1. 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 2. Elevated troponin most likely due to demand ischemia. 3. Acute respiratory distress secondary to gram-negative pneumonia superimposed with COPD exacerbation. 4. Euvolemic hyponatremia Plan 1. Chronic neutropenia with unknown etiology possible rheumatoid arthritis/ myelodysplastic syndrome: Neutropenia improved after getting Neupogen prior to the admission. * Patient remained afebrile overnight. * Neutrophil count is 1.3 , will restart the neupogen as per Dr Laboy recommendations * * Monitor vitals every 4 hours 2. Acute respiratory distress secondary to gram-negative pneumonia superimposed with COPD exacerbation: * Sputum cultures grew Sputum cultures reveal ESBL, Pseudomonas and yeast * Continue with meropenem (day 6 )total of 10-14 days. * Continue taper dose of prednisone. * Continue TRC nebs * Vitals every 4 hours. 3. Elevated troponin most likely due to demand ischemia: resolved * Continue aspirin, metoprolol, statins, lasix, plavix and nitroglycerin patch as needed for chest discomfort. 4. Euvolemic hyponatremia: * Sodium level improvin today * Continue with 1200 fluid restriction. * Repeat sodium levels tomorrow 5. Constipation: resolved. Last BM was yesterday 6. DVT prophylaxis subcutaneous heparin 7. Mild to moderate pain controlled with Tylenol and Lidoderm patch. Severe pain controlled with Dilaudid and Vicodin. 8. Patient is DNR/DNI Problem List: 1. Pneumonia 2. Neutropenia Pain Ratin Pain Location: Left back pain Pain Goal: Remain pain free Pain Plan: When necessary Tylenol Tomorrow's Labs & Rationales: cbc , BEP hyponatremia neutropenia MAIKEL HO MD 12/22/16 1110: Attending MD Review Statement Attending Statement Attending MD Statement: examined this patient, discuss w/resident/PA/TRUCK CLEANER, agreed w/resident/PA/TRUCK CLEANER, reviewed EMR data (avail), discussed with nursing, discussed with case mgmt, reviewed images, amended to note Attending Assessment/Plan: Patient seen and examined, feels overall much better. Wheezing has improved. Patient remains afebrile. He still has neutropenia. He denies any shortness of breath. Vital Signs Date Time Temp Pulse Resp B/P Pulse O2 O2 Flow FiO2 Ox Delivery Rate 12/22 0931 68 128/60 12/22 0821 98 Nasal 3.0L Cannula 12/22 0808 97.4 68 20 128/60 98 Nasal 3.0L Cannula 12/22 0800 94 Nasal 3.0L Cannula 12/21 2244 97.4 77 20 138/64 97 Nasal 3.0L Cannula 12/21 2138 74 126/62 12/21 2043 95 Nasal 2.0L Cannula 12/21 1710 Nasal 2.0L Cannula 12/21 1549 98.9 66 18 128/66 96 Nasal Cannula on exam; aox3, nad. cv; s1,s2, rrr. resp; mild carckles at right base. abd; soft, nt, bs+ ext; 2+ edema. Laboratory Tests 12/22 829 Chemistry Sodium (137 - 145 mmol/L) 131 L Potassium (3.5 - 5.1 mmol/L) 4.5 Chloride (98 - 107 mmol/L) 91 L Carbon Dioxide (22 - 30 mmol/L) 38 H Anion Gap (5 - 16) 2 L BUN (9 - 20 mg/dL) 23 H Creatinine (0.7 - 1.2 mg/dL) 0.8 Estimated GFR (>60 ml/min) > 60 BUN/Creatinine Ratio (7 - 25 %) 28.8 H Hematology CBC w Diff NO MAN DIFF REQ WBC (4.8 - 10.8 /CUMM) 3.2 L RBC (4.70 - 6.10 /CUMM) 3.55 L Hgb (14.0 - 18.0 G/DL) 9.6 L Hct (42 - 52 %) 29.3 L MCV (80.0 - 94.0 FL) 82.6 MCH (27.0 - 31.0 PG) 27.2 RDW (11.5 - 14.5 %) 18.3 H Plt Count (130 - 400 /CUMM) 136 MPV (7.4 - 10.4 FL) 7.2 L Gran % (42.2 - 75.2 %) 41.8 L Lymphocytes % (20.5 - 51.1 %) 40.2 Monocytes % (1.7 - 9.3 %) 16.7 H Eosinophils % (0 - 5 %) 0.8 Basophils % (0.0 - 2.0 %) 0.5 Absolute Granulocytes (1.4 - 6.5 /CUMM) 1.3 L Absolute Lymphocytes (1.2 - 3.4 /CUMM) 1.3 Absolute Monocytes (0.10 - 0.60 /CUMM) 0.5 Absolute Eosinophils (0.0 - 0.7 /CUMM) 0 Absolute Basophils (0.0 - 0.2 /CUMM) 0 PUBS MCHC (33.0 - 37.0 G/DL) 32.9 L A/P; 86 y/o M with pmh sig for T-cell lymphoproliferative disorder, chronic neutropenia 2/2 advanced RA and previous treatment with MTX s/p chemotherpay and neupogen, moderte COPD on 2L Oxygen at home and nocturnal BiPAP , rheumatoid arthritis on po predniosone, CAD status post non-ST elevation VA, HFpEF >65% and pulmonary HTN, history of empyema, hiatal hernia, history of Clostridium difficile, hyponatremia, and SIADH who was admitted with acute respiratory failure secondary to gram-negative pneumonia. Patient currently getting treated with meropenem as sputum cultures were positive for Escherichia coli (ESBL) as well as Pseudomonas. Patient fully total of 10-14 day course of antibiotics per infectious disease. Patient also neutropenic. He is going to receive Neupogen today in the hospital and then once a week and the [facility]. Follow-up on the neutrophil count tomorrow, if improves, patient can likely be discharged to rehabilitation with peripheral IV line. Continue prednisone taper until he reaches his home dose of 10 mg. Continue other current meds/TRC nebs. DVT Px; Hep sq. Possible DC in am.
--- NOTE | 2016-12-22 08:03 | PN- Pulmonary ---
Subjective HPI/Critical Care Issues: Patient feels comfortable without shortness of breath he had an uneventful night Objective Current Medications: Current Medications Sig/Jorgito Start time Last Medication Dose Route Stop Time Status Admin Acetaminophen 650 MG Q6P PRN 12/17 0030 AC 12/17 PO 0032 Acetaminophen/ 1 TAB Q8P PRN 12/18 0737 AC 12/21 Hydrocodone Bitart PO 2307 Albuterol Sulfate 3 ML EVERY 4 HRS/AWAKE 12/16 0800 AC 12/21 INH 2005 Albuterol Sulfate 2 PUF Q4H PRN 12/15 1200 AC INH Albuterol Sulfate 3 ML Q4P PRN 12/15 1200 AC INH Alendronate Sodium 70 MG QTHURS 12/18 1000 AC 12/18 PO 0925 Aspirin 325 MG DAILY 12/16 1000 AC 12/21 PO 1102 Atorvastatin Calcium 20 MG DAILY 12/15 1150 AC 12/21 PO 1107 Bisacodyl 5 MG DAILY PRN 12/18 0745 AC 12/18 PO 0921 Bisacodyl 10 MG DAILY PRN 12/15 1230 AC 12/15 PA 1541 Budesonide/ 2 PUF BID 12/15 1150 AC 12/21 Formoterol Fumarate INH 2139 Cholecalciferol 400 IU DAILY 12/15 1150 AC 12/21 PO 1110 Clopidogrel Bisulfate 75 MG DAILY 12/16 1000 AC 12/21 PO 1109 Folic Acid 1 MG DAILY 12/15 1150 AC 12/21 PO 1104 Furosemide 40 MG DAILY 12/18 1000 AC 12/21 PO 1106 Guaifenesin 600 MG Q12 12/15 2215 AC 12/21 PO 2135 Heparin Sodium 5,000 UNIT Q8 12/16 2200 AC 12/22 (Porcine) SC 0504 Hydromorphone HCl 0.5 MG Q4P PRN 12/17 0815 AC IV Lidocaine 1 PAT DAILY PRN 12/17 1000 AC 12/22 EXT 0504 Magnesium Hydroxide 30 ML ONE PRN 12/18 0745 AC PO Meropenem 1 GM Q8H 12/17 1200 AC 12/22 IV 0504 Metoprolol Tartrate 6.25 MG BID 12/16 1000 AC 12/21 PO 2138 Multivitamins 1 TAB DAILY 12/15 1151 AC 12/21 Therapeutic PO 1110 Nitroglycerin 0.4 MG DAILY 12/19 1000 AC 12/21 TOP 1110 Omeprazole 20 MG DAILY AC 12/17 0700 AC 12/22 PO 0504 Polyethylene Glycol 17 GM DAILY 12/18 1000 AC 12/21 PO 1108 Prednisone 30 MG DAILY 12/22 1000 AC PO 12/23 1001 Prednisone 40 MG DAILY 12/20 1100 DC 12/21 PO 12/21 1001 1109 Psyllium Hydrophilic 1 PAC BID PRN 12/15 1200 AC Mucilloid PO Senna/Docusate Sodium 1 TAB BID PRN 12/18 0745 AC PO Tiotropium [place] 1 PUF DAILY 12/15 1152 AC 12/21 INH 1109 Vital Signs & I&O Last 24 Hrs of Vitals and I&O: Vital Signs Date Time Temp Pulse Resp B/P Pulse O2 O2 Flow FiO2 Ox Delivery Rate 12/21 2244 97.4 77 20 138/64 97 Nasal 3.0L Cannula 12/21 2138 74 126/62 12/21 2043 95 Nasal 2.0L Cannula 12/21 1710 Nasal 2.0L Cannula 12/21 1549 98.9 66 18 128/66 96 Nasal Cannula 12/21 1108 62 134/62 12/21 0830 95 Nasal 3.0L Cannula 12/21 0804 99.0 68 20 134/62 94 Intake & Output 12/22 1600 12/22 0800 12/22 0000 Intake Total 120 240 Output Total Balance 120 240 Intake, Oral 120 240 Oxygen saturation 3 L 97% exam of his chest shows somewhat diminished breath sounds are no wheezes heard cardiac exam shows regular S1 and S2 without murmurs Impression/Plan Impression/Plan Impression/Plan: 86-year-old gentleman who presented with an ANC of 0 associated with new right lower lobe parenchymal density with sputum positive resistant Escherichia coli. Oxygen saturations improved on 3 L. Recommendations: Continue aggressive pulmonary toilet. Continue prednisone taper. Outpatient follow-up after discharge to short-term rehabilitation
[2016-12-22 08:08] VITALS: BP 128/60
[2016-12-22 09:40] LABS: ABSOLUTE BASOPHIL COUNT 0 /CUMM (0.0-0.2); ABSOLUTE EOSINOPHIL COUNT 0 /CUMM (0.0-0.7); ABSOLUTE GRANULOCYTE CT 1.3 /CUMM (1.4-6.5); ABSOLUTE LYMPH COUNT 1.3 /CUMM (1.2-3.4); ABSOLUTE MONOCYTE COUNT 0.5 /CUMM (0.10-0.60); BASOPHIL % 0.5 % (0.0-2.0); EOSINOPHIL % 0.8 % (0-5); GRANULOCYTE % 41.8 % (42.2-75.2); HEMATOCRIT 29.3 % (42-52); MEAN CORPUSCULAR HGB 27.2 PG (27.0-31.0); MEAN CORPUSCULAR HGB CONC 32.9 G/DL (33.0-37.0); MEAN CORPUSCULAR VOLUME 82.6 FL (80.0-94.0); MEAN PLATELET VOLUME 7.2 FL (7.4-10.4); PLATELET COUNT 136 /CUMM (130-400); RBC DISTRIBUTION WIDTH 18.3 % (11.5-14.5); RED BLOOD CELL CT 3.55 /CUMM (4.70-6.10); WHITE BLOOD CELL COUNT 3.2 /CUMM (4.8-10.8)
[2016-12-22] MEDS ORDERED: PREDNISONE10 M2 PO ×3 (13:32→14:51)
[2016-12-22] MEDS ORDERED: MEROPENEM1 G1 IV (13:32)
--- NOTE | 2016-12-22 13:35 | Patient Discharge Instructions ---
Discharge Instructions General Discharge Information You were seen/treated for: Acute respiratory distress secondary to right lower lobe gram-negative superimposed on COPD Special Instructions: 1. Please follow-up with the PCP within 1-2 weeks after discharge 2. Please follow-up with Dr. Mckenzie within 1-2 weeks after discharge Diet Recommended Diet: Heart Healthy Activity Activity Self Limited: Yes Acute Coronary Syndrome Inclusion Criteria At DC or during hospital stay patient has or had the following: ACS DIAGNOSIS No Discharge Core Measures Meds if any: Prescribed or Continued at Discharge Meds if any: NOT Prescribed or Continued at Discharge Congestive Heart Failure Inclusion Criteria At DC or during hospital stay patient has or had the following: CHF DIAGNOSIS No Discharge Core Measures Meds if any: Prescribed or Continued at Discharge Meds if any: NOT Prescribed or Continued at Discharge Cerebrovascular accident Inclusion Criteria At DC or during hospital stay patient has or had the following: CVA/TIA Diagnosis No Discharge Core Measures Meds if any: Prescribed or Continued at Discharge Meds if any: NOT Prescribed or Continued at Discharge Venous thromboembolism Inclusion Criteria VTE Diagnosis No VTE Type NONE VTE Confirmed by (Test) NONE Discharge Core Measures - Per Current guidelines, there needs to be overlap - treatment for the first 5 days of Warfarin therapy. - If discharged on Warfarin prior to 5 days of - overlap therapy, the patient will need to be - assessed for post discharge needs including - *Post discharge parental anticoagulation - *Warfarin and/or parental anticoagulation education - *Follow up date to check INR post discharge At least 5 days overlap therapy as Inpatient No Meds if any: Prescribed or Continued at Discharge Note: Overlap Therapy is Warfarin and Anticoagulant Meds if any: NOT Prescribed or Continued at Discharge
[2016-12-22] MEDS ORDERED: LASIX40 M1 PO (13:39)
[2016-12-22 14:14] VITALS: BP 128/60
[2016-12-22 16:14] VITALS: BP 110/54
[2016-12-22 22:30] VITALS: BP 112/62
[2016-12-23 06:55] VITALS: BP 110/60
--- NOTE | 2016-12-23 07:31 | PN- Housestaff ---
JENN MONZON 12/23/16 0731: Subjective Follow-up For: 1. 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 2. Elevated troponin most likely due to demand ischemia. 3.Acute respiratory distress secondary to gram-negative pneumonia superimposed with COPD exacerbation. 4. Euvolemic hyponatremia Subjective: Patient is seen and examined today, seems better slept well overnight, vitals are stable overnight denies any more chest discomfort/trouble breathing or palpitations. No urinary bowel habit complaints. Patient has been restarted on Neupogen 300 g subcutaneous as granulocyte count is less than 2000 today's labs are pending. I talked to Dr. Laboy over the phone, he mentioned that he will monitor his granulocyte count as an outpatient and dose Neupogen accordingly. Review of Systems Constitutional: Denies: chills, diaphoresis, fever. EENTM: Denies: blurred vision, double vision, visual changes, eye pain. Cardiovascular: Denies: chest pain, edema. Respiratory: Denies: cough, hemoptysis, orthopnea. Gastrointestinal: Denies: abdominal pain, bloating, constipation. Genitourinary: Denies: discharge, dysuria, frequency. Musculoskeletal: Denies: back pain, gout. Skin: Denies: cysts, change in skin color, change in hair/nails. Objective Last 24 Hrs of Vital Signs/I&O Vital Signs Date Time Temp Pulse Resp B/P Pulse O2 O2 Flow FiO2 Ox Delivery Rate 12/23 0655 98.4 92 20 110/60 96 Nasal 3.0L Cannula 12/22 2322 97 Nasal 3.0L Cannula 12/22 2230 98.6 93 20 112/62 97 Nasal 3.0L Cannula 12/22 2122 70 122/68 12/22 1625 98 Nasal 3.0L Cannula 12/22 1614 98.4 64 20 110/54 99 12/22 1536 95 Nasal 3.0L Cannula 12/22 1414 97.4 68 20 128/60 12/22 0931 68 128/60 Intake & Output 12/23 1600 12/23 0800 12/23 0000 Intake Total 120 320 Output Total 300 Balance 120 20 Intake, Oral 120 320 Output, Urine 300 Physical Exam General Appearance: Alert, Oriented X3 Skin: No Rashes HEENT: Atraumatic, PERRLA Neck: Supple, No JVD Cardiovascular: Regular Rate, Normal S1, Normal S2 Lungs: Clear to Auscultation Neurological: Normal Speech, Strength at 5/5 X4 Ext, Normal Tone Extremities: No Clubbing, No Cyanosis Current Medications: Current Medications Sig/Jorgito Start time Last Medication Dose Route Stop Time Status Admin Acetaminophen 650 MG Q6P PRN 12/17 0030 AC 12/17 PO 0032 Acetaminophen/ 1 TAB Q8P PRN 12/18 0737 AC 12/22 Hydrocodone Bitart PO 2124 Albuterol Sulfate 3 ML EVERY 4 HRS/AWAKE 12/16 0800 AC 12/22 INH 2030 Albuterol Sulfate 2 PUF Q4H PRN 12/15 1200 AC INH Albuterol Sulfate 3 ML Q4P PRN 12/15 1200 AC INH Alendronate Sodium 70 MG QTHURS 12/18 1000 AC 12/18 PO 0925 Aspirin 81 MG DAILY 12/23 1000 AC PO Aspirin 325 MG DAILY 12/16 1000 DC 12/22 PO 0930 Atorvastatin Calcium 20 MG DAILY 12/15 1150 AC 12/22 PO 0932 Bisacodyl 5 MG DAILY PRN 12/18 0745 AC 12/18 PO 0921 Bisacodyl 10 MG DAILY PRN 12/15 1230 AC 12/15 VA 1541 Budesonide/ 2 PUF BID 12/15 1150 AC 12/22 Formoterol Fumarate INH 2126 Cholecalciferol 400 IU DAILY 12/15 1150 AC 12/22 PO 0932 Clopidogrel Bisulfate 75 MG DAILY 12/16 1000 AC 12/22 PO 0932 Filgrastim 300 MCG DAILY 12/22 1000 AC 12/22 SC 1205 Folic Acid 1 MG DAILY 12/15 1150 AC 12/22 PO 0931 Furosemide 40 MG DAILY 12/18 1000 AC 12/22 PO 0931 Guaifenesin 600 MG Q12 12/15 2215 AC 12/22 PO 2122 Heparin Sodium 5,000 UNIT Q8 12/16 2200 AC 12/23 (Porcine) SC 0555 Hydromorphone HCl 0.5 MG Q4P PRN 12/17 0815 AC IV Lidocaine 1 PAT DAILY PRN 12/17 1000 AC 12/23 EXT 0556 Magnesium Hydroxide 30 ML ONE PRN 12/18 0745 AC PO Meropenem 1 GM Q8H 12/17 1200 AC 12/23 IV 0400 Metoprolol Tartrate 6.25 MG BID 12/16 1000 AC 12/22 PO 2122 Multivitamins 1 TAB DAILY 12/15 1151 AC 12/22 Therapeutic PO 0932 Nitroglycerin 0.4 MG DAILY 12/19 1000 AC 12/22 TOP 0933 Omeprazole 20 MG DAILY AC 12/17 0700 AC 12/23 PO 0555 Polyethylene Glycol 17 GM DAILY 12/18 1000 AC 12/22 PO 0936 Prednisone 20 MG DAILY 12/24 1000 AC PO Prednisone 30 MG DAILY 12/22 1000 AC 12/22 PO 12/23 1001 0932 Psyllium Hydrophilic 1 PAC BID PRN 12/15 1200 AC Mucilloid PO Senna/Docusate Sodium 1 TAB BID PRN 12/18 0745 AC PO Tiotropium Quin[place] 1 PUF DAILY 12/15 1152 AC 12/22 INH 0933 Last 24 Hrs of Lab/Edd Results Last 24 Hrs of Labs/Mics: Laboratory Tests 12/22/16 0830: Anion Gap 2 L, Estimated GFR > 60, BUN/Creatinine Ratio 28.8 H, CBC w Diff NO MAN DIFF REQ, RBC 3.55 L, MCV 82.6, MCH 27.2, RDW 18.3 H, MPV 7.2 L, Gran % 41.8 L, Lymphocytes % 40.2, Monocytes % 16.7 H, Eosinophils % 0.8, Basophils % 0.5, Absolute Granulocytes 1.3 L, Absolute Lymphocytes 1.3, Absolute Monocytes 0.5, Absolute Eosinophils 0, Absolute Basophils 0, PUBS MCHC 32.9 L Assessment/Plan Assessment: Mr. 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 Assessment: 1. 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 2. Elevated troponin most likely due to demand ischemia. 3. Acute respiratory distress secondary to gram-negative pneumonia superimposed with COPD exacerbation. 4. Euvolemic hyponatremia Plan 1. Chronic neutropenia with unknown etiology possible rheumatoid arthritis/ myelodysplastic syndrome: Neutropenia improved after getting Neupogen prior to the admission. * Patient remained afebrile overnight. * Patient has been restarted on Neupogen 300 g subcutaneous as granulocyte count is less than 2000 today's labs are pending. I talked to Dr. Laboy over the phone, he mentioned that he will monitor his granulocyte count as an outpatient and dose Neupogen accordingly. * Monitor vitals every 4 hours 2. Acute respiratory distress secondary to gram-negative pneumonia superimposed with COPD exacerbation: * Sputum cultures grew Sputum cultures reveal ESBL, Pseudomonas and yeast * Continue with meropenem (day 7 )total of 10-14 days. * Continue taper dose of prednisone. * Continue TRC nebs * Vitals every 4 hours. 3. Elevated troponin most likely due to demand ischemia: resolved * Continue aspirin, metoprolol, statins, lasix, plavix and nitroglycerin patch as needed for chest discomfort. 4. Euvolemic hyponatremia: * Sodium level improvin today * Continue with 1200 fluid restriction. * Repeat sodium levels tomorrow 5. Constipation: resolved. Last BM was yesterday 6. DVT prophylaxis subcutaneous heparin 7. Mild to moderate pain controlled with Tylenol and Lidoderm patch. Severe pain controlled with Dilaudid and Vicodin. 8. Patient is DNR/DNI Problem List: 1. Acute respiratory failure with hypoxia 2. Pneumonia 3. Neutropenia Pain Ratin Pain Location: No pain at this time Pain Goal: Remain pain free Pain Plan: As needed Tylenol Tomorrow's Labs & Rationales: No need of labs patient will be discharged today [facility]23[facility]16 1414: Attending MD Review Statement Attending Statement Attending MD Statement: examined this patient, discuss w/resident/PA/CASH VAN SALESPERSON, agreed w/resident/PA/C[employer] VAN SALESPERSON, discussed with family, reviewed EMR data (avail), discussed with nursing, discussed with case mgmt, amended to note Attending Assessment/Plan: Patient seen and examined, offers no complaints. After receiving Neupogen, his white blood cell count as well as granulocytes percentage has improved. Patient has been kept on meropenem through the peripheral IV. He has a bed available at rehabilitation today and will be discharged to rehabilitation on IV meropenem for 3 more days to complete a total of 10 day course. Housestaff has discussed with Dr. Mckenzie about the Neupogen. Dr. Mckenzie will take care of this as an outpatient. We will not put any standing order for Neupogen at this point. I have left messages with patient's . Patient medically stable for discharge to rehabilitation today.
[2016-12-23 09:27] LABS: ABSOLUTE BASOPHIL COUNT 0 /CUMM (0.0-0.2); ABSOLUTE EOSINOPHIL COUNT 0.1 /CUMM (0.0-0.7); ABSOLUTE GRANULOCYTE CT 7.1 /CUMM (1.4-6.5); ABSOLUTE LYMPH COUNT 2.6 /CUMM (1.2-3.4); ABSOLUTE MONOCYTE COUNT 0.5 /CUMM (0.10-0.60); BASOPHIL % 0.3 % (0.0-2.0); EOSINOPHIL % 0.6 % (0-5); HEMATOCRIT 32.3 % (42-52); MEAN CORPUSCULAR HGB 27.3 PG (27.0-31.0); MEAN CORPUSCULAR VOLUME 82.6 FL (80.0-94.0); PLATELET COUNT 150 /CUMM (130-400); RBC DISTRIBUTION WIDTH 18.5 % (11.5-14.5); RED BLOOD CELL CT 3.91 /CUMM (4.70-6.10)
[2016-12-23 09:56] LABS: GRANULOCYTE % 69.3 % (42.2-75.2)
[2016-12-23 10:12] LABS: WHITE BLOOD CELL COUNT 10.2 /CUMM (4.8-10.8)
[2016-12-23] MEDS ORDERED: MEROPENEM1 G1 IV (10:48)
--- NOTE | 2016-12-23 11:50 | PN- Infect Dx ---
Subjective Subjective: Afebrile on steroids. He feels well with no shortness of breath. He still notes occasional cough, with no further hemoptysis. Objective Last 24 Hrs of Vital Signs/I&O Vital Signs Date Time Temp Pulse Resp B/P Pulse O2 O2 Flow FiO2 Ox Delivery Rate 12/23 1110 92 110/60 12/23 0840 Nasal 3.0L Cannula 12/23 0655 98.4 92 20 110/60 96 Nasal 3.0L Cannula 12/22 2322 97 Nasal 3.0L Cannula 12/22 2230 98.6 93 20 112/62 97 Nasal 3.0L Cannula 12/22 2122 70 122/68 12/22 1625 98 Nasal 3.0L Cannula 12/22 1614 98.4 64 20 110/54 99 12/22 1536 95 Nasal 3.0L Cannula 12/22 1414 97.4 68 20 128/60 Intake & Output 12/23 1600 12/23 0800 12/23 0000 Intake Total 120 320 Output Total 300 Balance 120 20 Intake, Oral 120 320 Output, Urine 300 Physical Exam Other Physical Findings: He appears comfortable in no acute distress Lungs rhonchi at the right base Heart regular rhythm with no murmur Extremities 1-2+ edema both lower extremities, right greater than left Results Last 24 Hours of Lab Results: Laboratory Tests 12/23 0845 Chemistry Sodium (137 - 145 mmol/L) 133 L Potassium (3.5 - 5.1 mmol/L) 5.1 Chloride (98 - 107 mmol/L) 91 L Carbon Dioxide (22 - 30 mmol/L) 39 H Anion Gap (5 - 16) 4 L BUN (9 - 20 mg/dL) 23 H Creatinine (0.7 - 1.2 mg/dL) 0.8 Estimated GFR (>60 ml/min) > 60 BUN/Creatinine Ratio (7 - 25 %) 28.8 H Hematology CBC w Diff NO MAN DIFF REQ WBC (4.8 - 10.8 /CUMM) 10.2 RBC (4.70 - 6.10 /CUMM) 3.91 L Hgb (14.0 - 18.0 G/DL) 10.7 L Hct (42 - 52 %) 32.3 L MCV (80.0 - 94.0 FL) 82.6 MCH (27.0 - 31.0 PG) 27.3 RDW (11.5 - 14.5 %) 18.5 H Plt Count (130 - 400 /CUMM) 150 MPV (7.4 - 10.4 FL) 7.0 L Gran % (42.2 - 75.2 %) 69.3 Lymphocytes % (20.5 - 51.1 %) 25.3 Monocytes % (1.7 - 9.3 %) 4.5 Eosinophils % (0 - 5 %) 0.6 Basophils % (0.0 - 2.0 %) 0.3 Absolute Granulocytes (1.4 - 6.5 /CUMM) 7.1 H Absolute Lymphocytes (1.2 - 3.4 /CUMM) 2.6 Absolute Monocytes (0.10 - 0.60 /CUMM) 0.5 Absolute Eosinophils (0.0 - 0.7 /CUMM) 0.1 Absolute Basophils (0.0 - 0.2 /CUMM) 0 PUBS MCHC (33.0 - 37.0 G/DL) 33.0 Last 24 Hours of Edd Results: Sputum fungal culture December 15 positive for Miriam and mold Assessment/Plan Impression: Doing well overall on Meropenem Day 7 of treatment for Escherichia coli/ Pseudomonas pneumonia in the setting of chronic neutropenia, with temperatures normal (on steroids) and white blood cell count increased after Neupogen, which was restarted yesterday. This is apparently to be continued on a weekly basis per Oncology. The etiology of his chronic neutropenia remains unclear, and, as noted, it could be secondary to his rheumatoid arthritis, in which case reevaluation of his treatment for this may be indicated. The isolation of mold from a recent sputum is of interest, as a sputum culture from October was also positive. Given his clinical improvement I suspect this represent colonization but will send out for identification as this may be helpful information in the future. Suggestion: 1. Rheumatology follow-up regarding the possible role of rheumatoid arthritis in his neutropenia 2. Continue steroid taper to his baseline dose 3. Further management regarding Neupogen per Oncology 4. Continue Meropenem to complete a 10 day course
[2016-12-23 13:47] VITALS: BP 110/60
== END 2016-12-23 14:13 | DRG 177 ==
LOC: ENRESERVTM → ENRESERVDT → ERH 08:42 → ERHI 10:29 → 1NO 10:29 → ENPENDDIS 10:29 → 1NO 18:25 → 2NB 12-19 20:01
PROVIDERS: Emergency Medicine; Internal Medicine; Internal Medicine Nephrology; Student in an Organized Health Care Education/Training Program; ADMIT Internal Medicine
DX: J15.6 Pneumonia due to other Gram-negative bacteria (principal); J96.21 Acute and chronic respiratory failure with hypoxia; C91.Z0 Other lymphoid leukemia not having achieved remission; I24.8 Other forms of acute ischemic heart disease; I50.32 Chronic diastolic (congestive) heart failure; E87.1 Hypo-osmolality and hyponatremia; D70.8 Other neutropenia; J44.9 Chronic obstructive pulmonary disease, unspecified; M06.9 Rheumatoid arthritis, unspecified; Z99.81 Dependence on supplemental oxygen; Z66 Do not resuscitate; I25.10 Atherosclerotic heart disease of native coronary artery without angina pectoris; I11.0 Hypertensive heart disease with heart failure; E78.5 Hyperlipidemia, unspecified; I25.2 Old myocardial infarction
CPT/HCPCS: 1NP; 2NBP; 87107; 87186; 36415; 81001; 82436; 87040; 87070; 87071; 87086; 87449; 87450; 87804; 87804-59; 93005; 93010; 93306; 96374; 96375; 97110-GO; 97116-GO; 97162-GP; 97530-GO; 99291; J0713; J1442; J1644; J1650; J1940; J2185; J2920; J3370; J3490; J7060; J7512

== ENCOUNTER 2017-04-17 09:21 | Inpatient (IN) | payer OTHER ==
[~2017-04-17] VITALS: Ht 165.1 cm; Wt 65.3 kg
[~2017-04-17 09:21] MED LIST changes: +MEROPENEM1 G1 IV
[2017-04-17] MEDS ORDERED: PREDNISONE10 M2 PO (09:24)
--- NOTE | 2017-04-17 09:28 | ED GENERAL ADULT ---
History of Present Illness General Chief Complaint: General Adult Stated Complaint: BIBA FOR FEVER; CHILLS Source: patient, old records, EMS Exam Limitations: no limitations Allergies Coded Allergies: NO KNOWN ALLERGIES (04/23/12) Reconcile Medications Albuterol Sulfate (Proair Hfa) 8.5 GM HFA.AER.AD 2 PUF INH Q4H PRN COPD ( Reported) Albuterol Sulfate 2.5 MG/3 ML VIAL.NEB 1 Vial INH/ANKUR Q4P PRN COPD EXACERBATION Alendronate Sodium 70 MG TABLET 1 TAB PO QTHURS bone health (Reported) in the morning, at least 30 minutes before the first food, beverage, or medication of the day Aspirin (Aspirin*) 81 MG TAB.CHEW 1 TAB PO DAILY HEART HEALTH (Reported) Atorvastatin Calcium 20 MG TABLET 1 TAB PO DAILY CHOLESTEROL (Reported) Cholecalciferol (Vitamin D3) (Vitamin D) 400 UNIT TABLET 1 TAB PO DAILY SUPPLEMENT (Reported) Fluticasone/Salmeterol (Advair 250-50 Diskus) 250 MCG-50 MCG/DOSE BLST.W.DEV 1 PUF INH BID BREATHING PROBLEMS (Reported) Furosemide (Lasix) 40 MG TABLET 1 TAB PO DAILY CHF Multivitamin (Daily Multiple Vitamin) 1 EACH TABLET 1 TAB PO DAILY SUPPLEMENT (Reported) Omeprazole 20 MG CAPSULE.DR 1 CAP PO DAILY GI protection (Reported) Prednisone 10 MG TABLET 1 TAB PO DAILY COPD (Reported) Psyllium Husk (Metamucil) 660 GM POWDER 1 PAC PO PRN CONSTIPATION (Reported) Tiotropium [place] (Spiriva) 18 MCG CAP.W.DEV 1 CAP INH DAILY COPD (Reported) Triage Nurses Notes Reviewed? yes Onset: Abrupt Duration: day(s): (1), constant Timing: recent history Injury Environment: home Severity: moderate Severity Numbers: 6 No Modifying Factors: none Associated Symptoms: denies HPI: This 87-year-old male with history of COPD on 3L baseline, cardiac artery disease, T-cell lymphoproliferative disorder with chronic neutropenia on nuepogen, RA presents to the ER for evaluation complaining of sudden onset fever chills since this morning as high as 101. He took Tylenol prior to arrival. The patient is on 3 L of oxygen. He denies worsening of his his chronic shortness of breath the patient has a baseline nonproductive cough. He denies any chest pain abdominal pain nausea vomiting diarrhea no urinary symptoms. He denies any rashes to his skin no urinary frequency urgency or dysuria. He is on Lasix 40 mg which he is been compliant with as well as prednisone. No recent antibiotic use next neupogen dose is 04/22/17 (ERNESTO VASQUEZ) Vital Signs & Intake/Output Vital Signs & Intake/Output Vital Signs Date Time Temp Pulse Resp B/P B/P Pulse O2 O2 Flow FiO2 Mean Ox Delivery Rate 04/17 1315 Nasal 3.0L Cannula 04/17 1009 99 Nasal 3.0L Cannula 04/17 1005 94 Nasal 3.0L Cannula 04/17 0922 100.6 97 20 105/50 96 Nasal 2.0L Cannula Past History Travel History Traveled to [place] past 21 day No Medical History Any Pertinent Medical History? see below for history Neurological: NONE EENT: NONE Cardiovascular: CAD, CHF, hyperlipidemia, NSTEMI Respiratory: bronchitis, COPD, emphysema, pneumonia Gastrointestinal: colitis, hiatal hernia, peptic ulcer disease, upper GI bleed, C. 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 PROLIFERATIVE DISORDER Cancer(s): NONE NEUROSURGICAL NURSE/Reproductive: NONE Other Medical Hx: SIADH History of MRSA: Yes History of VRE: No History of CDIFF: No Influenza Vaccine: 08/30/16 Surgical History Surgical History: HIATIAL HERNIA RIGHT ROTATOR CUFF Psychosocial History Who do you live with Family Services at Home None What is your primary language [place] Rican Family History Family History, If Any: MOTHER Relation not specified for: FH: diabetes mellitus Hx Contributory? No (ERNESTO VASQUEZ) Review of Systems Review of Systems Constitutional: Reports: see HPI, chills. All Other Systems: Reviewed and Negative Comments Review of systems: See HPI, All other systems negative. Constitutional, chills no fever, no malaise no weight loss HEENT: No visual changes no sore throat no congestion Cardiovascular: No chest pain , no palpitation Skin: no rashes, no change in skin Respiratory: dyspnea cough no sputum GI: No nausea no vomiting, no diarrhea, no bloating/constipation : No dysuria No hematuria, no frequency, no discharge Muscle skeletal: No joint pain, no joint swelling, no back pain, no neck pain, Neurologic: No numbness no confusion, no headache Psych: No stress Heme/endocrine: No bruising Immunology: No lymphadenopathy (ERNESTO VASQUEZ) Physical Exam Physical Exam General Appearance: well developed/nourished, no apparent distress, alert, awake Comments: Well-developed well-nourished person in no acute distress HEENT: Normal EENT exam; PERRL, EOMI, HEAD is atraumatic. moist mucous membranes. Neck: Supple, no lymphadenopathy, normal range of motion Back: Nontender, no CVA tenderness. Full range of motion Cardiovascular: Regular rate and rhythms no murmurs rubs Respiratory: Chest nontender.There were no bony deformities, no asymmetry. No respiratory distress. Patient speaking in full complete sentences. Breath sounds clear to auscultation bilaterally: NO W/R/R Abdomen: Soft, nontender nondistended, no appreciable organomegaly. Normal bowel sounds. No rebound/guarding, No appreciable enlargement of the abdominal aorta, No ascites. Extremity: 3+ bilateral lower extremity edema, full range of motion of extremities, Neuro: Alert oriented x3, motor sensory normal, There were no obvious focal neurologic abnormalities. Skin: No appreciable rash on exposed skin, skin is warm and dry. Psych: Mood and affect is normal, memory and judgment is normal. Core Measures ACS in differential dx? Yes CVA/TIA Diagnosis: No Severe Sepsis Present: No Septic Shock Present: No (REINALDO BROWER,ERNESTO) Progress Differential Diagnoses I considered the following diagnoses in my evaluation of the patient: Pneumonia UTI COPD exacerbation CHF viral syndrome influenza dehydration cellulitis Diagnostic Imaging: Viewed by Me: Radiology Read. Discussed w/RAD: Radiology Read. Radiology Impression: PATIENT: SAPNA WERNER PRESENT AGE: 87 PATIENT ACCOUNT NO: [id number] : 32 LOCATION: [facility] ORDERING PHYSICIAN: ERNESTO BROWER SERVICE DATE: 04/17/17 EXAM TYPE: RAD - XRY- PORTABLE CHEST XRAY EXAMINATION: XR PORTABLE CHEST CLINICAL INFORMATION: Fever. Dyspnea. Evaluate for pneumonia COMPARISON: Chest x-ray most recent prior dated 03/19/2017 TECHNIQUE: Portable frontal view of the chest was obtained. FINDINGS: Stable cardiomediastinal silhouette. Mild prominence of the pulmonary markings representing chronic change. Minor patchy opacity noted in the left lower lung consistent with minor infiltrate or atelectasis. Very slightly pronounced compared to the prior examination. Bony thorax is intact. Degenerative changes bilateral shoulders, right greater than left. IMPRESSION: Minor patchy infiltrate or atelectasis left lower lung. Chronic changes. DICTATED BY: NITHIN BEGUM MD DATE/TIME DICTATED:04/17/171002 PROCESS SAFETY MANAGER:ISAAK DATE/ TIME TRANSCRIBED:04/17/171002 CONFIDENTIAL, DO NOT COPY WITHOUT APPROPRIATE AUTHORIZATION. <Electronically signed in Other Vendor System> SIGNED BY: NITHIN BEGUM MD 04/17/17 100 Initial ED EKG: nsr at 90, first degree block, nonspecific st seg changes Prior EKG: changed (11/2016) Rhythm Strip: normal sinus rhythm (ERNESTO VASQUEZ) Plan of Care: Orders Procedure Date/time Status CHF Diet 04/17 L Active Vital Signs 04/17 1324 Active Teach/Educate 04/17 1324 Active Pain Treatment and Response 04/17 1324 Active Nutritional Intake, Monitor 04/17 1324 Active Isolation 04/17 1324 Active Intake & Output 04/17 1324 Active Patient Care Conference 04/17 1324 Active Activity/Ambulation 04/17 1324 Active Pathway - chart 04/17 1241 Active House Staff 04/17 1241 Active Code Status 04/17 1241 Active CULTURE,URINE 04/17 1223 Active STREP PNEUMO URINARY ANTIGEN 04/17 1208 Active LEGIONELLA URINARY ANTIGEN 04/17 1208 Active LOWER RESPIRATORY CULTURE 04/17 1208 Active FUNGAL CX ROUTINE NON-INVASIVE 04/[address] CHEST WO IV CONTRAST 04/17 1155 Active Admit to inpatient 04/17 1116 Active Patient Data 04/17 1103 Active Intake & Output 04/17 1004 Active CULTURE,URINE 04/17 0927 Active BLOOD CULTURE 04/17 0927 Active URINALYSIS 04/17 0927 Active TROPONIN LEVEL 04/17 09 Complete LACTIC ACID 04/17 927 Complete COMPREHENSIVE METABOLIC PANEL 04/17 09 Complete CBC WITHOUT DIFFERENTIAL 04/17 927 Complete B-TYPE NATRIURETIC PEP (BNP) 04/17 927 Complete EKG 04/17 927 Active Lab Add-on Test 04/17 UNK Active VTE Mechanical Prophylaxis 04/17 UNK Active Current Medications Sig/Jorgito Start time Last Medication Dose Stop Time Status Admin Alendronate Sodium 70 MG QTHURS 04/23 1000 AC (Fosamax) Aspirin 81 MG DAILY 04/18 1000 AC (Aspirin) Cholecalciferol 1,000 IU DAILY 04/18 1000 AC (Vitamin D) Furosemide 40 MG DAILY 04/18 1000 AC (Lasix) Omeprazole 20 MG DAILY 04/18 1000 AC (Prilosec) Tiotropium [place] 1 PUF DAILY 04/18 1000 AC (Spiriva) Budesonide/ 2 PUF BID 04/17 2200 AC Formoterol Fumarate (Symbicort) Atorvastatin Calcium 20 MG 1700 04/17 1700 AC (Lipitor) Ceftazidime 1,000 MG IQ8 04/17 1600 CAN (Fortaz) Meropenem 1 GM IQ8 04/17 1600 AC (MEROPENEM) Methylprednisolone 40 MG Q8 04/17 1400 AC (Solumedrol) Acetaminophen 650 MG Q6P PRN 04/17 1245 AC (Tylenol) Acetaminophen 1,000 MG Q6P PRN 04/17 1245 AC (Ofirmev) Oxycodone HCl 10 MG Q6P PRN 04/17 1245 AC (Roxicodone) Sodium Chloride 1,000 ML ONCE ONE 04/17 1245 CAN (Normal Saline 0.9%) 04/18 0204 Enoxaparin Sodium 40 MG DAILY 04/17 1240 AC (Lovenox) Albuterol Sulfate 3 ML Q4P PRN 04/17 1215 AC (Proventil) Albuterol Sulfate 2 PUF Q4P PRN 04/17 1215 AC (Ventolin) Laboratory Tests 04/17/17 1227: Lactic Acid Cancelled 04/17/17 0935: Anion Gap 6, Estimated GFR > 60, BUN/Creatinine Ratio 20.0, Glucose 120 H, Lactic Acid 1.1, Calcium 8.3 L, Total Bilirubin 0.9, AST 19, ALT 39, Alkaline Phosphatase 79, Troponin I 0.04, Vhs-F-Blizuwuivwl Pept 2660 H, Total Protein 5.6 L, Albumin 3.0 L, Globulin 2.6, Albumin/Globulin Ratio 1.2, CBC w Diff MAN DIFF ORDERED, RBC 3.54 L, MCV 74.0 L, MCH 24.4 L, RDW 19.1 H, MPV 6.5 L, Gran % 16.9 L, Lymphocytes % 65.7 H, Monocytes % 16.0 H, Eosinophils % 0.5, Basophils % 0.9, Absolute Granulocytes 0.3 L, Segmented Neutrophils 11 L, Band Neutrophils 2, Absolute Lymphocytes 1.2, Lymphocytes 69 H, Monocytes 18 H, Absolute Monocytes 0.3, Absolute Eosinophils 0, Absolute Basophils 0, Platelet Estimate DECREASED, Polychromasia 1+, Anisocytosis 1+, Ovalocytes FEW, PUBS MCHC 33.0 Microbiology 04/17 1223 URINE ROUT: Urine Culture - COLB 04/17 1208 URINE ROUT: Legionella Antigen - COLB 04/17 120 URINE ROUT: Streptococcus pneumoniae Antigen (M - COLB 04/17 120 LOWER RESP: Routine Culture - COLB 04/17 120 LOWER RESP: Respiratory Culture - COLB 04/17 120 LOWER RESP: Gram Stain - COLB 04/17 0945 BLOOD: Blood Culture - RECD 04/17 935 BLOOD: Blood Culture - RECD 04/17 927 URINE ROUT: Urine Culture - ORD Labs ordered old records are reviewed case discussed with Dr. Larsen who agrees with the plan DuoNeb Toradol IV ordered as the patient just took Tylenol prior to arrival Old records reviewed patient sodium is at baseline H&H platelets and white blood cell count Discussed with the patient his x-ray results lab results call placed to the hospitalist. Rocephin and azithromycin IV ordered discussed with patient need for admission which he is in agreement with case d/w dr pruett will admit, advised to give ceftaz 2g iv as well cover for pseudomonoas (ERNESTO VASQUEZ) Departure Departure Time of Disposition: 4 Disposition: STILL A PATIENT Condition: Stable Clinical Impression Primary Impression: Pneumonia Referrals: CHANTALE HUBBARD,SAPNA Manzano (PCP/Family) Departure Forms: Customer Survey General Discharge Information Admission Note Spoke With: JULIENNE PRUETT MD Documentation of Exam: Documentation of any treatments & extenuating circumstances including Concerns Regarding Discharge (functional status, medication knowledge or non-compliance, living conditions, etc.) that warrant an admission rather than observation: IV ABX, TREND LABS, BREATHING TREATMENTS PRN, ONCOLOGY CONSULT, PREMATURE DISCHARGE WOULD BE MEDICALLY HARMFUL (ERNESTO VASQUEZ) PA/FIRER MARINE Co-Sign Statement Statement: ED Attending supervision documentation- [X] I saw and evaluated the patient. I have also reviewed all the pertinent lab results and diagnostic results. I agree with the findings and the plan of care as documented in the PA's/FIRER MARINE's documentation. [] I have reviewed the ED Record and agree with the PA's/FIRER MARINE's documentation. [] Additions or exceptions (if any) to the PAs/FIRER MARINE's note and plan are summarized below: [] (KELL HUBBARD,EZEKIEL Smith) Critical Care Note Critical Care Note Critical Care Time: non-applicable (REINALDO BROWER,ERNESTO)
[2017-04-17 09:45] LABS: ABSOLUTE BASOPHIL COUNT 0 /CUMM (0.0-0.2); ABSOLUTE EOSINOPHIL COUNT 0 /CUMM (0.0-0.7); ABSOLUTE GRANULOCYTE CT 0.3 /CUMM (1.4-6.5); ABSOLUTE LYMPH COUNT 1.2 /CUMM (1.2-3.4); ABSOLUTE MONOCYTE COUNT 0.3 /CUMM (0.10-0.60); BASOPHIL % 0.9 % (0.0-2.0); EOSINOPHIL % 0.5 % (0-5); HEMATOCRIT 26.2 % (42-52); MEAN CORPUSCULAR HGB 24.4 PG (27.0-31.0); MEAN PLATELET VOLUME 6.5 FL (7.4-10.4); PLATELET COUNT 111 /CUMM (130-400); RBC DISTRIBUTION WIDTH 19.1 % (11.5-14.5); RED BLOOD CELL CT 3.54 /CUMM (4.70-6.10); WHITE BLOOD CELL COUNT 1.9 /CUMM (4.8-10.8)
[2017-04-17 09:48] LABS: GRANULOCYTE % 16.9 % (42.2-75.2)
--- NOTE | 2017-04-17 10:09 | RADIOLOGY REPORT ---
EXAMINATION: XR PORTABLE CHEST CLINICAL INFORMATION: Fever. Dyspnea. Evaluate for pneumonia COMPARISON: Chest x-ray most recent prior dated 03/19/2017 TECHNIQUE: Portable frontal view of the chest was obtained. FINDINGS: Stable cardiomediastinal silhouette. Mild prominence of the pulmonary markings representing chronic change. Minor patchy opacity noted in the left lower lung consistent with minor infiltrate or atelectasis. Very slightly pronounced compared to the prior examination. Bony thorax is intact. Degenerative changes bilateral shoulders, right greater than left. IMPRESSION: Minor patchy infiltrate or atelectasis left lower lung. Chronic changes.
--- NOTE | 2017-04-17 11:43 | History & Physical ---
RAFA HUBBARD,KAPIL 04/17/17 1143: General Information and HPI MD Statement: I have seen and personally examined SAPNA WERNER and documented this H&P. The patient is a 87 year old M who presented with a patient stated chief complaint of [shortness of breath]. Source of Information: patient, old records History of Present Illness: This is an 87-year-old man with a presumptive diagnosis of T-cell lymphoproliferative disorder, with chronic neutropenia, treated in the past with Chlorambucil, prednisone and on weekly Neupogen injection under the care of Dr. Mckenzie, rheumatoid arthritis, treated in the past with Methotrexate and currently with prednisone 10 mg daily, COPD, maintained on up to 3 L of oxygen at home, status post several recent hospitalizations for fever and neutropenia with the last one being in November 2016 at that time was treated with IV meropenem. The patient comes in today with persistent shortness of breath and productive cough, will get a sputum that has been ongoing for the last 24 hours. The patient also felt fever, shakes and chills. He called his daughter who brought her to the emergency department for further evaluation. The patient recorded a temperature 100.6 at home and also was slightly diaphoretic. He denies any recent sick contacts or any recent travels. He always had a chronic cough but he says noticed that the cough has become more productive in the last 24-48 hours. He also has bilateral leg swelling and fullness over Dr. Aguirre. His last appointment was yesterday at his office and everything was WNL. To be noted that the patient was asked to hold off Lasix from 04/09/2017 TILL 04/14/17. After his visit with Dr. Aguirre yesterday he was resumed and put back on 40 mg of the Lasix. He was taken off the lisinopril because of diarrhea. He has increased bilateral wheezing . Allergies/Medications Allergies: Coded Allergies: NO KNOWN ALLERGIES (04/23/12) Home Med list Albuterol Sulfate (Proair Hfa) 8.5 GM HFA.AER.AD 2 PUF INH Q4H PRN COPD ( Reported) Albuterol Sulfate 2.5 MG/3 ML VIAL.NEB 1 Vial INH/ANKUR Q4P PRN COPD EXACERBATION Alendronate Sodium 70 MG TABLET 1 TAB PO QTRS bone health (Reported) in the morning, at least 30 minutes before the first food, beverage, or medication of the day Aspirin (Aspirin*) 81 MG TAB.CHEW 1 TAB PO DAILY HEART HEALTH (Reported) Atorvastatin Calcium 20 MG TABLET 1 TAB PO DAILY CHOLESTEROL (Reported) Cholecalciferol (Vitamin D3) (Vitamin D) 400 UNIT TABLET 1 TAB PO DAILY SUPPLEMENT (Reported) Fluticasone/Salmeterol (Advair 250-50 Diskus) 250 MCG-50 MCG/DOSE BLST.W.DEV 1 PUF INH BID BREATHING PROBLEMS (Reported) Furosemide (Lasix) 40 MG TABLET 1 TAB PO DAILY CHF Multivitamin (Daily Multiple Vitamin) 1 EACH TABLET 1 TAB PO DAILY SUPPLEMENT (Reported) Omeprazole 20 MG CAPSULE.DR 1 CAP PO DAILY GI protection (Reported) Prednisone 10 MG TABLET 1 TAB PO DAILY COPD (Reported) Psyllium Husk (Metamucil) 660 GM POWDER 1 PAC PO PRN CONSTIPATION (Reported) Tiotropium [place] (Spiriva) 18 MCG CAP.W.DEV 1 CAP INH DAILY COPD (Reported) Past History Travel History Traveled to [place] past 21 day No Medical History Neurological: NONE EENT: NONE Cardiovascular: CAD, CHF, hyperlipidemia, NSTEMI Respiratory: bronchitis, COPD, emphysema, pneumonia Gastrointestinal: colitis, hiatal hernia, peptic ulcer disease, upper GI bleed, C. 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 spouse Services at Home: None Primary Language: Trinidadian ETOH Use: denies use Illicit Drug Use: denies illicit drug use Living Will? yes Power of Dimensional Inspector/HCP? yes Name of POA/HCP: Review of Systems Review of Systems Constitutional: Reports: see HPI. EENTM: Reports: see HPI. Cardiovascular: Reports: see HPI. Respiratory: Reports: cough, short of breath, sputum production, wheezing. GI: Denies: constipation, distention, melena, nausea. Genitourinary: Denies: dysuria, frequency, hesitation. Skin: Denies: change in hair/nails, dryness, erythema, lesions, lymphangitis. Exam & Diagnostic Data Last 24 Hrs of Vital Signs/I&O Vital Signs Date Time Temp Pulse Resp B/P B/P Pulse O2 O2 Flow FiO2 Mean Ox Delivery Rate 04/17 1009 99 Nasal 3.0L Cannula 04/17 1005 94 Nasal 3.0L Cannula 04/17 0922 100.6 97 20 105/50 96 Nasal 2.0L Cannula Intake & Output 04/17 1600 04/17 0800 04/17 0000 Intake Total 250 Output Total Balance 250 Intake, IV 250 Patient 145 lb Weight Physical Exam General Appearance Alert, Oriented X3, Cooperative Skin No Rashes, No Breakdown Skin Temp/Moisture Exam: Warm/Dry Sepsis Skin Exam (color): Normal for Ethnicity, Cyanotic Lungs Normal Air Movement, bilateral decreased airway entry, bilateral wheezing Last 24 Hrs of Labs/Edd: Laboratory Tests 04/17/17 0935: Anion Gap 6, Estimated GFR > 60, BUN/Creatinine Ratio 20.0, Glucose 120 H, Lactic Acid 1.1, Calcium 8.3 L, Total Bilirubin 0.9, AST 19, ALT 39, Alkaline Phosphatase 79, Troponin I 0.04, Fir-S-Pgkruphdqst Pept 2660 H, Total Protein 5.6 L, Albumin 3.0 L, Globulin 2.6, Albumin/Globulin Ratio 1.2, CBC w Diff MAN DIFF ORDERED, RBC 3.54 L, MCV 74.0 L, MCH 24.4 L, RDW 19.1 H, MPV 6.5 L, Gran % 16.9 L, Lymphocytes % 65.7 H, Monocytes % 16.0 H, Eosinophils % 0.5, Basophils % 0.9, Absolute Granulocytes 0.3 L, Segmented Neutrophils 11 L, Band Neutrophils 2, Absolute Lymphocytes 1.2, Lymphocytes 69 H, Monocytes 18 H, Absolute Monocytes 0.3, Absolute Eosinophils 0, Absolute Basophils 0, Platelet Estimate DECREASED, Polychromasia 1+, Anisocytosis 1+, Ovalocytes FEW, PUBS MCHC 33.0 Microbiology 04/17 1208 URINE ROUT: Legionella Antigen - ORD 04/17 1208 URINE ROUT: Streptococcus pneumoniae Antigen (M - ORD 04/17 1208 LOWER RESP: Respiratory Culture - ORD 04/17 1208 LOWER RESP: Gram Stain - ORD 04/17 945 BLOOD: Blood Culture - RECD 04/17 935 BLOOD: Blood Culture - RECD 04/17 927 URINE ROUT: Urine Culture - ORD Assessment/Plan Assessment: This is an 87-year-old man with chronic neutropenia, attributed to either a T- cell lymphoproliferative disorder , maintained on steroids and oxygen at home, hospitalized 4 months ago with presumed left upper lobe pneumonia in the setting of neutropenia, currently on Neupogen therapy recently who present to the [facility] with worsening shortness of breath and bilateral wheezing and productive sputum. Vitals at the time of admission showed Temperature of 100.6, slightly hypotensive to 105/50, pulse ox of 96% on 3 L, respiration rate of 20 Labs shows WBC of 1.9,(his last WBC on April 08 2.9), bands of 2 hemoglobin of 8.6, hematocrit of 26.2, platelet count of 111, sodium of 126, normal anion gap, chronically elevated carbon dioxide of 31 Chest x-ray shows: Minor patchy infiltrate or atelectasis left lower lung. Chronic changes. Assessment 1.Sepsis in the setting of neutropeninc fever. ANC 266 1. Suspicion of acute community-acquired pneumonia in the setting of neutropenia: 2. H/O oxygen dependendt COPD-f/u with Dr Natarajan 3.H/O R.A on steroid therapy 10 mg 4.H/O ? T celll lymphoproilifertaive diorder on chronic neupogen therapy 5.H/o ischemic ccardiomyopathy on PO lasix 40 mg daily-F/u with Dr aguirre 6. History of osteoporosis on bisphosphonate therapy weekly Plan Admit to general medicine floor CT chest with without IV contrast for better parenchymal picture Sputum culture, sputum culture for fungal, urine culture, strep and Legionella antigen IV Solu-Medrol 40 mg every 12 for COPD exacerbation Regarding antibiotic choice, patient should be covered for pseudomonal coverage which includes ceftazidime. But previously the patient was also treated with resistant Escherichia coli ESBL in the sputum and was treated with IV meropenem. Will defer the antibiotic choice from ID but I think IV meropenem would be a good choice. The patient does not have any recent hospitalization except for nov 2016 hence MRSA coverage is not recommended at this point. TRC evaluation Hematology consult with Dr. Mckenzie(Dr. Burt is covering and is notified). Continue with all home meds DVT prophylaxis with subcutaneous Lovenox Fc Addendum @ 12: 45: Spoke to Dr. Lamb and discussed the patient's case. He reviewed the case with me and was in agreement with starting IV meropenem as mentioned above. Addeddum @ 14 30: Received a call back from Dr Abarca and he recommended starting the patient on Neupogen @ 5mcg/kg i.e 480 mcg daily. As Ranked By This Provider Problem List: 1. Respiratory failure with hypoxia Core Measures/Miscellaneous Acute Coronary Syndrome ACS Diagnosis: No Cerebrovascular Accident CVA/TIA Diagnosis: No Congestive Heart Failure CHF Diagnosis: No Venous Thromboembolism VTE Risk Factors: Acute medical illness, Age > 40 No [facility] VTE prophylaxis d/t: No contraindications No VTE Pharm Prophylaxis d/t: No contraindications VTE Diagnosis: No VTE Type: NONE VTE Confirmed by (Test): NONE Severe Sepsis Severe Sepsis Present: No BC x2: Yes Lactic Acid x2: No IV ABX Broad Spectrum: Yes NS/LR Started: No Comment: fluid overload and had chf history.IL was given Latica acid was WNL Septic Shock Septic Shock Present: No Miscellaneous Documentation Attending Case Discussed With: AYDEN HUBBARD,RAMSES Primary Care Physician: SAPNA KENYON MD Patient sees these Specialists dr martha berger Level of Patient Care: General Medicine RAMSES HENSLEY 04/17/17 1307: Attending Review Statement Attending Statement Attending MD Statement: examined this patient, discuss w/resident/PA/WORKFORCE ADVISOR, agreed w/resident/PA/WORKFORCE ADVISOR, discussed with family, reviewed EMR data (avail), discussed with nursing, discussed with case mgmt, reviewed images, amended to note
--- NOTE | 2017-04-17 14:01 | CT SCAN REPORT ---
EXAMINATION: CT CHEST WITHOUT CONTRAST CLINICAL INFORMATION: Shortness of breath. COMPARISON: CT of the chest done on 12/16/2016, and CT of the chest 12/15/2016. TECHNIQUE: Multidetector volumetric CT imaging of the chest was done. Axial MIP volume rendering provided. Sagittal and coronal reformatted images were obtained. DLP: 166.27 mGy-cm FINDINGS: DRUM OPERATOR: Hyperinflated lung field is present bilaterally. LUNGS: New subtle groundglass opacities noted at left lung apex, may represent infectious, inflammatory process. Previously described patchy airspace disease at left upper lobe of the lung shows interval improvement. There is improved aeration noted at both lung bases with residual airspace disease bilaterally. Stable linear pleural parenchymal opacities are noted at the lingular segment of the left upper lobe and right middle lobe. Specifically, previously identified dense focal airspace disease involving the right lower lobe shows significant interval improvement. Overall, except for new subtle groundglass opacity at left lung apex, and significant interval improvement of the right lower lobar airspace disease, and improved aeration at left upper lobe of the lung, no other significant interval change present since 12/15/2016. Persistent stable extensive emphysematous changes are present throughout both lung rodriguez. The tracheobronchial tree remain patent. MEDIASTINUM: Atherosclerotic disease including coronary artery calcifications are present. There are no pathologically enlarged mediastinal, hilar lymphadenopathy seen. There is mild cardiomegaly present, unchanged. PLEURA: Minimal pleural thickening is noted bilaterally at both lung bases (right greater than left), unchanged since 12/15/2016. AXILLA: No lymphadenopathy. OTHER FINDINGS: Bilateral gynecomastia is noted. UPPER ABDOMEN: There is no adrenal mass present. OSSEOUS STRUCTURES: No suspicious lytic or sclerotic abnormality. IMPRESSION: 1. Significant interval improved aeration at right lower lobar lung with near complete resolution of previously identified right lower lobar airspace disease. Interval improved aeration is also noted at left upper lobe of the lung. 2. Interval development of subtle groundglass opacity at left lung apex. 3. No other significant interval change since 12/15/2016.
[2017-04-17 14:44] VITALS: BP 118/52
--- NOTE | 2017-04-17 16:14 | Cons- Hematology ---
General Information and HPI Consulting Request Date of Consult: 04/17/17 Requested By: RAMSES HENSLEY MD Reason for Consult: Neutropenic fever, pneumonia Source of Information: old records Exam Limitations: no limitations History of Present Illness: Mr. Boss is an 87-yo male with history rheumatoid arthritis on methotrexate and prednisone and chronic neutropenia of unclear etiology who presented to the hospital with fever of 101.4 at home. He was seen in Dr. Laboy's office on Thursday and received filgastrim-sndz. He felt well until yesterday when he noted fever. He also had some associated chills. He had more difficulty with breathing. He does have a mildly productive cough. Per his daughter, he was more confused. He visited his in the hospital yesterday. He had no other sick contact. In the ED, he was noted to have a temperature of 100.6F. Chest x-ray demonstrated minor patchy infiltrate or atelectasis in the left lower lung. CT of the chest demonstrated new subtle ground glass opacities in the left lung apex. He was admitted and was started on meropenem. Currently, he feels well. He has no new symptoms. Breathing is improved. He is more alert. Allergies/Medications Allergies: Coded Allergies: NO KNOWN ALLERGIES (04/23/12) Home Med List: Albuterol Sulfate (Proair Hfa) 8.5 GM HFA.AER.AD 2 PUF INH Q4H PRN COPD ( Reported) Albuterol Sulfate 2.5 MG/3 ML VIAL.NEB 1 Vial INH/ANKUR Q4P PRN COPD EXACERBATION Alendronate Sodium 70 MG TABLET 1 TAB PO QTHURS bone health (Reported) in the morning, at least 30 minutes before the first food, beverage, or medication of the day Aspirin (Aspirin*) 81 MG TAB.CHEW 1 TAB PO DAILY HEART HEALTH (Reported) Atorvastatin Calcium 20 MG TABLET 1 TAB PO DAILY CHOLESTEROL (Reported) Cholecalciferol (Vitamin D3) (Vitamin D) 400 UNIT TABLET 1 TAB PO DAILY SUPPLEMENT (Reported) Fluticasone/Salmeterol (Advair 250-50 Diskus) 250 MCG-50 MCG/DOSE BLST.W.DEV 1 PUF INH BID BREATHING PROBLEMS (Reported) Furosemide (Lasix) 40 MG TABLET 1 TAB PO DAILY CHF Multivitamin (Daily Multiple Vitamin) 1 EACH TABLET 1 TAB PO DAILY SUPPLEMENT (Reported) Omeprazole 20 MG CAPSULE.DR 1 CAP PO DAILY GI protection (Reported) Prednisone 10 MG TABLET 1 TAB PO DAILY COPD (Reported) Psyllium Husk (Metamucil) 660 GM POWDER 1 PAC PO PRN CONSTIPATION (Reported) Tiotropium [place] (Spiriva) 18 MCG CAP.W.DEV 1 CAP INH DAILY COPD (Reported) Current Medications: Current Medications Sig/Jorgito Start time Last Medication Dose Route Stop Time Status Admin Acetaminophen 650 MG Q6P PRN 04/17 1245 AC PO Acetaminophen 1,000 MG Q6P PRN 04/17 1245 AC IV Albuterol Sulfate 3 ML Q4P PRN 04/17 1215 AC INH Albuterol Sulfate 2 PUF Q4P PRN 04/17 1215 AC INH Albuterol Sulfate 3 ML ONCE ONE 04/17 0945 DC 04/17 INH 04/17 0946 1009 Alendronate Sodium 70 MG QTHURS 04/23 1000 AC PO Aspirin 81 MG DAILY 04/18 1000 AC PO Atorvastatin Calcium 20 MG 1700 04/17 1700 AC 04/17 PO 1613 Azithromycin 500 MG ONCE ONE 04/17 1030 DC 04/17 Sodium Chloride 250 ML IV 04/17 1129 1033 Budesonide/ 2 PUF BID 04/17 2200 AC Formoterol Fumarate INH Ceftazidime 1,000 MG IQ8 04/17 1600 CAN IV Ceftazidime 0 .STK-MED ONE 04/17 1136 DC .ROUTE Ceftazidime 2,000 MG ONCE ONE 04/17 1100 DC 04/17 Dextrose/Water 50 ML IV 04/17 1129 1130 Ceftriaxone Sodium 1,000 MG ONCE ONE 04/17 1030 DC 04/17 IV 04/17 1031 1033 Ceftriaxone Sodium 0 .STK-MED ONE 04/17 1025 DC .ROUTE Cholecalciferol 1,000 IU DAILY 04/18 1000 AC PO Enoxaparin Sodium 40 MG DAILY 04/17 1240 AC 04/17 SC 1525 Filgrastim 480 MCG DAILY 04/17 1500 AC IV Furosemide 40 MG DAILY 04/18 1000 AC PO Ipratropium [place] 2.5 ML ONCE ONE 04/17 0945 DC 04/17 INH 04/17 0946 1008 Ketorolac 0 .STK-MED ONE 04/17 0948 DC Tromethamine .ROUTE Ketorolac 15 MG ONCE ONE 04/17 0945 DC 04/17 Tromethamine IV 04/17 0946 1001 Meropenem 1 GM IQ8 04/17 1600 AC 04/17 IV 1613 Methylprednisolone 40 MG Q8 04/17 1400 AC 04/17 IV 1526 Methylprednisolone 0 .STK-MED ONE 04/17 0948 DC .ROUTE Methylprednisolone 125 MG ONCE ONE 04/17 0945 DC 04/17 IV 04/17 0946 1001 Omeprazole 20 MG DAILY 04/18 1000 AC PO Oxycodone HCl 10 MG Q6P PRN 04/17 1245 AC PO Sodium Chloride 1,000 ML ONCE ONE 04/17 1245 CAN IV 04/18 0204 Tiotropium [place] 1 PUF DAILY 04/18 1000 AC INH Review of Systems Review of Systems Constitutional: Reports: chills, fever, weakness. Cardiovascular: Denies: chest pain. Respiratory: Reports: cough, short of breath, sputum production. Denies: hemoptysis, stridor. Genitourinary: Denies: dysuria. Musculoskeletal: Reports: back pain. Skin: Denies: rash. All Other Systems: Reviewed and Negative Past History Travel History Traveled to [place] past 21 day No Medical History Blood Transfusion Hx: No Neurological: NONE EENT: NONE Cardiovascular: CAD, CHF, hyperlipidemia, NSTEMI Respiratory: bronchitis, COPD, emphysema, pneumonia Gastrointestinal: colitis, hiatal hernia, peptic ulcer disease, upper GI bleed, C. 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 Home Who Do You Live With? spouse Services at Home: None Primary Language: Korean Smoking Status: Former Smoker ETOH Use: denies use Illicit Drug Use: denies illicit drug use Living Will? yes Power of Business Services Administrator/HCP? yes Name of POA/HCP: Exam & Diagnostic Data Vital Signs and I&O Vital Signs Date Time Temp Pulse Resp B/P B/P Pulse O2 O2 Flow FiO2 Mean Ox Delivery Rate 04/17 1444 98.4 72 20 118/52 98 04/17 1315 Nasal 3.0L Cannula 04/17 1009 99 Nasal 3.0L Cannula 04/17 1005 94 Nasal 3.0L Cannula 04/17 0922 100.6 97 20 105/50 96 Nasal 2.0L Cannula Intake & Output 04/17 1600 04/17 0800 04/17 0000 Intake Total 500 Output Total Balance 500 Intake, IV 250 Intake, Oral 250 Patient 65.317 kg Weight Weight Reported by Patient Measurement Method Physical Exam General Appearance: no apparent distress, alert, awake, comfortable Head: atraumatic Eyes: Bilateral: normal appearance. Ears, Nose, Throat: normal pharynx Respiratory: normal breath sounds, chest non-tender, quiet respiration Cardiovascular: regular rate/rhythm Gastrointestinal: normal bowel sounds, soft, non-tender Extremities: pedal edema Neurologic/Psych: alert, oriented x 3 Skin: ecchymosis Lymphatic: no anterior cervical ivis Other Physical Findings: on 3L NC (at baseline) Last 48 Hours of Lab Results: Laboratory Tests 04/17 04/17 1227 0935 Chemistry Sodium (137 - 145 mmol/L) 126 L Potassium (3.5 - 5.1 mmol/L) 4.2 Chloride (98 - 107 mmol/L) 90 L Carbon Dioxide (22 - 30 mmol/L) 31 H Anion Gap (5 - 16) 6 BUN (9 - 20 mg/dL) 18 Creatinine (0.7 - 1.2 mg/dL) 0.9 Estimated GFR (>60 ml/min) > 60 BUN/Creatinine Ratio (7 - 25 %) 20.0 Glucose (65 - 99 mg/dL) 120 H Lactic Acid (0.7 - 2.1 mmol/L) Cancelled 1.1 Calcium (8.4 - 10.2 mg/dL) 8.3 L Total Bilirubin (0.2 - 1.3 mg/dL) 0.9 AST (17 - 59 U/L) 19 ALT (21 - 72 U/L) 39 Alkaline Phosphatase (< 127 U/L) 79 Troponin I (<0.11 ng/ml) 0.04 [id number] Pept (<125 pg/mL) 2660 H Total Protein (6.3 - 8.2 g/dL) 5.6 L Albumin (3.5 - 5.0 g/dL) 3.0 L Globulin (1.9 - 4.2 gm/dL) 2.6 Albumin/Globulin Ratio (1.1 - 2.2 %) 1.2 Hematology CBC w Diff MAN DIFF ORDERED WBC (4.8 - 10.8 /CUMM) 1.9 L RBC (4.70 - 6.10 /CUMM) 3.54 L Hgb (14.0 - 18.0 G/DL) 8.6 L Hct (42 - 52 %) 26.2 L MCV (80.0 - 94.0 FL) 74.0 L MCH (27.0 - 31.0 PG) 24.4 L RDW (11.5 - 14.5 %) 19.1 H Plt Count (130 - 400 /CUMM) 111 L MPV (7.4 - 10.4 FL) 6.5 L Gran % (42.2 - 75.2 %) 16.9 L Lymphocytes % (20.5 - 51.1 %) 65.7 H Monocytes % (1.7 - 9.3 %) 16.0 H Eosinophils % (0 - 5 %) 0.5 Basophils % (0.0 - 2.0 %) 0.9 Absolute Granulocytes (1.4 - 6.5 /CUMM) 0.3 L Segmented Neutrophils (42.2 - 75.2 %) 11 L Band Neutrophils (0.0 - 5.0 %) 2 Absolute Lymphocytes (1.2 - 3.4 /CUMM) 1.2 Lymphocytes (20.5 - 51.1 %) 69 H Monocytes (1.7 - 9.3 %) 18 H Absolute Monocytes (0.10 - 0.60 /CUMM) 0.3 Absolute Eosinophils (0.0 - 0.7 /CUMM) 0 Absolute Basophils (0.0 - 0.2 /CUMM) 0 Platelet Estimate (ADEQUATE) DECREASED Polychromasia 1+ Anisocytosis 1+ Ovalocytes FEW PUBS MCHC (33.0 - 37.0 G/DL) 33.0 Imaging/Other Studies: Chest CT 04/17/2017: LUNGS: New subtle groundglass opacities noted at left lung apex, may represent infectious, inflammatory process. Previously described patchy airspace disease at left upper lobe of the lung shows interval improvement. There is improved aeration noted at both lung bases with residual airspace disease bilaterally. Stable linear pleural parenchymal opacities are noted at the lingular segment of the left upper lobe and right middle lobe. Specifically, previously identified dense focal airspace disease involving the right lower lobe shows significant interval improvement. Overall, except for new subtle groundglass opacity at left lung apex, and significant interval improvement of the right lower lobar airspace disease, and improved aeration at left upper lobe of the lung, no other significant interval change present since 12/15/2016. Persistent stable extensive emphysematous changes are present throughout both lung rodriguez. The tracheobronchial tree remain patent. MEDIASTINUM: Atherosclerotic disease including coronary artery calcifications are present. There are no pathologically enlarged mediastinal, hilar lymphadenopathy seen. There is mild cardiomegaly present, unchanged. PLEURA: Minimal pleural thickening is noted bilaterally at both lung bases ( right greater than left), unchanged since 12/15/2016. AXILLA: No lymphadenopathy. OTHER FINDINGS: Bilateral gynecomastia is noted. UPPER ABDOMEN: There is no adrenal mass present. OSSEOUS STRUCTURES: No suspicious lytic or sclerotic abnormality. Assessment/Plan Assessment: Mr. Boss is an 87-yo male with neutropenia of unclear origin who presents for evaluation of fever, dyspnea, and neutropenia. He has been getting weekly filgrastim-sndz. He has been afebrile prior to admission. He feels well now. His ANC is 300 today. He has been afebrile and is on meropenem. He should continue with filgrastim until ANC >1500. ID has been consulted for evaluation. He does have symptoms consistent with possible pneumonia. Recommendations: 1. Filgastrim 5 mcg/kg 2. Continue antibiotics as per primary/ID Problem List: 1. Neutropenic fever 2. Respiratory failure with hypoxia Other Findings/Comments: Please call [phone] with any questions or concerns. Consult Acknowledgment - Thank you for your consult request.
--- NOTE | 2017-04-17 19:08 | Cons- Infect Disease ---
General Information and HPI Consulting Request Date of Consult: 04/17/17 Requested By: AYDEN HUBBARD,RAMSES Reason for Consult: Fever/neutropenia Source of Information: patient, old records History of Present Illness: This is an 87-year-old man with a history of chronic neutropenia, felt to be either secondary to an underlying T-cell lymphoproliferative disorder or rheumatoid arthritis, currently maintained on Prednisone 10 mg daily by Rheumatology and Neupogen weekly by Oncology, COPD, maintained on 3 L of oxygen at home, status post several hospitalizations for fever and neutropenia, most often attributed to pneumonia, most recently 4 months prior to admission, at which time his sputum culture was positive for ESBL producing Escherichia coli and Pseudomonas, treated with a 10 day course of Meropenem, admitted today after presenting to the emergency room with the acute onset of fever and chills, increased shortness of breath and a mildly productive cough. He was given Azithromycin, Ceftriaxone and Ceftazidime in the emergency room and was then placed on Meropenem after discussion with me. At present he feels improved with no shortness of breath or chest pain. He does note that he has not urinated since admission but he denies any recent dysuria. Allergies/Medications Allergies: Coded Allergies: NO KNOWN ALLERGIES (04/23/12) Home Med List: Albuterol Sulfate (Proair Hfa) 8.5 GM HFA.AER.AD 2 PUF INH Q4H PRN COPD ( Reported) Albuterol Sulfate 2.5 MG/3 ML VIAL.NEB 1 Vial INH/ANKUR Q4P PRN COPD EXACERBATION Alendronate Sodium 70 MG TABLET 1 TAB PO QTHURS bone health (Reported) in the morning, at least 30 minutes before the first food, beverage, or medication of the day Aspirin (Aspirin*) 81 MG TAB.CHEW 1 TAB PO DAILY HEART HEALTH (Reported) Atorvastatin Calcium 20 MG TABLET 1 TAB PO DAILY CHOLESTEROL (Reported) Cholecalciferol (Vitamin D3) (Vitamin D) 400 UNIT TABLET 1 TAB PO DAILY SUPPLEMENT (Reported) Fluticasone/Salmeterol (Advair 250-50 Diskus) 250 MCG-50 MCG/DOSE BLST.W.DEV 1 PUF INH BID BREATHING PROBLEMS (Reported) Furosemide (Lasix) 40 MG TABLET 1 TAB PO DAILY CHF Multivitamin (Daily Multiple Vitamin) 1 EACH TABLET 1 TAB PO DAILY SUPPLEMENT (Reported) Omeprazole 20 MG CAPSULE.DR 1 CAP PO DAILY GI protection (Reported) Prednisone 10 MG TABLET 1 TAB PO DAILY COPD (Reported) Psyllium Husk (Metamucil) 660 GM POWDER 1 PAC PO PRN CONSTIPATION (Reported) Tiotropium [place] (Spiriva) 18 MCG CAP.W.DEV 1 CAP INH DAILY COPD (Reported) Past History Travel History Traveled to [place] past 21 day No Medical History Blood Transfusion Hx: No Neurological: NONE EENT: NONE Cardiovascular: CAD, CHF, hyperlipidemia, NSTEMI Respiratory: bronchitis, COPD, emphysema, pneumonia Gastrointestinal: colitis, hiatal hernia, peptic ulcer disease, upper GI bleed, C. 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 Home Who Do You Live With? spouse Services at Home: None Primary Language: Martiniquais Smoking Status: Former Smoker ETOH Use: denies use Illicit Drug Use: denies illicit drug use Living Will? 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 yes Name of POA/HCP: Review of Systems Review of Systems Cardiovascular: Denies: chest pain. Respiratory: Reports: see HPI. GI: Denies: abdominal pain, diarrhea, nausea, vomiting. Genitourinary: Reports: no symptoms. All Other Systems: Reviewed and Negative Exam & Diagnostic Data Last 24 Hrs of Vital Signs/I&O Vital Signs Date Time Temp Pulse Resp B/P B/P Pulse O2 O2 Flow FiO2 Mean Ox Delivery Rate 04/17 1712 Nasal 3.0L Cannula 04/17 1600 Nasal 3.0L Cannula 04/17 1444 98.4 72 20 118/52 98 04/17 1315 Nasal 3.0L Cannula 04/17 1009 99 Nasal 3.0L Cannula 04/17 1005 94 Nasal 3.0L Cannula 04/17 0922 100.6 97 20 105/50 96 Nasal 2.0L Cannula Intake & Output 04/17 1600 04/17 0800 04/17 0000 Intake Total 500 Output Total Balance 500 Intake, IV 250 Intake, Oral 250 Patient 144 lb Weight Weight Reported by Patient Measurement Method Physical Exam Other Physical Findings: He is awake and alert in no acute distress. MAXIMUM TEMPERATURE 100.6. Skin reveals scattered ecchymoses. HEENT exam is negative. Neck is supple with no adenopathy. Lungs are clear. Heart regular rhythm with no murmur. Abdomen is soft, nontender with positive bowel sounds. Back no CVA tenderness. Extremities 1+ edema both lower extremities. Neuro is without focality. Last 24 Hours of Lab Results: Laboratory Tests 04/17 04/17 1227 0935 Chemistry Sodium (137 - 145 mmol/L) 126 L Potassium (3.5 - 5.1 mmol/L) 4.2 Chloride (98 - 107 mmol/L) 90 L Carbon Dioxide (22 - 30 mmol/L) 31 H Anion Gap (5 - 16) 6 BUN (9 - 20 mg/dL) 18 Creatinine (0.7 - 1.2 mg/dL) 0.9 Estimated GFR (>60 ml/min) > 60 BUN/Creatinine Ratio (7 - 25 %) 20.0 Glucose (65 - 99 mg/dL) 120 H Lactic Acid (0.7 - 2.1 mmol/L) Cancelled 1.1 Calcium (8.4 - 10.2 mg/dL) 8.3 L Total Bilirubin (0.2 - 1.3 mg/dL) 0.9 AST (17 - 59 U/L) 19 ALT (21 - 72 U/L) 39 Alkaline Phosphatase (< 127 U/L) 79 Troponin I (<0.11 ng/ml) 0.04 Cpj-[id number]-Jeavvnnvjcs Pept (<125 pg/mL) 2660 H Total Protein (6.3 - 8.2 g/dL) 5.6 L Albumin (3.5 - 5.0 g/dL) 3.0 L Globulin (1.9 - 4.2 gm/dL) 2.6 Albumin/Globulin Ratio (1.1 - 2.2 %) 1.2 Hematology CBC w Diff MAN DIFF ORDERED WBC (4.8 - 10.8 /CUMM) 1.9 L RBC (4.70 - 6.10 /CUMM) 3.54 L Hgb (14.0 - 18.0 G/DL) 8.6 L Hct (42 - 52 %) 26.2 L MCV (80.0 - 94.0 FL) 74.0 L MCH (27.0 - 31.0 PG) 24.4 L RDW (11.5 - 14.5 %) 19.1 H Plt Count (130 - 400 /CUMM) 111 L MPV (7.4 - 10.4 FL) 6.5 L Gran % (42.2 - 75.2 %) 16.9 L Lymphocytes % (20.5 - 51.1 %) 65.7 H Monocytes % (1.7 - 9.3 %) 16.0 H Eosinophils % (0 - 5 %) 0.5 Basophils % (0.0 - 2.0 %) 0.9 Absolute Granulocytes (1.4 - 6.5 /CUMM) 0.3 L Segmented Neutrophils (42.2 - 75.2 %) 11 L Band Neutrophils (0.0 - 5.0 %) 2 Absolute Lymphocytes (1.2 - 3.4 /CUMM) 1.2 Lymphocytes (20.5 - 51.1 %) 69 H Monocytes (1.7 - 9.3 %) 18 H Absolute Monocytes (0.10 - 0.60 /CUMM) 0.3 Absolute Eosinophils (0.0 - 0.7 /CUMM) 0 Absolute Basophils (0.0 - 0.2 /CUMM) 0 Platelet Estimate (ADEQUATE) DECREASED Polychromasia 1+ Anisocytosis 1+ Ovalocytes FEW PUBS MCHC (33.0 - 37.0 G/DL) 33.0 Last 24 Hours of Edd Results: Blood cultures 2 pending Diagnostic Data Recent Imaging Findings: Chest x-ray, personally reviewed, reveals a minor patchy opacity in the left lower lung CT of the chest reveals new subtle ground glass opacities at the left lung apex, with significant interval improvement at the right lower lobe and left upper lobe compared to the previous study Assessment/Plan Assessment/Plan Impression: This is an 87-year-old man with chronic neutropenia, felt to be secondary to either a T-cell lymphoproliferative disorder or rheumatoid arthritis, maintained on Prednisone and weekly Neupogen, with a history of recurrent pneumonia, most recently 4 months prior to admission, admitted today after presenting to the emergency room with the acute onset of fevers, chills, shortness of breath and mild cough, found to have a low-grade fever, neutropenia and a subtle groundglass opacity at the left lung apex. Given his history one must be concerned about pneumonia, and, given his neutropenia, he needs to be covered broadly, including coverage for Pseudomonas. On his last admission his sputum culture grew ESBL in addition to Pseudomonas; therefore this organism should also be covered. Vancomycin is also recommended for pneumonia in the neutropenic patient but, as he appears to be stable, feel that this can be deferred at this time. Previous sputa have grown mold but, when sent out for identification, it was found to be Miriam, which is suggestive of oropharyngeal contamination. The etiology of his neutropenia remains unclear, and, as rheumatoid arthritis has been considered a possible etiology, reevaluation of his treatment may be indicated. Of note he was treated in the past with Methotrexate, but this was discontinued because of the neutropenia. Suggestion: 1. Further management regarding Neupogen per Oncology 2. Sputum culture 3. Would send urine for urinalysis, urine culture, Legionella antigen and strep pneumo antigen (will need to straight cath if he does not void) 4. Rheumatology follow-up as noted above (can do as outpatient) 5. Continue Meropenem pending cultures Consult Acknowledgment - Thank you for your consult request.
[2017-04-17 21:17] VITALS: BP 120/60
[2017-04-18 07:08] VITALS: BP 130/70
[2017-04-18 08:17] LABS: ABSOLUTE BASOPHIL COUNT 0 /CUMM (0.0-0.2); ABSOLUTE EOSINOPHIL COUNT 0 /CUMM (0.0-0.7); ABSOLUTE GRANULOCYTE CT 3.6 /CUMM (1.4-6.5); ABSOLUTE LYMPH COUNT 0.9 /CUMM (1.2-3.4); ABSOLUTE MONOCYTE COUNT 0.7 /CUMM (0.10-0.60); MEAN CORPUSCULAR HGB 24.6 PG (27.0-31.0); MEAN PLATELET VOLUME 7.4 FL (7.4-10.4); PLATELET COUNT 123 /CUMM (130-400); RBC DISTRIBUTION WIDTH 19.5 % (11.5-14.5); RED BLOOD CELL CT 3.67 /CUMM (4.70-6.10)
--- NOTE | 2017-04-18 08:44 | PN- Housestaff ---
ISIDRO VELASQUEZ 04/18/17 0843: Subjective Follow-up For: Neutropenic fever Suspicion of community-acquired pneumonia Complaints: no complaints Subjective: Patient was seen and examined this morning. He is alert awake and oriented to time place and person. No acute events monitored overnight Patient denies any fever, chills. He does report some difficulty breathing. Denies any cough, sputum production, chest pain. Offers no other complaints He feels much comfortable today. Vitals stable Review of Systems Constitutional: Denies: chills, fever. Objective Last 24 Hrs of Vital Signs/I&O Vital Signs Date Time Temp Pulse Resp B/P B/P Pulse O2 O2 Flow FiO2 Mean Ox Delivery Rate 04/18 0849 93 Nasal 3.0L Cannula 04/18 0800 Nasal 3.0L Cannula 04/18 0708 97.7 64 16 130/70 100 Nasal 3.0L Cannula 04/18 0139 99 Nasal 3.0L Cannula 04/18 0000 Nasal 3.0L Cannula 04/17 2117 97.9 65 20 120/60 97 Nasal 3.0L Cannula 04/17 1712 Nasal 3.0L Cannula 04/17 1600 Nasal 3.0L Cannula 04/17 1444 98.4 72 20 118/52 98 Intake & Output 04/18 1600 04/18 0800 04/18 0000 Intake Total 120 700 Output Total 300 Balance -180 700 Intake, Oral 120 700 Output, Urine 300 Physical Exam General Appearance: Alert, Oriented X3, Cooperative, No Acute Distress HEENT: Atraumatic, PERRLA Neck: Supple, No JVD Lymphatic: Cervical nl Cardiovascular: Normal S1, Normal S2 Lungs: Normal Air Movement Abdomen: Normal Bowel Sounds, Soft, No Tenderness Extremities: No Clubbing, No Cyanosis, No Edema Vascular: Normal Pulses, Pulses Symmetrical Current Medications: Current Medications Sig/Jorgito Start time Last Medication Dose Route Stop Time Status Admin Acetaminophen 650 MG Q6P PRN 04/17 1245 AC PO Acetaminophen 1,000 MG Q6P PRN 04/17 1245 AC IV Albuterol Sulfate 3 ML EVERY 4 HRS/AWAKE 04/17 2000 AC 04/18 INH 1404 Albuterol Sulfate 3 ML Q4P PRN 04/17 1215 AC INH Albuterol Sulfate 2 PUF Q4P PRN 04/17 1215 AC INH Alendronate Sodium 70 MG QTHURS 04/23 1000 AC PO Aspirin 81 MG DAILY 04/18 1000 AC 04/18 PO 0831 Atorvastatin Calcium 20 MG 1700 04/17 1700 AC 04/17 PO 1613 Budesonide/ 2 PUF BID 04/17 2200 AC 04/18 Formoterol Fumarate INH 0833 Cholecalciferol 1,000 IU DAILY 04/18 1000 AC 04/18 PO 0833 Enoxaparin Sodium 40 MG DAILY 04/17 1240 AC 04/18 SC 0832 Filgrastim 480 MCG DAILY@1800 04/18 1800 AC SC Filgrastim 480 MCG DAILY 04/17 1800 DC 04/17 SC 1754 Filgrastim 480 MCG DAILY 04/17 1500 DC IV Furosemide 40 MG DAILY 04/18 1000 AC 04/18 PO 0831 Meropenem 1 GM IQ8 04/17 1600 AC 04/18 IV 0830 Methylprednisolone 40 MG Q8 04/17 1400 AC 04/18 IV 1333 Omeprazole 20 MG DAILY 04/18 1000 AC 04/18 PO 0832 Oxycodone HCl 10 MG Q6P PRN 04/17 1245 AC PO Tetrahydrozoline HCl 1 GTT 4 TIMES/DAY PRN 04/17 1745 AC 04/17 OPH 1845 Tiotropium [place] 1 PUF DAILY 04/18 1000 AC 04/18 INH 0833 Last 24 Hrs of Lab/Edd Results Last 24 Hrs of Labs/Mics: Laboratory Tests 04/18/17 0626: Anion Gap 8, Estimated GFR > 60, BUN/Creatinine Ratio 28.9 H, CBC w Diff NO MAN DIFF REQ, RBC 3.67 L, MCV 74.7 L, MCH 24.6 L, RDW 19.5 H, MPV 7.4, Gran % 69.4, Lymphocytes % 16.6 L, Monocytes % 13.8 H, Eosinophils % 0, Basophils % 0.2, Absolute Granulocytes 3.6, Absolute Lymphocytes 0.9 L, Absolute Monocytes 0.7 H, Absolute Eosinophils 0, Absolute Basophils 0, PUBS MCHC 33.0 04/17/172109: Urine Color YEL, Urine Clarity CLEAR, Urine pH 6.0, Ur Specific [place] 1.020, Urine Protein NEG, Urine Ketones NEG, Urine Nitrite NEG, Urine Bilirubin NEG, Urine Urobilinogen 0.2, Ur Leukocyte Esterase NEG, Ur Microscopic SEDIMENT EXAMINED, Urine RBC RARE, Urine WBC RARE, Urine Bacteria RARE H, Urine Mucus RARE, Urine Hemoglobin SMALL H, Urine Glucose 250 H Microbiology 04/18 320 LOWER RESP: Routine Culture - RECD 04/18 320 LOWER RESP: Respiratory Culture - RES 04/18 320 LOWER RESP: Gram Stain - RES 04/17 2110 URINE ROUT: Urine Culture - RES 04/17 2110 URINE ROUT: Legionella Antigen - COMP 04/17 2110 URINE ROUT: Streptococcus pneumoniae Antigen (M - COMP Assessment/Plan Assessment: this is an 87-year-old man with a presumptive diagnosis of T-cell lymphoproliferative disorder, with chronic neutropenia, treated in the past with Chlorambucil, prednisone and on weekly Neupogen injection under the care of Dr. Mckenzie, rheumatoid arthritis, treated in the past with Methotrexate and currently with prednisone 10 mg daily, COPD, maintained on up to 3 L of oxygen at home, status post several recent hospitalizations for fever and neutropenia with the last one being in November 2016 at that time was treated with IV meropenem. The patient comes in with persistent shortness of breath and productive cough, FEVER, CHILLS that has been ongoing for the last 24 hours. Vitals at the time of admission showed Temperature of 100.6, slightly hypotensive to 105/50, pulse ox of 96% on 3 L, respiration rate of 20 Labs shows WBC of 1.9,(his last WBC on April 08 2.9), bands of 2 hemoglobin of 8.6, hematocrit of 26.2, platelet count of 111, sodium of 126, normal anion gap, chronically elevated carbon dioxide of 31 Chest x-ray shows: Minor patchy infiltrate or atelectasis left lower lung. Chronic changes CT CHEST 1. Significant interval improved aeration at right lower lobar lung with near complete resolution of previously identified right lower lobar airspace disease. Interval improved aeration is also noted at left upper lobe of thelung. 2. Interval development of subtle groundglass opacity at left lung apex. Assessment 1. Sepsis in the setting of neutropeninc fever. ANC 266 1. Suspicion of acute community-acquired pneumonia in the setting of neutropenia : 2. H/O oxygen dependendt COPD-f/u with Dr Natarajan 3. H/O R.A on steroid therapy 10 mg 4. H/O ? T celll lymphoproilifertaive diorder on chronic neupogen therapy 5. H/o ischemic ccardiomyopathy on PO lasix 40 mg daily-F/u with Dr blake 6. History of osteoporosis on bisphosphonate therapy weekly 7. GERD 8. Hyperlipidemia 9. Coronary artery disease SEPSIS in the setting of neutropenic fevers Patient presented with worsening shortness of breath, cough, fever and chills. On admission he was noted to be febrile with neutropenia 1.9. he is with a presumptive diagnosis of T-cell lymphoproliferative disorder, with chronic neutropenia, treated in the past with Chlorambucil, prednisone and on weekly Neupogen injection under the care of Dr. Mckenzie, * Patient was admitted to general medicine floor for management of sepsis and neutropenia * Monitor vitals closely every shift * Monitor for fevers * Monitor WBC count for worsening neutropenia * WBC count improved to 5.2 this morning * Continue Neupogen * Follow-up oncology recommendations * Repeat CBCs in the morning Possible community-acquired pneumonia in the setting of neutropenic fever Patient presented with worsening shortness of breath, fever, cough in the setting of neutropenic fever. Chest x-ray showed minor patchy infiltrates left lower lung. CAT scan chest showed groundglass opacity left lung apex. * sputum culture, sputum culture for fungal, urine culture, strep and Legionella antigen * Will follow up culture reports * IV Solu-Medrol 40 mg every 12 for COPD exacerbation * Regarding antibiotic choice, patient should be covered for pseudomonal coverage which includes ceftazidime. But previously the patient was also treated with resistant Escherichia coli ESBL in the sputum and was treated with IV meropenem. The patient does not have any recent hospitalization except for nov 2016 hence MRSA coverage is not recommended at this point. * We'll continue meropenem-day 2 * TRC evaluation Possible COPD exacerbation Patient has baseline COPD, uses 3 L oxygen at home Continue providing supplemental oxygen TRC IV steroids with methylprednisolone 40 mg every 8 hours for now Continue meropenem Continue nebulizer and inhaler treatments Osteoporosis He is on alendronate 70 mg every Coronary artery disease Continue baby aspirin 81 mg daily Hyperlipidemia Continue home dose of statins Congestive heart failure Continue home dose of Lasix 40 mg daily GERD Continue omeprazole daily Rheumatoid arthritis On prednisone 10 mg daily at home On IV steroids now in the hospital DVT prophylaxis subcutaneous Lovenox Full code Pain pathway regular diet Problem List: 1. Neutropenic fever Pain Ratin Pain Location: N/A Pain Goal: Remain pain free Pain Plan: NONE Tomorrow's Labs & Rationales: CBC IN THE setting of neutropenia OLEKSANDR HUBBARD[facility] 04/18/17 1233: Attending MD Review Statement Attending Statement Attending MD Statement: examined this patient, discuss w/resident/PA/CURRICULUM DEVELOPMENT MANAGER, agreed w/resident/PA/CURRICULUM DEVELOPMENT MANAGER, discussed with family, reviewed EMR data (avail), discussed with nursing, discussed with case mgmt, reviewed images, amended to note Attending Assessment/Plan: Patient seen and examined. Sitting comfortably in the recliner. Does not offer any complaints at this point. Afebrile. We will continue Filgrastim and meropenem. Monitor CBC Follow-up cultures.
[2017-04-18 08:47] LABS: BASOPHIL % 0.2 % (0.0-2.0); EOSINOPHIL % 0 % (0-5); GRANULOCYTE % 69.4 % (42.2-75.2); HEMATOCRIT 27.4 % (42-52); MEAN CORPUSCULAR VOLUME 74.7 FL (80.0-94.0)
[2017-04-18 08:59] LABS: WHITE BLOOD CELL COUNT 5.2 /CUMM (4.8-10.8)
--- NOTE | 2017-04-18 14:59 | PN- Infect Dx ---
Subjective Subjective: MAXIMUM TEMPERATURE 100.6. He notes occasional cough but denies shortness of breath or chest discomfort and overall feels improved Objective Last 24 Hrs of Vital Signs/I&O Vital Signs Date Time Temp Pulse Resp B/P B/P Pulse O2 O2 Flow FiO2 Mean Ox Delivery Rate 04/18 0849 93 Nasal 3.0L Cannula 04/18 0800 Nasal 3.0L Cannula 04/18 0708 97.7 64 16 130/70 100 Nasal 3.0L Cannula 04/18 0139 99 Nasal 3.0L Cannula 04/18 0000 Nasal 3.0L Cannula 04/17 2117 97.9 65 20 120/60 97 Nasal 3.0L Cannula 04/17 1712 Nasal 3.0L Cannula 04/17 1600 Nasal 3.0L Cannula Intake & Output 04/18 1600 04/18 0800 04/18 0000 Intake Total 120 700 Output Total 300 Balance -180 700 Intake, Oral 120 700 Output, Urine 300 Physical Exam Other Physical Findings: He appears well in no acute distress Lungs are clear Heart regular rhythm with no murmur Extremities 1+ edema both lower extremities unchanged Results Last 24 Hours of Lab Results: Laboratory Tests 04/18 04/17 0626 2110 Chemistry Sodium (137 - 145 mmol/L) 127 L Potassium (3.5 - 5.1 mmol/L) 4.7 Chloride (98 - 107 mmol/L) 89 L Carbon Dioxide (22 - 30 mmol/L) 31 H Anion Gap (5 - 16) 8 BUN (9 - 20 mg/dL) 26 H Creatinine (0.7 - 1.2 mg/dL) 0.9 Estimated GFR (>60 ml/min) > 60 BUN/Creatinine Ratio (7 - 25 %) 28.9 H Hematology CBC w Diff NO MAN DIFF REQ WBC (4.8 - 10.8 /CUMM) 5.2 RBC (4.70 - 6.10 /CUMM) 3.67 L Hgb (14.0 - 18.0 G/DL) 9.0 L Hct (42 - 52 %) 27.4 L MCV (80.0 - 94.0 FL) 74.7 L MCH (27.0 - 31.0 PG) 24.6 L RDW (11.5 - 14.5 %) 19.5 H Plt Count (130 - 400 /CUMM) 123 L MPV (7.4 - 10.4 FL) 7.4 Gran % (42.2 - 75.2 %) 69.4 Lymphocytes % (20.5 - 51.1 %) 16.6 L Monocytes % (1.7 - 9.3 %) 13.8 H Eosinophils % (0 - 5 %) 0 Basophils % (0.0 - 2.0 %) 0.2 Absolute Granulocytes (1.4 - 6.5 /CUMM) 3.6 Absolute Lymphocytes (1.2 - 3.4 /CUMM) 0.9 L Absolute Monocytes (0.10 - 0.60 /CUMM) 0.7 H Absolute Eosinophils (0.0 - 0.7 /CUMM) 0 Absolute Basophils (0.0 - 0.2 /CUMM) 0 PUBS MCHC (33.0 - 37.0 G/DL) 33.0 Urines Urine Color (YEL,AMB,STR) YEL Urine Clarity (CLEAR) CLEAR Urine pH (5.0 - 8.0) 6.0 Ur Specific [place] (1.001 - 1.035) 1.020 Urine Protein (NEG,<30 MG/DL) NEG Urine Ketones (NEG) NEG Urine Nitrite (NEG) NEG Urine Bilirubin (NEG) NEG Urine Urobilinogen (0.1 - 1.0 EU/dl) 0.2 Ur Leukocyte Esterase (NEG) NEG Ur Microscopic SEDIMENT EXAMINED Urine RBC (0 - 5 /HPF) RARE Urine WBC (0 - 2 /HPF) RARE Urine Bacteria (NEG/NONE) RARE H Urine Mucus (FEW,NONE) RARE Urine Hemoglobin (NEG) SMALL H Urine Glucose (N MG/DL) 250 H Last 24 Hours of Edd Results: Blood cultures April 17 negative Urine culture April 17 negative Urine strep pneumo antigen and Legionella antigen April 17 negative Sputum culture April 18 pending, with gram stain revealing no white blood cells, rare gram-positive cocci and rare budding yeast Assessment/Plan Impression: Stable with temperatures normal and white blood cell count increased (on Neupogen) on empiric treatment with Meropenem Day 1 for presumed pneumonia with the CT scan revealing the interval development of a subtle groundglass opacity at the left lung apex. His chronic neutropenia is of unclear etiology, possibly secondary to an underlying lymphoproliferative disorder or to his rheumatoid arthritis, and reevaluation of his treatment for rheumatoid arthritis may be appropriate. Suggestion: 1. Follow-up recent cultures 2. Further management of Neupogen per Oncology 3. Rheumatology reassessment of his treatment in view of his chronic neutropenia 4. Continue Meropenem pending cultures
[2017-04-18 15:48] VITALS: BP 110/60
[2017-04-18 22:57] VITALS: BP 116/54
[2017-04-19 07:15] VITALS: BP 110/58
--- NOTE | 2017-04-19 08:24 | PN- Housestaff ---
LINETTE HUBBARD,[facility] 04/19/17 0824: Subjective Follow-up For: neutropenia Subjective: pt feels well today, saw him while he was visiting his in another room. offers no complains labs reviewed wbc still trending up from 1.9 to 5.2 to 6.3. na 126 to 131. Review of Systems Constitutional: Reports: see HPI. Objective Last 24 Hrs of Vital Signs/I&O Vital Signs Date Time Temp Pulse Resp B/P B/P Pulse O2 O2 Flow FiO2 Mean Ox Delivery Rate 04/19 0838 99 Nasal 3.0L Cannula 04/19 0800 Nasal 3.0L Cannula 04/19 0715 97.6 64 16 110/58 95 Nasal Cannula 04/19 0000 100 Nasal 3.0L Cannula 04/18 2257 97.9 72 20 116/54 100 Nasal 3.0L Cannula 04/18 1715 95 Nasal 3.0L Cannula 04/18 1600 Nasal Cannula 04/18 1548 97.5 65 20 110/60 99 Intake & Output 04/19 1600 04/19 0800 04/19 0000 Intake Total 65 450 Output Total Balance 65 450 Intake, IV 15 Intake, Oral 50 450 Number 0 Bowel Movements Physical Exam General Appearance: Alert, Oriented X3, Cooperative, No Acute Distress Cardiovascular: Regular Rate, Normal S1, Normal S2 Lungs: Clear to Auscultation, Normal Air Movement Abdomen: Normal Bowel Sounds, Soft, No Tenderness Neurological: Normal Speech Extremities: No Edema Current Medications: Current Medications Sig/Jorgito Start time Last Medication Dose Route Stop Time Status Admin Acetaminophen 650 MG Q6P PRN 04/17 1245 AC PO Acetaminophen 1,000 MG Q6P PRN 04/17 1245 AC IV Albuterol Sulfate 3 ML EVERY 4 HRS/AWAKE 04/17 2000 AC 04/19 INH 1221 Albuterol Sulfate 3 ML Q4P PRN 04/17 1215 AC INH Albuterol Sulfate 2 PUF Q4P PRN 04/17 1215 AC INH Alendronate Sodium 70 MG QTHURS 04/23 1000 AC PO Aspirin 81 MG DAILY 04/18 1000 AC 04/19 PO 0743 Atorvastatin Calcium 20 MG 1700 04/17 1700 AC 04/18 PO 1652 Budesonide/ 2 PUF BID 04/17 2200 AC 04/19 Formoterol Fumarate INH 0753 Cholecalciferol 1,000 IU DAILY 04/18 1000 AC 04/19 PO 0744 Enoxaparin Sodium 40 MG DAILY 04/17 1240 AC 04/19 SC 0743 Filgrastim 480 MCG DAILY@1800 04/18 1800 AC 04/18 SC 1653 Furosemide 40 MG DAILY 04/18 1000 AC 04/19 PO 0743 Meropenem 1 GM IQ8 04/17 1600 AC 04/19 IV 0743 Methylprednisolone 40 MG Q8 04/17 1400 AC 04/19 IV 0655 Omeprazole 20 MG DAILY AC 04/19 0700 AC 04/19 PO 0655 Omeprazole 20 MG DAILY 04/18 1000 DC 04/18 PO 0832 Oxycodone HCl 10 MG Q6P PRN 04/17 1245 AC PO Tetrahydrozoline HCl 1 GTT 4 TIMES/DAY PRN 04/17 1745 AC 04/17 OPH 1845 Tiotropium [place] 1 PUF DAILY 04/18 1000 AC 04/19 INH 0744 Last 24 Hrs of Lab/Edd Results Last 24 Hrs of Labs/Mics: Laboratory Tests 04/19/17 0815: Anion Gap 8, Estimated GFR > 60, BUN/Creatinine Ratio 24.4, CBC w Diff NO MAN DIFF REQ, RBC 3.55 L, MCV 75.6 L, MCH 24.5 L, RDW 19.6 H, MPV 7.1 L, Gran % 80.0 H, Lymphocytes % 6.9 L, Monocytes % 13.1 H, Eosinophils % 0, Basophils % 0 L, Absolute Granulocytes 5.0, Absolute Lymphocytes 0.4 L, Absolute Monocytes 0.8 H, Absolute Eosinophils 0, Absolute Basophils 0, PUBS MCHC 32.4 L Assessment/Plan Assessment: this is an 87-year-old man with a presumptive diagnosis of T-cell lymphoproliferative disorder, with chronic neutropenia, treated in the past with Chlorambucil, prednisone and on weekly Neupogen injection under the care of Dr. Mckenzie, rheumatoid arthritis, treated in the past with Methotrexate and currently with prednisone 10 mg daily, COPD, maintained on up to 3 L of oxygen at home, status post several recent hospitalizations for fever and neutropenia with the last one being in November 2016 at that time was treated with IV meropenem. 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 Vitals at the time of admission showed Temperature of 100.6, slightly hypotensive to 105/50, pulse ox of 96% on 3 L, respiration rate of 20 Labs shows WBC of 1.9,(his last WBC on April 08 2.9), bands of 2 hemoglobin of 8.6, hematocrit of 26.2, platelet count of 111, sodium of 126, normal anion gap, chronically elevated carbon dioxide of 31 Chest x-ray shows: Minor patchy infiltrate or atelectasis left lower lung. Chronic changes CT CHEST 1. Significant interval improved aeration at right lower lobar lung with near complete resolution of previously identified right lower lobar airspace disease. Interval improved aeration is also noted at left upper lobe of thelung. 2. Interval development of subtle groundglass opacity at left lung apex. Assessment 1. Sepsis in the setting of neutropeninc fever. ANC 266 1. Suspicion of acute community-acquired pneumonia in the setting of neutropenia 2. H/O oxygen dependendt COPD-f/u with Dr Natarajan 3. H/O R.A on steroid therapy 10 mg 4. H/O ? T celll lymphoprolifertaive diorder on chronic neupogen therapy 5. H/o ischemic ccardiomyopathy on PO lasix 40 mg daily-F/u with Dr blake 6. History of osteoporosis on bisphosphonate therapy weekly 7. GERD 8. Hyperlipidemia 9. Coronary artery disease SEPSIS in the setting of neutropenic fevers Patient presented with worsening shortness of breath, cough, fever and chills. On admission he was noted to be febrile with neutropenia 1.9. he is with a presumptive diagnosis of T-cell lymphoproliferative disorder, with chronic neutropenia, treated in the past with Chlorambucil, prednisone and on weekly Neupogen injection under the care of Dr. Mckenzie, * Patient was admitted to general medicine floor for management of sepsis and neutropenia * Monitor vitals closely every shift * Monitor for fevers * Monitor WBC count for worsening neutropenia * WBC count improved to 6.3 this morning * Continue Neupogen * Follow-up oncology recommendations * Repeat CBCs in the morning Possible community-acquired pneumonia in the setting of neutropenic fever Patient presented with worsening shortness of breath, fever, cough in the setting of neutropenic fever. Chest x-ray showed minor patchy infiltrates left lower lung. CAT scan chest showed groundglass opacity left lung apex. * sputum culture, sputum culture for fungal, urine culture, strep and Legionella antigen * Will follow up culture reports * IV Solu-Medrol 40 mg every 12 for COPD exacerbation * Regarding antibiotic choice, patient should be covered for pseudomonal coverage which includes ceftazidime. But previously the patient was also treated with resistant Escherichia coli ESBL in the sputum and was treated with IV meropenem. The patient does not have any recent hospitalization except for nov 2016 hence MRSA coverage is not recommended at this point. * We'll continue meropenem-day 3 * TRC evaluation Possible COPD exacerbation Patient has baseline COPD, uses 3 L oxygen at home Continue providing supplemental oxygen TRC IV steroids with methylprednisolone 40 mg every 8 hours , taper to q12 Continue meropenem Continue nebulizer and inhaler treatments Osteoporosis He is on alendronate 70 mg every Coronary artery disease Continue baby aspirin 81 mg daily Hyperlipidemia Continue home dose of statins Congestive heart failure Continue home dose of Lasix 40 mg daily GERD Continue omeprazole daily Rheumatoid arthritis On prednisone 10 mg daily at home On IV steroids now in the hospital DVT prophylaxis subcutaneous Lovenox Full code Pain pathway regular diet Problem List: 1. Neutropenic fever Pain Ratin Pain Location: none Pain Goal: Remain pain free Pain Plan: none Tomorrow's Labs & Rationales: cbc neutropenic fever bep hypoenatremia DVT/Prophylaxis: mechanical, pharmacological OLEKSANDR HUBBARD,[facility] 04/19/17 1123: Attending MD Review Statement Attending Statement Attending MD Statement: examined this patient, discuss w/resident/PA/RADIATION ONCOLOGY NURSE, agreed w/resident/PA/RADIATION ONCOLOGY NURSE, discussed with family, reviewed EMR data (avail), discussed with nursing, discussed with case mgmt, reviewed images, amended to note Attending Assessment/Plan: Patient seen and examined. Sitting comfortably in the recliner. Does not offer any complaints at this point. Afebrile. Respiratory cultures positive for yeast and the Gram stain is positive for rare budding yeast, ? Significance in a neutropenic patient who is currently improving on meropenem We will continue Filgrastim and meropenem. Please follow up with Dima Lamb MD for further recommendations Monitor CBC
[2017-04-19 08:58] LABS: ABSOLUTE BASOPHIL COUNT 0 /CUMM (0.0-0.2); ABSOLUTE EOSINOPHIL COUNT 0 /CUMM (0.0-0.7); ABSOLUTE LYMPH COUNT 0.4 /CUMM (1.2-3.4); ABSOLUTE MONOCYTE COUNT 0.8 /CUMM (0.10-0.60); BASOPHIL % 0 % (0.0-2.0); EOSINOPHIL % 0 % (0-5); HEMATOCRIT 26.8 % (42-52); MEAN CORPUSCULAR HGB 24.5 PG (27.0-31.0); MEAN CORPUSCULAR HGB CONC 32.4 G/DL (33.0-37.0); MEAN CORPUSCULAR VOLUME 75.6 FL (80.0-94.0); MEAN PLATELET VOLUME 7.1 FL (7.4-10.4); PLATELET COUNT 117 /CUMM (130-400); RBC DISTRIBUTION WIDTH 19.6 % (11.5-14.5); RED BLOOD CELL CT 3.55 /CUMM (4.70-6.10); WHITE BLOOD CELL COUNT 6.3 /CUMM (4.8-10.8)
[2017-04-19 15:47] VITALS: BP 120/54
[2017-04-19 22:39] VITALS: BP 118/56
--- NOTE | 2017-04-20 06:42 | PN- Oncology ---
Subjective Subjective: Feeling quite well, cough persists but no shortness of breath Review of Systems: 12 point review of systems otherwise negative Objective Vital Signs and I&Os Vital Signs Date Time Temp Pulse Resp B/P B/P Pulse O2 O2 Flow FiO2 Mean Ox Delivery Rate 04/19 2239 98.0 78 20 118/56 97 Nasal Cannula 04/19 203 95 Nasal 3.0L Cannula 04/19 1600 Nasal Cannula 04/19 1547 987.0 77 20 120/54 98 04/19 0838 99 Nasal 3.0L Cannula 04/19 0800 Nasal 3.0L Cannula 04/19 0715 97.6 64 16 110/58 95 Nasal Cannula Intake & Output 04/20 0800 04/20 0000 04/19 1600 04/19 0800 04/19 0000 04/18 1600 Intake Total 450 65 450 500 Output Total Balance 450 65 450 500 Intake, IV 15 Intake, Oral 450 50 450 500 Number 1 0 Bowel Movements Gen.: in NAD ENT: Sclera anicteric Chest: Normal respiratory effort, decreased breath sounds Cor: RRR, no extra sounds Abdomen: Soft, bowel sounds present, no tenderness, no rebound Extremities: Without clubbing, cyanosis, or asymmetric edema Neurology: Alert and oriented 3, no gross deficit Current Medications: Current Medications Sig/Jorgito Start time Last Medication Dose Route Stop Time Status Admin Acetaminophen 650 MG Q6P PRN 04/17 1245 AC PO Acetaminophen 1,000 MG Q6P PRN 04/17 1245 AC IV Albuterol Sulfate 3 ML EVERY 4 HRS/AWAKE 04/17 2000 AC 04/19 INH 2034 Albuterol Sulfate 3 ML Q4P PRN 04/17 1215 AC INH Albuterol Sulfate 2 PUF Q4P PRN 04/17 1215 AC INH Alendronate Sodium 70 MG QTHURS 04/23 1000 AC PO Aspirin 81 MG DAILY 04/18 1000 AC 04/19 PO 0743 Atorvastatin Calcium 20 MG 1700 04/17 1700 AC 04/19 PO 1714 Budesonide/ 2 PUF BID 04/17 2200 AC 04/19 Formoterol Fumarate INH 2109 Cholecalciferol 1,000 IU DAILY 04/18 1000 AC 04/19 PO 0744 Enoxaparin Sodium 40 MG DAILY 04/17 1240 AC 04/19 SC 0743 Filgrastim 480 MCG DAILY@1800 04/18 1800 AC 04/19 SC 1714 Furosemide 40 MG DAILY 04/18 1000 AC 04/19 PO 0743 Meropenem 1 GM IQ8 04/17 1600 AC 04/20 IV 0045 Methylprednisolone 40 MG Q12 04/19 2200 AC 04/19 IV 2110 Methylprednisolone 40 MG Q8 04/17 1400 DC 04/19 IV 0655 Omeprazole 20 MG DAILY AC 04/19 0700 AC 04/20 PO 0630 Oxycodone HCl 10 MG Q6P PRN 04/17 1245 AC PO Tetrahydrozoline HCl 1 GTT 4 TIMES/DAY PRN 04/17 1745 AC 04/17 OPH 1845 Tiotropium [place] 1 PUF DAILY 04/18 1000 AC 04/19 INH 0744 Results Last 24 Hours of Lab Results: Laboratory Tests 04/19 0815 Chemistry Sodium (137 - 145 mmol/L) 131 L Potassium (3.5 - 5.1 mmol/L) 4.6 Chloride (98 - 107 mmol/L) 88 L Carbon Dioxide (22 - 30 mmol/L) 35 H Anion Gap (5 - 16) 8 BUN (9 - 20 mg/dL) 22 H Creatinine (0.7 - 1.2 mg/dL) 0.9 Estimated GFR (>60 ml/min) > 60 BUN/Creatinine Ratio (7 - 25 %) 24.4 Hematology CBC w Diff NO MAN DIFF REQ WBC (4.8 - 10.8 /CUMM) 6.3 RBC (4.70 - 6.10 /CUMM) 3.55 L Hgb (14.0 - 18.0 G/DL) 8.7 L Hct (42 - 52 %) 26.8 L MCV (80.0 - 94.0 FL) 75.6 L MCH (27.0 - 31.0 PG) 24.5 L RDW (11.5 - 14.5 %) 19.6 H Plt Count (130 - 400 /CUMM) 117 L MPV (7.4 - 10.4 FL) 7.1 L Gran % (42.2 - 75.2 %) 80.0 H Lymphocytes % (20.5 - 51.1 %) 6.9 L Monocytes % (1.7 - 9.3 %) 13.1 H Eosinophils % (0 - 5 %) 0 Basophils % (0.0 - 2.0 %) 0 L Absolute Granulocytes (1.4 - 6.5 /CUMM) 5.0 Absolute Lymphocytes (1.2 - 3.4 /CUMM) 0.4 L Absolute Monocytes (0.10 - 0.60 /CUMM) 0.8 H Absolute Eosinophils (0.0 - 0.7 /CUMM) 0 Absolute Basophils (0.0 - 0.2 /CUMM) 0 PUBS MCHC (33.0 - 37.0 G/DL) 32.4 L Assessment/Plan Assessment/Recommendations: 1. Hematologic status-resolved neutropenia, stable thrombocytopenia Recommendation- Continue Neupogen until discharge 2. Respiratory status-patient believes he is back to baseline Hopefully patient can be discharged [id number] my office
[2017-04-20 06:53] VITALS: BP 110/70
--- NOTE | 2017-04-20 07:34 | PN- Housestaff ---
ISIDRO VELASQUEZ 04/20/17 0734: Subjective Follow-up For: Neutropenic fever community-acquired pneumonia Possible COPD exacerbation Complaints: pain scale (0-10) Subjective: Patient was seen and examined this morning. He is alert awake and oriented to time place and person. No acute events monitored overnight Patient denies any fever, chills. He does report some difficulty breathing. Reports cough, denies sputum production, chest pain. Offers no other complaints He feels much comfortable today. Vitals stable Review of Systems Constitutional: Denies: chills, fever. Objective Last 24 Hrs of Vital Signs/I&O Vital Signs Date Time Temp Pulse Resp B/P B/P Pulse O2 O2 Flow FiO2 Mean Ox Delivery Rate 04/20 1500 98.6 74 20 136/62 100 Nasal 3.0L Cannula 04/20 0827 98 Nasal 3.0L Cannula 04/20 0653 97.6 66 18 110/70 98 Nasal 3.0L Cannula 04/20 0000 97 Nasal 3.0L Cannula 04/19 2239 98.0 78 20 118/56 97 Nasal Cannula 04/19 2035 95 Nasal 3.0L Cannula 04/19 1600 Nasal Cannula 04/19 1547 987.0 77 20 120/54 98 Intake & Output 04/20 1600 04/20 0800 04/20 0000 Intake Total 630 50 450 Output Total Balance 630 50 450 Intake, IV 30 0 Intake, Oral 600 50 450 Number 0 Bowel Movements Physical Exam General Appearance: Alert, Oriented X3, Cooperative, No Acute Distress Skin: No Rashes, No Breakdown HEENT: Atraumatic, PERRLA, EOMI, Mucous Membr. moist/pink Neck: Supple, No JVD Lymphatic: Cervical nl Cardiovascular: Normal S1, Normal S2, No Murmurs Lungs: Normal Air Movement Abdomen: Normal Bowel Sounds, Soft, No Tenderness Extremities: No Clubbing, No Cyanosis, No Edema Vascular: Pulses Symmetrical Current Medications: Current Medications Sig/Jorgito Start time Last Medication Dose Route Stop Time Status Admin Acetaminophen 650 MG Q6P PRN 04/17 1245 AC PO Acetaminophen 1,000 MG Q6P PRN 04/17 1245 AC IV Albuterol Sulfate 3 ML EVERY 4 HRS/AWAKE 04/17 2000 AC 04/20 INH 1219 Albuterol Sulfate 3 ML Q4P PRN 04/17 1215 AC INH Albuterol Sulfate 2 PUF Q4P PRN 04/17 1215 AC INH Alendronate Sodium 70 MG QTHURS 04/23 1000 AC PO Aspirin 81 MG DAILY 04/18 1000 AC 04/20 PO 1033 Atorvastatin Calcium 20 MG 1700 04/17 1700 AC 04/19 PO 1714 Budesonide/ 2 PUF BID 04/17 2200 AC 04/20 Formoterol Fumarate INH 1033 Cholecalciferol 1,000 IU DAILY 04/18 1000 AC 04/20 PO 1030 Enoxaparin Sodium 40 MG DAILY 04/17 1240 AC 04/20 SC 1032 Filgrastim 480 MCG DAILY@1800 04/18 1800 AC 04/19 SC 1714 Furosemide 40 MG DAILY 04/18 1000 AC 04/20 PO 1031 Meropenem 1 GM IQ8 04/17 1600 AC 04/20 IV 0814 Methylprednisolone 40 MG Q12 04/19 2200 DC 04/20 IV 1032 Omeprazole 20 MG DAILY AC 04/19 0700 AC 04/20 PO 0630 Oxycodone HCl 10 MG Q6P PRN 04/17 1245 AC PO Prednisone 40 MG DAILY 04/21 1000 AC PO Sodium Chloride 2 SPRAY Q4P PRN 04/20 1445 AC ZAFAR Tetrahydrozoline HCl 1 GTT 4 TIMES/DAY PRN 04/17 1745 AC 04/17 OPH 1845 Tiotropium [place] 1 PUF DAILY 04/18 1000 AC 04/20 INH 1031 Last 24 Hrs of Lab/Edd Results Last 24 Hrs of Labs/Mics: Laboratory Tests 04/20/17 0620: Anion Gap 6, Estimated GFR > 60, BUN/Creatinine Ratio 38.6 H, CBC w Diff MAN DIFF ORDERED, RBC 3.31 L, MCV 75.8 L, MCH 24.5 L, RDW 19.9 H, MPV 7.6, Gran % 83.3 H, Lymphocytes % 5.0 L, Monocytes % 11.7 H, Eosinophils % 0, Basophils % 0 L, Absolute Granulocytes 7.1 H, Segmented Neutrophils 73, Band Neutrophils 10 H, Absolute Lymphocytes 0.4 L, Lymphocytes 7 L, Monocytes 10 H, Absolute Monocytes 1.0 H, Absolute Eosinophils 0, Absolute Basophils 0, Platelet Estimate DECREASED, Polychromasia 1+, Poikilocytosis 1+, Basophilic Stippling SLIGHT, Anisocytosis 1+, Ovalocytes 1+, PUBS MCHC 32.3 L Assessment/Plan Assessment: this is an 87-year-old man with a presumptive diagnosis of T-cell lymphoproliferative disorder, with chronic neutropenia, treated in the past with Chlorambucil, prednisone and on weekly Neupogen injection under the care of Dr. Mckenzie, rheumatoid arthritis, treated in the past with Methotrexate and currently with prednisone 10 mg daily, COPD, maintained on up to 3 L of oxygen at home, status post several recent hospitalizations for fever and neutropenia with the last one being in November 2016 at that time was treated with IV meropenem. 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 Vitals at the time of admission showed Temperature of 100.6, slightly hypotensive to 105/50, pulse ox of 96% on 3 L, respiration rate of 20 Labs shows WBC of 1.9,(his last WBC on April 08 2.9), bands of 2 hemoglobin of 8.6, hematocrit of 26.2, platelet count of 111, sodium of 126, normal anion gap, chronically elevated carbon dioxide of 31 Chest x-ray shows: Minor patchy infiltrate or atelectasis left lower lung. Chronic changes CT CHEST 1. Significant interval improved aeration at right lower lobar lung with near complete resolution of previously identified right lower lobar airspace disease. Interval improved aeration is also noted at left upper lobe of thelung. 2. Interval development of subtle groundglass opacity at left lung apex. Assessment 1. Sepsis in the setting of neutropeninc fever. ANC 266 1. Suspicion of acute community-acquired pneumonia in the setting of neutropenia 2. H/O oxygen dependendt COPD-f/u with Dr Natarajan 3. H/O R.A on steroid therapy 10 mg 4. H/O ? T celll lymphoprolifertaive diorder on chronic neupogen therapy 5. H/o ischemic ccardiomyopathy on PO lasix 40 mg daily-F/u with Dr blake 6. History of osteoporosis on bisphosphonate therapy weekly 7. GERD 8. Hyperlipidemia 9. Coronary artery disease SEPSIS in the setting of neutropenic fevers Patient presented with worsening shortness of breath, cough, fever and chills. On admission he was noted to be febrile with neutropenia 1.9. he is with a presumptive diagnosis of T-cell lymphoproliferative disorder, with chronic neutropenia, treated in the past with Chlorambucil, prednisone and on weekly Neupogen injection under the care of Dr. Mckenzie, * Patient was admitted to general medicine floor for management of sepsis and neutropenia * Monitor vitals closely every shift * Monitor for fevers * Monitor WBC count for worsening neutropenia * WBC count improved to 8 this morning * Continue Neupogen in the hospital * Follow-up oncology recommendations Possible community-acquired pneumonia in the setting of neutropenic fever Patient presented with worsening shortness of breath, fever, cough in the setting of neutropenic fever. Chest x-ray showed minor patchy infiltrates left lower lung. CAT scan chest showed groundglass opacity left lung apex. * sputum culture, sputum culture for fungal, urine culture, strep and Legionella antigen * Will follow up culture reports * IV Solu-Medrol 40 mg every day for COPD exacerbation, prednisone taper at the time of discharge * Regarding antibiotic choice, patient should be covered for pseudomonal coverage which includes ceftazidime. But previously the patient was also treated with resistant Escherichia coli ESBL in the sputum and was treated with IV meropenem. The patient does not have any recent hospitalization except for nov 2016 hence MRSA coverage is not recommended at this point. * continued meropenem-day 3, discharging him on Levaquin 500 milligrams once a day for 7 more days * TRC evaluation Possible COPD exacerbation Patient has baseline COPD, uses 3 L oxygen at home Continue providing supplemental oxygen TRC IV steroids with methylprednisolone 40 mg every 8 hours , taper to q12, once daily. Prednisone tapered 40 mg orally for 2 days, 30 mg for 2 days, 20 mg for 2 days and then continue 10 mg daily for rheumatoid arthritis Continue meropenem for today Continue nebulizer and inhaler treatments Osteoporosis He is on alendronate 70 mg every Coronary artery disease Continue baby aspirin 81 mg daily Hyperlipidemia Continue home dose of statins Congestive heart failure Continue home dose of Lasix 40 mg daily GERD Continue omeprazole daily Rheumatoid arthritis On prednisone 10 mg daily at home On IV steroids now in the hospital DVT prophylaxis subcutaneous Lovenox Full code Pain pathway regular diet Problem List: 1. Neutropenic fever Pain Ratin Pain Location: n/a Pain Goal: Remain pain free Pain Plan: none Tomorrow's Labs & Rationales: none RAMSES HENSLEY 04/20/17 1428: Attending MD Review Statement Attending Statement Attending MD Statement: examined this patient, discuss w/resident/PA/MICROWAVE TECHNICIAN, agreed w/resident/PA/MICROWAVE TECHNICIAN, discussed with family, reviewed EMR data (avail), discussed with nursing, discussed with case mgmt, reviewed images, amended to note Attending Assessment/Plan: Patient seen and examined. Sitting comfortably in the recliner. Does not offer any complaints at this point. Afebrile. Respiratory cultures positive for yeast and the Gram stain is positive for rare budding yeast, ID consulted, Patient received meropenem , change to PO abx at d/c. Patient received neupogen as per hem/onc. Patient clinically improved and anticipate d/c soon.
[2017-04-20 08:25] LABS: ABSOLUTE BASOPHIL COUNT 0 /CUMM (0.0-0.2); ABSOLUTE EOSINOPHIL COUNT 0 /CUMM (0.0-0.7); ABSOLUTE GRANULOCYTE CT 7.1 /CUMM (1.4-6.5); ABSOLUTE LYMPH COUNT 0.4 /CUMM (1.2-3.4); BASOPHIL % 0 % (0.0-2.0); EOSINOPHIL % 0 % (0-5); GRANULOCYTE % 83.3 % (42.2-75.2); HEMATOCRIT 25.1 % (42-52); MEAN CORPUSCULAR HGB 24.5 PG (27.0-31.0); MEAN CORPUSCULAR HGB CONC 32.3 G/DL (33.0-37.0); MEAN CORPUSCULAR VOLUME 75.8 FL (80.0-94.0); MEAN PLATELET VOLUME 7.6 FL (7.4-10.4); PLATELET COUNT 117 /CUMM (130-400); RBC DISTRIBUTION WIDTH 19.9 % (11.5-14.5); RED BLOOD CELL CT 3.31 /CUMM (4.70-6.10); WHITE BLOOD CELL COUNT 8.5 /CUMM (4.8-10.8)
--- NOTE | 2017-04-20 08:55 | Patient Discharge Instructions ---
Discharge Instructions General Discharge Information You were seen/treated for: neutropenic fever possible copd exacerbation community acquired pneumonia You had these procedures: none Special Instructions: please f/u pcp in 1-2 weeks please follow up oncologist in one week please follow up shared services manager in 2 weeks. Diet Additional DIET Information: chf diet Activity Full Activity/No Limits: Yes Acute Coronary Syndrome Inclusion Criteria At DC or during hospital stay patient has or had the following: ACS DIAGNOSIS No Discharge Core Measures Meds if any: Prescribed or Continued at Discharge Meds if any: NOT Prescribed or Continued at Discharge Congestive Heart Failure Inclusion Criteria At DC or during hospital stay patient has or had the following: CHF DIAGNOSIS No Discharge Core Measures Meds if any: Prescribed or Continued at Discharge Meds if any: NOT Prescribed or Continued at Discharge Cerebrovascular accident Inclusion Criteria At DC or during hospital stay patient has or had the following: CVA/TIA Diagnosis No Discharge Core Measures Meds if any: Prescribed or Continued at Discharge Meds if any: NOT Prescribed or Continued at Discharge Venous thromboembolism Inclusion Criteria VTE Diagnosis No VTE Type NONE VTE Confirmed by (Test) NONE Discharge Core Measures - Per Current guidelines, there needs to be overlap - treatment for the first 5 days of Warfarin therapy. - If discharged on Warfarin prior to 5 days of - overlap therapy, the patient will need to be - assessed for post discharge needs including - *Post discharge parental anticoagulation - *Warfarin and/or parental anticoagulation education - *Follow up date to check INR post discharge At least 5 days overlap therapy as Inpatient No Meds if any: Prescribed or Continued at Discharge Note: Overlap Therapy is Warfarin and Anticoagulant Meds if any: NOT Prescribed or Continued at Discharge
[2017-04-20] MEDS ORDERED: PREDNISONE10 M2 PO (11:27)
[2017-04-20] MEDS ORDERED: LEVAQUIN750 M1 PO (11:50)
[2017-04-20] MEDS ORDERED: LEVAQUIN500 M1 PO (12:03)
--- NOTE | 2017-04-20 13:53 | Discharge Summary ---
Visit Information Visit Dates Admission Date: 04/17/17 Discharge Date: 04/20/17 Hospital Course Course Attending Physician: AYDEN HUBBARD,RAMSES Primary Care Physician: CHANTALE HUBBARD,SAPNA Manzano Other Care Providers: MD Dr. Magaly Lovelace Consulting Request: 1 Consulting Specialty: Infectious Disease Consulting Request: 2 Consulting Specialty: Hematology/Oncology Hospital Course: This is an 87-year-old man with a presumptive diagnosis of T-cell lymphoproliferative disorder, with chronic neutropenia, treated in the past with Chlorambucil, prednisone and on weekly Neupogen injection under the care of Dr. Mckenzie, rheumatoid arthritis, treated in the past with Methotrexate and currently with prednisone 10 mg daily, COPD, maintained on up to 3 L of oxygen at home, status post several recent hospitalizations for fever and neutropenia with the last one being in November 2016 at that time was treated with IV meropenem. 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 Vitals at the time of admission showed Temperature of 100.6, slightly hypotensive to 105/50, pulse ox of 96% on 3 L, respiration rate 20 Labs shows WBC of 1.9,(his last WBC on April 08 2.9), bands of 2 hemoglobin of 8.6, hematocrit of 26.2, platelet count of 111, sodium of 126, normal anion gap, chronically elevated carbon dioxide of 31 Chest x-ray shows: Minor patchy infiltrate or atelectasis left lower lung. Chronic changes CT CHEST 1. Significant interval improved aeration at right lower lobar lung with near complete resolution of previously identified right lower lobar airspace disease. Interval improved aeration is also noted at left upper lobe of thelung. 2. Interval development of subtle groundglass opacity at left lung apex. Assessment 1. Sepsis in the setting of neutropeninc fever. ANC 266 1. Suspicion of acute community-acquired pneumonia in the setting of neutropenia 2. H/O oxygen dependendt COPD-f/u with Dr Natarajan 3. H/O R.A on steroid therapy 10 mg 4. 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 H/o ischemic ccardiomyopathy on PO lasix 40 mg daily-F/u with Dr blake 6. History of osteoporosis on bisphosphonate therapy weekly 7. GERD 8. Hyperlipidemia 9. Coronary artery disease SEPSIS in the setting of neutropenic fevers Patient presented with worsening shortness of breath, cough, fever and chills. On admission he was noted to be febrile with neutropenia 1.9. he is with a presumptive diagnosis of T-cell lymphoproliferative disorder, with chronic neutropenia, treated in the past with Chlorambucil, prednisone and on weekly Neupogen injection under the care of Dr. Mckenzie. Patient was admitted to general medicine floor for management of sepsis and neutropenia. Monitored vitals closely every shift. Monitored fevers, WBC count. He received daily Neupogen 480 g subcutaneously in the hospital. His WBC count improved to 8.3 from 1.9 at the time of discharge. He was advised to follow-up with Dr. Mckenzie the oncologist as an outpatient within 1 week after discharge. Possible community-acquired pneumonia in the setting of neutropenic fever Patient presented with worsening shortness of breath, fever, cough in the setting of neutropenic fever. Chest x-ray showed minor patchy infiltrates left lower lung. CAT scan chest showed groundglass opacity left lung apex. He was admitted for management of neutropenic fever and community acquired pneumonia. Blood cultures, sputum cultures, urine cultures were ordered. He was started on IV methylprednisone for possible COPD exacerbation. Regarding antibiotic choice, patient should be covered for pseudomonal coverage which includes ceftazidime. But previously the patient was also treated with resistant Escherichia coli ESBL in the sputum and was treated with IV meropenem. The patient does not have any recent hospitalization except for nov 2016 hence MRSA coverage is not recommended at this point. We continued iv meropenem 3 days , discharged on Levaquin 500 milligrams once daily for 7 more days to complete total 10 day course. Possible COPD exacerbation Patient has baseline COPD, uses 3 L oxygen at home. We provided supplemental oxygen 3 L and total respiratory care. He was given nebulizer and inhalers treatments. He was started on IV methylprednisone 40 mg every 8 hours, tapered to every 12 hours then once daily. He was discharged on prednisone taper 40 mg for 2 days, 30 mg for 2 days, 20 mg for 2 days and then he was advised to continue 10 mg daily for rheumatoid arthritis. Osteoporosis He is on alendronate 70 mg every Coronary artery disease Continued baby aspirin 81 mg daily Hyperlipidemia Continued home dose of statins Congestive heart failure Continued home dose of Lasix 40 mg daily GERD Continued omeprazole daily Rheumatoid arthritis On prednisone 10 mg daily at home Advised steroid taper 40 mg for 2 days, 30 mg for 2 days, 20 mg for 2 days, then continue taking 10 mg prednisone daily at home for rheumatoid arthritis DVT prophylaxis subcutaneous Lovenox Full code Pain pathway on regular diet Complications: none Allergies: Coded Allergies: NO KNOWN ALLERGIES (04/23/12) Significant Procedures: none Pertinent Lab Results: CXR- FINDINGS: Stable cardiomediastinal silhouette. Mild prominence of the pulmonary markings representing chronic change. Minor patchy opacity noted in the left lower lung consistent with minor infiltrate or atelectasis. Very slightly pronounced compared to the prior examination. Bony thorax is intact. Degenerative changes bilateral shoulders, right greater than left. IMPRESSION: Minor patchy infiltrate or atelectasis left lower lung. Chronic changes. CT CHEST IMPRESSION: 1. Significant interval improved aeration at right lower lobar lung with near complete resolution of previously identified right lower lobar airspace disease. Interval improved aeration is also noted at left upper lobe of the lung. 2. Interval development of subtle groundglass opacity at left lung apex. 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 Medications at Discharge Discharge Medications: Continue taking these medications: Tiotropium [place] (Spiriva) 18 MCG CAP.W.DEV 1 Capsule Inhale through mouth DAILY Qty = 90 Comments: Last Taken: 04/20/17 Time: 10 AM Alendronate Sodium (Alendronate Sodium) 70 MG TABLET 1 Tablet ORAL EVERY THURSDAY Qty = 12 Instructions: in the morning, at least 30 minutes before the first food, beverage, or medication of the day Comments: NOT GIVEN Omeprazole (Omeprazole) 20 MG CAPSULE.DR 1 Capsule ORAL DAILY Qty = 90 Comments: Last Taken: 04/20/17 Time: 7 AM Albuterol Sulfate (Proair Hfa) 8.5 GM HFA.AER.AD 2 Puff Inhale through mouth Q4H as needed for COPD Qty = 9 Comments: NOT GIVEN IN HOSPITAL Psyllium [place] (Metamucil) 660 GM POWDER 1 Packet ORAL as needed for CONSTIPATION Comments: NOT GIVEN IN HOSPITAL Albuterol Sulfate (Albuterol Sulfate) 2.5 MG/3 ML VIAL.NEB 1 Vial Inhale Solution EVERY 4 HOURS NEEDED as needed for COPD EXACERBATION Days = 30 Comments: Last Taken: 04/20/17 Time: 1200 PM Multivitamin (Daily Multiple Vitamin) 1 EACH TABLET 1 Tablet ORAL DAILY Comments: NOT GIVEN Atorvastatin Calcium (Atorvastatin Calcium) 20 MG TABLET 1 Tablet ORAL DAILY Qty = 30 Comments: Last Taken: 04/20/17 Time: 5 PM Aspirin (Aspirin*) 81 MG TAB.CHEW 1 Tablet ORAL DAILY Comments: Last Taken: 04/20/17 Time: 1000 AM Cholecalciferol (Vitamin D3) (Vitamin D) 400 UNIT TABLET 1 Tablet ORAL DAILY Comments: Last Taken: 04/20/17 Time: 1000 AM Fluticasone/Salmeterol (Advair 250-50 Diskus) 250 MCG-50 MCG/DOSE BLST.W.DEV 1 Puff Inhale through mouth TWICE DAILY Qty = 60 Comments: NOT GIVEN IN HOSPITAL Furosemide (Lasix) 40 MG TABLET 1 Tablet ORAL DAILY Qty = 30 Comments: Last Taken: 04/20/17 Time: 1000 AM Prednisone (Prednisone) 10 MG TABLET 1 Tablet ORAL DAILY Comments: Last Taken: 04/20/17 Time: 10 AM START NEW SLIDING SCALE ON 04/21/17. Start taking the following new medications: Prednisone (Prednisone) 10 MG TABLET 1 Tablet ORAL See Instructions Qty = 18 No Refills Instructions: TAKE 4PILLS FOR 2DAYS TAKE 3PILLS FOR 2DAYS TAKE 2PILLS NFOR 2DAYS THEN CONTINUE 1PILL DAILY Comments: Last Taken: 04/20/17 Time: 10 AM Levofloxacin (Levaquin) 500 MG TABLET 1 Tablet ORAL DAILY Qty = 7 No Refills Comments: NOT GIVEN. START 04/21/17. Copies To: SAPNA KENYON MD NOT GIVEN. START 04/21/17. Copies To: SAPNA KENYON MD
[2017-04-20 15:00] VITALS: BP 136/62
--- NOTE | 2017-04-20 15:26 | PN- Infect Dx ---
Subjective Subjective: Afebrile. He feels well with no new complaints. He continues to report a cough , with white/clear phlegm. Objective Last 24 Hrs of Vital Signs/I&O Vital Signs Date Time Temp Pulse Resp B/P B/P Pulse O2 O2 Flow FiO2 Mean Ox Delivery Rate 04/20 1500 98.6 74 20 136/62 100 Nasal 3.0L Cannula 04/20 0827 98 Nasal 3.0L Cannula 04/20 0653 97.6 66 18 110/70 98 Nasal 3.0L Cannula 04/20 0000 97 Nasal 3.0L Cannula 04/19 2239 98.0 78 20 118/56 97 Nasal Cannula 04/19 2035 95 Nasal 3.0L Cannula 04/19 1600 Nasal Cannula 04/19 1547 987.0 77 20 120/54 98 Intake & Output 04/20 1600 04/20 0800 04/20 0000 Intake Total 630 50 450 Output Total Balance 630 50 450 Intake, IV 30 0 Intake, Oral 600 50 450 Number 0 Bowel Movements Physical Exam Other Physical Findings: He appears comfortable in no acute distress Lungs are clear Heart regular rhythm with no murmur Extremities 1+ edema both lower extremities Results Last 24 Hours of Lab Results: Laboratory Tests 04/20 0620 Chemistry Sodium (137 - 145 mmol/L) 131 L Potassium (3.5 - 5.1 mmol/L) 4.8 Chloride (98 - 107 mmol/L) 91 L Carbon Dioxide (22 - 30 mmol/L) 33 H Anion Gap (5 - 16) 6 BUN (9 - 20 mg/dL) 27 H Creatinine (0.7 - 1.2 mg/dL) 0.7 Estimated GFR (>60 ml/min) > 60 BUN/Creatinine Ratio (7 - 25 %) 38.6 H Hematology CBC w Diff MAN DIFF ORDERED WBC (4.8 - 10.8 /CUMM) 8.5 RBC (4.70 - 6.10 /CUMM) 3.31 L Hgb (14.0 - 18.0 G/DL) 8.1 L Hct (42 - 52 %) 25.1 L MCV (80.0 - 94.0 FL) 75.8 L MCH (27.0 - 31.0 PG) 24.5 L RDW (11.5 - 14.5 %) 19.9 H Plt Count (130 - 400 /CUMM) 117 L MPV (7.4 - 10.4 FL) 7.6 Gran % (42.2 - 75.2 %) 83.3 H Lymphocytes % (20.5 - 51.1 %) 5.0 L Monocytes % (1.7 - 9.3 %) 11.7 H Eosinophils % (0 - 5 %) 0 Basophils % (0.0 - 2.0 %) 0 L Absolute Granulocytes (1.4 - 6.5 /CUMM) 7.1 H Segmented Neutrophils (42.2 - 75.2 %) 73 Band Neutrophils (0.0 - 5.0 %) 10 H Absolute Lymphocytes (1.2 - 3.4 /CUMM) 0.4 L Lymphocytes (20.5 - 51.1 %) 7 L Monocytes (1.7 - 9.3 %) 10 H Absolute Monocytes (0.10 - 0.60 /CUMM) 1.0 H Absolute Eosinophils (0.0 - 0.7 /CUMM) 0 Absolute Basophils (0.0 - 0.2 /CUMM) 0 Platelet Estimate (ADEQUATE) DECREASED Polychromasia 1+ Poikilocytosis 1+ Basophilic Stippling SLIGHT Anisocytosis 1+ Ovalocytes 1+ PUBS MCHC (33.0 - 37.0 G/DL) 32.3 L Last 24 Hours of Edd Results: Blood cultures April 17 negative Urine culture April 17 negative Sputum culture April 18 light growth of mixed caridad with light growth of yeast Assessment/Plan Impression: Stable with temperatures normal and white blood cell count increased (on Neupogen) on empiric treatment with Meropenem Day 3 for presumed pneumonia in a chronically neutropenic patient with a recent CT scan revealing the interval development of a subtle groundglass opacity at the left lung apex. His chronic neutropenia is of unclear etiology, possibly secondary to an underlying lymphoproliferative disorder or to his rheumatoid arthritis, and reevaluation of his treatment for rheumatoid arthritis may be appropriate. Suggestion: 1. Further management of Neupogen per Oncology 2. Rheumatology reassessment of his treatment in view of his chronic neutropenia (as outpatient) 3. Discontinue Meropenem 4. Begin Levaquin 500 milligrams po every 24 hours for 1 week
== END 2017-04-20 18:05 | disposition home health service (06) | DRG 808 ==
LOC: ERH 09:21 → 2NA 11:16 → ERHI 11:16 → ENRESERV 11:39 → ENTRNSPT 12:19 → EDTRNSPTTYP 12:39 → 2NA 13:06 → CMPTRNSPT 13:20 → 2NA 13:57 → ENPENDDIS 04-20 12:57 → 2NA 04-20 18:05
PROVIDERS: Internal Medicine Nephrology; Physician Assistant Medical; Radiology Diagnostic Radiology; ADMIT Internal Medicine
DX: D70.9 Neutropenia, unspecified (principal); J18.9 Pneumonia, unspecified organism; D47.Z9 Other specified neoplasms of uncertain behavior of lymphoid, hematopoietic and related tissue; E22.2 Syndrome of inappropriate secretion of antidiuretic hormone; J44.0 Chronic obstructive pulmonary disease with (acute) lower respiratory infection; Z99.81 Dependence on supplemental oxygen; M06.9 Rheumatoid arthritis, unspecified; D69.6 Thrombocytopenia, unspecified; J44.1 Chronic obstructive pulmonary disease with (acute) exacerbation; R50.81 Fever presenting with conditions classified elsewhere; I25.5 Ischemic cardiomyopathy; M88.9 Osteitis deformans of unspecified bone; I25.10 Atherosclerotic heart disease of native coronary artery without angina pectoris; I25.2 Old myocardial infarction; E78.5 Hyperlipidemia, unspecified; M81.0 Age-related osteoporosis without current pathological fracture; K21.9 Gastro-esophageal reflux disease without esophagitis
CPT/HCPCS: 2NAP; 36415; 81001; 82436; 87040; 87070; 87071; 87086; 87449; 87450; 93005; 93010; 96365; 96375; J0131; J0456; J0696; J0713; J1442; J1650; J1885; J2185; J2920; J2930; J3490; J7040

== ENCOUNTER 2017-06-17 07:52 | Inpatient (IN) | payer OTHER ==
[~2017-06-17] VITALS: Ht 165.1 cm; Wt 65.3 kg
[~2017-06-17 07:52] MED LIST changes: +LEVAQUIN750 M1 PO
--- NOTE | 2017-06-17 08:03 | NUR ---
PT TO ED FOR PRODUCTIVE COUGH AND SLIGHT SOB SINCE AROUND MIDNIGHT LAST NIGHT. ON CHRONIC HOME 02 AT 3L, SLIGHTLY TACHYAPENIC IN TRIAGE.
--- NOTE | 2017-06-17 08:20 | ED DYSPNEA/ASTHMA COMPLAINT ---
See Addendum History of Present Illness General Chief Complaint: Dyspnea (COPD, CHF, Other) Stated Complaint: COPD/SOB Source: patient Exam Limitations: no limitations Vital Signs & Intake/Output Vital Signs & Intake/Output Vital Signs Date Time Temp Pulse Resp B/P B/P Pulse O2 O2 Flow FiO2 Mean Ox Delivery Rate 06/17 1218 100 Nasal 3.0L Cannula 06/17 1117 96.8 56 15 126/57 100 Nasal 3.0L Cannula 06/17 1048 97 Nasal 3.0L Cannula 06/17 0932 Nasal 3.0L Cannula 06/17 0915 98 Nasal 3.0L Cannula 06/17 0802 97.7 81 21 118/55 92 Nasal 4.0L Cannula Allergies Coded Allergies: NO KNOWN ALLERGIES (04/23/12) Reconcile Medications Albuterol Sulfate (Proair Hfa) 8.5 GM HFA.AER.AD 2 PUF INH Q4H PRN COPD ( Reported) Albuterol Sulfate 2.5 MG/3 ML VIAL.NEB 1 Vial INH/ANKUR Q4P PRN COPD EXACERBATION Alendronate Sodium 70 MG TABLET 1 TAB PO QTHURS bone health (Reported) in the morning, at least 30 minutes before the first food, beverage, or medication of the day Aspirin (Aspirin*) 81 MG TAB.CHEW 1 TAB PO DAILY HEART HEALTH (Reported) Atorvastatin Calcium 20 MG TABLET 1 TAB PO DAILY CHOLESTEROL (Reported) Cholecalciferol (Vitamin D3) (Vitamin D) 400 UNIT TABLET 1 TAB PO DAILY SUPPLEMENT (Reported) Fluticasone/Salmeterol (Advair 250-50 Diskus) 250 MCG-50 MCG/DOSE BLST.W.DEV 1 PUF INH BID BREATHING PROBLEMS (Reported) Furosemide (Lasix) 40 MG TABLET 1 TAB PO DAILY CHF Multivitamin (Daily Multiple Vitamin) 1 EACH TABLET 1 TAB PO DAILY SUPPLEMENT (Reported) Omeprazole 20 MG CAPSULE.DR 1 CAP PO DAILY GI protection (Reported) Prednisone 10 MG TABLET 1 TAB PO DAILY COPD (Reported) Psyllium Husk (Metamucil) 660 GM POWDER 1 PAC PO PRN CONSTIPATION (Reported) Tiotropium Burden (Spiriva) 18 MCG CAP.W.DEV 1 CAP INH DAILY COPD (Reported) Triage Note: PT TO ED FOR PRODUCTIVE COUGH AND SLIGHT SOB SINCE AROUND MIDNIGHT LAST NIGHT. ON CHRONIC HOME 02 AT 3L, SLIGHTLY TACHYAPENIC IN TRIAGE. Triage Nurses Notes Reviewed? yes Onset: Gradual Duration: hour(s): (8) Timing: recent history Severity: moderate Activities at Onset: none Prior Episodes/Possible Cause: occasional episodes Modifying Factors: Improves With: immobilization. Worsens With: movement. Associated Symptoms: cough HPI: Patient is an 87-year-old male with history of COPD, CHF, T-cell lYMPOPROLIFERATIVE DISORDER presenting to the emergency Department chief complaint of increasing shortness of breath, productive cough worsening over the past 8 hours. Patient reports that he's had similar symptoms in the past with pneumonia, last time he was hospitalized in March for pneumonia. Patient does receive Neupogen shots on a biweekly basis, due today for his next dose. Patient reports increasing fatigue. Patient worse chronic lower extremity edema , denies any increase in lower extremity edema. Positive sputum production, white and yellow. Denies sick contacts or recent travel. Denies any nausea vomiting or abdominal pain. No chest pain palpitations. Shortness of breath is worse with exertion and coughing. Denies fevers or chills. (AUSTIN HAN) Past History Travel History Traveled to [place] past 21 day No Medical History Any Pertinent Medical History? see below for history Neurological: NONE EENT: NONE Cardiovascular: CAD, CHF, hyperlipidemia, NSTEMI Respiratory: bronchitis, COPD, emphysema, pneumonia Gastrointestinal: colitis, hiatal hernia, peptic ulcer disease, upper GI bleed, C. 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 No (AUSTIN HAN) Review of Systems Review of Systems Constitutional: Reports: malaise. Comments Review of systems: See HPI, All other systems negative. Constitutional, no chills fever or weight loss HEENT: No visual changes no sore throat Cardiovascular: No chest pain ,palpitation , orthopnea or ankle swelling Skin, no jaundice no rashes Respiratory: No hemoptysis GI: No nausea no vomiting : No dysuria No hematuria Muscle skeletal: no back pain, no neck pain, Neurologic: No numbness no confusion NO RODRÍGUEZ Psych: No stress anxiety or depression,. Heme/endocrine: No bruising no bleeding no polyuria or polydipsia Immunology: No splenectomy or history of AIDS (AUSTIN HAN) Physical Exam Physical Exam General Appearance: well developed/nourished, no apparent distress, alert, awake Respiratory: decreased breath sounds, wheezing Comments: Well-developed well-nourished person in no acute distress HEENT: Normal EENT exam, extraocular motion intact, no nystagmus. Pupils equally round and reactive to light and accommodation. Nose is atraumatic. External auditory canal and Tympanic membranes clear. Pharynx normal. No swelling or edema. Mild postnasal drip noted. Neck: Supple, no lymphadenopathy, normal range of motion without pain or tenderness Back: Nontender, mild kyphosis noted. Cardiovascular: Regular rate and rhythms no murmurs rubs or gallops, normal JVP Respiratory: Chest nontender. No respiratory distress.diffuse wheezing to auscultation bilaterally, diminished at bases. I do not appreciate any crackles. Abdomen: Soft, nontender nondistended, no appreciable organomegaly. Umbilical hernia present, reducible, nontender. Normal bowel sounds. No ascites Extremity: 3+ pitting edema in the lark semis bilaterally, no calf tenderness to palpation, normal and equal pulses. Neuro: Alert oriented x3, Skin: No appreciable rash on exposed skin, skin is warm and dry. Psych: Mood and affect is normal, memory and judgment is normal. Core Measures ACS in differential dx? Yes Severe Sepsis Present: No Septic Shock Present: No (AUSTIN HAN) Progress Differential Diagnosis: asthma, AMI, bronchitis, costochondritis, CHF, COPD, pulmonary embolism, pneumonia, pneumothorax Plan of Care: Orders Procedure Date/time Status Heart Healthy Diet 06/17 L Active Vital Signs 06/17 1216 Active Teach/Educate 06/17 121 Active Pain Treatment and Response 07/19 1216 Active Nutritional Intake, Monitor 06/17 1216 Active Isolation 06/17 1216 Active Intake & Output 06/17 1216 Active Patient Care Conference 06/17 1216 Active Activity/Ambulation 06/17 1216 Active Patient Data 06/17 1024 Active OXYGEN SETUP (GEN) 06/17 1009 Active Saline Lock 06/17 1009 Active Admit to inpatient 06/17 1009 Active Vital Signs 06/17 1009 Active Activity/Ambulation 06/17 1009 Active Code Status 06/17 1009 Active BLOOD CULTURE 06/17 0955 Active Intake & Output 06/17 0934 Active AEROSOL (GEN) 06/17 0911 Complete Telemetry/Outbound Telemarketing Representative 06/17 0847 Active TROPONIN LEVEL 06/17 0821 Complete PROTHROMBIN TIME 06/17 0821 Complete COMPREHENSIVE METABOLIC PANEL 06/17 0821 Complete CBC WITHOUT DIFFERENTIAL 06/17 0821 Complete B-TYPE NATRIURETIC PEP (BNP) 06/17 0821 Complete EKG 06/17 0821 Active Laboratory Tests 06/17/17 0850: Anion Gap 6, Estimated GFR > 60, BUN/Creatinine Ratio 25.7 H, Glucose 104 H, Calcium 8.7, Total Bilirubin 0.9, AST 18, ALT 31, Alkaline Phosphatase 59, Troponin I 0.06, Pjo-K-Drbvtzycjgu Pept 2830 H, Total Protein 5.9 L, Albumin 3.4 L, Globulin 2.5, Albumin/Globulin Ratio 1.4, PT 10.4, INR 0.99, CBC w Diff NO MAN DIFF REQ, RBC 3.48 L, MCV 77.1 L, MCH 25.3 L, RDW 17.6 H, MPV 6.4 L, Gran % 0.3 L, Lymphocytes % 86.6 H, Monocytes % 12.3 H, Eosinophils % 0.5, Basophils % 0.3, Absolute Granulocytes 0 L, Absolute Lymphocytes 2.8, Absolute Monocytes 0.4, Absolute Eosinophils 0, Absolute Basophils 0, PUBS MCHC 32.8 L Microbiology 06/17 1105 BLOOD: Blood Culture - RECD 06/17 1015 BLOOD: Blood Culture - RECD Diagnostic Imaging: Viewed by Me: Radiology Read. Discussed w/RAD: Radiology Read. Radiology Impression: PATIENT: SAPNA WERNER PRESENT AGE: 87 PATIENT ACCOUNT NO: [id number] : 32 LOCATION: [facility] ORDERING PHYSICIAN: AUSTIN BROWER SERVICE DATE: 06/17/17 EXAM TYPE: RAD - XRY-PORTABLE CHEST XRAY EXAMINATION: XR PORTABLE CHEST CLINICAL INFORMATION: Evaluate for CHF/pneumonia. Shortness of breath. COMPARISON: CT chest 2016. TECHNIQUE: Portable frontal view of the chest was obtained. FINDINGS: Lungs are hyperexpanded and there is flattening of the diaphragmatic contours. There is a relatively focal ill-defined opacity within the left lower hemithorax which may represent early changes of airspace disease. The cardiac silhouette and upper mediastinal contours are unremarkable. No acute osseous finding. IMPRESSION: An ill-defined opacity within the left lower hemithorax may represent a developing pneumonia. DICTATED BY: SHAMA HUBBARD,SIXTO Gleason DATE/TIME DICTATED:06/17/17936 AUCTION CLERK:SIAAK DATE/TIME TRANSCRIBED:936 CONFIDENTIAL, DO NOT COPY WITHOUT APPROPRIATE AUTHORIZATION. Initial ED EKG: NSR Prior EKG: unchanged Comments: On arrival patient given DuoNeb treatment, patient notes the distress, oxygen saturation in the low 90s on his chronic 2 L. No increased work of breathing. Patient does have pedal edema and diminished lung sounds. We will obtain x-ray to rule out pneumonia versus CHF. Patient informed of all lab work results and imaging study results. There does seem to be a left lower lobe infiltrate developing. Due to patient's immune compromised state patient will be admitted for IV antibiotics. [facility], IV vancomycin and ceftaz initiated. Patient will receive second breathing treatment. No overt pulmonary edema or pleural effusions appreciated on x-ray, BNP is elevated over 2000, consider IV Lasix to help with dyspnea. Patient poor candidate for outpatient treatment. Patient is agreeable to stay. D/W DR MOON AND HE AGREES WITH PLAN. (ANANT BROWER,AUSTIN) Departure Departure Time of Disposition: 1126 Disposition: STILL A PATIENT Condition: Stable Clinical Impression Primary Impression: Pneumonia Qualifiers: Pneumonia type: due to unspecified organism Laterality: left Lung location: lower lobe of lung Qualified Code: J18.1 - Lobar pneumonia, unspecified organism Secondary Impressions: COPD exacerbation Referrals: CHANTALE HUBBARD,SAPNA Manzano (PCP/Family) Departure Forms: Customer Survey General Discharge Information Admission Note Spoke With: [place] HUBBARD,MAIKEL Documentation of Exam: Documentation of any treatments & extenuating circumstances including Concerns Regarding Discharge (functional status, medication knowledge or non-compliance, living conditions, etc.) that warrant an admission rather than observation: Patient requiring IV antibiotics, pulmonology consultation, serial DuoNeb treatments, IV steroids, hematology consultation, will require I am Neupogen shots, discharge at this time is medically harmful as patient is immunocompromised, poor outpatient candidate. (AUSTIN HAN) PA/DIESEL TECHNOLOGY INSTRUCTOR Co-Sign Statement Statement: ED Attending supervision documentation- x I saw and evaluated the patient. I have also reviewed all the pertinent lab results and diagnostic results. I agree with the findings and the plan of care as documented in the PA's/DIESEL TECHNOLOGY INSTRUCTOR's documentation. [] I have reviewed the ED Record and agree with the PA's/DIESEL TECHNOLOGY INSTRUCTOR's documentation. [] Additions or exceptions (if any) to the PAs/DIESEL TECHNOLOGY INSTRUCTOR's note and plan are summarized below: [] (SARAI HUBBARD,[place]) Critical Care Note Critical Care Note Critical Care Time: non-applicable (AUSTIN HAN)
--- NOTE | 2017-06-17 08:54 | NUR ---
BLOOD WORK SENT TO LAB NOW: SST, LAV, BLUE, ARCOS AND PINK TOPS.
[2017-06-17 08:57] LABS: ABSOLUTE BASOPHIL COUNT 0 /CUMM (0.0-0.2); ABSOLUTE EOSINOPHIL COUNT 0 /CUMM (0.0-0.7); ABSOLUTE GRANULOCYTE CT 0 /CUMM (1.4-6.5); ABSOLUTE LYMPH COUNT 2.8 /CUMM (1.2-3.4); ABSOLUTE MONOCYTE COUNT 0.4 /CUMM (0.10-0.60); BASOPHIL % 0.3 % (0.0-2.0); EOSINOPHIL % 0.5 % (0-5); HEMATOCRIT 26.8 % (42-52); MEAN CORPUSCULAR HGB 25.3 PG (27.0-31.0); MEAN CORPUSCULAR HGB CONC 32.8 G/DL (33.0-37.0); MEAN CORPUSCULAR VOLUME 77.1 FL (80.0-94.0); MEAN PLATELET VOLUME 6.4 FL (7.4-10.4); PLATELET COUNT 101 /CUMM (130-400); RBC DISTRIBUTION WIDTH 17.6 % (11.5-14.5); RED BLOOD CELL CT 3.48 /CUMM (4.70-6.10); WHITE BLOOD CELL COUNT 3.3 /CUMM (4.8-10.8)
[2017-06-17 09:03] LABS: PT 10.4 SEC (9.4-12.5)
[2017-06-17 09:07] LABS: GRANULOCYTE % 0.3 % (42.2-75.2)
--- NOTE | 2017-06-17 09:43 | RADIOLOGY REPORT ---
EXAMINATION: XR PORTABLE CHEST CLINICAL INFORMATION: Evaluate for CHF/pneumonia. Shortness of breath. COMPARISON: CT chest 04/17/2017. TECHNIQUE: Portable frontal view of the chest was obtained. FINDINGS: Lungs are hyperexpanded and there is flattening of the diaphragmatic contours. There is a relatively focal ill-defined opacity within the left lower hemithorax which may represent early changes of airspace disease. The cardiac silhouette and upper mediastinal contours are unremarkable. No acute osseous finding. IMPRESSION: An ill-defined opacity within the left lower hemithorax may represent a developing pneumonia.
--- NOTE | 2017-06-17 11:16 | NUR ---
SECOND SET OF BLOOD CULTURES DRAWN AND SENT TO LAB. PT MEDICATED WITH FORTAZ AND SOLUMEDROL PER EMAR. TOLERATED WELL. VANCO INFUSING NOW.
--- NOTE | 2017-06-17 11:29 | NUR ---
PT PROVIDED FOOD TRAY.
--- NOTE | 2017-06-17 12:24 | History & Physical ---
ANTHONY HUBBARD,ALVA 06/17/17 1223: General Information and HPI MD Statement: I have seen and personally examined SAPNA WERNER and documented this H&P. The patient is a 87 year old M who presented with a patient stated chief complaint of [productive cough, sob]. 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 Mckenzie, rheumatoid arthritis, treated in the past with Methotrexate and currently with prednisone 10 mg daily, COPD, maintained on up to 3 L of oxygen at home, status post several recent hospitalizations for fever, neutropenia and pneumonia with the last one being in March 2017 when he presented with similar symptoms. He presents with symptoms of a cough productive of whitish to yellowish sputum and shortness of breath since last night, he however did not increase his O2 level from baseline 3 L. He denies any sick contacts but reports visiting his who is recovering from a broken hip at [facility] a week ago but says he used a face mask. He denies chest pain, nausea or vomiting, fever or chills. Allergies/Medications Allergies: Coded Allergies: NO KNOWN ALLERGIES (04/23/12) Home Med list Albuterol Sulfate (Proair Hfa) 8.5 GM HFA.AER.AD 2 PUF INH Q4H PRN COPD ( Reported) Albuterol Sulfate 2.5 MG/3 ML VIAL.NEB 1 Vial INH/ANKUR Q4P PRN COPD EXACERBATION Alendronate Sodium 70 MG TABLET 1 TAB PO QTHURS bone health (Reported) in the morning, at least 30 minutes before the first food, beverage, or medication of the day Aspirin (Aspirin*) 81 MG TAB.CHEW 1 TAB PO DAILY HEART HEALTH (Reported) Atorvastatin Calcium 20 MG TABLET 1 TAB PO DAILY CHOLESTEROL (Reported) Cholecalciferol (Vitamin D3) (Vitamin D) 400 UNIT TABLET 1 TAB PO DAILY SUPPLEMENT (Reported) Fluticasone/Salmeterol (Advair 250-50 Diskus) 250 MCG-50 MCG/DOSE BLST.W.DEV 1 PUF INH BID BREATHING PROBLEMS (Reported) Furosemide (Lasix) 40 MG TABLET 1 TAB PO DAILY CHF Multivitamin (Daily Multiple Vitamin) 1 EACH TABLET 1 TAB PO DAILY SUPPLEMENT (Reported) Omeprazole 20 MG CAPSULE.DR 1 CAP PO DAILY GI protection (Reported) Prednisone 10 MG TABLET 1 TAB PO DAILY COPD (Reported) Psyllium Husk (Metamucil) 660 GM POWDER 1 PAC PO PRN CONSTIPATION (Reported) Tiotropium [place] (Spiriva) 18 MCG CAP.W.DEV 1 CAP INH DAILY COPD (Reported) Compliance With Home Meds: GOOD Past History Travel History Traveled to [place] past 21 day No Medical History Neurological: NONE EENT: NONE Cardiovascular: CAD, CHF, hyperlipidemia, NSTEMI Respiratory: bronchitis, COPD, emphysema, pneumonia Gastrointestinal: colitis, hiatal hernia, peptic ulcer disease, upper GI bleed, C. 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 spouse Services at Home: None Primary Language: Slovak ETOH Use: denies use Illicit Drug Use: denies illicit drug use Living Will? yes Power of Behavioral Medical Director/HCP? yes Name of POA/HCP: Review of Systems Review of Systems Constitutional: Reports: no symptoms. Exam & Diagnostic Data Last 24 Hrs of Vital Signs/I&O Vital Signs Date Time Temp Pulse Resp B/P B/P Pulse O2 O2 Flow FiO2 Mean Ox Delivery Rate 06/17 1218 100 Nasal 3.0L Cannula 06/17 1117 96.8 56 15 126/57 100 Nasal 3.0L Cannula 06/17 1048 97 Nasal 3.0L Cannula 06/17 0932 Nasal 3.0L Cannula 06/17 0915 98 Nasal 3.0L Cannula 06/17 0802 97.7 81 21 118/55 92 Nasal 4.0L Cannula Intake & Output 06/17 1600 06/17 0800 06/17 0000 Intake Total 0 Output Total Balance 0 Intake, Oral 0 Patient 144 lb 144 lb Weight Weight Reported by Patient Reported by Patient Measurement Method Physical Exam General Appearance Alert, Oriented X3, Cooperative, No Acute Distress Skin No Rashes, No Breakdown Skin Temp/Moisture Exam: Warm/Dry HEENT Atraumatic, PERRLA, EOMI, Mucous Membr. moist/pink Cardiovascular Normal S1, Normal S2, regular rate with missed beats Lungs expiratory wheezes, bibasilar crackles Abdomen Normal Bowel Sounds, Soft, No Tenderness Extremities 1+ pedal edema bilaterally Last 24 Hrs of Labs/Edd: Laboratory Tests 06/17/17 0850: Anion Gap 6, Estimated GFR > 60, BUN/Creatinine Ratio 25.7 H, Glucose 104 H, Calcium 8.7, Total Bilirubin 0.9, AST 18, ALT 31, Alkaline Phosphatase 59, Troponin I 0.06, Bqo-O-Cggqphvgzwe Pept 2830 H, Total Protein 5.9 L, Albumin 3.4 L, Globulin 2.5, Albumin/Globulin Ratio 1.4, PT 10.4, INR 0.99, CBC w Diff NO MAN DIFF REQ, RBC 3.48 L, MCV 77.1 L, MCH 25.3 L, RDW 17.6 H, MPV 6.4 L, Gran % 0.3 L, Lymphocytes % 86.6 H, Monocytes % 12.3 H, Eosinophils % 0.5, Basophils % 0.3, Absolute Granulocytes 0 L, Absolute Lymphocytes 2.8, Absolute Monocytes 0.4, Absolute Eosinophils 0, Absolute Basophils 0, PUBS MCHC 32.8 L Microbiology 06/17 1105 BLOOD: Blood Culture - RECD 06/17 1015 BLOOD: Blood Culture - RECD Diagnostic Data EKG Results NSR with rate of 67, non-specific intraventricular conduction delays QTC prolonged at 503 CXR Results IMPRESSION: An ill-defined opacity within the left lower hemithorax may represent a developing pneumonia. 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 Mckenzie, rheumatoid arthritis treated in the past with Methotrexate and currently with prednisone 10 mg daily, COPD, maintained on up to 3 L of oxygen at home, status post several recent hospitalizations for fever, neutropenia and pneumonia with the last one being in March 2017 here with symptoms of a cough productive of whitish to yellowish sputum and shortness of breath since last night. He denies any sick contacts but reports visiting his who is recovering from a broken hip at [facility] a week ago. He denies chest pain, nausea or vomiting, fever or chills. Assessment 1. COPD exacerbation with suspicion of community acquired pneumonia in the setting of neutropenia r/o malignancy/post obstructive PNA 2. H/O oxygen dependendent COPD 3. H/O R.A on steroid therapy 10 mg prednisone daily 4. H/O T celll lymphoproliferative disorder on chronic neupogen therapy 5. H/o ischemic ccardiomyopathy on PO lasix 40 mg daily 6. History of osteoporosis on bisphosphonate therapy weekly 7. GERD 8. Hyperlipidemia 9. Coronary artery disease 10. Pancytopenia Plan Admit to general medicine floor Obtain chest CT without contrast to further evaluate left lower lobe infiltrate; CXR shows similar infiltrate seen on last admission Hold off antibiotics for now Check strep pneumonia and legionella antigens IV Solumedrol 40mg Q8hrs TRC/Nebs Mucinex BOD Sputum culture, blood culture 2 Obtain a pulmonary consult Obtain an ID consult Continuehis home dose of medication Continue Neupogen [facility] Oncology consult Follow attending recs Alps for DVT prophylaxis Mild pain pathway DNR/DNI As Ranked By This Provider Problem List: 1. Pneumonia Qualifiers Pneumonia type: due to unspecified organism Laterality: left Lung location: lower lobe of lung Qualified Code: J18.1 - Lobar pneumonia, unspecified organism Core Measures/Miscellaneous Acute Coronary Syndrome ACS Diagnosis: No Cerebrovascular Accident CVA/TIA Diagnosis: No Congestive Heart Failure CHF Diagnosis: No VTE (View Protocol) VTE Risk Factors: Acute medical illness, Age > 40 [facility] prophylaxis d/t: No contraindications No VTE Pharm Prophylaxis d/t: No contraindications VTE Diagnosis: No VTE Type: NONE VTE Confirmed by (Test): NONE Sepsis (View Protocol) Severe Sepsis Present: No BC x2: Yes Lactic Acid x2: No IV ABX Broad Spectrum: Yes Septic Shock Septic Shock Present: No Miscellaneous Documentation Attending Case Discussed With: MAIKEL HO MD Primary Care Physician: SAPNA KENYON MD Patient sees these Specialists Oncology Level of Patient Care: General Medicine Resident Review Statement Resident Statement: examined this patient Other Findings: see HPI MAIKEL HO MD 06/17/17 1414: Attending MD Review Statement Attending Statement Attending MD Statement: examined this patient, discuss w/resident/PA/BOOKMOBILE CLERK, agreed w/resident/PA/BOOKMOBILE CLERK, reviewed EMR data (avail), discussed with nursing, reviewed images, amended to note Attending Assessment/Plan: 87 y/o M with pmh sig for presumptive diagnosis of T-cell lymphoproliferative disorder, with chronic neutropenia, treated in the past with Chlorambucil, prednisone and on weekly Neupogen injection under the care of Dr. Mckenzie, rheumatoid arthritis, treated in the past with Methotrexate and currently with prednisone 10 mg daily, COPD, ch resp failure, maintained on up to 3 L of oxygen at home. Most recent hospitalization was in 04/15 with sepsis, pneumonia, neutropenia was treated with meropenam inpatient and discharged on levaquin. Patient presented with increased congestion that started last night. He is coughing up more sputum which is clear to light yellowish in color. He was having more difficulty breathing. He used his neb treatments multiple times with no relief. This morning he was feeling worse and congestion in the chest was so bad that she was having really hard time breathing therefore he presented himself to the emergency room. He denies any sick contacts, he denies any sore throat, sinus congestion or earache. He is due to get his Neupogen injection today with Dr. Mckenzie. He denies any chest pain, abdominal pain, urinary complaints. Vital Signs Date Time Temp Pulse Resp B/P B/P Pulse O2 O2 Flow FiO2 Mean Ox Delivery Rate 06/17 1218 100 Nasal 3.0L Cannula 06/17 1117 96.8 56 15 126/57 100 Nasal 3.0L Cannula 06/17 1048 97 Nasal 3.0L Cannula 06/17 0932 Nasal 3.0L Cannula 06/17 0915 98 Nasal 3.0L Cannula 06/17 0802 97.7 81 21 118/55 92 Nasal 4.0L Cannula On exam; aox3, nad. Cv; s1, s2, rrr resp; junky breath sounds overall. Abd; soft, nt, bs+, + scar kena from previous abd surgery. Ext; 2+ edema which patient claims is chronic. Laboratory Tests 06/17 0850 Chemistry Sodium (137 - 145 mmol/L) 127 L Potassium (3.5 - 5.1 mmol/L) 3.6 Chloride (98 - 107 mmol/L) 83 L Carbon Dioxide (22 - 30 mmol/L) 38 H Anion Gap (5 - 16) 6 BUN (9 - 20 mg/dL) 18 Creatinine (0.7 - 1.2 mg/dL) 0.7 Estimated GFR (>60 ml/min) > 60 BUN/Creatinine Ratio (7 - 25 %) 25.7 H Glucose (65 - 99 mg/dL) 104 H Calcium (8.4 - 10.2 mg/dL) 8.7 Total Bilirubin (0.2 - 1.3 mg/dL) 0.9 AST (17 - 59 U/L) 18 ALT (21 - 72 U/L) 31 Alkaline Phosphatase (< 127 U/L) 59 Troponin I (<0.11 ng/ml) 0.06 Nsh-F-Mjwekjtorod Pept (<125 pg/mL) 2830 H Total Protein (6.3 - 8.2 g/dL) 5.9 L Albumin (3.5 - 5.0 g/dL) 3.4 L Globulin (1.9 - 4.2 gm/dL) 2.5 Albumin/Globulin Ratio (1.1 - 2.2 %) 1.4 Coagulation PT (9.4 - 12.5 SEC) 10.4 INR (0.90 - 1.17) 0.99 Hematology CBC w Diff NO MAN DIFF REQ WBC (4.8 - 10.8 /CUMM) 3.3 L RBC (4.70 - 6.10 /CUMM) 3.48 L Hgb (14.0 - 18.0 G/DL) 8.8 L Hct (42 - 52 %) 26.8 L MCV (80.0 - 94.0 FL) 77.1 L MCH (27.0 - 31.0 PG) 25.3 L RDW (11.5 - 14.5 %) 17.6 H Plt Count (130 - 400 /CUMM) 101 L MPV (7.4 - 10.4 FL) 6.4 L Gran % (42.2 - 75.2 %) 0.3 L Lymphocytes % (20.5 - 51.1 %) 86.6 H Monocytes % (1.7 - 9.3 %) 12.3 H Eosinophils % (0 - 5 %) 0.5 Basophils % (0.0 - 2.0 %) 0.3 Absolute Granulocytes (1.4 - 6.5 /CUMM) 0 L Absolute Lymphocytes (1.2 - 3.4 /CUMM) 2.8 Absolute Monocytes (0.10 - 0.60 /CUMM) 0.4 Absolute Eosinophils (0.0 - 0.7 /CUMM) 0 Absolute Basophils (0.0 - 0.2 /CUMM) 0 PUBS MCHC (33.0 - 37.0 G/DL) 32.8 L EKG: Sinus rythm, QTC 503. CXR: An ill-defined opacity within the left lower hemithorax may represent a developing pneumonia. he had similar opacity in previous imaging. A/P; 87 y/o M with pmh sig for presumptive diagnosis of T-cell lymphoproliferative disorder, with chronic neutropenia, treated in the past with Chlorambucil, prednisone and on weekly Neupogen injection under the care of Dr. Mckenzie, rheumatoid arthritis, treated in the past with Methotrexate and currently with prednisone 10 mg daily, COPD, ch resp failure, maintained on up to 3 L of oxygen at home admitted with acute COPD exacerbation and bronchitis. I'm not 100% convinced that he has pneumonia. Patient will be admitted to medicine floor. Please obtain a CT chest without contrast to look better this left-sided opacity on the chest x-ray. He had this finding on the previous imaging as well. Patient is afebrile and he has neutropenia which is chronic. He did receive IV antibiotics in the emergency room. At this point we should follow-up on the chest CT before continuing any further antibiotics. Will obatin soutum cx, urine legionella and strept cx. Recommend pulmonology and ID consult. Please obtain consult from Dr. Mckenzie for this patient's continued need for Neupogen. Patient should be treated with IV steroids, TRC nebs and his inhalers. He does have chronic anemia. Patient also has thrombocytopenia. DVT prophylaxis: ALPS secondary to thrombocytopenia. DNR/I.
--- NOTE | 2017-06-17 13:36 | NUR ---
PHARM CALLED FOR MEDS.
--- NOTE | 2017-06-17 14:21 | Admission Certification ---
Admission Certification Certification Statement - As attending physician, I certify that at the time of - admission, based on clinical presentation, severity of - symptoms, need for further diagnostic testing and - therapeutic interventions, and risk of adverse outcomes - without in-hospital treatment, in my clinical assessment, - this patient requires an acute hospital stay for a minimum - of two nights or longer. I have also considered psychsocial - factors such as support system, advanced age, financial - issues, cognitive issues, and failed out-patient treatments, - past re-admission history, safety of patient, and lack of - compliance as applicable. Specific rationale supporting this admission is: patient admitted with acute COPd/ bronchitis, needs IV steroids, TRC nebs.
[2017-06-17 16:00] VITALS: BP 152/65
--- NOTE | 2017-06-17 17:19 | NUR ---
PHARM CALLED FOR LIPITOR
--- NOTE | 2017-06-17 18:00 | NUR ---
PT MEDICATED WITH LIPITOR PER EMAR.
--- NOTE | 2017-06-17 18:22 | CT SCAN REPORT ---
EXAMINATION: CT CHEST WITHOUT CONTRAST CLINICAL INFORMATION: Cough and increasing shortness of breath. Presumptive diagnosis of pneumonia. COMPARISON: Chest x-ray dated 06/17/2017. CT scan of the chest dated 04/17/2017, 12/16/2016, 12/15/2016, 11/17/2016, 09/15/2016, 08/15/2016. TECHNIQUE: Multidetector volumetric CT imaging of the chest was obtained noncontrast. Sagittal and coronal reformations were obtained. DLP: 181.91 mGy-cm. FINDINGS: LUNGS: Moderate bilateral centrilobular emphysema and multiple scattered peripheral and subpleural reticular nodular densities again seen, most consistent with areas of scarring. The previously seen reticular and subtle groundglass opacities in the both lower lobes and inferior lingula and right middle lobe are again noted, unchanged. Associated slight bronchiectatic changes of the airways and thickening of the airway montes is noted. Subtle linear filling defect is seen in the distal trachea extending into the right mainstem bronchus, consistent with inspissated mucus/debris. No evolving pneumonia is seen in the left lower lobe. Persistent mild bilateral pleural thickening is seen in the lower lobes. No effusion or pneumothorax. Central airways patent. LYMPHOVASCULAR STRUCTURES: Aorta ectatic with mild atherosclerotic calcifications seen. Enlargement of the left heart chambers is noted. No pericardial effusion. Severe coronary artery calcifications. No mediastinal, hilar or axillary adenopathy or free fluid collection. THYROID GLAND: Unremarkable to the extent included. CHEST WALL: Bilaterally, retroareolar densities are seen, most consistent with gynecomastia. UPPER ABDOMEN: A small small retrocardiac hiatal hernia is seen. Included portions of the pancreas are atrophic. Included portions of the solid organs in the upper abdomen are otherwise unremarkable on noncontrast study. BONES: Diffuse osteopenia with multiple bilateral old healed fracture deformities of the ribs noted. There is a prominent thoracic kyphosis with mild multilevel compression deformities in the mid and lower thoracic spine. Ossification of the anterior longitudinal ligament and multilevel vertebral body spurring is seen. Findings are similar to the previous exam. No suspicious focal findings. IMPRESSION: 1. No evidence of evolving pneumonia in the left lower lobe. 2. No significant interval change in bilateral lower lobe and inferior right middle lobe and lingular reticular nodular opacities and groundglass opacities, possibly related to chronic fibrotic changes with associated traction bronchiectasis versus residual/resolving pneumonia. 3. No adenopathy. 4. Left heart enlargement and severe coronary artery calcifications. 5. Small hiatal hernia. 6. Osteopenia with multiple compression deformities in mid and lower thoracic spine and old healed bilateral rib fractures. 7. Gynecomastia.
--- NOTE | 2017-06-17 19:53 | NUR ---
ASSUMED CARE OF PT. PT RESTING COMFORTABLY. OFFERS NO COMPLAINTS. PT IS AWAITING VISIT FROM DAUGHTER. PT HAS CALL [facility] AND UNDERSTANDS TO USE IT IF HE NEEDS SOMETHING. WILL CTM.
--- NOTE | 2017-06-17 20:09 | NUR ---
RESP AT BEDSIDE
--- NOTE | 2017-06-17 20:12 | Cons- Infect Disease ---
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 Tachypneic in ED on admission, currently more comfortable. Abnormal blood work. No fever. Allergies/Medications Allergies: Coded Allergies: NO KNOWN ALLERGIES (04/23/12) Home Med List: Albuterol Sulfate (Proair Hfa) 8.5 GM HFA.AER.AD 2 PUF INH Q4H PRN COPD ( Reported) Albuterol Sulfate 2.5 MG/3 ML VIAL.NEB 1 Vial INH/ANKUR Q4P PRN COPD EXACERBATION Alendronate Sodium 70 MG TABLET 1 TAB PO QTHURS bone health (Reported) in the morning, at least 30 minutes before the first food, beverage, or medication of the day Aspirin (Aspirin*) 81 MG TAB.CHEW 1 TAB PO DAILY HEART HEALTH (Reported) Atorvastatin Calcium 20 MG TABLET 1 TAB PO DAILY CHOLESTEROL (Reported) Cholecalciferol (Vitamin D3) (Vitamin D) 400 UNIT TABLET 1 TAB PO DAILY SUPPLEMENT (Reported) Fluticasone/Salmeterol (Advair 250-50 Diskus) 250 MCG-50 MCG/DOSE BLST.W.DEV 1 PUF INH BID BREATHING PROBLEMS (Reported) Furosemide (Lasix) 40 MG TABLET 1 TAB PO DAILY CHF Multivitamin (Daily Multiple Vitamin) 1 EACH TABLET 1 TAB PO DAILY SUPPLEMENT (Reported) Omeprazole 20 MG CAPSULE.DR 1 CAP PO DAILY GI protection (Reported) Prednisone 10 MG TABLET 1 TAB PO DAILY COPD (Reported) Psyllium Husk (Metamucil) 660 GM POWDER 1 PAC PO PRN CONSTIPATION (Reported) Tiotropium Williamson (Spiriva) 18 MCG CAP.W.DEV 1 CAP INH DAILY COPD (Reported) Current Medications: Current Medications Sig/Jorgito Start time Last Medication Dose Route Stop Time Status Admin Acetaminophen 650 MG Q6P PRN 06/17 1345 DC PO Albuterol Sulfate 3 ML EVERY 4 HRS/AWAKE 06/17 2000 AC 06/17 INH 1610 Albuterol Sulfate 3 ML ONCE ONE 06/17 1045 DC 06/17 INH 06/17 1046 1044 Albuterol Sulfate 3 ML ONCE ONE 06/17 0900 DC 06/17 INH 06/17 0901 0910 Aspirin 81 MG DAILY 06/17 1325 AC 06/17 PO 1425 Atorvastatin Calcium 20 MG 1700 06/17 1700 AC 06/17 PO 1800 Ceftazidime 1,000 MG Q12 06/17 2200 AC IV Ceftazidime 0 .STK-MED ONE 06/17 1055 DC .ROUTE Ceftazidime 1,000 MG ONCE ONE 06/17 1015 DC 06/17 IV 06/17 1016 1106 Cholecalciferol 400 IU DAILY 06/17 1325 AC 06/17 PO 1425 Filgrastim 300 MCG DAILY 06/17 1452 AC 06/17 SC 1552 Furosemide 40 MG DAILY 06/17 1325 AC 06/17 PO 1425 Heparin Sodium 5,000 UNIT Q8 06/17 1400 DC (Porcine) SC Ipratropium Williamson 2.5 ML EVERY 4 HRS/AWAKE 06/17 2000 DC INH Ipratropium Williamson 2.5 ML ONCE ONE 06/17 0900 DC 06/17 INH 06/17 0901 0910 Methylprednisolone 40 MG Q8 06/17 1400 AC 06/17 IV 1425 Methylprednisolone 0 .STK-MED ONE 06/17 1055 DC .ROUTE Methylprednisolone 125 MG ONCE ONE 06/17 1015 DC 06/17 IV 06/17 1016 1106 Omeprazole 20 MG DAILY 06/17 1325 AC 06/17 PO 1425 Polyethylene Glycol 17 GM DAILY NEEDED PRN 06/17 1345 AC PO Prednisone 10 MG DAILY 06/18 1000 CAN PO Tiotropium Williamson 1 PUF DAILY 06/17 1326 AC 06/17 INH 1552 Vancomycin HCl 1,000 MG DAILY 06/18 1000 CAN Sodium Chloride 250 ML IV Vancomycin HCl 0 .STK-MED ONE 06/17 1055 DC .ROUTE Vancomycin HCl 1,000 MG ONCE ONE 06/17 1015 DC 06/17 Sodium Chloride 250 ML IV 06/17 1114 1118 Past History Travel History Traveled to [place] past 21 day No Medical History Blood Transfusion Hx: No Neurological: NONE EENT: NONE Cardiovascular: CAD, CHF, hyperlipidemia, NSTEMI Respiratory: bronchitis, COPD, emphysema, pneumonia Gastrointestinal: colitis, hiatal hernia, peptic ulcer disease, upper GI bleed, C. 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 spouse Services at Home: None Primary Language: Burundian Smoking Status: Former Smoker ETOH Use: denies use Illicit Drug Use: denies illicit drug use Living Will? yes Power of Whizzer Hand/HCP? yes Name of POA/HCP: Review of Systems Comments 12 points reviewed as noted otherwise negative Exam & Diagnostic Data Last 24 Hrs of Vital Signs/I&O Vital Signs Date Time Temp Pulse Resp B/P B/P Pulse O2 O2 Flow FiO2 Mean Ox Delivery Rate 06/17 1938 96.2 72 20 149/64 99 Nasal 3.0L Cannula 06/17 1630 95 Nasal 3.0L Cannula 06/17 1620 Nasal 3.0L Cannula 06/17 1600 Nasal 3.0L Cannula 06/17 1600 96.9 58 15 152/65 100 Nasal 3.0L Cannula 06/17 1445 96.9 58 15 152/65 100 Nasal 3.0L Cannula 06/17 1218 100 Nasal 3.0L Cannula 06/17 1117 96.8 56 15 126/57 100 Nasal 3.0L Cannula 06/17 1048 97 Nasal 3.0L Cannula 06/17 0932 Nasal 3.0L Cannula 06/17 0915 98 Nasal 3.0L Cannula 06/17 0802 97.7 81 21 118/55 92 Nasal 4.0L Cannula Intake & Output 06/17 1600 06/17 0800 06/17 0000 Intake Total 590 Output Total 225 Balance 365 Intake, IV 350 Intake, Oral 240 Output, Urine 225 Patient 144 lb 144 lb Weight Weight Reported by Patient Reported by Patient Measurement Method Physical Exam Other Physical Findings: General Appearance Alert, Oriented X3, Cooperative, No Acute Distress Skin No Rashes, No Breakdown Skin Temp/Moisture Exam: Warm/Dry HEENT Atraumatic, PERRLA, EOMI, Mucous Membr. moist/pink Cardiovascular Normal S1, Normal S2, regular rate with missed beats Lungs expiratory wheezes, bibasilar crackles Abdomen Normal Bowel Sounds, Soft, No Tenderness Extremities 1+ pedal edema bilaterally Last 24 Hours of Lab Results: Laboratory Tests 06/17 0850 Chemistry Sodium (137 - 145 mmol/L) 127 L Potassium (3.5 - 5.1 mmol/L) 3.6 Chloride (98 - 107 mmol/L) 83 L Carbon Dioxide (22 - 30 mmol/L) 38 H Anion Gap (5 - 16) 6 BUN (9 - 20 mg/dL) 18 Creatinine (0.7 - 1.2 mg/dL) 0.7 Estimated GFR (>60 ml/min) > 60 BUN/Creatinine Ratio (7 - 25 %) 25.7 H Glucose (65 - 99 mg/dL) 104 H Calcium (8.4 - 10.2 mg/dL) 8.7 Total Bilirubin (0.2 - 1.3 mg/dL) 0.9 AST (17 - 59 U/L) 18 ALT (21 - 72 U/L) 31 Alkaline Phosphatase (< 127 U/L) 59 Troponin I (<0.11 ng/ml) 0.06 Hss-O-Seygjhnnbdr Pept (<125 pg/mL) 2830 H Total Protein (6.3 - 8.2 g/dL) 5.9 L Albumin (3.5 - 5.0 g/dL) 3.4 L Globulin (1.9 - 4.2 gm/dL) 2.5 Albumin/Globulin Ratio (1.1 - 2.2 %) 1.4 Coagulation PT (9.4 - 12.5 SEC) 10.4 INR (0.90 - 1.17) 0.99 Hematology CBC w Diff NO MAN DIFF REQ WBC (4.8 - 10.8 /CUMM) 3.3 L RBC (4.70 - 6.10 /CUMM) 3.48 L Hgb (14.0 - 18.0 G/DL) 8.8 L Hct (42 - 52 %) 26.8 L MCV (80.0 - 94.0 FL) 77.1 L MCH (27.0 - 31.0 PG) 25.3 L RDW (11.5 - 14.5 %) 17.6 H Plt Count (130 - 400 /CUMM) 101 L MPV (7.4 - 10.4 FL) 6.4 L Gran % (42.2 - 75.2 %) 0.3 L Lymphocytes % (20.5 - 51.1 %) 86.6 H Monocytes % (1.7 - 9.3 %) 12.3 H Eosinophils % (0 - 5 %) 0.5 Basophils % (0.0 - 2.0 %) 0.3 Absolute Granulocytes (1.4 - 6.5 /CUMM) 0 L Absolute Lymphocytes (1.2 - 3.4 /CUMM) 2.8 Absolute Monocytes (0.10 - 0.60 /CUMM) 0.4 Absolute Eosinophils (0.0 - 0.7 /CUMM) 0 Absolute Basophils (0.0 - 0.2 /CUMM) 0 PUBS MCHC (33.0 - 37.0 G/DL) 32.8 L Last 24 Hours of Edd Results: SPEC #: [id number] DARRYN: 06/17/17 STATUS: CAN RECD: 06/17/[address]: ANTHONY HUBBARD,MATEUS SOURCE: LOWER RESP ENTR: 06/17/17-[address]: GEORGIA HUBBARD,MAIKEL SPDESC: SPUTUM CHANTALE HUBBARD,SAPNA Manzano ORDERED: LOWER RESPIRATO Procedure Result CANCELLED NUMBER OF SQUAMOUS CELLS INDICATES POOR QUALITY SPECIMEN PLEASE RECOLLECT. CALLED TO JAVY BY ERICH 06/17/17 8953 Diagnostic Data Recent Imaging Findings: CXR IMPRESSION: An ill-defined opacity within the left lower hemithorax may represent a developing pneumonia. SERVICE DATE: 06/17/17- EXAM TYPE: CAT - CT CHEST WO IV CONTRAST EXAMINATION: CT CHEST WITHOUT CONTRAST CLINICAL INFORMATION: Cough and increasing shortness of breath. Presumptive diagnosis of pneumonia. COMPARISON: Chest x-ray dated 06/17/2017. CT scan of the chest dated 04/17/2017, 12/16/2016, 12/15/2016, 11/17/2016, 09/15/2016, 08/15/2016. TECHNIQUE: Multidetector volumetric CT imaging of the chest was obtained noncontrast. Sagittal and coronal reformations were obtained. DLP: 181.91 mGy-cm. FINDINGS: LUNGS: Moderate bilateral centrilobular emphysema and multiple scattered peripheral and subpleural reticular nodular densities again seen, most consistent with areas of scarring. The previously seen reticular and subtle groundglass opacities in the both lower lobes and inferior lingula and right middle lobe are again noted, unchanged. Associated slight bronchiectatic changes of the airways and thickening of the airway montes is noted. Subtle linear filling defect is seen in the distal trachea extending into the right mainstem bronchus, consistent with inspissated mucus/debris. No evolving pneumonia is seen in the left lower lobe. Persistent mild bilateral pleural thickening is seen in the lower lobes. No effusion or pneumothorax. Central airways patent. LYMPHOVASCULAR STRUCTURES: Aorta ectatic with mild atherosclerotic calcifications seen. Enlargement of the left heart chambers is noted. No pericardial effusion. Severe coronary artery calcifications. No mediastinal, hilar or axillary adenopathy or free fluid collection. THYROID GLAND: Unremarkable to the extent included. CHEST WALL: Bilaterally, retroareolar densities are seen, most consistent with gynecomastia. UPPER ABDOMEN: A small small retrocardiac hiatal hernia is seen. Included portions of the pancreas are atrophic. Included portions of the solid organs in the upper abdomen are otherwise unremarkable on noncontrast study. BONES: Diffuse osteopenia with multiple bilateral old healed fracture deformities of the ribs noted. There is a prominent thoracic kyphosis with mild multilevel compression deformities in the mid and lower thoracic spine. Ossification of the anterior longitudinal ligament and multilevel vertebral body spurring is seen. Findings are similar to the previous exam. No suspicious focal findings. IMPRESSION: 1. No evidence of evolving pneumonia in the left lower lobe. 2. No significant interval change in bilateral lower lobe and inferior right middle lobe and lingular reticular nodular opacities and groundglass opacities, possibly related to chronic fibrotic changes with associated traction bronchiectasis versus residual/resolving pneumonia. 3. No adenopathy. 4. Left heart enlargement and severe coronary artery calcifications. 5. Small hiatal hernia. 6. Osteopenia with multiple compression deformities in mid and lower thoracic spine and old healed bilateral rib fractures. 7. Gynecomastia. DICTATED BY: PROMISE HUBBARD,NATAN Landrum DATE/TIME DICTATED:06/17/171754 ROLL INSPECTOR:ISAAK DATE/TIME TRANSCRIBED:06/17/171754 CONFIDENTIAL, DO NOT COPY WITHOUT APPROPRIATE AUTHORIZATION. <Electronically signed in Other Vendor System> SIGNED BY: PROMISE HUBBARD,NATAN N. 1970 Assessment/Plan Assessment/Plan Impression: 87-year-old man immunocompromised with a presumptive diagnosis of T-cell lymphoproliferative disorder, leukopenia/neutropenia, rheumatoid arthritis prednisone 10 mg daily, COPD O2 dependent 3L N/C admitted today with acute acute bronchitis/bronchiecatsis/possible LLL developing pneumonia. CT chest findings noted. Has histoty of pneumonia due to E. coli ESBL, Ps. aeruginosa 11/2016. Suggestion: 1. Obtain nasal MRSA surv cx. 2. Repeat sputum cx; f/u BC results. Currently treated empirically w/ iv Ceftazidime (dose 1 gm q 8 h) and clinically improved. 3. Trend CBC/BMP. Consult Acknowledgment - Thank you for your consult request. - Thank you for your consult request.
--- NOTE | 2017-06-17 21:41 | NUR ---
PT REQUESTING NIGHT TIME MUCINEX. HOUSE STAFF PAGED FOR ORDER. AWAITING RETURN CALL.
--- NOTE | 2017-06-17 22:58 | NUR ---
PT ASSIGNED BED [id number]
--- NOTE | 2017-06-17 23:33 | NUR ---
ATTEMPT TO GIVE REPORT, NURSE WILL CALL BACK
--- NOTE | 2017-06-18 00:42 | NUR ---
ATTEMPT TO GIVE REPORT. NURSE WILL CALL BACK.
--- NOTE | 2017-06-18 00:52 | NUR ---
REPORT GIVEN TO JUNE LINDSEY 2NB
[2017-06-18 02:36] VITALS: BP 157/77
--- NOTE | 2017-06-18 06:42 | Cons- Hematology ---
General Information and HPI Consulting Request Date of Consult: 06/18/17 Requested By: GEORGIA HUBBARD,MAIKEL History of Present Illness: This is one of multiple admissions for this 87-year-old gentleman with neutropenia of uncertain etiology. She does have rheumatoid arthritis and as well possible MDS. Patient is being treated as an outpatient with weekly Neupogen and prednisone 10 mg per day. Although his blood blood count has not responded dramatically to weekly Neupogen, his episodes of febrile illness have decreased. The patient now is admitted with congestion and cough. He denied fever or chills. Allergies/Medications Allergies: Coded Allergies: NO KNOWN ALLERGIES (04/23/12) Home Med List: Albuterol Sulfate (Proair Hfa) 8.5 GM HFA.AER.AD 2 PUF INH Q4H PRN COPD ( Reported) Albuterol Sulfate 2.5 MG/3 ML VIAL.NEB 1 Vial INH/ANKUR Q4P PRN COPD EXACERBATION Alendronate Sodium 70 MG TABLET 1 TAB PO QTHURS bone health (Reported) in the morning, at least 30 minutes before the first food, beverage, or medication of the day Aspirin (Aspirin*) 81 MG TAB.CHEW 1 TAB PO DAILY HEART HEALTH (Reported) Atorvastatin Calcium 20 MG TABLET 1 TAB PO DAILY CHOLESTEROL (Reported) Cholecalciferol (Vitamin D3) (Vitamin D) 400 UNIT TABLET 1 TAB PO DAILY SUPPLEMENT (Reported) Fluticasone/Salmeterol (Advair 250-50 Diskus) 250 MCG-50 MCG/DOSE BLST.W.DEV 1 PUF INH BID BREATHING PROBLEMS (Reported) Furosemide (Lasix) 40 MG TABLET 1 TAB PO DAILY CHF Multivitamin (Daily Multiple Vitamin) 1 EACH TABLET 1 TAB PO DAILY SUPPLEMENT (Reported) Omeprazole 20 MG CAPSULE.DR 1 CAP PO DAILY GI protection (Reported) Prednisone 10 MG TABLET 1 TAB PO DAILY COPD (Reported) Psyllium Husk (Metamucil) 660 GM POWDER 1 PAC PO PRN CONSTIPATION (Reported) Tiotropium Sargeant (Spiriva) 18 MCG CAP.W.DEV 1 CAP INH DAILY COPD (Reported) Current Medications: Current Medications Sig/Jorgito Start time Last Medication Dose Route Stop Time Status Admin Acetaminophen 650 MG Q6P PRN 06/17 1345 DC PO Albuterol Sulfate 3 ML EVERY 4 HRS/AWAKE 06/17 2000 AC 06/17 INH 2043 Albuterol Sulfate 3 ML ONCE ONE 06/17 1045 DC 06/17 INH 06/17 1046 1044 Albuterol Sulfate 3 ML ONCE ONE 06/17 0900 DC 06/17 INH 06/17 0901 0910 Aspirin 81 MG DAILY 06/17 1325 AC 06/17 PO 1425 Atorvastatin Calcium 20 MG 1700 06/17 1700 AC 06/17 PO 1800 Ceftazidime 0 .STK-MED ONE 06/17 2210 DC .ROUTE Ceftazidime 1,000 MG Q12 06/17 2200 AC 06/17 IV 2211 Ceftazidime 0 .STK-MED ONE 06/17 1055 DC .ROUTE Ceftazidime 1,000 MG ONCE ONE 06/17 1015 DC 06/17 IV 06/17 1016 1106 Cholecalciferol 400 IU DAILY 06/17 1325 AC 06/17 PO 1425 Filgrastim 300 MCG DAILY 06/17 1452 AC 06/17 SC 1552 Furosemide 40 MG DAILY 06/17 1325 AC 06/17 PO 1425 Heparin Sodium 5,000 UNIT Q8 06/17 1400 DC (Porcine) SC Ipratropium Sargeant 2.5 ML EVERY 4 HRS/AWAKE 06/17 2000 DC INH Ipratropium Sargeant 2.5 ML ONCE ONE 06/17 0900 DC 06/17 INH 06/17 0901 0910 Methylprednisolone 0 .STK-MED ONE 06/17 2210 DC .ROUTE Methylprednisolone 40 MG Q8 06/17 1400 AC 06/18 IV 0555 Methylprednisolone 0 .STK-MED ONE 06/17 1055 DC .ROUTE Methylprednisolone 125 MG ONCE ONE 06/17 1015 DC 06/17 IV 06/17 1016 1106 Omeprazole 20 MG DAILY 06/17 1325 AC 06/17 PO 1425 Polyethylene Glycol 17 GM DAILY NEEDED PRN 06/17 1345 AC PO Prednisone 10 MG DAILY 06/18 1000 CAN PO Tiotropium Sargeant 1 PUF DAILY 06/17 1326 AC 06/17 INH 1552 Vancomycin HCl 1,000 MG DAILY 06/18 1000 CAN Sodium Chloride 250 ML IV Vancomycin HCl 0 .STK-MED ONE 06/17 1055 DC .ROUTE Vancomycin HCl 1,000 MG ONCE ONE 06/17 1015 DC 06/17 Sodium Chloride 250 ML IV 06/17 1114 1118 Review of Systems Review of Systems: Patient denies headaches or dizziness. The patient denies nausea vomiting diarrhea or change in bowel habits. Patient denies dysuria or hematuria. The patient denies new bone aches or focal neurologic deficit Past History Travel History Traveled to [place] past 21 day No Medical History Blood Transfusion Hx: No Neurological: NONE EENT: NONE Cardiovascular: CAD, CHF, hyperlipidemia, NSTEMI Respiratory: bronchitis, COPD, emphysema, pneumonia Gastrointestinal: colitis, hiatal hernia, peptic ulcer disease, upper GI bleed, C. 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 spouse Services at Home: None Primary Language: Bulgarian Smoking Status: Former Smoker ETOH Use: denies use Illicit Drug Use: denies illicit drug use Living Will? 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 yes Name of POA/HCP: Exam & Diagnostic Data Vital Signs and I&O Vital Signs Date Time Temp Pulse Resp B/P B/P Pulse O2 O2 Flow FiO2 Mean Ox Delivery Rate 06/18 0236 97.5 59 20 157/77 100 Nasal 3.0L Cannula 06/18 0141 Nasal 3.0L Cannula 06/18 0001 97.0 70 19 136/65 99 Room Air 06/17 2044 95 Nasal 3.0L Cannula 06/17 1938 96.2 72 20 149/64 99 Nasal 3.0L Cannula 06/17 1630 95 Nasal 3.0L Cannula 06/17 1620 Nasal 3.0L Cannula 06/17 1600 Nasal 3.0L Cannula 06/17 1600 96.9 58 15 152/65 100 Nasal 3.0L Cannula 06/17 1445 96.9 58 15 152/65 100 Nasal 3.0L Cannula 06/17 1218 100 Nasal 3.0L Cannula 06/17 1117 96.8 56 15 126/57 100 Nasal 3.0L Cannula 06/17 1048 97 Nasal 3.0L Cannula 06/17 0932 Nasal 3.0L Cannula 06/17 0915 98 Nasal 3.0L Cannula 06/17 0802 97.7 81 21 118/55 92 Nasal 4.0L Cannula Intake & Output 06/18 0800 06/18 0000 06/17 1600 Intake Total 590 Output Total 600 400 225 Balance -600 -400 365 Intake, IV 350 Intake, Oral 240 Output, Urine 600 400 225 Patient 144 lb Weight Weight Reported by Patient Measurement Method Gen.: in NAD, wearing oxygen ENT: Sclera anicteric Chest: Normal respiratory effort, decreased breath sounds Cor: RRR, no extra sounds Abdomen: Soft, bowel sounds present, no tenderness, no rebound Extremities: Without clubbing, cyanosis, or asymmetric edema Neurology: Alert and oriented 3, no gross deficit Skin: No rashes Last 48 Hours of Lab Results: Laboratory Tests 06/17 0850 Chemistry Sodium (137 - 145 mmol/L) 127 L Potassium (3.5 - 5.1 mmol/L) 3.6 Chloride (98 - 107 mmol/L) 83 L Carbon Dioxide (22 - 30 mmol/L) 38 H Anion Gap (5 - 16) 6 BUN (9 - 20 mg/dL) 18 Creatinine (0.7 - 1.2 mg/dL) 0.7 Estimated GFR (>60 ml/min) > 60 BUN/Creatinine Ratio (7 - 25 %) 25.7 H Glucose (65 - 99 mg/dL) 104 H Calcium (8.4 - 10.2 mg/dL) 8.7 Total Bilirubin (0.2 - 1.3 mg/dL) 0.9 AST (17 - 59 U/L) 18 ALT (21 - 72 U/L) 31 Alkaline Phosphatase (< 127 U/L) 59 Troponin I (<0.11 ng/ml) 0.06 Gjh-P-Hcpzrmqomco Pept (<125 pg/mL) 2830 H Total Protein (6.3 - 8.2 g/dL) 5.9 L Albumin (3.5 - 5.0 g/dL) 3.4 L Globulin (1.9 - 4.2 gm/dL) 2.5 Albumin/Globulin Ratio (1.1 - 2.2 %) 1.4 Coagulation PT (9.4 - 12.5 SEC) 10.4 INR (0.90 - 1.17) 0.99 Hematology CBC w Diff NO MAN DIFF REQ WBC (4.8 - 10.8 /CUMM) 3.3 L RBC (4.70 - 6.10 /CUMM) 3.48 L Hgb (14.0 - 18.0 G/DL) 8.8 L Hct (42 - 52 %) 26.8 L MCV (80.0 - 94.0 FL) 77.1 L MCH (27.0 - 31.0 PG) 25.3 L RDW (11.5 - 14.5 %) 17.6 H Plt Count (130 - 400 /CUMM) 101 L MPV (7.4 - 10.4 FL) 6.4 L Gran % (42.2 - 75.2 %) 0.3 L Lymphocytes % (20.5 - 51.1 %) 86.6 H Monocytes % (1.7 - 9.3 %) 12.3 H Eosinophils % (0 - 5 %) 0.5 Basophils % (0.0 - 2.0 %) 0.3 Absolute Granulocytes (1.4 - 6.5 /CUMM) 0 L Absolute Lymphocytes (1.2 - 3.4 /CUMM) 2.8 Absolute Monocytes (0.10 - 0.60 /CUMM) 0.4 Absolute Eosinophils (0.0 - 0.7 /CUMM) 0 Absolute Basophils (0.0 - 0.2 /CUMM) 0 PUBS MCHC (33.0 - 37.0 G/DL) 32.8 L Imaging/Other Studies: Chest [id number] pneumonia Assessment/Plan Assessment: 1. Chronic neutropenia-continue Neupogen while in the hospital 2. Pulmonary status-patient now on IV antibiotics Hopefully patient can be discharged soon Recommendations: .. Consult Acknowledgment - Thank you for your consult request.
--- NOTE | 2017-06-18 07:58 | PN- Housestaff ---
RADHA HUBBARD,NETO 06/18/17 0758: Subjective Follow-up For: AECOPD Neutropenia Subjective: Seen and examined at bedside. Reports his breathing much better today,denies fever/chills,nausea, agrees cough, abdominal pain, or dysuria. No acute overnight event reported by nursing staff. Vitals Signs stable. Review of Systems Constitutional: Reports: see HPI. Objective Last 24 Hrs of Vital Signs/I&O Vital Signs Date Time Temp Pulse Resp B/P B/P Pulse O2 O2 Flow FiO2 Mean Ox Delivery Rate 06/18 1455 97.7 69 20 118/58 99 Nasal 3.0L Cannula 06/18 0803 97.5 62 20 153/93 99 Nasal 3.0L Cannula 06/18 0800 Nasal 3.0L Cannula 06/18 0752 100 Nasal 3.0L Cannula 06/18 0236 97.5 59 20 157/77 100 Nasal 3.0L Cannula 06/18 0141 Nasal 3.0L Cannula 06/18 0001 97.0 70 19 136/65 99 Room Air 06/17 2044 95 Nasal 3.0L Cannula 06/17 1938 96.2 72 20 149/64 99 Nasal 3.0L Cannula 06/17 1630 95 Nasal 3.0L Cannula 06/17 1620 Nasal 3.0L Cannula 06/17 1600 Nasal 3.0L Cannula 06/17 1600 96.9 58 15 152/65 100 Nasal 3.0L Cannula Intake & Output 06/18 1600 06/18 0800 06/18 0000 Intake Total 900 30 Output Total 600 400 Balance 900 -570 -400 Intake, IV 30 Intake, Oral 900 Number 1 Bowel Movements Output, Urine 600 400 Physical Exam General Appearance: Alert, Oriented X3, Cooperative Skin Temp/Moisture Exam: Warm/Dry Sepsis Skin Exam (color): Normal for Ethnicity HEENT: Atraumatic, Mucous Membr. moist/pink Cardiovascular: Regular Rate, Normal S1, Normal S2 Lungs: mild b/l expiratory wheezes on the lower lung rodriguez. 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 Patient is found to have chest x-ray radiological findings suggestive of left lower lobe pneumonia, however CT was unremarkable for any acute infectious pathology. No reported fever or chills at home, no sick contacts, no recent travel. ED course: Vital signs on admission: Temperature 97.7, pulse 81, respiratory 21, BP 118/55, O2 sats 98% on 3 L. Physical examination was remarkable for bilateral expiratory wheezes and + 2 lower extremity edema. Other physical findings were unremarkable. CXR: Distant left lower lobe consolidation. However CT chest did not correlate those findings. Labs unremarkable for leukocytosis. Pt was given a one-time dose of vancomycin at the ED and started on ceftazidime 1 g every 8h and then admitted for evaluation and management of possible pneumonia, COPD exacerbation The following issues are being addressed during this hospital stay: #AECOPD Most likely secondary to acute bronchitis. Even though chest x-ray was suggestive of possible left lower lobe pneumonia, CT results is not collaborate this finding. He is also noted not to have any leukocytosis and is afebrile ( even though this could be affected by steroids). Clinically patient is doing better with decreased wheezing today will therefore decrease Solu-Medrol to milligrams every 8 hours to 40 mg every 12 hours. Continue ipratropium and albuterol inhaler and O2 supplementation of 3 L to keep sats above 88%. Will await further pulmonology input. #Possible PNA versus acute bronchitis Did not present with any leukocytosis or reports of fevers (even being afebrile is not reliable in the setting of daily steroid use).Ct chest was not indicative of PNA finding. However later today in the afternoon patient was noted to expectorate colorful phlegm that was seen by ID and was suggestive of pus dicharge. Will continue Ceftaz and add Doxy 100 mg po bid (per ID recc) while awaiting sputum culture. #Hx of Neutropenia Chronic of unknown etiology. Being managed by Filgastrim and Prednisone. Will continue Neupogen per heme/onc. #LE edema Chronic. no hx of CHF or acute clinical signs suggestive of new onsent ADHF. Continue Lasix home dosage. #Hx of RA No acute worsening currently. #CT chest findings of coronary calification Given patient's age and no hx of CAD or equivalent, aggresive cardiac risk modification is most likely unwarranted. Problem List: 1. COPD EXACERBATION Pain Ratin Pain Location: none Pain Goal: Remain pain free Pain Plan: per pathway Tomorrow's Labs & Rationales: cbc-r/o PNA SKYLER QUINN MD 06/18/17 1043: Attending MD Review Statement Attending Statement Attending MD Statement: examined this patient, discuss w/resident/PA/PERCUSSION INSTRUMENT TUNER, agreed w/resident/PA/PERCUSSION INSTRUMENT TUNER, reviewed EMR data (avail), discussed with nursing, discussed with case mgmt, amended to note Attending Assessment/Plan: Patient seen and examined. Resting comfortably multilocular distress sitting up in his chair. Reports feeling better. Denies cough, shortness of breath or chest pain at rest. Reports no difficulty swallowing. He is maintaining his oxygenation on his baseline 3 L of oxygen. He is afebrile. White cell count is stable. On examination he has good air entry bilaterally. Lungs are clear to auscultation with no added sounds. Heart sounds are regular. A=bdomen is soft, nontender. He has no peripheral repair. Recommendations: -Follow-up sputum culture. Chest CT shows no evidence of pneumonia. If his sputum cultures negative, follow-up with the ID service regarding the benefit of continuing antibiotic therapy at this time. -Continue bronchodilator therapy. Taper down steroids to 40 mg IV twice daily today. -Follow-up recommendations of the patient's pulmonology service. -Continue Neupogen as recommended by the hematology service. -Anticipate discharge in the next 24-48 hours.
[2017-06-18 08:03] VITALS: BP 153/93
[2017-06-18 08:35] LABS: ABSOLUTE BASOPHIL COUNT 0 /CUMM (0.0-0.2); ABSOLUTE EOSINOPHIL COUNT 0 /CUMM (0.0-0.7); ABSOLUTE GRANULOCYTE CT 0.2 /CUMM (1.4-6.5); ABSOLUTE LYMPH COUNT 0.9 /CUMM (1.2-3.4); ABSOLUTE MONOCYTE COUNT 0.8 /CUMM (0.10-0.60); BASOPHIL % 0.5 % (0.0-2.0); EOSINOPHIL % 0.1 % (0-5); HEMATOCRIT 29.1 % (42-52); MEAN CORPUSCULAR HGB 25.3 PG (27.0-31.0); MEAN CORPUSCULAR HGB CONC 32.6 G/DL (33.0-37.0); MEAN CORPUSCULAR VOLUME 77.6 FL (80.0-94.0); MEAN PLATELET VOLUME 7.2 FL (7.4-10.4); PLATELET COUNT 115 /CUMM (130-400); RBC DISTRIBUTION WIDTH 18.3 % (11.5-14.5); RED BLOOD CELL CT 3.75 /CUMM (4.70-6.10); WHITE BLOOD CELL COUNT 1.9 /CUMM (4.8-10.8)
[2017-06-18 08:55] LABS: GRANULOCYTE % 11.6 % (42.2-75.2)
[2017-06-18 14:55] VITALS: BP 118/58
--- NOTE | 2017-06-18 18:01 | PN- Infect Dx ---
Subjective Subjective: Patient with productive cough at times; sputum cx recollected this afternoon; container at the bed side. There is scant thick purulent sputum mixed with saliva. Remains afebrile. Feeling better. Review of Systems Comments: 12 points reviewed as noted, otherwise negative. Objective Last 24 Hrs of Vital Signs/I&O Vital Signs Date Time Temp Pulse Resp B/P B/P Pulse O2 O2 Flow FiO2 Mean Ox Delivery Rate 06/18 1637 100 Nasal 3.0L Cannula 06/18 1600 97 Nasal 3.0L Cannula 06/18 1455 97.7 69 20 118/58 99 Nasal 3.0L Cannula 06/18 0803 97.5 62 20 153/93 99 Nasal 3.0L Cannula 06/18 0800 Nasal 3.0L Cannula 06/18 0752 100 Nasal 3.0L Cannula 06/18 0236 97.5 59 20 157/77 100 Nasal 3.0L Cannula 06/18 0141 Nasal 3.0L Cannula 06/18 0001 97.0 70 19 136/65 99 Room Air 06/17 2044 95 Nasal 3.0L Cannula 06/17 1938 96.2 72 20 149/64 99 Nasal 3.0L Cannula Intake & Output 06/18 1600 06/18 0800 06/18 0000 Intake Total 900 30 Output Total 600 400 Balance 900 -570 -400 Intake, IV 30 Intake, Oral 900 Number 1 Bowel Movements Output, Urine 600 400 Physical Exam Other Physical Findings: General Appearance Alert, Oriented X3, Cooperative, No Acute Distress Skin No Rashes, No Breakdown Skin Temp/Moisture Exam: Warm/Dry HEENT Atraumatic, PERRLA, EOMI, Mucous Membr. moist/pink Cardiovascular Normal S1, Normal S2, no gallop Lungs expiratory wheezes, bibasilar rales Abdomen Normal Bowel Sounds, Soft, No Tenderness Extremities 1+ pedal edema bilaterally Results Last 24 Hours of Lab Results: Laboratory Tests 06/18 0638 Chemistry Sodium (137 - 145 mmol/L) 129 L Potassium (3.5 - 5.1 mmol/L) 4.2 Chloride (98 - 107 mmol/L) 85 L Carbon Dioxide (22 - 30 mmol/L) 34 H Anion Gap (5 - 16) 10 BUN (9 - 20 mg/dL) 17 Creatinine (0.7 - 1.2 mg/dL) 0.8 Estimated GFR (>60 ml/min) > 60 BUN/Creatinine Ratio (7 - 25 %) 21.3 Hematology CBC w Diff MAN DIFF ORDERED WBC (4.8 - 10.8 /CUMM) 1.9 L RBC (4.70 - 6.10 /CUMM) 3.75 L Hgb (14.0 - 18.0 G/DL) 9.5 L Hct (42 - 52 %) 29.1 L MCV (80.0 - 94.0 FL) 77.6 L MCH (27.0 - 31.0 PG) 25.3 L RDW (11.5 - 14.5 %) 18.3 H Plt Count (130 - 400 /CUMM) 115 L MPV (7.4 - 10.4 FL) 7.2 L Gran % (42.2 - 75.2 %) 11.6 L Lymphocytes % (20.5 - 51.1 %) 46.1 Monocytes % (1.7 - 9.3 %) 41.7 H Eosinophils % (0 - 5 %) 0.1 Basophils % (0.0 - 2.0 %) 0.5 Absolute Granulocytes (1.4 - 6.5 /CUMM) 0.2 L Segmented Neutrophils (42.2 - 75.2 %) 2 L Band Neutrophils (0.0 - 5.0 %) 9 H Absolute Lymphocytes (1.2 - 3.4 /CUMM) 0.9 L Lymphocytes (20.5 - 51.1 %) 48 Monocytes (1.7 - 9.3 %) 41 H Absolute Monocytes (0.10 - 0.60 /CUMM) 0.8 H Absolute Eosinophils (0.0 - 0.7 /CUMM) 0 Absolute Basophils (0.0 - 0.2 /CUMM) 0 Platelet Estimate (ADEQUATE) DECREASED Polychromasia 1+ Hypochromic-Microcytic 1+ Poikilocytosis 1+ Basophilic Stippling 1+ Anisocytosis 1+ Microcytic Cells 1+ Ovalocytes 1+ PUBS MCHC (33.0 - 37.0 G/DL) 32.6 L Last 24 Hours of Edd Results: SPEC #: [id number] DARRYN: 06/18/17 STATUS: RECD RECD: 06/18/17 [facility] DR: ROYA HUBBARD,AYLEEN SOURCE: UPPER RESP ENTR: 06/18/[address]: [place] HUBBARD,MAIKEL SPDESC: KAVITA KENYON MD,SAPNA Manzano ORDERED: MRSA SCREEN COMMENT: HAS THE PATIENT BEEN ON ANTIBIOTICS IN THE PAST 72 HOURS? Y Procedure Result MRSA SCREEN PENDING Recent Imaging Studies: SERVICE DATE: 06/17/17 EXAM TYPE: RAD - XRY-PORTABLE CHEST XRAY EXAMINATION: XR PORTABLE CHEST CLINICAL INFORMATION: Evaluate for CHF/pneumonia. Shortness of breath. COMPARISON: CT chest 04/17/2017. TECHNIQUE: Portable frontal view of the chest was obtained. FINDINGS: Lungs are hyperexpanded and there is flattening of the diaphragmatic contours. There is a relatively focal ill-defined opacity within the left lower hemithorax which may represent early changes of airspace disease. The cardiac silhouette and upper mediastinal contours are unremarkable. No acute osseous finding. IMPRESSION: An ill-defined opacity within the left lower hemithorax may represent a developing pneumonia. DICTATED BY: SHAMA HUBBARD,SIXTO Gleason DATE/TIME DICTATED:06/17/17936 PRODUCTION CHECKER:ISAAK DATE/TIME TRANSCRIBED:06/17/17936 Assessment/Plan Impression: 87-year-old man immunocompromised with a presumptive diagnosis of T-cell lymphoproliferative disorder, leukopenia/neutropenia, rheumatoid arthritis prednisone 10 mg daily, COPD O2 dependent 3L N/C admitted today with acute acute bronchitis/bronchiecatsis/possible LLL developing pneumonia (possible pathogens Staph/strep spp/GNR). Has history of pneumonia due to E. coli ESBL, Ps. aeruginosa 11/2016. Clinically feeling better, able to bring up scant amount of yellow purulent sputum. Abnormal CBC; worsening neutropenia. Suggestion: 1. F/u nasal MRSA surv cx. Repeat sputum cx. 2. Would continue empirica tx w/ iv Ceftazidime (dose 1 gm q 8 h) D #2; add doxycycline 100 mg po bid. 3. Trend CBC/BMP. 4. F/u hem onc ? BM bx if worsening neutropenia.
[2017-06-18 22:30] VITALS: BP 148/64
[2017-06-19 06:43] VITALS: BP 128/60
--- NOTE | 2017-06-19 07:11 | PN- Housestaff ---
See Addendum RADHA HUBBARD,NETO 06/19/17 0711: Subjective Follow-up For: AECOPD Subjective: Seen and examined at bedside. He states that he is feeling better compared to the last 2 days, he is seated comfortably on the recliner. He denies any increase shortness of breath/cough, fevers/chills,n/v,cp/palpitations,abdominal pain or dysuria. No acute o/n event reported by nursing staff. Review of Systems Constitutional: Denies: see HPI. Objective Last 24 Hrs of Vital Signs/I&O Vital Signs Date Time Temp Pulse Resp B/P B/P Pulse O2 O2 Flow FiO2 Mean Ox Delivery Rate 06/19 0643 98.0 90 20 128/60 99 Nasal 3.0L Cannula 06/19 0000 Nasal 3.0L Cannula 06/18 2230 97.5 73 19 148/64 100 Nasal 3.0L Cannula 06/18 1637 100 Nasal 3.0L Cannula 06/18 1600 97 Nasal 3.0L Cannula 06/18 1455 97.7 69 20 118/58 99 Nasal 3.0L Cannula Intake & Output 06/19 1600 06/19 0800 06/19 0000 Intake Total 520 Output Total Balance 520 Intake, IV 20 Intake, Oral 500 Physical Exam General Appearance: Alert, Oriented X3, Cooperative Skin: No Breakdown Lymphatic: Axillary nl, Cervical nl Cardiovascular: Regular Rate, Normal S1, Normal S2 Lungs: very minimal expiratory wheezes b/l wheezes (significantly better compared two previous days) Abdomen: Normal Bowel Sounds, Soft, No Tenderness Neurological: Normal Gait, Normal Speech, Normal Tone, Sensation Intact Assessment/Plan Assessment: This is a very pleasant 87-year-old gentleman with a past medical history of rheumatoid arthritis, possible MDS, chronic neutropenia of unknown etiology currently being managed by filgrastim and prednisone, COPD on 3 L baseline, multiple previous admissions including recent one in March for ESBL pneumonia acquiring IV meropenem, presented with 1 day history of dyspnea, and increased productive cough (clear). Patient is found to have chest x-ray radiological findings suggestive of left lower lobe pneumonia, however CT was unremarkable for any acute infectious pathology. No reported fever or chills at home, no sick contacts, no recent travel. ED course: Vital signs on admission: Temperature 97.7, pulse 81, respiratory 21, BP 118/55, O2 sats 98% on 3 L. Physical examination was remarkable for bilateral expiratory wheezes and + 2 lower extremity edema. Other physical findings were unremarkable. CXR: Distant left lower lobe consolidation. However CT chest did not correlate those findings. Labs unremarkable for leukocytosis. Pt was given a one-time dose of vancomycin at the ED and started on ceftazidime 1 g every 8h and then admitted for evaluation and management of possible pneumonia, COPD exacerbation The following issues are being addressed during this hospital stay: #AECOPD Most likely secondary to acute bronchitis. Even though chest x-ray was suggestive of possible left lower lobe pneumonia, CT results is not collaborate this finding. He is also noted not to have any leukocytosis and is afebrile ( even though this could be affected by steroids). Clinically patient is doing better with very minimal and decreased wheezing today will therefore transtion to prednisone 40mg starting tomorrow, pt will need to be tapered off to his baseline 10 mg which he tales for neutropenia. Starrted Symbicort (pt use Advair ar home which is not formulary).Continue ipratropium and albuterol inhaler and taper O2 supplementation appropriately to keep sats above 88%. Pulmology reccomedation appreciated. #Possible PNA versus acute bronchitis Did not present with any leukocytosis or reports of fevers (even being afebrile is not reliable in the setting of daily steroid use).Ct chest was not indicative of PNA finding. However yesterday in the afternoon patient was noted to expectorate colorful phlegm that was seen by ID and was suggestive of pus dicharge. Will continue Ceftaz and Doxy 100 mg po bid (per ID recc) while awaiting sputum culture.Will aslo await further ID reccs (appreciated). #Acute on chronic Hyponatremia. Pt clinical status could suggest hypervolemia as noted by +2 pitting edema on both extremities. However pt has no hx of CHF,acsites or renal pathology. Urine lytes analysis for possible SIADH will be skewed as he is on current furosemide therapy. Will obtain serum and urine osmolarity and continue to trend Na levels. Will consider Fluid restrictions tomorrow if Na levels worsen. #Hx of Neutropenia Chronic of unknown etiology. Being managed by Filgastrim and Prednisone on an outpatient basus. Will continue Neupogen per heme/onc. #LE edema Chronic. no hx of CHF or acute clinical signs suggestive of new onsent ADHF. Dose of Lasix increased to 60 mg bid to reflect correct home dose (this was verified by patient). #Hx of RA No acute worsening currently. #CT chest findings of coronary calification Given patient's age and no hx of CAD or equivalent, aggresive cardiac risk modification is most likely unwarranted. #Disposition Clinically improving.Will await sputum cultures in determining ABX course of treatment if needed. If negative by thursday, will consider discharge on thursday. Problem List: 1. Neutropenia 2. COPD EXACERBATION Pain Ratin Pain Location: none Pain Goal: Remain pain free Pain Plan: per pathway Tomorrow's Labs & Rationales: BEP-HYPONATREMIA CBC-R/O PNA SKYLER QUINN MD 06/19/17 1255: Attending MD Review Statement Attending Statement Attending MD Statement: examined this patient, discuss w/resident/PA/WHARFINGER CHIEF, agreed w/resident/PA/WHARFINGER CHIEF, reviewed EMR data (avail), discussed with nursing, discussed with case mgmt, amended to note Attending Assessment/Plan: Patient seen and examined. Resting comfortably and not in any acute distress. No issues overnight. He reports feeling better. He is been ambulating around the unit without any complaints. On examination he has fair entry bilaterally. No added sounds. Lab a today to shows improvement of his WBC to 3.8 today. He had a mild decreasing platelet count. The level is essentially stable. Reports coughing up clear phlegm most of the time however he did report having brownish phlegm 2 days ago. The pulmonary and infectious disease service at concerned about MRSA so this sample was sent to the laboratory. Workup of this he was started on doxycycline by the ID service in addition to the ceftaz he is already on. It is noted that his MRSA screen is negative. Sputum cultures results are still pending. Recommendations: -Begin patient on oral prednisone therapy. Taper as recommended by the pulmonology service. -Continue diuresis with his home regimen of Lasix. -Continue bronchodilator therapy. -Awaiting recommendations from the ID service regarding oral antibiotic therapy at which point patient may be discharged home wi outpatient follow-up with his pulmonary service. -His hyponatremia remains persistent. Likely secondary to SIADH. Check urinalysis muscularity and serum osmolarity. Repeat serum chemistry tomorrow. Monitor BUN as value is currently trending up. -Place compression stockings for bilateral lower extremity edema.
[2017-06-19 08:34] LABS: ABSOLUTE BASOPHIL COUNT 0 /CUMM (0.0-0.2); ABSOLUTE EOSINOPHIL COUNT 0 /CUMM (0.0-0.7); ABSOLUTE GRANULOCYTE CT 2.4 /CUMM (1.4-6.5); ABSOLUTE LYMPH COUNT 0.8 /CUMM (1.2-3.4); ABSOLUTE MONOCYTE COUNT 0.6 /CUMM (0.10-0.60); BASOPHIL % 0.4 % (0.0-2.0); EOSINOPHIL % 0.1 % (0-5); HEMATOCRIT 26.8 % (42-52); MEAN CORPUSCULAR HGB CONC 32.1 G/DL (33.0-37.0); MEAN PLATELET VOLUME 7.6 FL (7.4-10.4); PLATELET COUNT 98 /CUMM (130-400); RBC DISTRIBUTION WIDTH 18.4 % (11.5-14.5); RED BLOOD CELL CT 3.44 /CUMM (4.70-6.10)
[2017-06-19 09:03] LABS: GRANULOCYTE % 61.7 % (42.2-75.2); WHITE BLOOD CELL COUNT 3.8 /CUMM (4.8-10.8)
[2017-06-19 14:23] VITALS: BP 125/70
--- NOTE | 2017-06-19 16:14 | PN- Infect Dx ---
Subjective Subjective: Feeling better compared to the last 2 days, he is seated comfortably on the recliner. Improved shortness of breath/cough. No fevers/chills. Review of Systems Comments: 12 points reviewed as noted, otherwise negative. Objective Last 24 Hrs of Vital Signs/I&O Vital Signs Date Time Temp Pulse Resp B/P B/P Pulse O2 O2 Flow FiO2 Mean Ox Delivery Rate 06/19 1423 97.8 77 20 125/70 95 06/19 0914 95 Nasal 2.0L Cannula 06/19 0800 99 Nasal 3.0L Cannula 06/19 0643 98.0 90 20 128/60 99 Nasal 3.0L Cannula 06/19 0000 Nasal 3.0L Cannula 06/18 2230 97.5 73 19 148/64 100 Nasal 3.0L Cannula 06/18 1637 100 Nasal 3.0L Cannula Intake & Output 06/19 1600 06/19 0800 06/19 0000 Intake Total 520 Output Total Balance 520 Intake, IV 20 Intake, Oral 500 Physical Exam Other Physical Findings: General Appearance Alert, Oriented X3, Cooperative, No Acute Distress Skin No Rashes, No Breakdown Skin Temp/Moisture Exam: Warm/Dry HEENT Atraumatic, PERRLA, EOMI, Mucous Membr. moist/pink Cardiovascular Normal S1, Normal S2, no gallop Lungs expiratory wheezes, bibasilar rales Abdomen Normal Bowel Sounds, Soft, No Tenderness Extremities 1+ pedal edema bilaterally Results Last 24 Hours of Lab Results: Laboratory Tests 06/19 0623 Chemistry Sodium (137 - 145 mmol/L) 128 L Potassium (3.5 - 5.1 mmol/L) 4.2 Chloride (98 - 107 mmol/L) 87 L Carbon Dioxide (22 - 30 mmol/L) 34 H Anion Gap (5 - 16) 7 BUN (9 - 20 mg/dL) 22 H Creatinine (0.7 - 1.2 mg/dL) 0.8 Estimated GFR (>60 ml/min) > 60 BUN/Creatinine Ratio (7 - 25 %) 27.5 H Serum Osmolality (285 - 295 MOSM/KG) Pending Hematology CBC w Diff NO MAN DIFF REQ WBC (4.8 - 10.8 /CUMM) 3.8 L RBC (4.70 - 6.10 /CUMM) 3.44 L Hgb (14.0 - 18.0 G/DL) 8.6 L Hct (42 - 52 %) 26.8 L MCV (80.0 - 94.0 FL) 78.0 L MCH (27.0 - 31.0 PG) 25.0 L RDW (11.5 - 14.5 %) 18.4 H Plt Count (130 - 400 /CUMM) 98 L MPV (7.4 - 10.4 FL) 7.6 Gran % (42.2 - 75.2 %) 61.7 Lymphocytes % (20.5 - 51.1 %) 21.6 Monocytes % (1.7 - 9.3 %) 16.2 H Eosinophils % (0 - 5 %) 0.1 Basophils % (0.0 - 2.0 %) 0.4 Absolute Granulocytes (1.4 - 6.5 /CUMM) 2.4 Absolute Lymphocytes (1.2 - 3.4 /CUMM) 0.8 L Absolute Monocytes (0.10 - 0.60 /CUMM) 0.6 Absolute Eosinophils (0.0 - 0.7 /CUMM) 0 Absolute Basophils (0.0 - 0.2 /CUMM) 0 PUBS MCHC (33.0 - 37.0 G/DL) 32.1 L Last 24 Hours of Edd Results: SPEC #: [id number] DARRYN: 06/19/17 STATUS: CAN RECD: 06/19/[address]: CORIE HEARD MD SOURCE: LOWER RESP ENTR: 06/18/[address]: MAIKEL HO MDC: SPUTUM CHANTALE HUBBARD,SAPNA Manzano ORDERED: LOWER RESPIRATO Procedure Result CANCELLED NUMBER OF SQUAMOUS CELLS INDICATES POOR QUALITY SPECIMEN PLEASE RECOLLECT. CALLED TO PATIENT UNIT (INPATIENT) JACKIE CHATMAN 06/19/17 [id number] SPEC #: [id number] DARRYN: 06/18/17 STATUS: COMP RECD: 06/18/[address]: AYLEEN PRYOR MD SOURCE: UPPER RESP ENTR: 06/18/[address]: MAIKEL HO MD SPDCRISTOFERC: NOSTRILS CHANTALE HUBBARD,SAPNA Manzano ORDERED: MRSA SCREEN COMMENT: HAS THE PATIENT BEEN ON ANTIBIOTICS IN THE PAST 72 HOURS? Y Procedure Result > RESISTANT ORG. SURVEILLANCE Final 06/19/17-1116 NO METHICILLIN RESISTANT STAPH AUREUS ISOLATED Recent Imaging Studies: Reviewed. Assessment/Plan Impression: 87-year-old man immunocompromised with a presumptive diagnosis of T-cell lymphoproliferative disorder, leukopenia/neutropenia, rheumatoid arthritis prednisone 10 mg daily, COPD O2 dependent 3L N/C admitted today with acute acute bronchitis/bronchiecatsis/possible LLL developing pneumonia. Abnormal CBC; worsening neutropenia previous day; WBC trending up; patient clinically improving; sputum cx nondiagnostic (+++ epith cells). Suggestion: 1. Discontinue empiric tx w/ iv Ceftazidime (dose 1 gm q 8 h) D #3; cont doxycycline 100 mg po bid for total 7 d. 3. Trend CBC/BMP. 4. F/u hem onc as Op.
[2017-06-19] MEDS ORDERED: LASIX40 M1 PO ×2 (17:14→17:41)
[2017-06-19] MEDS ORDERED: DOXYCYCLINE HY100 M2 PO (17:38)
--- NOTE | 2017-06-19 17:49 | Patient Discharge Instructions ---
Discharge Instructions General Discharge Information You were seen/treated for: COPD EXACERBATION POSSIBLE PNEUMONIAE Special Instructions: PLEASE CONTINUE TAKING YOUR DOXYCYCLINE UNTIL ALL FINISHED, DO NOT TAKE IT WITH VITAMIN OR DAIRY PRODUCTS AT THE SAME TIME PLEASE FOLLOW UP WITH YOUR PRIMARY CARE WITHIN 1 WEEK SEEK MEDICAL ATTENTION IF YOU DEVELOP FEVERS, INCREASE SHORTNESS OF BREATH OR INCREASED COUGH PLEASE FOLLOW UP WITH YOUR FOOD QUALITY TESTER AND SIZE MAKER/ONCOLOGIST WITHIN 1 WEEK CONTINUE YOUR NEUPOGEN PER DR. SMILYE Acute Coronary Syndrome Inclusion Criteria At DC or during hospital stay patient has or had the following: ACS DIAGNOSIS No Discharge Core Measures Meds if any: Prescribed or Continued at Discharge Meds if any: NOT Prescribed or Continued at Discharge Congestive Heart Failure Inclusion Criteria At DC or during hospital stay patient has or had the following: CHF DIAGNOSIS No Discharge Core Measures Meds if any: Prescribed or Continued at Discharge Meds if any: NOT Prescribed or Continued at Discharge Cerebrovascular accident Inclusion Criteria At DC or during hospital stay patient has or had the following: CVA/TIA Diagnosis No Discharge Core Measures Meds if any: Prescribed or Continued at Discharge Meds if any: NOT Prescribed or Continued at Discharge Venous thromboembolism Inclusion Criteria VTE Diagnosis No VTE Type NONE VTE Confirmed by (Test) NONE Discharge Core Measures - Per Current guidelines, there needs to be overlap - treatment for the first 5 days of Warfarin therapy. - If discharged on Warfarin prior to 5 days of - overlap therapy, the patient will need to be - assessed for post discharge needs including - *Post discharge parental anticoagulation - *Warfarin and/or parental anticoagulation education - *Follow up date to check INR post discharge At least 5 days overlap therapy as Inpatient No Meds if any: Prescribed or Continued at Discharge Note: Overlap Therapy is Warfarin and Anticoagulant Meds if any: NOT Prescribed or Continued at Discharge
[2017-06-19] MEDS ORDERED: PREDNISONE10 M2 PO (18:22)
--- NOTE | 2017-06-19 22:19 | NUR ---
2 SPUTUM SAMPLES SENT TO THE LAB, AND REJECTED BEING NO GOOD, POOR QUALITY, MOSTLY SPIT. INFORMED BETHANY LOGAN TO PLACE ANOTHER ORDER FOR SPUTUM.
[2017-06-19 22:39] VITALS: BP 128/70
[2017-06-20 06:56] VITALS: BP 108/42
[2017-06-20 07:44] LABS: ABSOLUTE BASOPHIL COUNT 0 /CUMM (0.0-0.2); ABSOLUTE EOSINOPHIL COUNT 0 /CUMM (0.0-0.7); ABSOLUTE GRANULOCYTE CT 3.6 /CUMM (1.4-6.5); ABSOLUTE LYMPH COUNT 2.3 /CUMM (1.2-3.4); ABSOLUTE MONOCYTE COUNT 0.3 /CUMM (0.10-0.60); BASOPHIL % 0.1 % (0.0-2.0); EOSINOPHIL % 0 % (0-5); GRANULOCYTE % 58.1 % (42.2-75.2); HEMATOCRIT 25.5 % (42-52); MEAN CORPUSCULAR HGB 25.3 PG (27.0-31.0); MEAN CORPUSCULAR HGB CONC 32.3 G/DL (33.0-37.0); MEAN CORPUSCULAR VOLUME 78.1 FL (80.0-94.0); MEAN PLATELET VOLUME 7.2 FL (7.4-10.4); PLATELET COUNT 88 /CUMM (130-400); RBC DISTRIBUTION WIDTH 17.9 % (11.5-14.5); RED BLOOD CELL CT 3.27 /CUMM (4.70-6.10)
[2017-06-20 08:44] LABS: WHITE BLOOD CELL COUNT 6.1 /CUMM (4.8-10.8)
[2017-06-20] MEDS ORDERED: PREDNISONE10 M2 PO ×2 (09:15→10:31)
--- NOTE | 2017-06-20 09:18 | PN- Housestaff ---
See Addendum Subjective Follow-up For: copd cll Subjective: Saw pt at bedside this AM. He states that he is ready to go home. Ready per medical team. Informed him that he would continue on Doxy and complete a prednisone taper at home. Review of Systems Constitutional: Denies: chills, fever, weakness. EENTM: Reports: no symptoms. Cardiovascular: Denies: chest pain, palpitations. Respiratory: Reports: cough, short of breath. Gastrointestinal: Denies: abdominal pain, nausea, vomiting. Genitourinary: Reports: no symptoms. Musculoskeletal: Reports: no symptoms. Skin: Reports: no symptoms. Objective Last 24 Hrs of Vital Signs/I&O Vital Signs Date Time Temp Pulse Resp B/P B/P Pulse O2 O2 Flow FiO2 Mean Ox Delivery Rate 06/20 0857 100 Nasal 3.0L Cannula 06/20 0656 98.0 76 20 108/42 100 06/20 0000 Nasal 3.0L Cannula 06/19 2239 97.9 78 19 128/70 99 Nasal 3.0L Cannula 06/19 1920 99 Nasal 3.0L Cannula 06/19 1600 95 Nasal 3.0L Cannula 06/19 1423 97.8 77 20 125/70 95 Intake & Output 06/20 1600 06/20 0800 06/20 0000 Intake Total 10 840 Output Total Balance 10 840 Intake, IV 10 Intake, Oral 840 Physical Exam General Appearance: Alert, Oriented X3, Cooperative, No Acute Distress Skin: No Significant Lesion HEENT: Atraumatic, PERRLA, EOMI Neck: Supple Cardiovascular: Regular Rate, Normal S1, Normal S2 Lungs: diminished air movement. Abdomen: Soft, No Tenderness Current Medications: Current Medications Sig/Jorgito Start time Last Medication Dose Route Stop Time Status Admin Albuterol Sulfate 3 ML EVERY 4 HRS/AWAKE 06/17 2000 AC 06/20 INH 0854 Aspirin 81 MG DAILY 06/17 1325 AC 06/19 PO 1046 Atorvastatin Calcium 20 MG 1700 06/17 1700 AC 06/19 PO 1620 Budesonide/ 2 PUF BID 06/19 1000 AC 06/19 Formoterol Fumarate INH 2124 Ceftazidime 1,000 MG Q12 06/17 2200 DC 06/19 IV 1139 Cholecalciferol 400 IU DAILY 06/17 1325 AC 06/19 PO 1046 Doxycycline Hyclate 100 MG BID 06/18 2200 AC 06/19 PO 2124 Filgrastim 300 MCG DAILY 06/17 1452 AC 06/19 SC 1046 Furosemide 60 MG BID 06/20 1000 AC PO Furosemide 60 MG BID 06/19 1000 DC 06/19 PO 06/20 0000 2124 Guaifenesin 600 MG Q12 06/18 1000 AC 06/19 PO 2124 Loratadine 10 MG DAILY 06/19 1457 AC 06/19 PO 2124 Omeprazole 20 MG DAILY 06/17 1325 AC 06/19 PO 1046 Polyethylene Glycol 17 GM DAILY NEEDED PRN 06/17 1345 AC PO Prednisone 40 MG DAILY 06/20 1000 AC PO Psyllium Hydrophilic 1 PAC DAILY PRN 06/18 1245 AC 06/19 Mucilloid PO 184 Tiotropium Albin 1 PUF DAILY 06/17 1326 AC 06/19 INH 1139 Last 24 Hrs of Lab/Edd Results Last 24 Hrs of Labs/Mics: Laboratory Tests 06/20/17 0640: Anion Gap 6, Estimated GFR > 60, BUN/Creatinine Ratio 23.8, CBC w Diff NO MAN DIFF REQ, RBC 3.27 L, MCV 78.1 L, MCH 25.3 L, RDW 17.9 H, MPV 7.2 L, Gran % 58.1, Lymphocytes % 37.4, Monocytes % 4.4, Eosinophils % 0, Basophils % 0.1, Absolute Granulocytes 3.6, Absolute Lymphocytes 2.3, Absolute Monocytes 0.3, Absolute Eosinophils 0, Absolute Basophils 0, PUBS MCHC 32.3 L 06/19/171827: Urine Osmolality 272 L Microbiology 06/19 2223 LOWER RESP: Respiratory Culture - COLB 06/19 2223 LOWER RESP: Gram Stain - COLB 06/19 1828 LOWER RESP: Respiratory Culture - CAN Cancelled: NUMBER OF SQUAMOUS CELLS INDICATES POOR QUALITY SPECIMEN 06/19 1828 LOWER RESP: Gram Stain - CAN Cancelled: NUMBER OF SQUAMOUS CELLS INDICATES POOR QUALITY SPECIMEN Assessment/Plan Assessment: This is a very pleasant 87-year-old gentleman with a past medical history of rheumatoid arthritis, possible MDS, chronic neutropenia of unknown etiology currently being managed by filgrastim and prednisone, COPD on 3 L baseline, multiple previous admissions including recent one in March for ESBL pneumonia acquiring IV meropenem, presented with 1 day history of dyspnea, and increased productive cough (clear). Patient is found to have chest x-ray radiological findings suggestive of left lower lobe pneumonia, however CT was unremarkable for any acute infectious pathology. No reported fever or chills at home, no sick contacts, no recent travel. ED course: Vital signs on admission: Temperature 97.7, pulse 81, respiratory 21, BP 118/55, O2 sats 98% on 3 L. Physical examination was remarkable for bilateral expiratory wheezes and + 2 lower extremity edema. Other physical findings were unremarkable. CXR: Distant left lower lobe consolidation. However CT chest did not correlate those findings. Labs unremarkable for leukocytosis. Pt was given a one-time dose of vancomycin at the ED and started on ceftazidime 1 g every 8h and then admitted for evaluation and management of possible pneumonia, COPD exacerbation The following issues are being addressed during this hospital stay: #AECOPD Most likely secondary to acute bronchitis. Even though chest x-ray was suggestive of possible left lower lobe pneumonia, CT results is not collaborate this finding. He is also noted not to have any leukocytosis and is afebrile ( even though this could be affected by steroids). Clinically patient is doing better with very minimal and decreased wheezing today will therefore transtion to prednisone 40mg starting tomorrow, pt will need to be tapered off to his baseline 10 mg which he tales for neutropenia. Starrted Symbicort (pt use Advair ar home which is not formulary).Continue ipratropium and albuterol inhaler and taper O2 supplementation appropriately to keep sats above 88%. Pulmology reccomedation appreciated. * D/C HOME TODAY ON Doxy 100 po BID for 4 more days * Finish prednisone taper (40,30,20 and remain on 10 mg which is his baseline dose). #Possible PNA versus acute bronchitis Did not present with any leukocytosis or reports of fevers (even being afebrile is not reliable in the setting of daily steroid use).Ct chest was not indicative of PNA finding. However yesterday in the afternoon patient was noted to expectorate colorful phlegm that was seen by ID and was suggestive of pus dicharge. Will continue Ceftaz and Doxy 100 mg po bid (per ID recc) while awaiting sputum culture.Will aslo await further ID reccs (appreciated). #Acute on chronic Hyponatremia. Pt clinical status could suggest hypervolemia as noted by +2 pitting edema on both extremities. However pt has no hx of CHF,acsites or renal pathology. Urine lytes analysis for possible SIADH will be skewed as he is on current furosemide therapy. Will obtain serum and urine osmolarity and continue to trend Na levels. Will consider Fluid restrictions tomorrow if Na levels worsen. #Hx of Neutropenia Chronic of unknown etiology. Being managed by Filgastrim and Prednisone on an outpatient basus. Will continue Neupogen per heme/onc. #LE edema Chronic. no hx of CHF or acute clinical signs suggestive of new onsent ADHF. Dose of Lasix increased to 60 mg bid to reflect correct home dose (this was verified by patient). #Hx of RA No acute worsening currently. #CT chest findings of coronary calification Given patient's age and no hx of CAD or equivalent, aggresive cardiac risk modification is most likely unwarranted. #Disposition Clinically improving.Will await sputum cultures in determining ABX course of treatment if needed. If negative by thursday, will consider discharge on thursday. Problem List: 1. Aspiration pneumonia 2. CHRONIC NEUTROPENIA Pain Ratin Pain Location: none Pain Goal: Remain pain free Pain Plan: current reg Tomorrow's Labs & Rationales: none DVT/Prophylaxis: mechanical, pharmacological
--- NOTE | 2017-06-20 09:38 | PN- Att Addend ---
Attending Addendum Attending Brief Note Patient seen and examined. Resting comfortably and not in any acute distress. No issues overnight reported by nursing staff. He reports feeling well. Denies cough or shortness of breath. Denies chest pain or palpitations. He remains afebrile hemodynamically stable. He continues to maintain saturation his baseline 3 L of oxygen. HEENT: Anicteric, no pallor Heart: S1-S2 regular Lungs: Fair entry bilaterally, clear to auscultation Abdomen: Soft, nontender with normal bowel sounds Extremities: Bilateral lower extremity right greater than left; chronic Skin: Intact Problems: 1. COPD exacerbation 2. Chronic respiratory failure 3. Possible pneumonia empirically treated with antibiotics per the ID service. 4. Chronic hyponatremia; possibly secondary to SIADH 5. Chronic neutropenia; unknown etiology. Plan: -Patient medically stable to be discharged home today. -He will continue on doxycycline as recommended by the ID service. -He'll continue on the prednisone taper and follow-up with the pulmonology service as an outpatient. -He'll follow-up with the hematology service as an outpatient for his Neupogen injections as needed
[2017-06-20] MEDS ORDERED: NEUPOGEN300 MCG/1 SC (10:03)
[2017-06-20] MEDS ORDERED: DOXYCYCLINE HY100 M2 PO (10:31)
--- NOTE | 2017-06-20 13:30 | PN- Infect Dx ---
Subjective Subjective: No fever, less cough. Review of Systems Comments: 12 points reviewed as noted, otherwise negative. Objective Last 24 Hrs of Vital Signs/I&O Vital Signs Date Time Temp Pulse Resp B/P B/P Pulse O2 O2 Flow FiO2 Mean Ox Delivery Rate 06/20 0857 100 Nasal 3.0L Cannula 06/20 0800 Nasal Cannula 06/20 0656 98.0 76 20 108/42 100 06/20 0000 Nasal 3.0L Cannula 06/19 2239 97.9 78 19 128/70 99 Nasal 3.0L Cannula 06/19 1920 99 Nasal 3.0L Cannula 06/19 1600 95 Nasal 3.0L Cannula 06/19 1423 97.8 77 20 125/70 95 Intake & Output 06/20 1600 06/20 0800 06/20 0000 Intake Total 10 840 Output Total Balance 10 840 Intake, IV 10 Intake, Oral 840 Physical Exam Other Physical Findings: General Appearance Alert, Oriented X3, Cooperative, No Acute Distress Skin No Rashes, No Breakdown Skin Temp/Moisture Exam: Warm/Dry HEENT Atraumatic, PERRLA, EOMI, Mucous Membr. moist/pink Cardiovascular Normal S1, Normal S2, no gallop Lungs BS present, no expiratory wheezes, no rales, few rhonchi Abdomen Normal Bowel Sounds, Soft, No Tenderness Extremities 1+ pedal edema bilaterally Results Last 24 Hours of Lab Results: Laboratory Tests 06/20 06/19 0640 1828 Chemistry Sodium (137 - 145 mmol/L) 129 L Potassium (3.5 - 5.1 mmol/L) 3.9 Chloride (98 - 107 mmol/L) 87 L Carbon Dioxide (22 - 30 mmol/L) 35 H Anion Gap (5 - 16) 6 BUN (9 - 20 mg/dL) 19 Creatinine (0.7 - 1.2 mg/dL) 0.8 Estimated GFR (>60 ml/min) > 60 BUN/Creatinine Ratio (7 - 25 %) 23.8 Hematology CBC w Diff NO MAN DIFF REQ WBC (4.8 - 10.8 /CUMM) 6.1 RBC (4.70 - 6.10 /CUMM) 3.27 L Hgb (14.0 - 18.0 G/DL) 8.3 L Hct (42 - 52 %) 25.5 L MCV (80.0 - 94.0 FL) 78.1 L MCH (27.0 - 31.0 PG) 25.3 L RDW (11.5 - 14.5 %) 17.9 H Plt Count (130 - 400 /CUMM) 88 L MPV (7.4 - 10.4 FL) 7.2 L Gran % (42.2 - 75.2 %) 58.1 Lymphocytes % (20.5 - 51.1 %) 37.4 Monocytes % (1.7 - 9.3 %) 4.4 Eosinophils % (0 - 5 %) 0 Basophils % (0.0 - 2.0 %) 0.1 Absolute Granulocytes (1.4 - 6.5 /CUMM) 3.6 Absolute Lymphocytes (1.2 - 3.4 /CUMM) 2.3 Absolute Monocytes (0.10 - 0.60 /CUMM) 0.3 Absolute Eosinophils (0.0 - 0.7 /CUMM) 0 Absolute Basophils (0.0 - 0.2 /CUMM) 0 PUBS MCHC (33.0 - 37.0 G/DL) 32.3 L Urines Urine Osmolality (300 - 1000 MOSM/KG) 272 L Last 24 Hours of Edd Results: EC #: [id number] DARRYN: 06/19/17 STATUS: CAN RECD: 06/19/[address]: DOREEN HUBBARD,BETHANY SOURCE: LOWER RESP ENTR: 06/19/17 [facility] DR: [place] HUBBARD,MAIKEL SPDESC: SPUTUM CHANTALE HUBBARD,SAPNA Manzano ORDERED: LOWER RESPIRATO Procedure Result CANCELLED NUMBER OF SQUAMOUS CELLS INDICATES POOR QUALITY SPECIMEN PLEASE RECOLLECT. DENNISERN CALLED TO PATIENT UNIT (INPATIENT) OR PHYSICIANS OFFICE (OUTPATIENT) Recent Imaging Studies: n/a Assessment/Plan Impression: 87-year-old man immunocompromised with a presumptive diagnosis of T-cell lymphoproliferative disorder, leukopenia/neutropenia, rheumatoid arthritis prednisone 10 mg daily, COPD O2 dependent 3L N/C admitted today with acute acute bronchitis/bronchiecatsis/possible LLL developing pneumonia. Abnormal CBC; worsening neutropenia previous day; WBC trending up; patient clinically improving; sputum cx nondiagnostic (numerous epith cells). Suggestion: 1. Discontinue empiric tx w/ iv Ceftazidime; cont doxycycline 100 mg po bid for total 7 d; side effects d/w patient in detail 2. Trend CBC/BMP as OP in 1 week from discharge. 3. F/u hem onc as OP.
--- NOTE | 2017-06-20 21:56 | Discharge Summary ---
Visit Information Visit Dates Admission Date: 06/17/17 Discharge Date: 06/20/17 Hospital Course Course Attending Physician: SKYLER QUINN MD Primary Care Physician: CHANTALE HUBBARD,SAPNA Manzano Hospital Course: This is a very pleasant 87-year-old gentleman with a past medical history of rheumatoid arthritis, possible MDS, chronic neutropenia of unknown etiology currently being managed by filgrastim and prednisone, COPD on 3 L baseline, multiple previous admissions including recent one in March for ESBL pneumonia acquiring IV meropenem, presented with 1 day history of dyspnea, and increased productive cough (clear). Denied chest pain,palpitation,orthopnea,PND, or increased lower extremity swelling. No reported fever or chills at home, no sick contacts, no recent travel. ED course: Vital signs on admission: Temperature 97.7, pulse 81, respiratory 21, BP 118/55, O2 sats 98% on 3L. Physical examination was remarkable for bilateral expiratory wheezes and + 2 lower extremity edema. Other physical findings were unremarkable. CXR: Distant left lower lobe consolidation. However CT chest did not correlate these findings. Labs unremarkable for leukocytosis. Pt was given a one-time dose of vancomycin at the ED and started on ceftazidime 1 g every 8h and then admitted for evaluation and management of possible pneumonia, COPD exacerbation The following issues are being addressed during this hospital stay: #AECOPD Most likely secondary to acute bronchitis. Even though chest x-ray was suggestive of possible left lower lobe pneumonia, CT results did not collaborate this finding. He was also noted to be afebrile (even though this could be affected by steroids). Pt was managed with Ipratropium/albuterol nebs and Solumedrol IV. As his respiratory conditioned improved during subsequent day, was he was switched to Prednisone 40 mg, and durind discharge was instructed to taper down to his daily 10 mg. #Possible PNA versus acute bronchitis Given his recent hx of ESBL PNA requiring IV meropenem and hx of Pseudomonas PNA , there was low threshold to start him on ABX. CXR suggested LLL consolidation, however CT chest did not show any acute infectious pathology. Pt was initally empirically started on ceftazidime. On day 2 of admission ID saw the patient and he was noted to have a "junky" colorful expecotrant, Doxyxcyline 100 mg po bid was then added for empirical coverage of MRSA pending cultures. Pt had difficulty providing adequate sputum culture, 3 sputum cultures sent to lab on different occasion were deemed inadeqaute. Pt respiratory status improved day by day and was afebrile throughout admission. Based on ID reccomendation, ceftazidime was stopped on third day, and patient was discharged with doxyxcyline for a total course of 7 days for treatment of porbable MRSA PNA. #Hx of Neutropenia Chronic of unknown etiology being followed by Hem/onc on an outpatient basis and managed by week Filgastrim and prednisone. Heme/onc was consulted, reccomended daily Filgastrim dosing. WBC normalized from 3.3 on admission to 6.1 on discharge date. Pt was instructed to continue f/u with heme/onc. #LE edema Chronic. no hx of CHF or acute clinical signs suggestive of new onsent ADHF. Continued Lasix home dosage during hospital stay. #Hx of RA No acute worsening noted during hospital stay. #CT chest findings of coronary calification (Chronic) These findings were not new compared to previous CT chest. Patient does have suggestive hx of CAD, previous cath was remarkable for chronically and 100% occluded proximal RCA which was deemed not amenable to revascularization via cath. Patient is already being medically managed by ASA and statin. During this hospital stay, pt did not complain of any chest pain, EKG was unremarkable for any acute ischemic changes, and troponins were non elevated. Allergies: Coded Allergies: NO KNOWN ALLERGIES (04/23/12) Disposition Summary Disposition Principal Diagnosis: AECOPD Additional Diagnosis: Acute bronchitis vs PNA Discharge Disposition: home or self care Discharge Instructions General Discharge Information Code Status: Full Code Patient's Diet: REGULAR Patient's Activity: TOLERATED Follow-Up Instructions/Appts: Pt is to follow up with PCP,Campus Administrative Assistant, and Heme/onc within 1 week. Pt is to complete his doxycline abx for a total of 7 days. Medications at Discharge Discharge Medications: Continue taking these medications: Tiotropium [place] (Spiriva) 18 MCG CAP.W.DEV 1 Capsule Inhale through mouth DAILY Qty = 90 Comments: Last Taken: 06/20/17 Time: 9:45 AM Alendronate Sodium (Alendronate Sodium) 70 MG TABLET 1 Tablet ORAL EVERY THURSDAY Qty = 12 Instructions: in the morning, at least 30 minutes before the first food, beverage, or medication of the day Comments: NOT GIVEN Omeprazole (Omeprazole) 20 MG CAPSULE.DR 1 Capsule ORAL DAILY Qty = 90 Comments: Last Taken: 06/20/17 Time: 9:45 AM Albuterol Sulfate (Proair Hfa) 8.5 GM HFA.AER.AD 2 Puff Inhale through mouth Q4H as needed for COPD Qty = 9 Comments: NOT GIVEN IN HOSPITAL Psyllium Husk (Metamucil) 660 GM POWDER 1 Packet ORAL as needed for CONSTIPATION Comments: NOT GIVEN IN HOSPITAL Albuterol Sulfate (Albuterol Sulfate) 2.5 MG/3 ML VIAL.NEB 1 Vial Inhale Solution EVERY 4 HOURS NEEDED as needed for COPD EXACERBATION Days = 30 Comments: Last Taken: 06/20/17 Time: 9:00 AM Multivitamin (Daily Multiple Vitamin) 1 EACH TABLET 1 Tablet ORAL DAILY Comments: NOT GIVEN Atorvastatin Calcium (Atorvastatin Calcium) 20 MG TABLET 1 Tablet ORAL DAILY Qty = 30 Comments: Last Taken: 06/19/17 Time: 5:00 PM Aspirin (Aspirin*) 81 MG TAB.CHEW 1 Tablet ORAL DAILY Comments: Last Taken: 06/20/17 Time: 9:45 AM Cholecalciferol (Vitamin D3) (Vitamin D) 400 UNIT TABLET 1 Tablet ORAL DAILY Comments: Last Taken: 06/20/17 Time: 9:45 AM Fluticasone/Salmeterol (Advair 250-50 Diskus) 250 MCG-50 MCG/DOSE BLST.W.DEV 1 Puff Inhale through mouth TWICE DAILY Qty = 60 Comments: Last Taken: 06/20/17 Time: 9:45 AM Prednisone (Prednisone) 10 MG TABLET 1 Tablet ORAL DAILY Comments: START 06/26/17 AFTER TAPER COMPLETE Furosemide (Lasix) 40 MG TABLET 1.5 Tablet ORAL TWICE DAILY Qty = 90 Comments: Last Taken: 06/20/17 Time: 9:45 AM Filgrastim (Neupogen) 300 MCG/ML VIAL 1 VIAL Inject into fatty tissue WEEKLY Comments: Last Taken: 06/20/17 Time: 11:30 AM Start taking the following new medications: Doxycycline Hyclate (Doxycycline Hyclate) 100 MG CAPSULE 100 Milligram ORAL TWICE DAILY Qty = 8 No Refills Comments: Last Taken: 06/20/17 Time: 9:45 AM Prednisone (Prednisone) 10 MG TABLET 1 Tablet ORAL SEE INSTRUCTIONS Qty = 14 No Refills Instructions: SEE ROSALINDA D/Phoebe Comments: TAKE 4 TABLETS ON 06/21 TAKE 3 TABLETS ON 06/22 AND 06/23 TAKE 2 TABLETS ON 06/24 AND 06/25 THEN STOP AND RESUME YOUR REGULAR 10 MG TABLET DAILY DOSE ON 06/26 Last Taken: 06/20/17 Time: 9:45 AM Copies To: THAO HUBBARD,SAPNA De La Vega; CHANTALE HUBBARD,SAPNA Manzano Attending MD Review Statement Documenting Attending: SKYLER QUINN M.D Other Findings: I have reviewed the discharge summary.
== END 2017-06-20 13:45 | disposition home health service (06) | DRG 190 ==
LOC: ERH 07:52 → 2NB 10:09 → ERHI 10:09 → 2NB 10:09 → ENRESERV 22:42 → 2NB 06-18 01:05 → ENPENDDIS 06-20 10:27 → 2NB 06-20 13:45
PROVIDERS: Physician Assistant; Student in an Organized Health Care Education/Training Program; ADMIT Hospitalist
DX: J44.0 Chronic obstructive pulmonary disease with (acute) lower respiratory infection (principal); J15.211 Pneumonia due to Methicillin susceptible Staphylococcus aureus; I50.33 Acute on chronic diastolic (congestive) heart failure; J96.10 Chronic respiratory failure, unspecified whether with hypoxia or hypercapnia; D61.818 Other pancytopenia; E22.2 Syndrome of inappropriate secretion of antidiuretic hormone; Z99.81 Dependence on supplemental oxygen; M06.9 Rheumatoid arthritis, unspecified; D47.9 Neoplasm of uncertain behavior of lymphoid, hematopoietic and related tissue, unspecified; Z87.01 Personal history of pneumonia (recurrent); J20.9 Acute bronchitis, unspecified; J44.1 Chronic obstructive pulmonary disease with (acute) exacerbation; Z66 Do not resuscitate; I25.2 Old myocardial infarction
CPT/HCPCS: 2NBP; ERO; 36415; 82436; 87040; 87070; 87449; 87450; 93005; 93010; 96365; J0713; J1442; J1644; J2920; J2930; J3370; J3490; J7040